=== PATIENT | female | born 1940 | race Caucasian/White ===

== ENCOUNTER 2016-07-01 06:58 | Day surgery (SDC) | payer MEDICARE, OTHER ==
[2016-06-27 09:20] VITALS: BMI 44.2
[~2016-07-01 06:58] MED LIST: LACTATED RINGERS 1,000 ML IV SCH
[2016-07-01 07:55] VITALS: TEMP 98.3
[2016-07-01] MEDS ORDERED: LIDOCAINE 1% 20 ML VIAL (10MG/ML) FOR IV START INTRADERMA ONE (08:11)
[2016-07-01] MEDS ORDERED: LACTATED RINGERS 1,000 ML IV ONE (08:11)
[2016-07-01 08:15] LABS: Glucose,Whole Blood 139 mg/dL (75-99)
[2016-07-01] MEDS ORDERED: fentaNYL (PF) 50 MCG/ML 2 ML AMP ONE (08:40)
[2016-07-01] MEDS ORDERED: TRIAMCINOLONE ACETONIDE 40 MG/ML 1 ML VIAL ONE (08:40)
[2016-07-01] MEDS ORDERED: BUPIVACAINE (PF) 0.5% 30 ML VIAL ONE (08:40)
[2016-07-01] MEDS ORDERED: MIDAZOLAM 2 MG/2 ML VIAL ONE (08:40)
--- NOTE | 2016-07-01 09:15 | P.PCN ---
Date of Procedure: 07/01/16 Procedure(s) Performed: PREOPERATIVE DIAGNOSIS: 1-Lumbar Spondylosis with Facet Arthropathy without myelopathy. 2- Lumber degenerative disc disease POSTOPERATIVE DIAGNOSIS: 1- Lumbar Spondylosis with Facet Arthropathy without myelopathy. 2- Lumber degenerative disc disease PROCEDURES : Right Radiofrequency thermocoagulation, L3-L4, L4-L5, and L5-S1 medial branch, with fluoroscopic guidance ANESTHESIA: IV sedation with versed 1 mg and fentaneyl 50 mcg and local infiltration with lidocaine 1% 6 ml EBL: Minimal PROCEDURE INDICATION: The patient with low back pain secondary to lumbar facet arthropathy who had more than 50% relief of her pain with previous diagnostic lumbar medial branch block with bupivacaine. PROCEDURE DESCRIPTION / TECHNIQUE: The patient was seen and identified in the preoperative area. Risks, benefits, complications, including but not limited to risk of infection ,bleeding , allergic reactions to the medications and no complete pain releife , and alternatives were discussed with the patient, the patient agreed to proceed with the procedure and signed the consent. IV was started. Vital signs remained stable throughout the procedure. Patient was taken to the OR and time out was completed. The patient was placed in the prone position on the procedure table. The lumber area was prepped and draped in the usual sterile fashion. . Vital signs were closely monitored during the procedure .IV sedation was used during the procedure to decrease patients anxiety. Using AP and then oblique fluoroscopy, the eye of the Pravin dog corresponding to the connection between the superior and transverse articular processes of right L3, L4, and L5 were identified, marked, and localized with 1 % lidocaine. Subsequently, a 18 [id number] radiofrequency cannula with a 10- mm active tip was advanced guided by fluoroscopy to each of the eyes of the Pravin dog at right L3, L4, and L5. Each site then underwent sensory testing at 50 Hz and 0 to 1 volt and motor testing at 2.5 Hz and 0 to 3 volt with local stimulation, but no radicular symptoms down the legs. Thereafter the right L3-4, L4-5, and L5-S1 sites underwent radiofrequency thermocoagulation at 80 degrees celsius for 90 seconds after injecting 0.5 ml of PF lidocaine 1%. then After the thermocoagulation done , 1 ml of the block solution containing Kenalog 40 mg and 3 ml of marain 0.5% was injected at the right L3- 4 , L4-5 , and L5-S1, levels after negative aspiration of CSF and blood and with no paresthesias. Cannulas were retracted while injecting lidocaine 1% until the needle is out. At the end of the procedure, the skin was cleansed and bandages were applied. COMPLICATIONS: No acute complications. DISPOSITION / PLANS: The patient was placed in a supine position and transferred to the recovery area in a stable condition for observation and was discharged from the recovery room after meeting discharge criteria. Home discharge instructions given to the patient by the staff. The patient was reexamined prior to discharge. The patient will schedule a follow up in the clinic in 2-4 weeks.
[2016-07-01] MEDS ORDERED: IV FLUID CONTINUATION 1,000 ML IV ONE (09:19)
--- NOTE | 2016-07-01 09:21 | FL ---
Fluoroscopy HISTORY: Pain 36 seconds fluoroscopy time supplied to the referring clinician. 4 intraoperative C-arm images docum ent the procedure. See dictated report from anesthesia.
[2016-07-01 09:24] VITALS: RESP 16
[2016-07-01 09:36] VITALS: BP 109/60; PULSE 55
== END 2016-07-01 09:58 | disposition home or self-care (01) ==
LOC: ORPAIN 06:58
PROVIDERS: ATTEND Specialist
DX: M47.816 Spondylosis without myelopathy or radiculopathy, lumbar region (principal); M51.16 Intervertebral disc disorders with radiculopathy, lumbar region; M46.96 Unspecified inflammatory spondylopathy, lumbar region; M48.06 Spinal stenosis, lumbar region; Z88.1 Allergy status to other antibiotic agents; Z88.2 Allergy status to sulfonamides
CPT/HCPCS: 64635; 64636; J2250; J3301; J3010

== ENCOUNTER 2016-08-10 15:12 | Emergency (ER) | payer MEDICARE, OTHER ==
[2016-08-10] MEDS ORDERED: DIPH,PERTUS(ACELL)TETVAC-LF 0.5 ML VIAL IM ONE (15:41)
--- NOTE | 2016-08-10 15:44 | ED ---
General Adult HPI - General Chief complaint: Fall Stated complaint: left arm injury/ Fell on Thursday Time Seen by Provider: 08/10/16 15:29 Source: patient, RN notes reviewed Mode of arrival: wheelchair Limitations: no limitations - History of Present Illness Initial comments: Patient is 76-year-old female who presents emergency room today with a chief complaint of a fall that occurred 2 days ago. She does admit that she was in her bathroom her knees gave out and she fell hitting the left forearm and also hit her head on the toilet. She states was no loss consciousness. EMS did come to the scene and dressed her left arm. States she's been having increased pain to the left arm. Denies any headache. Does admit that she is on a blood thinner of Eliqust that she takes for her heart. Patient states that his had increased pain to the left wrist hand worse with movements. Does admit to a skin tear to the right forearm. Unsure of tetanus status. Does admit to cough congestion over the last month. States she's been on 2 rounds of antibiotics. Please she just recently finished Levaquin. Denies any other complaints. Unaware of fever. Patient denies any recent fever, chills, shortness of breath, chest pain, back pain, abdominal pain, nausea or vomiting, numbness or tingling , dysuria or hematuria, constipation or diarrhea, headaches or visual changes, or any other complaints. - Related Data Home Medications Medication Instructions Recorded Confirmed Aspirin 81 mg PO DAILY 12/12/13 08/10/16 Atorvastatin [Lipitor] 40 mg PO HS 12/12/13 08/10/16 Cholecalciferol [Vitamin D3] 2,000 unit PO DAILY 12/12/13 08/10/16 Citalopram Hydrobromide 20 mg PO QAM 12/12/13 08/10/16 [Citalopram HBr] Diltiazem HCl [Diltiazem 24Hr ER] 180 mg PO AC-SUPPER 12/12/13 08/10/16 Docusate Sodium [Stool Softener] 100 mg PO DAILY PRN 12/12/13 08/10/16 Furosemide [Furosemide] 40 mg PO QAM 12/12/13 08/10/16 Glimepiride [Glimepiride] 2 mg PO BID 12/12/13 08/10/16 Oxybutynin Chloride [Ditropan] 5 mg PO BID 12/12/13 08/10/16 Potassium Chloride [Klor-Con 10] 10 meq PO QAM 12/12/13 08/10/16 buPROPion HCL [Bupropion HCl Sr] 100 mg PO BID 12/12/13 08/10/16 Levothyroxine Sodium [Synthroid] 137 mcg PO QAM 12/14/13 08/10/16 Fluticasone/Salmeterol [Advair 1 puff INHALATION RT-BID 01/10/14 08/10/16 250-50 Diskus] Cyanocobalamin [Vitamin B-12] 500 mcg PO DAILY 08/04/14 08/10/16 ALPRAZolam [Xanax] 0.5 mg PO DAILY PRN 03/12/15 08/10/16 Pentoxifylline [TRENtal] 400 mg PO TID 09/10/15 08/10/16 Albuterol Sulfate [Proair Hfa] 2 inhalation INHALATION RT-TID PRN 05/27/1608/10 Apixaban [Eliquis] 5 mg PO BID 05/27/16 08/10/16 Linaclotide [Linzess] 145 mcg PO DAILY 05/27/16 08/10/16 Omeprazole 20 mg PO DAILY 05/27/16 08/10/16 Ferrous Sulfate [Feosol] 325 mg PO DAILY 08/10/16 08/10/16 Loratadine [Claritin] 10 mg PO DAILY 08/10/16 08/10/16 oxyCODONE-APAP 7.5-325MG [Percocet 1 tab PO TID PRN 08/10/16 08/10/16 7.5-325 mg] Previous Rx's Medication Instructions Recorded Gabapentin [Neurontin] 400 mg PO TID #90 cap 03/20/16 Nitrofurantoin Monohyd/M-Cryst 100 mg PO Q12HR #14 cap 08/10/16 [Macrobid] Allergies Allergy/AdvReac Type Severity Reaction Status Date / Time ciprofloxacin HCl AdvReac Nausea Verified 08/10/16 15:54 [From Cipro] Sulfa (Sulfonamide AdvReac Nausea Verified 08/10/16 15:54 Antibiotics) Review of Systems ROS Statement: Those systems with pertinent positive or pertinent negative responses have been documented in the HPI. ROS Other: All systems not noted in ROS Statement are negative. Past Medical History Past Medical History: Asthma, Diabetes Mellitus, Hyperlipidemia, Hypertension, Renal Disease, Thyroid Disorder Additional Past Medical History / Comment(s): Hx renal failure,ulcerative colitis,peripheral edema History of Any Multi-Drug Resistant Organisms: None Reported Past Surgical History: Appendectomy, Hysterectomy, Orthopedic Surgery, Tubal Ligation Additional Past Surgical History / Comment(s): Foot surg., nasal surg., CHRISSY CATARACTS. Past Anesthesia/Blood Transfusion Reactions: No Reported Reaction Past Psychological History: Anxiety, Depression Smoking Status: Never smoker Past Alcohol Use History: None Reported Past Drug Use History: None Reported - Past Family History Father Family Medical History: Cancer Additional Family Medical History / Comment(s): LUNG CA General Exam - General Exam Comments Initial Comments: General: The patient is awake and alert, in no distress, and does not appear acutely ill. Eye: Pupils are equal, round and reactive to light, extra-ocular movements are intact. No nystagmus. There is normal conjunctiva bilaterally. No signs of icterus. Ears, nose, mouth and throat: There are moist mucous membranes and no oral lesions. Neck: The neck is supple, there is no tenderness or JVD. Cardiovascular: There is a regular rate and rhythm. No murmur, rub or gallop is appreciated. Respiratory: Lungs are clear to auscultation, respirations are non-labored, breath sounds are equal. No wheezes, stridor, rales, or rhonchi. Gastrointestinal: Soft, non-distended, non-tender abdomen without masses or organomegaly noted. There is no rebound or guarding present. No CVA tenderness. Bowel sounds are unremarkable. Musculoskeletal: Concerta the right forearm. No active bleeding. Normal appearance of the left forearm and wrist and hand with no obvious deformity. Shows limited range of motion with flexion and extension at the left wrist. Full range of motion of the left hand able to flex and extend digits. Sensations intact. Pulses equal bilaterally 2+. Patient does have tenderness to palpation over the first metacarpal into the both distal radius and ulna able to pronate and supinate. No tenderness to the left elbow or shoulder. Sensation intact. Pulses equal bilaterally 2+. Neurological: A&O x 3. CN II-XII intact, There are no obvious motor or sensory deficits. Coordination appears grossly intact. Speech is normal. Skin: Skin is warm and dry and no rashes or lesions are noted. Psychiatric: Cooperative, appropriate mood & affect, normal judgment. Limitations: no limitations Course Vital Signs 08/10/16 15:20 Temperature 101.0 F H Pulse Rate 84 Respiratory 22 Rate Blood Pressure 179/76 O2 Sat by Pulse 93 L Oximetry Medical Decision Making - Medical Decision Making Patient's x-rays reviewed shows no acute fracture dislocation. Chest x-ray negative for any sign of pneumonia. Has had cough congestion over the last month and several on rounds of antibiotics. This time advised mostly viral illness causing cough congestion. Patient's vitals are stable here in the past have a fever. Patient does have urinary tract infection will be started on Macrobid to cover for UTI. Patient was seen by attending physician Dr. Pacheco at bedside. Does have tenderness with movement of the left wrist. Has been splinted in a short arm volar OCL. Neurovascular rechecked and intact. Patient will be discharged home advised follow-up with both her family doctor and orthopedics. Advised return if any symptoms increase or worsen or for any other concerns. - Lab Data Lab Results 08/10/16 08/10/16 Range/Units 16:20 16:45 Urine Color Yellow Urine Appearance Cloudy H (Clear) Urine pH 6.0 (5.0-8.0) Ur Specific [place] 1.010 (1.001-1.035) Urine Protein Negative (Negative) Urine Glucose (UA) Negative (Negative) Urine Ketones Negative (Negative) Urine Blood Trace H (Negative) Urine Nitrate Negative (Negative) Urine Bilirubin Negative (Negative) Urine Urobilinogen <2.0 (<2.0) mg/dL Ur Leukocyte Esterase Large H (Negative) Urine RBC 3 (0-5) /hpf Urine WBC >182 H (0-5) /hpf Ur Squamous Epith Cells <1 (0-4) /hpf Urine Mucus Rare H (None) /hpf Influenza Type A RNA Not Detected (Not Detectd) Influenza Type B (PCR) Not Detected (Not Detectd) Disposition Clinical Impression: Fall, Wrist injury, Contusion, Skin tear, UTI (urinary tract infection) Disposition: HOME SELF-CARE Condition: Good Instructions: Wrist Injury (ED) Additional Instructions: Please follow-up with orthopedics for your wrist over the next 2 days. Please see splinted in place until follow-up appointment. Please continue to ice elevate the affected area. Please use antibiotic as prescribed for urinary tract infection. Please use Tylenol for any fevers. Please follow-up with the family doctor to have repeat urinalysis over the next week. Please return to emergency room for any other concerns. Prescriptions: Nitrofurantoin Monohyd/M-Cryst [Macrobid] 100 mg PO Q12HR #14 cap Referrals: Amira Washburn MD [Primary Care Provider] - 1-2 days Jin Ferrera MD [STAFF PHYSICIAN] - 1-2 days Time of Disposition: 17:20
--- NOTE | 2016-08-10 16:10 | CT ---
EXAMINATION TYPE: CT brain wo con DATE OF EXAM: 08/10/2016 4:03 PM COMPARISON: Previous study dated 11/17/2014 HISTORY: Fall 2 days ago. Injury to top of head. CT DLP: 1214.20 mGycm Automated exposure control for dose reduction was used. FINDINGS: There are generalized changes of sulcal prominence and ventriculomegaly, compatible with atrophic rae nge. There is diffuse periventricular white matter lucency, compatible with chronic white matter isch emic change. 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 There is no acute focal lesion, mass effect or midline shift identified. I do not see evidence of int racranial blood. There have been previous [place] Ethan procedures as well as ethmoidectomies bilaterally. There is dorene r complete opacification of the left sphenoid sinus, unchanged from previous. No depressed skull frac ture is seen. IMPRESSION: 1. NO ACUTE INTRACRANIAL ABNORMALITY. 2. ATROPHIC CHANGE. 3. CHRONIC WHITE MATTER ISCHEMIC CHANGE. 4. POSTSURGICAL CHANGE. 5. 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
--- NOTE | 2016-08-10 16:27 | XR ---
EXAMINATION TYPE: XR hand complete LT DATE OF EXAM ORDERED: 08/10/2016 4:10 PM HISTORY: Pain. COMPARISON: None. FINDINGS: There are generalized changes of osteopenia likely on the basis of osteoporosis. There are degenerative changes in the left second MCP joint. There are severe degenerative changes at the base of the thumb as well as the triscaphe joint. There is also significant joint space loss in the proxi mal carpal row with remodeling of the lunate. There is some hypertrophic change in the DIP joint of t he index finger. IMPRESSION: 1. NO ACUTE OSSEOUS LESION. 2. MODERATE DEGENERATIVE CHANGE.
--- NOTE | 2016-08-10 16:29 | XR ---
EXAMINATION TYPE: XR wrist complete LT DATE OF EXAM ORDERED: 08/10/2016 4:11 PM HISTORY: Pain. COMPARISON: None. FINDINGS: There is severe degenerative change at the base of the thumb at the articulation of the fi rst metacarpal with the trapezium. There are significant triscaphe joint disease. There is loss of th e intercarpal row. There is remodeling changes in the lunate. There is an ossific fragment adjacent t o the ulnar styloid. This appears well-corticated and may relate to a previous injury. Alternatively, this may root represent calcification within the triangular fibrocartilage. IMPRESSION: 1. NO ACUTE OSSEOUS LESION. 2. MODERATE DEGENERATIVE CHANGE.
--- NOTE | 2016-08-10 16:30 | XR ---
EXAMINATION TYPE: XR chest 2V DATE OF EXAM: 08/10/2016 4:11 PM HISTORY: cough. REFERENCE: Previous study dated 07/06/2013. FINDINGS: The lungs appear clear. Pleural spaces are clear. Heart size is upper limits of normal. The re is chronic appearing elevation of the right hemidiaphragm. IMPRESSION: NO ACUTE INTRATHORACIC ABNORMALITY.
[2016-08-10 16:55] LABS: Appearance,Urine Cloudy (Clear); Bilirubin,Urine Negative (Negative); Glucose,Urine (UA) Negative (Negative); Ketones,Urine Negative (Negative); Leukocyte Esterase,Urine Large (Negative); Mucus,Urine Rare /hpf; Nitrite,Urine Negative (Negative); Particle Count 6115; Protein,Urine Negative (Negative); RBC,Urine 3 /hpf (0-5); Squamous Epithelial Cell,Urine <1 /hpf (0-4); UA Billing (MACRO vs. MICRO) MICRO; Urobilinogen,Urine <2.0 mg/dL (<2.0); WBC,Urine >182 /hpf (0-5)
[2016-08-10 17:41] VITALS: BP 136/61; PULSE 97; RESP 18; TEMP 100.3
== END 2016-08-10 17:41 | disposition home or self-care (01) ==
LOC: EC 15:12
DX: S56.912A Strain of unspecified muscles, fascia and tendons at forearm level, left arm, initial encounter (principal); S69.92XA Unspecified injury of left wrist, hand and finger(s), initial encounter; N39.0 Urinary tract infection, site not specified; J45.909 Unspecified asthma, uncomplicated; E11.9 Type 2 diabetes mellitus without complications; I10 Essential (primary) hypertension; E78.5 Hyperlipidemia, unspecified; E07.9 Disorder of thyroid, unspecified; F41.9 Anxiety disorder, unspecified; F32.9 Major depressive disorder, single episode, unspecified; Z23 Encounter for immunization; Z79.82 Long term (current) use of aspirin; Z79.51 Long term (current) use of inhaled steroids; Z79.52 Long term (current) use of systemic steroids; Z79.899 Other long term (current) drug therapy; Z79.01 Long term (current) use of anticoagulants; Z88.1 Allergy status to other antibiotic agents; Z88.2 Allergy status to sulfonamides; Z87.448 Personal history of other diseases of urinary system; W01.198A Fall on same level from slipping, tripping and stumbling with subsequent striking against other object, initial encounter; Y92.89 Other specified places as the place of occurrence of the external cause
CPT/HCPCS: 70450; 71020; 81001; 87077; 87086; 87186; 87502; 90471; 90715; 99284

== ENCOUNTER → 2016-08-27 | Outpatient (CLI) | payer MEDICARE, OTHER ==
[2016-08-27 13:39] VITALS: BP 123/75; PULSE 71; RESP 18
--- NOTE | 2016-08-27 14:03 | P.PN ---
Subjective This is follow-up visit for this patient with a history of severe and chronic low back pain secondary to lumbar degenerative disc disease lumbar facet arthropathy, we have done interventional pain management injection, radiofrequency ablation, medial branch lumbar area And she is currently on 1-Neurontin 400 mg every 8 hours 2- 67.5/325 every 6 hours Tissue and fell at home recently and she had left wrist fracture, and currently she had a cast on her left wrist Patient denies any side effects of the medication, denies excessive drowsiness or sleepiness, denies suicidal ideation, and reports that the current pain medication is helping To control the pain and improve activity of daily living Physical Examinations : 1-Constitutiona : Cooperative , not in acute distress . 2-HEENT : nech ; supple , no Lymphadenopathy , no Thyromegaly , normal thyroid size . eyes : no ptosis , no icterus, no photophobia . ENT : normal of hearing , normal oropharynx , no Thrush . 3- Respiratory : Chest clear to auscultations Bilaterally , no wheezing , no Rhonchi . 4- Cardiovascular : regular rate and rhythem , S1 , S2 , no S3 , no S4. 5- Gastrointestinal : abdomen soft no tenderness , bowel sounds positive all four quadrents , no organomegally . 6- Genitourinary : Defferred . 7- neurologic : Cranial nerve II to XII intact , no focal neurological deffecit . 8-psychatric : alert , oriented X 3 , appropriate affect , intact judgment and insight . 9-Lymphatic : no Lymphadenopathy . 10- musculoskeltal : Test over the left wrist exams of the Lumber spine = motor strength lower extremities ,thigh and legs .4/5 deep tendon reflexes : normal Knee Jerk , normal ankle Jerk . lumber facet Loading Test positive Assessment and plan = - Chronic low back pain secondary to lumbar degenerative disc disease , lumbar spondylosis with facet arthropathy without myelopathy , - chronic and current use of high-risk medication (Opioids). The patient was counseled about risk of opioid use, psychological risk associated with opioids and was orally counseled to not overuse , divert,or sell dictations to take medications as prescribed only , and to restore medication in safe location , and the patient counseled against driving while using narcotic medications, and also not to use alcohol or any illicit recreational drugs, the patient's verbalized understanding that the lack of compliance will result in failure to renew narcotic prescription and possible discharge from the clinic - diagnoses, prognosis, and treatment options including but not limited to physical therapy, surgical interventions, interventional therapies , and medication management including narcotics and adjuvant medication were discussed with the patient and all The questions answered -medication management = refill Percocet 7.5/325 every 6 hours when necessary dispense 90 with 1 refill Referring Neurontin 400 mg every 8 hours dispense 90 with 1 refill Follow-up in 2 months -procedure=none Objective - Vital Signs Vital signs: Vital Signs Temp Pulse 71 08/27/16 13:32 Resp 18 08/27/16 13:32 BP 123/75 08/27/16 13:32 Pulse Ox 97 08/27/16 13:32 Intake & Output 08/26/16 08/27/16 08/27/16 18:59 06:59 18:59 Weight 115.666 kg
== END ==
LOC: PNWHC3 12:20
PROVIDERS: ATTEND Specialist
DX: M51.36 Other intervertebral disc degeneration, lumbar region (principal); M47.816 Spondylosis without myelopathy or radiculopathy, lumbar region; M46.86 Other specified inflammatory spondylopathies, lumbar region; G89.29 Other chronic pain; Z79.891 Long term (current) use of opiate analgesic
CPT/HCPCS: 99211

== ENCOUNTER → 2016-10-22 | Outpatient (CLI) | payer MEDICARE, OTHER ==
[2016-10-22 15:12] VITALS: BP 146/76; PULSE 69; RESP 16
--- NOTE | 2016-10-22 20:19 | P.PN ---
Subjective This is follow-up visit for this patient with a history of severe and chronic low back pain secondary to lumbar degenerative disc diseases , lumbar spondylosis with facet arthropathy, we have done interventional pain management injection,, diagnostic medial branch block , RFA of the medial branches and is currently on pain medications 1-Neurontin 400 mg 3 times a day 2-Percocet 7.5/325 every 6 hours Patient denies any side effects of the medication, denies excessive drowsiness or sleepiness, denies suicidal ideation, and reports that the current pain medication is helping To control the pain and improve activity of daily living Patient denies any motor or sensory deficit , patient denies any fever or night sweats, denies any change in the bowel movements or urination Physical Examinations : 1-Constitutiona : Cooperative , not in acute distress . 2-HEENT : nech ; supple , no Lymphadenopathy , no Thyromegaly , normal thyroid size . eyes : no ptosis , no icterus, no photophobia . ENT : normal of hearing , normal oropharynx , no Thrush . 3- Respiratory : Chest clear to auscultations Bilaterally , no wheezing , no Rhonchi . 4- Cardiovascular : regular rate and rhythem , S1 , S2 , no S3 , no S4. 5- Gastrointestinal : abdomen soft no tenderness , bowel sounds positive all four quadrents , no organomegally . 6- Genitourinary : Defferred . 7- neurologic : Cranial nerve II to XII intact , no focal neurological deffecit . 8-psychatric : alert , oriented X 3 , appropriate affect , intact judgment and insight . 9-musculoskeletal= lower extremity weakness or motor strength decreased to 3 -4/5 bilaterally Assessment and plan = - Chronic low back pain secondary to lumbar degenerative disc disease , lumbar spondylosis with facet arthropathy without myelopathy , - chronic and current use of high-risk medication (Opioids). The patient was counseled about risk of opioid use, psychological risk associated with opioids and was orally counseled to not overuse , divert,or sell dictations to take medications as prescribed only , and to restore medication in safe location , and the patient counseled against driving while using narcotic medications, and also not to use alcohol or any illicit recreational drugs, the patient's verbalized understanding that the lack of compliance will result in failure to renew narcotic prescription and possible discharge from the clinic - diagnoses, prognosis, and treatment options including but not limited to physical therapy, surgical interventions, interventional therapies , Patient given prescription refill for Percocet 7.5/325 every 6 hours dispense 90 with 1 refill, Neurontin 400 mg 3 times a day dispense 90 with 1 refill Patient given a referral to physical therapy, to help improve her ability to ambulate and function, the patient will follow up with the pain clinic in 2 months Objective - Vital Signs Vital signs: Vital Signs Temp Pulse 69 10/22/16 15:03 Resp 16 10/22/16 15:03 BP 146/76 10/22/16 15:03 Pulse Ox 94 L 10/22/16 15:03 Intake & Output 10/22/16 10/22/16 10/23/16 06:59 18:59 06:59 Weight 115.212 kg
== END ==
LOC: PNWHC3 14:29
PROVIDERS: ATTEND Specialist
DX: M51.36 Other intervertebral disc degeneration, lumbar region (principal); M47.816 Spondylosis without myelopathy or radiculopathy, lumbar region; M46.86 Other specified inflammatory spondylopathies, lumbar region; G89.29 Other chronic pain; Z87.891 Personal history of nicotine dependence
CPT/HCPCS: 99211

== ENCOUNTER → 2016-12-17 | Outpatient (CLI) | payer MEDICARE, OTHER ==
[2016-12-17 14:01] VITALS: BP 139/74; PULSE 73; RESP 20; TEMP 98.4
--- NOTE | 2016-12-17 14:40 | P.PN ---
Progress Note - Text Patient returns for followup for chronic back pain with radiation to both legs. Patient recently underwent R lumbar RFA in July, which has provided some relief since procedure but the left side of her low back is starting to give her problems. Patient continues on Percocet and Neurontin medications for pain with good relief. Patient denies adverse drug effects from medications. Today , pt denies new-onset weakness, bowel/bladder incontinence, or any other signs or symptoms of cauda equina syndrome. There are no signs of acute intoxication, and no indications of medication diversion or overuse. In addition to above, 13-point review of systems is also negative for chest pain , shortness of breath, changes in vision, changes in hearing, new onset weakness , abdominal pain, diarrhea, extreme fatigue, malaise, fever, skin changes, homicidal or suicidal ideation, or bowel or bladder incontinence. Vital Signs: Reviewed in EMR Gen: WDWN, AAOx3, NAD HEENT: NCAT, EOMI, hearing grossly normal Pulm: resp unlabored Abd: soft, NT, ND Neck: supple, trachea midline ROM in flexion lumbar spine: reduced ROM in extension lumbar spine: reduced Lumbar paravertebral tenderness: + Facet loading: + bilateral, L > R SI joint tenderness: + L side > R Jerzy's test: + L > R Straight leg raise: neg bilateral Neuro: CN II-XII grossly intact, muscle strength lower extremities PRESERVED Imaging: Reviewed in EMR Assessment: 1. lumbar spondylosis without myelopathy 2. sacroiliac joint dysfunction 3. chronic pain syndrome Plan: 1. Explanation: Opioid and psychological risk scores were reviewed. Diagnoses , prognoses, and multiple treatment options including but not limited to physical therapy, interventional therapies, adjuvant medical therapies, narcotic medication therapies, and surgery were discussed with the patient and all questions were answered to the patient's satisfaction. 2. Opioid agreement: Patient has previously signed narcotic agreement, and was orally counseled to not overuse, abuse, divert, or cell medications, and to take them as prescribed by only 1 healthcare provider. The patient was also counseled to store opioid medications in a safe and preferably locked location. Patient was also counseled against driving or operating heavy equipment while using narcotic medications and also to not use alcohol or any illicit or recreational drugs. The patient verbalized understanding that lack of compliance with any of the above and likely result in failure to renew narcotic prescriptions, possible discharge from the clinic, and possible legal ramifications thereafter if indicated. 3. Counseling: The patient was counseled extensively on BODY MASS INDEX, EXERCISE. Specifically, the patient was instructed regarding the importance of smoking cessation, obesity, and exercise in the context of both chronic pain and overall health. 4. Procedures: left lumbar RFA 5. Consultations: None 6. Investigations: UDS today 7. Medications: Percocet 7.5/325 #90 with one refill, Neurontin 400 TID refilled x 3 months 8. Disposition: f/u for procedure as scheduled PQRS measures: 1-Patient's medications are documented in the chart. 2-Tobacco use is negative 3-Patient has not had a pneumococcal vaccine. 4-Advanced care planning discussed, patient unable to give. 5-Opioid contract signed with the patient previously. 6-Pain positive, follow-up visit or procedure scheduled 7-Patient's blood pressure measured and documented, and patient will follow up with the primary care due to hypertension. 8-Patient's weight was measured, and body mass index ABOVE the normal limits, and counseling was done. Patient instructed to follow up with PCP. 9-Patient WAS NOT identified as an unhealthy alcohol user.
== END ==
LOC: PNWHC3 12:43
DX: M47.816 Spondylosis without myelopathy or radiculopathy, lumbar region (principal); M53.3 Sacrococcygeal disorders, not elsewhere classified; Z79.891 Long term (current) use of opiate analgesic; Z79.899 Other long term (current) drug therapy
CPT/HCPCS: G0480; G0463; 80307; 80346; 80356; 80364; 99211

== ENCOUNTER → 2016-12-18 | Outpatient (CLI) | payer MEDICARE, OTHER ==
--- NOTE | 2016-12-22 07:20 | MM ---
Reason for exam: screening (asymptomatic). Last mammogram was performed 1 year ago. History: Patient is postmenopausal. Physical Findings: A clinical breast exam by your physician is recommended on an annual basis and results should be correlated with mammographic findings. MG 3D Screening Mammo W/Cad Bilateral CC, MLO, and XCCL view(s) were taken. Prior study comparison: December 18, 2015, bilateral MG screening mammo w CAD. November 27, 2014, bilateral MG screening mammo w CAD. November 18, 2013, bilateral MG screening mammo w CAD. There are scattered fibroglandular densities. No significant changes when compared with prior studies. ASSESSMENT: Negative, BI-RAD 1 RECOMMENDATION: Routine screening mammogram of both breasts in 1 year.
== END | disposition home or self-care (01) ==
LOC: RADMAMWWP 13:16
PROVIDERS: ATTEND Family Medicine
DX: Z12.31 Encounter for screening mammogram for malignant neoplasm of breast (principal)
CPT/HCPCS: 77063; G0202

== ENCOUNTER → 2017-02-11 | Outpatient (CLI) | payer MEDICARE, OTHER ==
[2017-02-11 13:43] VITALS: BP 134/61; PULSE 70; RESP 16; TEMP 98.2
--- NOTE | 2017-02-11 14:21 | P.PN ---
Progress Note - Text This is a 76-year-old female with lower back pain due to lumbar spondylosis and limited peripheral neuropathy. The patient had good early for her pain after lumbar medial branch RFA in June however her insurance does not approve another RFA until May of this year. Meanwhile she takes Percocet and Neurontin 3 times a day for her pain. The patient is morbidly obese and because of her increasing lower back pain she uses a lift chair at home and she wants me to write prescription for that. Today I will give her prescription for 2 months of Percocet and Neurontin and we will see her then for reevaluation.
== END | disposition home or self-care (01) ==
LOC: PNWHC3 12:50
PROVIDERS: ATTEND Anesthesiology
DX: M54.5 Low back pain (principal); M47.816 Spondylosis without myelopathy or radiculopathy, lumbar region; G62.9 Polyneuropathy, unspecified; E66.01 Morbid (severe) obesity due to excess calories; Z79.899 Other long term (current) drug therapy
CPT/HCPCS: 99211

== ENCOUNTER 2017-07-14 07:06 | Day surgery (SDC) | payer MEDICARE, OTHER ==
[2017-07-07 13:22] VITALS: BMI 44.2
[2017-07-14 08:00] VITALS: TEMP 97.2
[2017-07-14] MEDS ORDERED: LIDOCAINE 1% 20 ML VIAL (10MG/ML) FOR IV START INTRADERMA ONE (08:00)
[2017-07-14 08:15] LABS: Glucose,Whole Blood 118 mg/dL (75-99)
--- NOTE | 2017-07-14 08:47 | P.PCN ---
Date of Procedure: 07/14/17 Surgeon: Clement Hester Pathology: none sent Condition: stable Disposition: PACU Description of Procedure: PREOPERATIVE DIAGNOSIS: Lumbar spondylosis without myelopathy, morbid obesity POSTOPERATIVE DIAGNOSIS: Lumbar spondylosis without myelopathy,morbid obesity PROCEDURES : Radiofrequency thermocoagulation, of left L2-4, L3-L4, L4-L5, and L5-S1 medial branch, with fluoroscopic guidance ANESTHESIA: IV moderate conscious sedation with versed and fentanyl and local infiltration with lidocaine 1% 5 ml EBL: Minimal PROCEDURE INDICATION: The patient with low back pain secondary to lumbar facet arthropathy who had more than 50% relief of her pain with previous diagnostic lumbar medial branch block with bupivacaine. PROCEDURE DESCRIPTION / TECHNIQUE: The patient was seen and identified in the preoperative area. Risks, benefits, complications, including but not limited to risk of infection ,bleeding , allergic reactions to the medications and no complete pain relief , and alternatives were discussed with the patient, the patient agreed to proceed with the procedure and signed the consent. IV was started. Vital signs remained stable throughout the procedure. Patient was taken to the OR and time out was completed. The patient was placed in the prone position on the procedure table. The lumber area was prepped and draped in the usual sterile fashion. . Vital signs were closely monitored during the procedure .IV sedation was used during the procedure to decrease patients anxiety. The target points were identified as follows: For the left L5-S1 level which corresponds to the dorsal ramus of L5 the target point was at the superior medial aspect of the sacral ala on the leftside of the spine on the AP view of fluoroscopy and for the L2, L3, and L4 medial branches the target points were at the connection between the transverse process and the superior articular process of L3, L4, and L5 vertebra respectively on the left oblique view of fluoroscopy. skin was marked, and localized with 1% lidocaineat these points. Subsequently, an 18 [id number] radiofrequency needles with a 10-mm curved active tips were advanced guided by fluoroscopy to each of the target points mentioned above in a superior medial direction to get the active tips as parallel as possible to the medial branches tracks. AP, oblique, and lateral views of fluoroscopy were used to verify needle tips position. Each level then underwent motor testing at 2.5 Hz and 0 to 3 volt with local stimulation, but no radicular symptoms down the legs. Thereafter radiofrequency thermocoagulation at 80 degrees celsius for 90 seconds after injecting 1 ml of PF Marcaine 0.5%(3 mls) with 20 mg of Kenalog. At the end of the procedure, the skin was cleansed and bandages were applied. COMPLICATIONS: No acute complications. DISPOSITION / PLANS: The patient was placed in a supine position and transferred to the recovery area in a stable condition for observation and was discharged from the recovery room after meeting discharge criteria. Home discharge instructions given to the patient by the staff. The patient was reexamined prior to discharge. The patient will schedule a follow up in the clinic in 2-4 weeks.
[2017-07-14] MEDS ORDERED: IV FLUID CONTINUATION 1,000 ML IV ONE (08:57)
[2017-07-14 09:02] VITALS: RESP 16
[2017-07-14 09:15] VITALS: BP 150/84; PULSE 56
--- NOTE | 2017-07-14 11:38 | FL ---
EXAMINATION TYPE: FL guided pain mgmt statistic DATE OF EXAM: 07/14/2017 HISTORY: Flouroscopy time 27 seconds of fluoroscopy provided. IMPRESSION: 1. Fluoroscopy time.
== END 2017-07-14 09:50 | disposition home or self-care (01) ==
LOC: ORPAIN 07:06
PROVIDERS: ATTEND Anesthesiology
DX: M47.816 Spondylosis without myelopathy or radiculopathy, lumbar region (principal); E66.01 Morbid (severe) obesity due to excess calories; I25.10 Atherosclerotic heart disease of native coronary artery without angina pectoris; E11.9 Type 2 diabetes mellitus without complications; Z88.1 Allergy status to other antibiotic agents; Z88.2 Allergy status to sulfonamides; Z68.41 Body mass index [BMI] 40.0-44.9, adult
CPT/HCPCS: 64635; 64636 ×3; J2250; J3301; J3010; 99152; 99153

== ENCOUNTER → 2017-07-14 | Outpatient (CLI) | payer MEDICARE, OTHER ==
--- NOTE | 2017-07-15 10:23 | P.ARTDOP ---
Arterial Doppler LOWER EXTREMITY ARTERIAL DOPPLER: DATE OF SERVICE: 07/14/2017 Reason for study: Bilateral leg pain. Doppler waveforms: Multiphasic bilaterally throughout. Pulse volume recording: Normal configuration. Pressure gradients: None. Ankle-brachial indices: 1.09 on the right and 1.01 on the left. Toe pressures: 113 on the right, 127 on the left Impression: Normal study.
== END | disposition home or self-care (01) ==
LOC: RADUSWWP 09:54
PROVIDERS: ATTEND Family Medicine
DX: I73.9 Peripheral vascular disease, unspecified (principal)
CPT/HCPCS: 93923

== ENCOUNTER 2017-07-28 15:36 | Emergency (ER) | payer MEDICARE, OTHER ==
[2017-07-28] MEDS ORDERED: SODIUM CHLORIDE 0.9% 500 ML IV STA (16:01)
[2017-07-28] MEDS ORDERED: MAG HYDROX/AL HYDROX/SIMETH 30 ML, HYOSCYAMINE ELIXIR 10 ML, CIMETIDINE HCL 300 MG, LID... PO STA ×4 (16:02)
--- NOTE | 2017-07-28 16:06 | ED ---
General Adult HPI - General Chief complaint: Abdominal Pain Stated complaint: Diarrhea/vomiting Time Seen by Provider: 07/28/17 16:00 Source: patient, RN notes reviewed Mode of arrival: EMS Limitations: no limitations - History of Present Illness Initial comments: This is a 77-year-old female presents emergency Department complaining of abdominal distention which is been ongoing for about 4 days. Patient also complains that she's very nauseated but hasn't vomited. Patient states she does have diarrhea but that was after she took some medication a gave her diarrhea. Patient also complains of increased heartburn. Patient denies any chest pain palpitations difficulty breathing shortness of breath. Patient denies headache patient denies any numbness or weakness. Patient denies any recent fever chills or cough. Patient denies any calf pain or increased leg edema. Patient stated the other reason she is here today because she has found herself to be much weaker today than normal. Patient states she's had no appendectomy and a hysterectomy but still has her gallbladder. - Related Data Home Medications Medication Instructions Recorded Confirmed Aspirin 81 mg PO DAILY 12/12/13 07/28/17 Atorvastatin [Lipitor] 40 mg PO W/SUPPER 12/12/13 07/28/17 Cholecalciferol [Vitamin D3] 2,000 unit PO DAILY 12/12/13 07/28/17 Diltiazem HCl [Diltiazem 24Hr ER] 180 mg PO PC-SUPPER 12/12/13 07/28/17 Docusate Sodium [Stool Softener] 100 mg PO BID PRN 12/12/13 07/28/17 Furosemide [Furosemide] 40 mg PO DAILY 12/12/13 07/28/17 Glimepiride [Glimepiride] 2 mg PO AC-SUPPER 12/12/13 07/28/17 Oxybutynin Chloride [Ditropan] 5 mg PO BID 12/12/13 07/28/17 Potassium Chloride [Klor-Con 10] 10 meq PO DAILY 12/12/13 07/28/17 Cyanocobalamin [Vitamin B-12] 500 mcg PO DAILY 08/04/14 07/28/17 ALPRAZolam [Xanax] 0.5 mg PO TID PRN 03/12/15 07/28/17 Pentoxifylline [TRENtal] 400 mg PO TID 09/10/15 07/28/17 Albuterol Sulfate [Proair Hfa] 2 inhalation INHALATION RT-TID PRN 05/27/1607/28 Apixaban [Eliquis] 5 mg PO BID 05/27/16 07/28/17 Linaclotide [Linzess] 145 mcg PO DAILY 05/27/16 07/28/17 Omeprazole 20 mg PO DAILY 05/27/16 07/28/17 Ferrous Sulfate [Feosol] 325 mg PO DAILY 08/10/16 07/28/17 Albuterol Inhaler [Ventolin Hfa 1 - 2 puff INHALATION RT-Q4H PRN 05/14/17 Inhaler] Fluticasone Nasal [place] [Flonase 2 spr EA NOSTRIL DAILY PRN 05/14/17 07/28/17 Nasal [place]] Fluticasone/Salmeterol [Advair 1 inhalation PO RT-BID 05/14/17 07/28/17 250-50 Diskus] Glimepiride [Amaryl] 3 mg PO AC-BRKFST 05/14/17 07/28/17 Nystatin 100,000 Unit/gm Powd 1 applic TOPICAL BID 05/14/17 07/28/17 [Mycostatin Powder] oxyCODONE-APAP 7.5-325MG [Percocet 1 tab PO Q8HR PRN 05/14/17 07/28/17 7.5-325 mg] traZODone HCL 50 mg PO HS 05/14/17 07/28/17 Levothyroxine Sodium [Synthroid] 150 mcg PO DAILY 07/28/17 07/28/17 Loperamide [Imodium] 2 mg PO QID PRN 07/28/17 07/28/17 Previous Rx's Medication Instructions Recorded Gabapentin [Neurontin] 400 mg PO TID #90 cap 04/08/17 Allergies Allergy/AdvReac Type Severity Reaction Status Date / Time ciprofloxacin HCl AdvReac Nausea Verified 07/28/17 16:38 [From Cipro] Sulfa (Sulfonamide AdvReac Nausea Verified 07/28/17 16:38 Antibiotics) Review of Systems ROS Statement: Those systems with pertinent positive or pertinent negative responses have been documented in the HPI. ROS Other: All systems not noted in ROS Statement are negative. Past Medical History Past Medical History: Asthma, Diabetes Mellitus, Hyperlipidemia, Hypertension, Osteoarthritis (OA), Renal Disease, Thyroid Disorder Additional Past Medical History / Comment(s): Hx renal failure,ulcerative colitis,peripheral edema, left wrist fracture, Fx to left wrist RT fall at home , neuropathy legs & feet., hx of falls- states legs give out from neuropathy., uses walker. History of Any Multi-Drug Resistant Organisms: MRSA Date of last positivie culture/infection: 08/10/16 MDRO Source:: Urine Past Surgical History: Appendectomy, Hysterectomy, Orthopedic Surgery, Tubal Ligation Additional Past Surgical History / Comment(s): Foot surg., nasal surg., CHRISSY CATARACTS., pain clinic procedures, hammer toe surgery. Past Anesthesia/Blood Transfusion Reactions: No Reported Reaction Past Psychological History: Anxiety, Depression Smoking Status: Never smoker Past Alcohol Use History: None Reported Past Drug Use History: None Reported - Past Family History Father Family Medical History: Cancer, Deep Vein Thrombosis (DVT) Additional Family Medical History / Comment(s): LUNG CA General Exam - General Exam Comments Initial Comments: GENERAL: Patient is well-developed and well-nourished. Patient is nontoxic and well- hydrated and is in mild distress. ENT: Neck is soft and supple. No significant lymphadenopathy is noted. Oropharynx is clear. Moist mucous membranes. Neck has full range of motion without eliciting any pain. EYES: The sclera were anicteric and conjunctiva were pink and moist. Extraocular movements were intact and pupils were equal round and reactive to light. Eyelids were unremarkable. PULMONARY: Unlabored respirations. Good breath sounds bilaterally. No audible rales rhonchi or wheezing was noted. CARDIOVASCULAR: There is a regular rate and rhythm without any murmurs gallops or rubs. ABDOMEN: Patient has some abdominal pain on the right side as well as the left lower side. Patient has minimal tenderness in the epigastric region. There is no rebound or guarding SKIN: Skin is clear with no lesions or rashes and otherwise unremarkable. NEUROLOGIC: Patient is alert and oriented x3. Cranial nerves II through XII are grossly intact. Motor and sensory are also intact. Normal speech, volume and content. Symmetrical smile. MUSCULOSKELETAL: Normal extremities with adequate strength and full range of motion. LYMPHATICS: No significant lymphadenopathy is noted PSYCHIATRIC: Normal psychiatric evaluation. Normal interpersonal interactions appears functionally intact in deals appropriately with others. No signs of depression. No signs of anxiety. Limitations: no limitations Course Vital Signs 07/28/17 07/28/17 15:39 19:06 Temperature 98.4 F 97.8 F Pulse Rate 79 81 Respiratory 19 18 Rate Blood Pressure 178/77 170/97 O2 Sat by Pulse 94 L 93 L Oximetry Medical Decision Making - Medical Decision Making Computed tomography scan of the abdomen and pelvis showed no acute abnormality. I will begin to reevaluate the patient she stated she felt much better she got up and ambulate around and was requesting to go home at this time. - Lab Data Result diagrams: 07/28/17 15:34 07/28/17 15:34 Lab Results 07/28/17 07/28/17 07/28/17 Range/Units 15:34 15:34 15:34 WBC (3.8-10.6) k/uL RBC (3.80-5.40) m/uL Hgb (11.4-16.0) gm/dL Hct (34.0-46.0) % MCV (80.0-100.0) fL MCH (25.0-35.0) pg MCHC (31.0-37.0) g/dL RDW (11.5-15.5) % Plt Count (150-450) k/uL Neutrophils % % Lymphocytes % % Monocytes % % Eosinophils % % Basophils % % Neutrophils # (1.3-7.7) k/uL Lymphocytes # (1.0-4.8) k/uL Monocytes # (0-1.0) k/uL Eosinophils # (0-0.7) k/uL Basophils # (0-0.2) k/uL PT (9.0-12.0) sec INR (<1.2) APTT (22.0-30.0) sec Sodium 139 (137-145) mmol/L Potassium 4.2 (3.5-5.1) mmol/L Chloride 100 (98-107) mmol/L Carbon Dioxide 29 (22-30) mmol/L Anion Gap 10 mmol/L BUN 21 H (7-17) mg/dL Creatinine 1.00 (0.52-1.04) mg/dL Est GFR (MDRD) Af Amer >60 (>60 ml/min/1.73 sqM) Est GFR (MDRD) Non-Af 54 (>60 ml/min/1.73 sqM) Glucose 109 H (74-99) mg/dL Plasma Lactic Acid Demond 0.7 (0.7-2.0) mmol/L Calcium 9.8 (8.4-10.2) mg/dL Magnesium 2.1 (1.6-2.3) mg/dL Total Bilirubin 0.5 (0.2-1.3) mg/dL AST 19 (14-36) U/L ALT 16 (9-52) U/L Alkaline Phosphatase 98 (38-126) U/L Total Creatine Kinase 86 (30-135) U/L CK-MB (CK-2) 1.6 (0.0-2.4) ng/mL CK-MB (CK-2) Rel Index 1.9 Troponin I <0.012 (0.000-0.034) ng/mL Total Protein 6.8 (6.3-8.2) g/dL Albumin 3.8 (3.5-5.0) g/dL Amylase 33 (30-110) U/L Lipase 43 (23-300) U/L Urine Color Urine Appearance (Clear) Urine pH (5.0-8.0) Ur Specific [place] (1.001-1.035) Urine Protein (Negative) Urine Glucose (UA) (Negative) Urine Ketones (Negative) Urine Blood (Negative) Urine Nitrite (Negative) Urine Bilirubin (Negative) Urine Urobilinogen (<2.0) mg/dL Ur Leukocyte Esterase (Negative) Urine WBC (0-5) /hpf Ur Squamous Epith Cells (0-4) /hpf Urine Bacteria (None) /hpf 07/28/17 07/28/17 07/28/17 Range/Units 15:34 15:34 16:31 WBC 9.9 (3.8-10.6) k/uL RBC 4.23 (3.80-5.40) m/uL Hgb 13.1 (11.4-16.0) gm/dL Hct 40.0 (34.0-46.0) % MCV 94.6 (80.0-100.0) fL MCH 31.1 (25.0-35.0) pg MCHC 32.9 (31.0-37.0) g/dL RDW 12.9 (11.5-15.5) % Plt Count 227 (150-450) k/uL Neutrophils % 75 % Lymphocytes % 17 % Monocytes % 5 % Eosinophils % 1 % Basophils % 0 % Neutrophils # 7.5 (1.3-7.7) k/uL Lymphocytes # 1.7 (1.0-4.8) k/uL Monocytes # 0.5 (0-1.0) k/uL Eosinophils # 0.1 (0-0.7) k/uL Basophils # 0.0 (0-0.2) k/uL PT 10.8 (9.0-12.0) sec INR 1.1 (<1.2) APTT 29.2 (22.0-30.0) sec Sodium (137-145) mmol/L Potassium (3.5-5.1) mmol/L Chloride (98-107) mmol/L Carbon Dioxide (22-30) mmol/L Anion Gap mmol/L BUN (7-17) mg/dL Creatinine (0.52-1.04) mg/dL Est GFR (MDRD) Af Amer (>60 ml/min/1.73 sqM) Est GFR (MDRD) Non-Af (>60 ml/min/1.73 sqM) Glucose (74-99) mg/dL Plasma Lactic Acid Demond (0.7-2.0) mmol/L Calcium (8.4-10.2) mg/dL Magnesium (1.6-2.3) mg/dL Total Bilirubin (0.2-1.3) mg/dL AST (14-36) U/L ALT (9-52) U/L Alkaline Phosphatase (38-126) U/L Total Creatine Kinase (30-135) U/L CK-MB (CK-2) (0.0-2.4) ng/mL CK-MB (CK-2) Rel Index Troponin I (0.000-0.034) ng/mL Total Protein (6.3-8.2) g/dL Albumin (3.5-5.0) g/dL Amylase (30-110) U/L Lipase (23-300) U/L Urine Color Light Yellow Urine Appearance Cloudy H (Clear) Urine pH 7.0 (5.0-8.0) Ur Specific [place] 1.005 (1.001-1.035) Urine Protein Negative (Negative) Urine Glucose (UA) Negative (Negative) Urine Ketones Negative (Negative) Urine Blood Negative (Negative) Urine Nitrite Negative (Negative) Urine Bilirubin Negative (Negative) Urine Urobilinogen <2.0 (<2.0) mg/dL Ur Leukocyte Esterase Moderate H (Negative) Urine WBC 9 H (0-5) /hpf Ur Squamous Epith Cells <1 (0-4) /hpf Urine Bacteria Occasional H (None) /hpf Disposition Clinical Impression: Gastroenteritis Disposition: HOME SELF-CARE Condition: Good Instructions: Gastroenteritis (ED) Referrals: Amira Washburn MD [Primary Care Provider] - 1-2 days Time of Disposition: 19:08
[2017-07-28 16:20] LABS: Basophils % (A) 0 %; Eosinophils # (A) 0.1 k/uL (0-0.7); Eosinophils % (A) 1 %; HGB 13.1 gm/dL (11.4-16.0); Lymphocytes # (A) 1.7 k/uL (1.0-4.8); Lymphocytes % (A) 17 %; MCH 31.1 pg (25.0-35.0); MCHC 32.9 g/dL (31.0-37.0); MCV 94.6 fL (80.0-100.0); Mean Platelet Volume 6.3; Monocytes # (A) 0.5 k/uL (0-1.0); Monocytes % (A) 5 %; Neutrophils # (A) 7.5 k/uL (1.3-7.7); Neutrophils % (A) 75 %; Platelet Count 227 k/uL (150-450); RBC 4.23 m/uL (3.80-5.40); RDW 12.9 % (11.5-15.5); WBC 9.9 k/uL (3.8-10.6)
[2017-07-28 16:26] LABS: ALT 16 U/L (9-52); AST 19 U/L (14-36); Albumin 3.8 g/dL (3.5-5.0); Alkaline Phosphatase 98 U/L (38-126); Amylase 33 U/L (30-110); Anion Gap 10 mmol/L; Blood Urea Nitrogen 21 mg/dL (7-17); Calcium 9.8 mg/dL (8.4-10.2); Carbon Dioxide 29 mmol/L (22-30); Chloride 100 mmol/L (98-107); Glucose 109 mg/dL (74-99); Lipase 43 U/L (23-300); Magnesium 2.1 mg/dL (1.6-2.3); Potassium 4.2 mmol/L (3.5-5.1); Sodium 139 mmol/L (137-145); Total Bilirubin 0.5 mg/dL (0.2-1.3); Total Protein 6.8 g/dL (6.3-8.2)
[2017-07-28 16:31] LABS: INR 1.1 (<1.2); Partial Thromboplastin Time 29.2 sec (22.0-30.0); Prothrombin Time 10.8 sec (9.0-12.0)
[2017-07-28 16:40] LABS: Creatine Kinase 86 U/L (30-135)
[2017-07-28 16:43] LABS: Appearance,Urine Cloudy (Clear); Bacteria,Urine Occasional /hpf; Bilirubin,Urine Negative (Negative); Blood,Urine Negative (Negative); Color,Urine Light Yellow; Glucose,Urine (UA) Negative (Negative); Ketones,Urine Negative (Negative); Leukocyte Esterase,Urine Moderate (Negative); Nitrite,Urine Negative (Negative); Protein,Urine Negative (Negative); Specific Gravity,Urine 1.005 (1.001-1.035); Squamous Epithelial Cell,Urine <1 /hpf (0-4); Urobilinogen,Urine <2.0 mg/dL (<2.0); WBC,Urine 9 /hpf (0-5)
--- NOTE | 2017-07-28 16:48 | XR ---
EXAMINATION TYPE: XR chest 2V DATE OF EXAM: 07/28/2017 COMPARISON: 08/10/2016 HISTORY: Right chest pain with history of asthma and hypertension TECHNIQUE: Frontal and lateral views of the chest are obtained. FINDINGS: There is no focal air space opacity, pleural effusion, or pneumothorax seen. The cardiac silhouette size is within normal limits. The osseous structures are intact. Unchanged mild elevatio n of the right hemidiaphragm and slight eventration. Mild degenerative changes of the acromio clavicu lar joints and thoracic spine are noted. IMPRESSION: No acute cardiopulmonary process.
[2017-07-28 16:53] LABS: Creatine Kinase MB 1.6 ng/mL (0.0-2.4); Troponin I <0.012 ng/mL (0.000-0.034)
[2017-07-28] MEDS ORDERED: RX INFO: IV CONTRAST WAS GIVEN 1 EACH MISC MISCELLANE PRN (17:38)
--- NOTE | 2017-07-28 18:44 | CT ---
EXAMINATION TYPE: CT abdomen pelvis w con DATE OF EXAM: 07/28/2017 COMPARISON: NONE HISTORY: generalized pain with nausea and diarrhea CT DLP: 1803 mGycm Automated exposure control for dose reduction was used. TECHNIQUE: Helical acquisition of images from the lung bases through the pelvis have been completed. CONTRAST: Performed without Oral Contrast and with IV Contrast, patient injected with 100 mL of Visipaque 320. FINDINGS: Calcification present at the root of the aorta. LUNG BASES: Minimal dependent atelectatic changes. AORTA: No significant abnormality is appreciated. LIVER/GB: No significant abnormality is appreciated. PANCREAS: Somewhat fatty replaced SPLEEN: No significant abnormality is seen. ADRENALS: No significant abnormality is seen. KIDNEYS: No significant abnormality is seen. REPRODUCTIVE ORGANS: Absent BOWEL: No evident bowel obstruction. No evident inflammatory change. Mesenteric fat shows some scatt ered benign-appearing calcifications in the right lower quadrant, pelvis. FREE AIR: No Free Air visible. ASCITES: None visible. PELVIC ADENOPATHY: None visualized. RETROPERITONEAL ADENOPATHY: No Retroperitoneal Adenopathy visible. URINARY BLADDER: No significant abnormality is seen. OSSEOUS STRUCTURES: No significant abnormality is seen. IMPRESSION: NO SIGNIFICANT ABNORMALITIES EVIDENT.
[2017-07-28 19:08] VITALS: BP 170/97; PULSE 81; RESP 18; TEMP 97.8
[2017-07-28] MEDS ORDERED: ONDANSETRON 4 MG ODT STARTER PACK 2 TAB BTL PO STA (19:09)
== END 2017-07-28 19:27 | disposition home or self-care (01) ==
LOC: EC 15:36
DX: K52.9 Noninfective gastroenteritis and colitis, unspecified (principal); E11.9 Type 2 diabetes mellitus without complications; E78.5 Hyperlipidemia, unspecified; J45.909 Unspecified asthma, uncomplicated; I10 Essential (primary) hypertension; E07.9 Disorder of thyroid, unspecified; K51.90 Ulcerative colitis, unspecified, without complications; G62.9 Polyneuropathy, unspecified; F41.9 Anxiety disorder, unspecified; F32.9 Major depressive disorder, single episode, unspecified; Z86.14 Personal history of Methicillin resistant Staphylococcus aureus infection; Z90.49 Acquired absence of other specified parts of digestive tract; Z90.710 Acquired absence of both cervix and uterus; Z98.51 Tubal ligation status; Z79.01 Long term (current) use of anticoagulants; Z79.51 Long term (current) use of inhaled steroids; Z79.82 Long term (current) use of aspirin; Z79.84 Long term (current) use of oral hypoglycemic drugs; Z79.899 Other long term (current) drug therapy; Z88.1 Allergy status to other antibiotic agents; Z88.2 Allergy status to sulfonamides
CPT/HCPCS: 36415; 93005; 80053; 82150; 82550; 82553; 83605; 83690; 83735; 84484; 85025; 85610; 85730; 81001; 71046; 74177; 99285; 96360; 96361 ×2; Q9967; S0119

== ENCOUNTER → 2017-08-11 | Outpatient (CLI) | payer MEDICARE, OTHER ==
[2017-08-11 14:18] VITALS: BP 143/78; PULSE 68; RESP 16
--- NOTE | 2017-08-11 14:43 | P.PN ---
Progress Note - Text Progress Note Date: 08/11/17 Patient returns for followup for chronic back pain with radiation to both legs. Patient underwent bilateral lumbar RFA in June and July with substantial improvement in back pain. Patient continues on Percocet and Neurontin medications for pain with good relief. Patient denies adverse drug effects from medications. Today, pt denies new-onset weakness, bowel/bladder incontinence, or any other signs or symptoms of cauda equina syndrome. There are no signs of acute intoxication, and no indications of medication diversion or overuse. In addition to above, 13-point review of systems is also negative for chest pain , shortness of breath, changes in vision, changes in hearing, new onset weakness , abdominal pain, diarrhea, extreme fatigue, malaise, fever, skin changes, homicidal or suicidal ideation, or bowel or bladder incontinence. Vital Signs: Reviewed in EMR Gen: WDWN, AAOx3, NAD HEENT: NCAT, EOMI, hearing grossly normal Pulm: resp unlabored Abd: soft, NT, ND Neck: supple, trachea midline ROM in flexion lumbar spine: reduced ROM in extension lumbar spine: reduced Lumbar paravertebral tenderness: + Facet loading: + bilateral, L > R SI joint tenderness: + R side Jerzy's test: + bilateral Straight leg raise: neg bilateral Neuro: CN II-XII grossly intact, muscle strength lower extremities PRESERVED Imaging: Reviewed in EMR Assessment: 1. lumbar spondylosis without myelopathy 2. sacroiliac joint dysfunction 3. chronic pain syndrome Plan: 1. Explanation: Opioid and psychological risk scores were reviewed. Diagnoses , prognoses, and multiple treatment options including but not limited to physical therapy, interventional therapies, adjuvant medical therapies, narcotic medication therapies, and surgery were discussed with the patient and all questions were answered to the patient's satisfaction. 2. Opioid agreement: Patient has previously signed narcotic agreement, and was orally counseled to not overuse, abuse, divert, or cell medications, and to take them as prescribed by only 1 healthcare provider. The patient was also counseled to store opioid medications in a safe and preferably locked location. Patient was also counseled against driving or operating heavy equipment while using narcotic medications and also to not use alcohol or any illicit or recreational drugs. The patient verbalized understanding that lack of compliance with any of the above and likely result in failure to renew narcotic prescriptions, possible discharge from the clinic, and possible legal ramifications thereafter if indicated. 3. Counseling: The patient was counseled extensively on BODY MASS INDEX, EXERCISE. Specifically, the patient was instructed regarding the importance of smoking cessation, obesity, and exercise in the context of both chronic pain and overall health. 4. Procedures: none for now 5. Consultations: None 6. Investigations: UDS today 7. Medications: Percocet 7.5/325 #90 with one refill, Neurontin 400 TID refilled x 3 months 8. Disposition: f/u for re-eval in 8 weeks PQRS measures: 1-Patient's medications are documented in the chart. 2-Tobacco use is negative 3-Patient has not had a pneumococcal vaccine. 4-Advanced care planning discussed, patient unable to give. 5-Opioid contract signed with the patient previously. 6-Pain positive, follow-up visit or procedure scheduled 7-Patient's blood pressure measured and documented, and patient will follow up with the primary care due to hypertension. 8-Patient's weight was measured, and body mass index ABOVE the normal limits, and counseling was done. Patient instructed to follow up with PCP. 9-Patient WAS NOT identified as an unhealthy alcohol user.
== END | disposition home or self-care (01) ==
LOC: PNWHC3 13:40
PROVIDERS: ATTEND Anesthesiology
DX: G89.4 Chronic pain syndrome (principal); M54.9 Dorsalgia, unspecified; M47.816 Spondylosis without myelopathy or radiculopathy, lumbar region; M53.88 Other specified dorsopathies, sacral and sacrococcygeal region; E66.9 Obesity, unspecified; Z79.891 Long term (current) use of opiate analgesic; Z79.899 Other long term (current) drug therapy
CPT/HCPCS: 80356; 99211

== ENCOUNTER → 2017-10-06 | Outpatient (CLI) | payer MEDICARE, OTHER ==
[2017-10-06 12:43] VITALS: BP 136/63; PULSE 64; RESP 18
--- NOTE | 2017-10-06 21:34 | P.PAINPG ---
Subjective Progress Note Date: 10/06/17 This is follow-up visit for this patient with a history of severe and chronic low back pain secondary to lumbar degenerative disc disease, lumbar facet arthropathy, we have done radiofrequency ablation of the medial branch lumbar area patient currently on Percocet 7.5/325 every 8 hours when necessary , Neurontin 400 mg 3 times a day Patient denies any side effects of the medication, denies excessive drowsiness or sleepiness, denies suicidal ideation, and reports that the current pain medication is helping To control the pain and improve activity of daily living . Patient denies any motor or sensory deficit, denies change in bowel movement or urination, patient denies any fever or night sweats and patient here for follow-up visit and medication refill Objective - Vital Signs Vital signs: Vital Signs Temp Pulse 64 10/06/17 12:37 Resp 18 10/06/17 12:37 BP 136/63 10/06/17 12:37 Pulse Ox 93 L 10/06/17 12:37 Intake & Output 10/06/17 10/06/17 10/07/17 06:59 18:59 06:59 Weight 110.677 kg - Exam Physical Examinations : 1-Constitutiona : Cooperative , not in acute distress . 2-HEENT : nech ; supple , no Lymphadenopathy , normal thyroid size . eyes : no ptosis , no icterus, no photophobia . ENT : normal of hearing , normal oropharynx , no Thrush . 3- Respiratory : Chest clear to auscultations Bilaterally , no wheezing , no Rhonchi . 4- Cardiovascular : regular rate and rhythem , S1 , S2 , no S3 , no S4. 5- Gastrointestinal : abdomen soft no tenderness , bowel sounds positive all four quadrents , no organomegally . 6- Genitourinary : Defferred . 7- neurologic : Cranial nerve II to XII intact , no focal neurological deffecit . 8-psychatric : alert , oriented X 3 , appropriate affect , intact judgment and insight . 9-Lymphatic : no Lymphadenopathy . 10- musculoskeltal : , Lumber spine = normal moter stegnth lower extremities ,thigh and legs .5/5 deep tendon reflexes : normal Knee Jerk , normal ankle Jerk . lumber facet Loading Test positive strait leg raising test positive at 30 degree Right , positve at 30 degree Left Fabere test positive Right and positive Left Sever tenderness over the Sacroiliac joint on the Right , and Left side Assessment and Plan Plan: Assessment and plan= chronic low back pain secondary to lumbar degenerative disc disease , lumbar spondylosis with lumbar facet arthropathy , sacroiliac joint dysfunction chronic and current use of high-risk medication (opioids) Patient denies any side effects of the current pain medication and the current treatment/medication ML and the patient to do activity of daily living , Diagnoses, prognosis, treatment options, including but not limited to physical therapy, medication management, interventional therapies, and surgery, were discussed with the patient All the questions answered Patient signed the narcotic agreement, and he was orally counseled, not to overuse, not to abuse, not to Divert , not tp sell pain medication, and to take it as prescribed only, Patient was counseled not to drive or operate heavy equipment while using narcotic medication, and advised not to use alcohol or any Illicit drugs while using the narcotis, the patient's verbalized understanding that lack of compliance with any of the above instructions and will likely to cause discharge from the pain service, not to renew his narcotic prescriptions Medication managements= patient will be given prescription refills for Percocet 7.5/325 every 8 hours dispense 90 with 2 refills, she is getting prescription refill for Neurontin 400 mg 3 times a day from her primary care , [facility] Measure Charge Sheet Measure #130: Documentation of Current Meds in Medical Chart: Patient's medications documented in chart Measure #226: Tobacco Use: Screen & Cessation Intervention: Pt screened for tobacco use AND intervention given Measure #111: Pneumonia Vaccination: Pneumococcal vaccine administered or previously received Measure #47: Advance Care Plan: Advance care planning discussed & documented, plan or surrogate given Measure #412: Opioid Treatment Agreement: Documented signed opioid trtmnt agreemnt min once during opioid trtmnt Measure #408: Opioid Therapy Follow-up Evaluation: Patient had f/u eval minimum every 3 months during opioid therapy Measure #317: Preventitive Care & Scrn High Bld Press & F/U: Pre-hypertensive or hypertensive BP documented, pt will f/u with PCP Measure #128: Body Mass Index (BMI) Screening & Follow-up: BMI documented ABOVE normal parameters - f/u documented Measure #131: Pain Assessment & Follow-up: Pain positive & plan documented, Follow-up scheduled Measure #431: Unhealthy Alcohol Use Preventative Care & Scrn: Patient not identified as an unhealthy alcohol user PQRS Narrative: Smoking Status Never smoker Do You Want the Pneumonia Vaccine Up to Date Vaccine AT THIS TIME? Narcotic Agreement Date Signed 03/20/14 Blood Pressure 136/63 Pain Intensity [Right Lower 3 Back] Hx Alcohol Use (MH) No Home Medications: Ambulatory Orders Aspirin 81 mg PO DAILY 12/12/13 Atorvastatin [Lipitor] 40 mg PO W/SUPPER 12/12/13 Cholecalciferol [Vitamin D3] 2,000 unit PO DAILY 12/12/13 Diltiazem HCl [Diltiazem 24Hr ER] 180 mg PO PC-SUPPER 12/12/13 Furosemide [Furosemide] 40 mg PO DAILY 12/12/13 Glimepiride [Glimepiride] 2 mg PO AC-SUPPER 12/12/13 Oxybutynin Chloride [Ditropan] 5 mg PO BID 12/12/13 Potassium Chloride [Klor-Con 10] 10 meq PO DAILY 12/12/13 Cyanocobalamin [Vitamin B-12] 500 mcg PO DAILY 08/04/14 ALPRAZolam [Xanax] 0.5 mg PO TID PRN 03/12/15 Pentoxifylline [TRENtal] 400 mg PO TID 09/10/15 Albuterol Sulfate [Proair Hfa] 2 inhalation INHALATION RT-TID PRN 05/27/16 Apixaban [Eliquis] 5 mg PO BID 05/27/16 Linaclotide [Linzess] 145 mcg PO BID 05/27/16 Omeprazole 20 mg PO DAILY 05/27/16 Ferrous Sulfate [Feosol] 325 mg PO DAILY 08/10/16 Albuterol Inhaler [Ventolin Hfa Inhaler] 1 - 2 puff INHALATION RT-Q4H PRN Fluticasone Nasal [place] [Flonase Nasal [place]] 2 spr EA NOSTRIL DAILY PRN Fluticasone/Salmeterol [Advair 250-50 Diskus] 1 inhalation PO RT-BID 05/14/17 Glimepiride [Amaryl] 3 mg PO AC-BRKFST 05/14/17 Nystatin 100,000 Unit/gm Powd [Mycostatin Powder] 1 applic TOPICAL BID 05/14/17 traZODone HCL 50 mg PO HS 05/14/17 Levothyroxine Sodium [Synthroid] 150 mcg PO DAILY 07/28/17 Loperamide [Imodium] 2 mg PO QID PRN 07/28/17 Gabapentin [Neurontin] 400 mg PO TID #90 cap 08/11/17 oxyCODONE HCL/ACETAMINOPHEN [Percocet 7.5-325 mg] 1 tab PO Q6HR PRN #90 tab 06/25 oxyCODONE HCL/ACETAMINOPHEN [Percocet 7.5-325 mg] 1 tab PO Q6HR PRN #90 tab 06/25 oxyCODONE HCL/ACETAMINOPHEN [Percocet 7.5-325 mg] 1 tab PO Q8HR PRN #90 tab 06/25 Controlled Substance Measures - Controlled Substance Measures Is patient prescribed a controlled substance at discharge?: Yes If prescribed controlled substance>3 days was MAPS reviewed?: Yes When asked, does pt state using other controlled substances?: No
== END | disposition home or self-care (01) ==
LOC: PNWHC3 11:50
PROVIDERS: ATTEND Specialist
DX: G89.29 Other chronic pain (principal); M54.5 Low back pain; M51.36 Other intervertebral disc degeneration, lumbar region; M46.86 Other specified inflammatory spondylopathies, lumbar region; M47.816 Spondylosis without myelopathy or radiculopathy, lumbar region; M53.88 Other specified dorsopathies, sacral and sacrococcygeal region; F11.20 Opioid dependence, uncomplicated; Z79.82 Long term (current) use of aspirin; Z79.899 Other long term (current) drug therapy; Z79.51 Long term (current) use of inhaled steroids
CPT/HCPCS: 99211

== ENCOUNTER → 2017-12-29 | Outpatient (CLI) | payer MEDICARE, OTHER ==
[2017-12-29 12:32] VITALS: BP 157/82; PULSE 76; RESP 18; TEMP 98.2
--- NOTE | 2017-12-29 12:49 | P.PN ---
Subjective Progress Note Date: 12/29/17 Principal diagnosis: Lumbar spondylosis and morbid obesity I this is a 77-year-old female with history of chronic lower back pain due to lumbar spondylosis and degenerative disc disease. The patient's pain has been well-controlled with a combination of interventional pain procedures and oral Percocet. She takes 3 pills a day of Percocet 7.5 mg and she denies any side effects to it she also does not show any drug-seeking behavior . The patient states that her pain wakes her up at night. n addition to above, 13-point review of systems is also negative for chest pain , shortness of breath, changes in vision, changes in hearing, new onset weakness , abdominal pain, diarrhea, extreme fatigue, malaise, fever, skin changes, homicidal or suicidal ideation, or bowel or bladder incontinence. Vital Signs: Reviewed in EMR Gen: AAOx3, NAD Pulm: resp unlabored Neck: supple, trachea midline Neuro exam of the lower extremities showed decreased but symmetrical muscle strength to 4 out of 5 bilaterally. Decreased but symmetrical knee reflexes and absent ankle reflexes bilaterally. Straight leg raise: Neuro: CN II-XII grossly intact, muscle strength lower extremities PRESERVED Imaging: Reviewed in EMR Assessment: 1. lumbar spondylosis without myelopathy 2. lumbar radic 3. chronic pain syndrome Plan: 1. Explanation: Opioid and psychological risk scores were reviewed. Diagnoses , prognoses, and multiple treatment options including but not limited to physical therapy, interventional therapies, adjuvant medical therapies, narcotic medication therapies, and surgery were discussed with the patient and all questions were answered to the patient's satisfaction. 2. Opioid agreement: Patient has previously signed narcotic agreement, and was orally counseled to not overuse, abuse, divert, or cell medications, and to take them as prescribed by only 1 healthcare provider. The patient was also counseled to store opioid medications in a safe and preferably locked location. Patient was also counseled against driving or operating heavy equipment while using narcotic medications and also to not use alcohol or any illicit or recreational drugs. The patient verbalized understanding that lack of compliance with any of the above and likely result in failure to renew narcotic prescriptions, possible discharge from the clinic, and possible legal ramifications thereafter if indicated. 3. Counseling: The patient was counseled extensively on SMOKING CESSATION, BODY MASS INDEX, EXERCISE. Specifically, the patient was instructed regarding the importance of smoking cessation, obesity, and exercise in the context of both chronic pain and overall health. 4. Procedures: None 5. Consultations: None, I encouraged the patient to use the exercises that she was taught at her last physical therapy and to watch the muscle strength in her lower extremities, if it's getting worse we might need to order an MRI on the lumbar spine. 6. Investigations: Maps were reviewed and were appropriate 7. Medications: Continue Percocet 7.5 mg and I will give her prescription for 2 months 8. Disposition: Follow up in the pain clinic in 2 months Objective - Vital Signs Vital signs: Vital Signs Temp 98.2 F 12/29/17 12:26 Pulse 76 12/29/17 12:26 Resp 18 12/29/17 12:26 BP 157/82 12/29/17 12:26 Pulse Ox 97 12/29/17 12:26 Intake & Output 12/28/17 12/29/17 12/29/17 18:59 06:59 18:59 Weight 108.409 kg
== END | disposition home or self-care (01) ==
LOC: PNWHC3 12:02
PROVIDERS: ATTEND Anesthesiology
DX: G89.4 Chronic pain syndrome (principal); M54.5 Low back pain; M51.16 Intervertebral disc disorders with radiculopathy, lumbar region; M47.26 Other spondylosis with radiculopathy, lumbar region; E66.01 Morbid (severe) obesity due to excess calories; Z79.891 Long term (current) use of opiate analgesic; Z68.41 Body mass index [BMI] 40.0-44.9, adult
CPT/HCPCS: 99211

== ENCOUNTER → 2018-02-03 | Outpatient (CLI) | payer MEDICARE, OTHER ==
--- NOTE | 2018-02-04 14:48 | MM ---
Reason for exam: screening (asymptomatic). Last mammogram was performed 1 year and 2 months ago. History: Patient is postmenopausal. Physical Findings: A clinical breast exam by your physician is recommended on an annual basis and results should be correlated with mammographic findings. MG 3D Screening Mammo W/Cad Bilateral CC and MLO view(s) were taken. Prior study comparison: December 18, 2016, bilateral MG 3d screening mammo w/cad. December 18, 2015, bilateral MG screening mammo w CAD. The breast tissue is heterogeneously dense. This may lower the sensitivity of mammography. Stable benign calcifications. There is no discrete abnormality. No significant changes when compared with prior studies. ASSESSMENT: Benign, BI-RAD 2 RECOMMENDATION: Routine screening mammogram of both breasts in 1 year.
== END | disposition home or self-care (01) ==
LOC: RADMAMWWP 13:09
PROVIDERS: ATTEND Family Medicine
DX: Z12.31 Encounter for screening mammogram for malignant neoplasm of breast (principal)
CPT/HCPCS: 77063; 77067

== ENCOUNTER → 2018-02-23 | Outpatient (CLI) | payer MEDICARE, OTHER ==
[2018-02-23 14:37] VITALS: BP 165/70; PULSE 63; RESP 17
--- NOTE | 2018-02-24 09:59 | P.PAINPG ---
Subjective Progress Note Date: 02/23/18 This is follow-up visit for this patient with a history of severe and chronic low back pain secondary to lumbar degenerative disc disease, lumbar facet arthropathy, We have done an interventional pain procedure radiofrequency ablation of medial branch lumbar area L3/L4 5/L5-S1 and she got good pain relief for 6 months The patient currently on Percocet 7.5/325 every 8 hours, Neurontin 400 mg 3 times a day Patient denies any side effect of the medication , patient denies any excessive drowsiness or sleepiness, patient denies any suicidal ideation, Patient reported that the current medication is helping to control the pain and improve the activity of daily livings, Patient denies any motor or sensory deficit, denies any change in the bowel movement or urination, patient denies any fever or night sweats. Patient here today for follow-up visit and medication refill Objective - Vital Signs Vital signs: Vital Signs Temp Pulse 63 02/23/18 14:27 Resp 17 02/23/18 14:27 BP 165/70 02/23/18 14:27 Pulse Ox 93 L 02/23/18 14:27 Intake & Output 02/23/18 02/24/18 02/24/18 18:59 06:59 18:59 Weight 110.677 kg - Exam Physical Examinations : 1-Constitutiona : Cooperative , not in acute distress . 2-HEENT : nech ; supple , no Lymphadenopathy , normal thyroid size . eyes : no ptosis , no icterus , no photophobia . ENT : normal of hearing , normal oropharynx , no Thrush . 3- Respiratory : Chest clear to auscultations Bilaterally , no wheezing , no Rhonchi . 4- Cardiovascular : regular rate and rhythem , S1 , S2 , no S3 , no S4. 5- Gastrointestinal : abdomen soft no tenderness , bowel sounds , no organomegally . 6- Genitourinary : Defferred . 7- neurologic : Cranial nerve II to XII intact , no focal neurological deffecit . 8-psychatric : alert , oriented X 3 , appropriate affect , intact judgment and insight . 9-Lymphatic : no Lymphadenopathy . 10- musculoskeltal : Lumber spine moter stegnth lower extremities ,thigh and legs 4/5 Right side , 4/5 Left side deep tendon reflexes : normal Knee Jerk , normal ankle Jerk positive lumber facet Loading Test Range of motion of the lumbar spine Flexion 30 degrees, extension 10 degrees strait leg raising test , positive at 30 degree Fabere test positive RT ,and positive LT . Sever tenderness over the Sacroiliac joint on the R and L sides Assessment and Plan Plan: Assessment and plan= chronic low back pain secondary to lumbar degenerative disc disease , lumbar spondylosis with lumbar facet arthropathy . chronic and current use of high-risk medication (opioids) Patient denies any side effects of the current pain medication and the current treatment/medication helping the patient to do activity of daily living , Diagnoses, prognosis, treatment options, including but not limited to physical therapy, medication management, interventional therapies, and surgery, were discussed with the patient All the questions answered The narcotic consent was signed and patient agreed and understood the side effects and complications of opioid treatment. Patient signed the narcotic agreement, and was orally counseled, not to overuse, not to abuse, not to Divert , not tp sell pain medication, and to take it as prescribed only, Patient was counseled not to drive or operate heavy equipment while using narcotic medication, and advised not to use alcohol or any Illicit drugs while using the narcotis, the patient's verbalized understanding that lack of compliance with any of the above instructions, will likely to cause discharge from, the pain service, not to renew his narcotic prescriptions MAPS Reviwed and it was apropriate . Medication managements= patient will be given prescription refills for Percocet 7.5/325 every 8 hours dispense 90 with 1 refill, Neurontin 400 mg 3 times a day dispense 90 with 1 refill. Patient will be a good candidate to have repeat radiofrequency ablation medial branch lumbar area in the near future. , Time with Patient: Less than 30 PQRS Measure Charge Sheet Measure #130: Documentation of Current Meds in Medical Chart: Patient's medications documented in chart Measure #226: Tobacco Use: Screen & Cessation Intervention: Pt not a tobacco user Measure #111: Pneumonia Vaccination: Pneumococcal vaccine administered or previously received Measure #47: Advance Care Plan: Advance care planning discussed & documented, pt chose/unable to give Measure #412: Opioid Treatment Agreement: Documented signed opioid trtmnt agreemnt min once during opioid trtmnt Measure #408: Opioid Therapy Follow-up Evaluation: Patient had f/u eval minimum every 3 months during opioid therapy Measure #317: Preventitive Care & Scrn High Bld Press & F/U: Pre-hypertensive or hypertensive BP documented, pt will f/u with PCP Measure #128: Body Mass Index (BMI) Screening & Follow-up: BMI documented ABOVE normal parameters - f/u documented Measure #131: Pain Assessment & Follow-up: Pain positive & plan documented, Follow-up scheduled Measure #431: Unhealthy Alcohol Use Preventative Care & Scrn: Patient not identified as an unhealthy alcohol user PQRS Narrative: Smoking Status Never smoker Do You Want the Pneumonia Vaccine Up to Date Vaccine AT THIS TIME? Narcotic Agreement Date Signed 03/20/14 Blood Pressure 165/70 Pain Intensity [Right Lower 5 Back] Hx Alcohol Use (MH) No Home Medications: Ambulatory Orders Aspirin 81 mg PO DAILY 12/12/13 Atorvastatin [Lipitor] 40 mg PO W/SUPPER 12/12/13 Cholecalciferol [Vitamin D3] 2,000 unit PO DAILY 12/12/13 Diltiazem HCl [Diltiazem 24Hr ER] 180 mg PO PC-SUPPER 12/12/13 Furosemide 40 mg PO DAILY 12/12/13 Glimepiride 2 mg PO AC-SUPPER 12/12/13 Oxybutynin Chloride [Ditropan] 5 mg PO BID 12/12/13 Potassium Chloride [Klor-Con 10] 10 meq PO DAILY 12/12/13 Cyanocobalamin [Vitamin B-12] 500 mcg PO DAILY 08/04/14 ALPRAZolam [Xanax] 0.5 mg PO TID PRN 03/12/15 Pentoxifylline [TRENtal] 400 mg PO TID 09/10/15 Albuterol Sulfate [Proair Hfa] 2 inhalation INHALATION RT-TID PRN 05/27/16 Apixaban [Eliquis] 5 mg PO BID 05/27/16 Linaclotide [Linzess] 145 mcg PO BID 05/27/16 Omeprazole 20 mg PO DAILY 05/27/16 Ferrous Sulfate [Feosol] 325 mg PO DAILY 08/10/16 Albuterol Inhaler [Ventolin Hfa Inhaler] 1 - 2 puff INHALATION RT-Q4H PRN Fluticasone Nasal [place] [Flonase Nasal [place]] 2 spr EA NOSTRIL DAILY PRN Fluticasone/Salmeterol [Advair 250-50 Diskus] 1 inhalation PO RT-BID 05/14/17 Glimepiride [Amaryl] 3 mg PO AC-BRKFST 05/14/17 Nystatin 100,000 Unit/gm Powd [Mycostatin Powder] 1 applic TOPICAL BID 05/14/17 traZODone HCL 50 mg PO HS 05/14/17 Levothyroxine Sodium [Synthroid] 150 mcg PO DAILY 07/28/17 Loperamide [Imodium] 2 mg PO QID PRN 07/28/17 Gabapentin [Neurontin] 400 mg PO TID #90 cap 02/23/18 oxyCODONE HCL/ACETAMINOPHEN [Percocet 7.5-325 mg] 1 tab PO Q6HR PRN #90 tab oxyCODONE HCL/ACETAMINOPHEN [Percocet 7.5-325 mg] 1 tab PO Q8HR PRN #90 tab Controlled Substance Measures - Controlled Substance Measures Is patient prescribed a controlled substance at discharge?: Yes When asked, does pt state using other controlled substances?: No If prescribed controlled substance>3 days was MAPS reviewed?: Yes If Rx opioid, was Start Talking consent form obtained?: Yes If opioid is for acute pain is fill amount 7 days or less?: No Was information provided regarding opioid addiction?: Yes
== END | disposition home or self-care (01) ==
LOC: PNWHC3 13:01
PROVIDERS: ATTEND Specialist
DX: G89.29 Other chronic pain (principal); M51.36 Other intervertebral disc degeneration, lumbar region; M47.816 Spondylosis without myelopathy or radiculopathy, lumbar region; M46.96 Unspecified inflammatory spondylopathy, lumbar region; Z79.891 Long term (current) use of opiate analgesic; Z79.82 Long term (current) use of aspirin; Z79.899 Other long term (current) drug therapy; Z79.01 Long term (current) use of anticoagulants; Z79.51 Long term (current) use of inhaled steroids
CPT/HCPCS: 99211

== ENCOUNTER → 2018-04-20 | Outpatient (CLI) | payer MEDICARE, OTHER ==
[2018-04-20 12:13] VITALS: BP 146/78; PULSE 82; RESP 18
--- NOTE | 2018-04-20 12:48 | P.PN ---
Subjective Progress Note Date: 04/20/18 This is follow-up visit for this patient with a history of severe and chronic low back pain secondary to lumbar degenerative disc disease, lumbar facet arthropathy, We have done an interventional pain procedure radiofrequency ablation of medial branch lumbar area L3/L4 5/L5-S1 and she got good pain relief for 6 months ( Right side is done in May 2017 on the left side was done in July 2017) , she reported that her pain increased significantly over the last few weeks The patient currently on Percocet 7.5/325 every 8 hours, Neurontin 400 mg 3 times a day Patient denies any side effect of the medication , patient denies any excessive drowsiness or sleepiness, patient denies any suicidal ideation, Patient reported that the current medication is helping to control the pain and improve the activity of daily livings, Patient denies any motor or sensory deficit, denies any change in the bowel movement or urination, patient denies any fever or night sweats. Patient here today for follow-up visit and medication refill Physical Examinations : 1-Constitutiona : Cooperative , not in acute distress . 2-HEENT : nech ; supple , no Lymphadenopathy , normal thyroid size . eyes : no ptosis , no icterus , no photophobia . ENT : normal of hearing , normal oropharynx , no Thrush . 3- Respiratory : Chest clear to auscultations Bilaterally , no wheezing , no Rhonchi . 4- Cardiovascular : regular rate and rhythem , S1 , S2 , no S3 , no S4. 5- Gastrointestinal : abdomen soft no tenderness , bowel sounds , no organomegally . 6- Genitourinary : Defferred . 7- neurologic : Cranial nerve II to XII intact , no focal neurological deffecit . 8-psychatric : alert , oriented X 3 , appropriate affect , intact judgment and insight . 9-Lymphatic : no Lymphadenopathy . 10- musculoskeltal : Lumber spine moter stegnth lower extremities ,thigh and legs 4/5 Right side , 4/5 Left side deep tendon reflexes : normal Knee Jerk , normal ankle Jerk positive lumber facet Loading Test Range of motion of the lumbar spine Flexion 30 degrees, extension 10 degrees strait leg raising test , positive at 30 degree Fabere test positive RT ,and positive LT . Sever tenderness over the Sacroiliac joint on the R and L sides Assessment and plan= chronic low back pain secondary to lumbar degenerative disc disease , lumbar spondylosis with lumbar facet arthropathy . chronic and current use of high-risk medication (opioids) Patient denies any side effects of the current pain medication and the current treatment/medication helping the patient to do activity of daily living , Diagnoses, prognosis, treatment options, including but not limited to physical therapy, medication management, interventional therapies, and surgery, were discussed with the patient All the questions answered The narcotic consent was signed and patient agreed and understood the side effects and complications of opioid treatment. Patient signed the narcotic agreement, and was orally counseled, not to overuse, not to abuse, not to Divert , not tp sell pain medication, and to take it as prescribed only, Patient was counseled not to drive or operate heavy equipment while using narcotic medication, and advised not to use alcohol or any Illicit drugs while using the narcotis, understanding that lack of compliance with any of the above instructions, will likely to cause discharge from, the pain service, not to renew his narcotic prescriptions MAPS Reviwed and it was apropriate . Medication managements= patient will be given prescription refills for Percocet 7.5/325 every 8 hours dispense 90 with 1 refill, Neurontin 400 mg 3 times a day dispense 90 with 1 refill. Patient will be a good candidate to have repeat radiofrequency ablation medial branch lumbar area in the near future. , Time with Patient: Less than 30 PQRS Measure Charge Sheet Measure #130: Documentation of Current Meds in Medical Chart: Patient's medications documented in chart Measure #226: Tobacco Use: Screen & Cessation Intervention: Pt not a tobacco user Measure #111: Pneumonia Vaccination: Pneumococcal vaccine administered or previously received Measure #47: Advance Care Plan: Advance care planning discussed & documented, pt chose/unable to give Measure #412: Opioid Treatment Agreement: Documented signed opioid trtmnt agreemnt min once during opioid trtmnt Measure #408: Opioid Therapy Follow-up Evaluation: Patient had f/u eval minimum every 3 months during opioid therapy Measure #317: Preventitive Care & Scrn High Bld Press & F/U: Pre-hypertensive or hypertensive BP documented, pt will f/u with PCP Measure #128: Body Mass Index (BMI) Screening & Follow-up: BMI documented ABOVE normal parameters - f/u documented Measure #131: Pain Assessment & Follow-up: Pain positive & plan documented, Follow-up scheduled Measure #431: Unhealthy Alcohol Use Preventative Care & Scrn: Patient not identified as an unhealthy alcohol user PQRS Narrative: Objective - Vital Signs Vital signs: Vital Signs Temp Pulse 82 04/20/18 12:08 Resp 18 04/20/18 12:08 BP 146/78 04/20/18 12:08 Pulse Ox 93 L 04/20/18 12:08 Intake & Output 04/19/18 04/20/18 04/20/18 18:59 06:59 18:59 Weight 108.862 kg
== END ==
LOC: PNWHC3 11:50
PROVIDERS: ATTEND Specialist
DX: G89.29 Other chronic pain (principal); M51.36 Other intervertebral disc degeneration, lumbar region; M47.816 Spondylosis without myelopathy or radiculopathy, lumbar region; M46.96 Unspecified inflammatory spondylopathy, lumbar region; Z79.899 Other long term (current) drug therapy; Z79.891 Long term (current) use of opiate analgesic
CPT/HCPCS: 99211

== ENCOUNTER 2018-06-10 06:42 | Day surgery (SDC) | payer MEDICARE, OTHER ==
[2018-05-07 11:05] VITALS: BMI 42.5
[~2018-06-10 06:42] MED LIST changes: -LACTATED RINGERS 1,000 ML IV SCH; +SODIUM CHLORIDE 0.9% 500 ML 500 ML IV SCH
[2018-06-10 07:29] VITALS: RESP 16; TEMP 97.6
[2018-06-10 07:37] LABS: Glucose,Whole Blood 199 mg/dL (75-99)
[2018-06-10] MEDS ORDERED: LACTATED RINGERS 1,000 ML IV ONE (07:37)
[2018-06-10] MEDS ORDERED: LIDOCAINE 1% 20 ML VIAL (10MG/ML) FOR IV START INTRADERMA ONE (07:37)
--- NOTE | 2018-06-10 08:28 | P.PCN ---
Date of Procedure: 06/10/18 Procedure(s) Performed: PREOPERATIVE DIAGNOSIS: 1-Lumbar Spondylosis with Facet Arthropathy without myelopathy. 2- Lumber degenerative disc disease POSTOPERATIVE DIAGNOSIS: 1- Lumbar Spondylosis with Facet Arthropathy without myelopathy. 2- Lumber degenerative disc disease PROCEDURES : Right Radiofrequency thermocoagulation, L3-L4, L4-L5, and L5-S1 medial branch, with fluoroscopic guidance ANESTHESIA: Moderate sedation with intravenous versed 1 mg and fentaneyl 50 mcg, and local infiltration with Ropivacaine 0.5 % . EBL: Minimal PROCEDURE INDICATION: The patient with low back pain secondary to lumbar facet arthropathy who had more than 50% relief of her pain with previous diagnostic lumbar medial branch block with bupivacaine. PROCEDURE DESCRIPTION / TECHNIQUE: The patient was seen and identified in the preoperative area. Risks, benefits, complications, including but not limited to risk of infection ,bleeding , allergic reactions to the medications and no complete pain releife , and alternatives were discussed with the patient, the patient agreed to proceed with the procedure and signed the consent. IV was started. Vital signs remained stable throughout the procedure. Patient was taken to the OR and time out was completed. The patient was placed in the prone position on the procedure table. The lumber area was prepped and draped in the usual sterile fashion. . Vital signs were closely monitored during the procedure .IV sedation was used during the procedure to decrease patients anxiety. Using AP and then oblique fluoroscopy, the ``eye of the Pravin dog corresponding to the connection between the superior and transverse articular processes of right L3, L4, and L5 were identified, marked, and localized with 1% lidocaine. Subsequently, a [id number] radiofrequency cannula with a 10- mm active tip was advanced guided by fluoroscopy to each of the``eyes of the Pravin dog at right L3, L4, and L5. Each site then underwent sensory testing at 50 Hz and 0 to 1 volt and motor testing at 2.5 Hz and 0 to 3 volt with local stimulation, but no radicular symptoms down the legs. Thereafter the right L3-4, L4-5, and L5-S1 sites underwent radiofrequency thermocoagulation at 80 degrees celsius for 90 seconds after injecting 0.5 ml of PF Ropivacaine 1ml, then after the thermocoagulation done , 1 ml of the block solution containing Kenalog 40 mg and 3 ml of Ropivacaine 0.5% was injected at the right L3-4 , L4-5 , and L5-S1, levels after negative aspiration of CSF and blood and with no paresthesias. Cannulas were retracted while injecting lidocaine 1% until the needle is out. At the end of the procedure, the skin was cleansed and bandages were applied. COMPLICATIONS: No acute complications. DISPOSITION / PLANS: The patient was placed in a supine position and transferred to the recovery area in a stable condition for observation and was discharged from the recovery room after meeting discharge criteria. Home discharge instructions given to the patient by the staff. The patient was reexamined prior to discharge. The patient will schedule a follow up in the clinic in 2-4 weeks.
[2018-06-10] MEDS ORDERED: IV FLUID CONTINUATION 1,000 ML IV ONE (08:33)
[2018-06-10 08:48] VITALS: BP 108/63; PULSE 62
[2018-06-10 09:21] LABS: Glucose,Whole Blood 205 mg/dL (75-99)
--- NOTE | 2018-06-10 09:21 | FL ---
EXAMINATION TYPE: FL guided pain mgmt statistic DATE OF EXAM: 06/10/2018 HISTORY: Pain 21 SEC FL, 3 FILMS SCANNED
== END 2018-06-10 09:16 ==
LOC: ORPAIN 06:42
PROVIDERS: ATTEND Specialist
DX: M47.816 Spondylosis without myelopathy or radiculopathy, lumbar region (principal); M51.36 Other intervertebral disc degeneration, lumbar region; I10 Essential (primary) hypertension; I25.811 Atherosclerosis of native coronary artery of transplanted heart without angina pectoris; J45.909 Unspecified asthma, uncomplicated; F41.9 Anxiety disorder, unspecified; F32.9 Major depressive disorder, single episode, unspecified; E11.9 Type 2 diabetes mellitus without complications; Z79.01 Long term (current) use of anticoagulants; E03.9 Hypothyroidism, unspecified; Z88.1 Allergy status to other antibiotic agents; Z88.2 Allergy status to sulfonamides
CPT/HCPCS: 64635; 64636 ×2; J2250; J1030; J3010; 99152

== ENCOUNTER → 2018-07-07 | Outpatient (CLI) | payer MEDICARE, OTHER ==
[2018-07-07 12:25] VITALS: BP 153/69; PULSE 77; RESP 18; TEMP 98.7
--- NOTE | 2018-07-07 12:56 | P.PN ---
Subjective Progress Note Date: 07/07/18 This is follow-up visit for this patient with a history of severe and chronic low back pain secondary to lumbar degenerative disc disease, lumbar facet arthropathy, We have done an interventional pain procedure radiofrequency ablation of medial branch lumbar area L3/L4 5/L5-S1 on the right side done few weeks ago ,and she is scheduled to have the left-sided in the next few weeks The patient currently on Percocet 7.5/325 every 8 hours, Neurontin 400 mg 3 times a day Patient denies any side effect of the medication , patient denies any excessive drowsiness or sleepiness, patient denies any suicidal ideation, Patient reported that the current medication is helping to control the pain and improve the activity of daily livings, Patient denies any motor or sensory deficit, denies any change in the bowel movement or urination, patient denies any fever or night sweats. She continued to use walker at home, and she uses a wheelchair when she is outside the house, and still the pain interfering with her quality of life Patient here today for follow-up visit and medication refill Physical Examinations : 1-Constitutiona : Cooperative , not in acute distress . 2-HEENT : nech ; supple , no Lymphadenopathy , normal thyroid size . eyes : no ptosis , no icterus , no photophobia . ENT : normal of hearing , normal oropharynx , no Thrush . 3- Respiratory : Chest clear to auscultations Bilaterally , no wheezing , no Rhonchi . 4- Cardiovascular : regular rate and rhythem , S1 , S2 , no S3 , no S4. 5- Gastrointestinal : abdomen soft no tenderness , bowel sounds , no organomegally . 6- Genitourinary : Defferred . 7- neurologic : Cranial nerve II to XII intact , no focal neurological deffecit . 8-psychatric : alert , oriented X 3 , appropriate affect , intact judgment and insight . 9-Lymphatic : no Lymphadenopathy . 10- musculoskeltal : Lumber spine moter stegnth lower extremities ,thigh and legs 4/5 Right side , 4/5 Left side deep tendon reflexes : normal Knee Jerk , normal ankle Jerk positive lumber facet Loading Test Range of motion of the lumbar spine Flexion 30 degrees, extension 10 degrees strait leg raising test , positive at 30 degree Fabere test positive RT ,and positive LT . Sever tenderness over the Sacroiliac joint on the R and L sides Assessment and plan= chronic low back pain secondary to lumbar degenerative disc disease , lumbar spondylosis with lumbar facet arthropathy . chronic and current use of high-risk medication (opioids) Patient denies any side effects of the current pain medication and the current treatment/medication helping the patient to do activity of daily living , Diagnoses, prognosis, treatment options, including but not limited to physical therapy, medication management, interventional therapies, and surgery, were discussed with the patient All the questions answered The narcotic consent was signed and patient agreed and understood the side effects and complications of opioid treatment. Patient signed the narcotic agreement, and was orally counseled, not to overuse, not to abuse, not to Divert , not tp sell pain medication, and to take it as prescribed only, Patient was counseled not to drive or operate heavy equipment while using narcotic medication, and advised not to use alcohol or any Illicit drugs while using the narcotis, understanding that lack of compliance with any of the above instructions, will likely to cause discharge from, the pain service, not to renew his narcotic prescriptions MAPS Reviwed and it was apropriate . Medication managements= patient will be given prescription refills for Percocet 7.5/325 every 8 hours dispense 90 with 1 refill, Neurontin 400 mg 3 times a day dispense 90 with 1 refill. Patient will be a good candidate to have left side radiofrequency ablation medial branch lumbar area in the near future. , PQRS Measure Charge Sheet Measure #130: Documentation of Current Meds in Medical Chart: Patient's medications documented in chart Measure #226: Tobacco Use: Screen & Cessation Intervention: Pt not a tobacco user Measure #111: Pneumonia Vaccination: Pneumococcal vaccine administered or previously received Measure #47: Advance Care Plan: Advance care planning discussed & documented, pt chose/unable to give Measure #412: Opioid Treatment Agreement: Documented signed opioid trtmnt agreemnt min once during opioid trtmnt Measure #408: Opioid Therapy Follow-up Evaluation: Patient had f/u eval minimum every 3 months during opioid therapy Measure #317: Preventitive Care & Scrn High Bld Press & F/U: Pre-hypertensive or hypertensive BP documented, pt will f/u with PCP Measure #128: Body Mass Index (BMI) Screening & Follow-up: BMI documented ABOVE normal parameters - f/u documented Measure #131: Pain Assessment & Follow-up: Pain positive & plan documented, Follow-up scheduled Measure #431: Unhealthy Alcohol Use Preventative Care & Scrn: Patient not identified as an unhealthy alcohol user PQRS Narrative: Objective - Vital Signs Vital signs: Vital Signs Temp 98.7 F 07/07/18 12:15 Pulse 77 07/07/18 12:15 Resp 18 07/07/18 12:15 BP 153/69 07/07/18 12:15 Pulse Ox Intake & Output 07/06/18 07/07/18 07/07/18 18:59 06:59 18:59 Weight 111.13 kg
== END ==
LOC: PNWHC3 12:00
PROVIDERS: ATTEND Specialist
DX: G89.29 Other chronic pain (principal); M47.816 Spondylosis without myelopathy or radiculopathy, lumbar region; M46.96 Unspecified inflammatory spondylopathy, lumbar region; M51.36 Other intervertebral disc degeneration, lumbar region; Z79.891 Long term (current) use of opiate analgesic; Z79.899 Other long term (current) drug therapy
CPT/HCPCS: 99211

== ENCOUNTER 2018-08-10 06:51 | Day surgery (SDC) | payer MEDICARE, OTHER ==
[2018-08-05 10:22] VITALS: BMI 42.5
[2018-08-10 07:11] VITALS: RESP 16; TEMP 98.9
[2018-08-10] MEDS ORDERED: LACTATED RINGERS 1,000 ML IV ONE (07:11)
[2018-08-10 07:13] LABS: Glucose,Whole Blood 154 mg/dL (75-99)
--- NOTE | 2018-08-10 07:43 | P.PCN ---
Date of Procedure: 08/10/18 Procedure(s) Performed: PREOPERATIVE DIAGNOSIS: 1-Lumbar Spondylosis with Facet Arthropathy without myelopathy. 2- Lumber degenerative disc disease POSTOPERATIVE DIAGNOSIS: 1- Lumbar Spondylosis with Facet Arthropathy without myelopathy. 2- Lumber degenerative disc disease PROCEDURES : Left Radiofrequency thermocoagulation, L3-L4, L4-L5, and L5-S1 medial branch, with fluoroscopic guidance ANESTHESIA: Moderate sedation with versed 1 mg and fentaneyl 50 mcg EBL: Minimal PROCEDURE INDICATION: The patient with low back pain secondary to lumbar facet arthropathy who had more than 50% relief of her pain with previous diagnostic lumbar medial branch block with bupivacaine. PROCEDURE DESCRIPTION / TECHNIQUE: The patient was seen and identified in the preoperative area. Risks, benefits, complications, including but not limited to risk of infection ,bleeding , allergic reactions to the medications and no complete pain releife , and alternatives were discussed with the patient, the patient agreed to proceed with the procedure and signed the consent. IV was started. Vital signs remained stable throughout the procedure. Patient was taken to the OR and time out was completed. The patient was placed in the prone position on the procedure table. The lumber area was prepped and draped in the usual sterile fashion. . Vital signs were closely monitored during the procedure .IV sedation was used during the procedure to decrease patients anxiety. Using AP and then oblique fluoroscopy, the eye of the Pravin dog corresponding to the connection between the superior and transverse articular processes of Left L3, L4, and L5 were identified, marked, and localized with 1 % lidocaine. Subsequently, a 18 [id number] radiofrequency cannula with a 10- mm active tip was advanced guided by fluoroscopy to each of the eyes of the Pravin dog at left L3, L4, and L5. Each site then underwent sensory testing at 50 Hz and 0 to 1 volt and motor testing at 2.5 Hz and 0 to 3 volt with local stimulation, but no radicular symptoms down the legs. Thereafter the Left L3-4, L4-5, and L5-S1 sites underwent radiofrequency thermocoagulation at 80 degrees celsius for 90 seconds after injecting 0.5 ml of PF lidocaine 1%. then After the thermocoagulation done , 1 ml of the block solution containing Depo -Medrol 40 mg and 3 ml of marain 0.5% was injected at the left L3-4 , L4-5 , and L5-S1, levels after negative aspiration of CSF and blood and with no paresthesias. Cannulas were retracted while injecting lidocaine 1% until the needle is out. At the end of the procedure, the skin was cleansed and bandages were applied. COMPLICATIONS: No acute complications. DISPOSITION / PLANS: The patient was placed in a supine position and transferred to the recovery area in a stable condition for observation and was discharged from the recovery room after meeting discharge criteria. Home discharge instructions given to the patient by the staff. The patient was reexamined prior to discharge. The patient will schedule a follow up in the clinic in 2-4 weeks.
[2018-08-10] MEDS ORDERED: IV FLUID CONTINUATION 1,000 ML IV ONE (07:46)
[2018-08-10 08:02] VITALS: BP 125/70; PULSE 52
--- NOTE | 2018-08-10 08:25 | FL ---
Fluoroscopy HISTORY: Pain 32 seconds fluoroscopy time supplied to the referring clinician. 3 intraoperative C-arm images docum ent the procedure. See dictated report from anesthesia.
== END 2018-08-10 08:34 | disposition home or self-care (01) ==
LOC: ORPAIN 06:51
PROVIDERS: ATTEND Specialist
DX: M47.816 Spondylosis without myelopathy or radiculopathy, lumbar region (principal); M51.36 Other intervertebral disc degeneration, lumbar region; Z79.01 Long term (current) use of anticoagulants; Z88.1 Allergy status to other antibiotic agents; Z88.2 Allergy status to sulfonamides
CPT/HCPCS: 64635; 64636; J2250; J1030; J3301; 99152

== ENCOUNTER → 2018-09-01 | Outpatient (CLI) | payer MEDICARE, OTHER ==
[2018-09-01 12:24] VITALS: BP 139/69; PULSE 69; RESP 18
--- NOTE | 2018-09-01 12:41 | P.PN ---
Subjective Progress Note Date: 09/01/18 This is a 78-year-old lady with history of chronic lower back pain due to lumbar spondylosis and without myelopathy. The patient had lumbar medial branch RFA on both sides and only the right side now hurts her she in the right side done in May 2018 and she might be a candidate to have that done again in November of this year. She takes Neurontin and Percocet 3 times a day as needed for her pain. The patient is requesting to increase her Neurontin dose to help with her legs pain. Today, pt denies new-onset weakness, bowel/bladder incontinence, or any other signs or symptoms of cauda equina syndrome. There are no signs of acute intoxication, and no indications of medication diversion or overuse. In addition to above, 13-point review of systems is also negative for chest pain, shortness of breath, changes in vision, changes in hearing, new onset weakness, abdominal pain, diarrhea, extreme fatigue, malaise, fever, skin changes, homicidal or suicidal ideation, or bowel or bladder incontinence. Vital Signs: Reviewed in EMR Gen: AAOx3, NAD HEENT: PERRLA,hearing grossly normal Pulm: resp unlabored,CTA Neck: supple, trachea midline Neuro exam of the lower extremities: Decreased muscle strength to 3 out of 5 for ankle dorsi flexion bilaterally, 4 out of 5 for knee flexion and extension. Straight leg raising test: Negative bilaterally Jerzy's test: Positive on the right side. Range of motion of the lumbar spine: Facet loading test: Tenderness in the paravertebral musculature: Significant tenderness around the right sacroiliac joint. Neuro: CN II-XII grossly intact, Imaging: Reviewed in EMR/chart Assessment: Lumbar spondylosis without myelopathy Diabetes Right sacroiliitis Opioid dependence Morbid obesity A. fib and coronary artery disease Plan: 1. Explanation: Opioid and psychological risk scores were reviewed. Diagnoses, prognoses, and multiple treatment options including but not limited to physical therapy, interventional therapies, adjuvant medical therapies, narcotic medication therapies, and surgery were discussed with the patient and all questions were answered to the patient's satisfaction. 2. Opioid agreement: Signed with the patient and the patient is warned not to use opioids while driving or before driving and not to combine opioids with benzodiazepines or alcohol. 3. Counseling: The patient was counseled extensively on SMOKING CESSATION, BODY MASS INDEX, EXERCISE. Specifically, the patient was instructed regarding the importance of smoking cessation, obesity, and exercise in the context of both chronic pain and overall health. 4. Procedures: Schedule for the right sacral iliac joint steroid injection under fluoroscopic guidance. The patient does not have to stop her anticoagulants for this procedure however we will used 25-gauge needle and we will hold pressure for 2-3 minutes after the procedure on the procedure area. 5. Consultations: None 6. Investigations: None 7. Medications: Continue Percocet 7.5 mg 3 times a day. We'll increase Neurontin to 600 mg 3 times a day 8. Disposition: Return to clinic in 8 weeks' and to the above-mentioned procedure as soon as possible 9. Maps were reviewed and were appropriate. PQRS measures: 1-Patient's medications are documented in the chart. 2-Tobacco use is negative, counseling given 3-Patient has had a pneumococcal vaccine. 4-Advanced care planning discussed, patient unable to give 5-Opioid contract signed with the patient. 6-Pain positive, follow-up visit or procedure scheduled 7-Patient's blood pressure measured and documented normal limits. The patient will follow up with his primary care physician. 8-Patient's weight was measured, and body mass index ABOVE the normal limits, and counseling was done. Patient instructed to follow up with PCP. 9-Patient WAS NOT identified as an unhealthy alcohol user. Controlled Substance Measures Is patient prescribed a controlled substance at discharge?: Yes When asked, does pt state using other controlled substances?: No If prescribed controlled substance>3 days was MAPS reviewed?: Yes If Rx opioid, was Start Talking consent form obtained?: Yes If opioid is for acute pain is fill amount 7 days or less?: No Was information provided regarding opioid addiction?: Yes Objective - Vital Signs Vital signs: Vital Signs Temp Pulse 69 09/01/18 12:18 Resp 18 09/01/18 12:18 BP 139/69 09/01/18 12:18 Pulse Ox 93 L 09/01/18 12:18 Intake & Output 08/31/18 09/01/18 09/01/18 18:59 06:59 18:59 Weight 113.398 kg
== END ==
LOC: PNWHC3 11:55
PROVIDERS: ATTEND Anesthesiology
DX: M47.816 Spondylosis without myelopathy or radiculopathy, lumbar region (principal); E11.9 Type 2 diabetes mellitus without complications; M46.1 Sacroiliitis, not elsewhere classified; E66.01 Morbid (severe) obesity due to excess calories; I48.91 Unspecified atrial fibrillation; I25.10 Atherosclerotic heart disease of native coronary artery without angina pectoris; Z79.891 Long term (current) use of opiate analgesic; Z79.899 Other long term (current) drug therapy; Z71.6 Tobacco abuse counseling
CPT/HCPCS: 99211

== ENCOUNTER 2018-09-07 21:49 | Inpatient (IN) | payer MEDICARE, OTHER ==
--- NOTE | 2018-09-07 23:16 | ED ---
Fall HPI - General Chief Complaint: Fall Stated Complaint: Fall, Weakness Time Seen by Provider: 09/07/18 21:59 Source: EMS Mode of arrival: EMS - History of Present Illness Initial Comments: This patient is a 78-year-old woman who presents to be evaluated after she had a fall at home. The patient states that she had not been feeling very well for about a day. She had been having a little bit of a cough and she was feeling like she was having a temperature. She also has been having some generalized weakness. She states that when she got up today she lost her balance and fell. She had her left foot, low back and her head. She states that she was then feeling too weak to get up. She states that it took her probably close to 2 hours to get the attention of a neighbor who then called EMS. MD Complaint: fall Onset/Timin -: hour(s) Fall From: standing When Fall Occurred: 1-3 hours [employer] Fall Witnessed: no Place Fall Occurred: home Loss of Consciousness: none Prolonged Down Time?: hour(s) (2) Symptoms Prior to Fall: other (Otherwise weakness and fever) Location: head, back Location - Extremities: Left: Foot Severity: moderate Context: history of frequent falls Associated Symptoms: weakness - Related Data Home Medications Medication Instructions Recorded Confirmed Aspirin 81 mg PO DAILY 12/12/13 09/01/18 Atorvastatin [Lipitor] 40 mg PO W/SUPPER 12/12/13 09/01/18 Cholecalciferol [Vitamin D3] 2,000 unit PO DAILY 12/12/13 09/01/18 Diltiazem HCl [Diltiazem 24Hr ER] 180 mg PO PC-SUPPER 12/12/13 09/01/18 Furosemide 40 mg PO DAILY 12/12/13 09/01/18 Glimepiride 2 mg PO AC-SUPPER 12/12/13 09/01/18 Oxybutynin Chloride [Ditropan] 5 mg PO BID 12/12/13 09/01/18 Potassium Chloride [Klor-Con 10] 10 meq PO DAILY 12/12/13 09/01/18 Cyanocobalamin [Vitamin B-12] 500 mcg PO DAILY 08/04/14 09/01/18 ALPRAZolam [Xanax] 0.5 mg PO TID PRN 03/12/15 09/01/18 Pentoxifylline [TRENtal] 400 mg PO TID 09/10/15 09/01/18 Apixaban [Eliquis] 5 mg PO BID 05/27/16 09/01/18 Linaclotide [Linzess] 145 mcg PO BID PRN 05/27/16 09/01/18 Omeprazole 20 mg PO DAILY 05/27/16 09/01/18 Ferrous Sulfate [Feosol] 325 mg PO DAILY 08/10/16 09/01/18 Albuterol Inhaler [Ventolin Hfa 1 - 2 puff INHALATION RT-Q4H PRN 05/14/17 09/01/18 Inhaler] Fluticasone Nasal [place] [Flonase 2 spr EA NOSTRIL DAILY PRN 05/14/17 09/01/18 Nasal [place]] Fluticasone/Salmeterol [Advair 1 inhalation PO RT-BID 05/14/17 09/01/18 250-50 Diskus] Glimepiride [Amaryl] 2 mg PO AC-BRKFST 05/14/17 09/01/18 Nystatin 100,000 Unit/gm Powd 1 applic TOPICAL BID PRN 05/14/17 09/01/18 [Mycostatin Powder] traZODone HCL 100 mg PO HS 05/14/17 09/01/18 Levothyroxine Sodium [Synthroid] 150 mcg PO DAILY 07/28/17 09/01/18 Loperamide [Imodium] 2 mg PO QID PRN 07/28/17 09/01/18 oxyCODONE HCL/ACETAMINOPHEN 0.5 tab PO Q4-6H PRN 08/05/18 09/01/18 [Percocet 7.5-325 mg] Previous Rx's Medication Instructions Recorded Gabapentin [Neurontin] 400 mg PO TID #90 cap 07/07/18 Allergies Allergy/AdvReac Type Severity Reaction Status Date / Time ciprofloxacin HCl AdvReac Nausea Verified 09/07/18 22:00 [From Cipro] Sulfa (Sulfonamide AdvReac Nausea Verified 09/07/18 22:00 Antibiotics) Review of Systems ROS Statement: Those systems with pertinent positive or pertinent negative responses have been documented in the HPI. ROS Other: All systems not noted in ROS Statement are negative. Constitutional: Reports: fever, weakness (generalized) Eyes: Denies: vision change Respiratory: Reports: cough. Denies: dyspnea, wheezes, hemoptysis Cardiovascular: Denies: chest pain, palpitations, edema, syncope Gastrointestinal: Denies: abdominal pain, nausea, vomiting, diarrhea Genitourinary: Denies: dysuria, hematuria Musculoskeletal: Reports: back pain, arthralgia (Left foot) Skin: Denies: rash Neurological: Denies: headache, weakness, numbness Past Medical History Past Medical History: Asthma, Diabetes Mellitus, Hyperlipidemia, Hypertension, Myocardial Infarction ([place]), Osteoarthritis (OA), Renal Disease, Thyroid Disorder Additional Past Medical History / Comment(s): Hx renal failure,ulcerative colitis,peripheral edema, left wrist fracture, neuropathy legs & feet., uses walker. Last Myocardial Infarction Date:: 2013-2016 History of Any Multi-Drug Resistant Organisms: MRSA Date of last positivie culture/infection: 08/10/16 MDRO Source:: Urine Past Surgical History: Appendectomy, Hysterectomy, Orthopedic Surgery, Tubal Ligation Additional Past Surgical History / Comment(s): Foot surg., nasal surg., CHRISSY CATARACTS., pain clinic procedures, hammer toe surgery. PAIN CLINIC PROCEDURES, LAPAROTOMY Past Anesthesia/Blood Transfusion Reactions: No Reported Reaction Past Psychological History: Anxiety, Depression Smoking Status: Never smoker Past Alcohol Use History: None Reported, Rare Past Drug Use History: None Reported - Past Family History Father Family Medical History: Cancer, Deep Vein Thrombosis (DVT) Additional Family Medical History / Comment(s): LUNG CA General Exam Limitations: no limitations General appearance: alert, in no apparent distress, obese Head exam: Present: atraumatic, normocephalic Eye exam: Present: normal appearance. Absent: scleral icterus, conjunctival injection ENT exam: Present: mucous membranes dry Neck exam: Present: normal inspection, full ROM. Absent: tenderness Respiratory exam: Present: normal lung sounds bilaterally. Absent: respiratory distress, wheezes, rales, rhonchi, stridor Cardiovascular Exam: Present: regular rate, normal rhythm, normal heart sounds. Absent: systolic murmur, diastolic murmur, rubs, gallop GI/Abdominal exam: Present: soft. Absent: distended, tenderness, guarding, rebound, rigid, mass Extremities exam: Present: tenderness, normal capillary refill, other (Patient has contusion and small amount of swelling to the left forefoot.). Absent: pedal edema Back exam: Present: tenderness (Over the lumbar area). Absent: CVA tenderness (R), CVA tenderness (L) Neurological exam: Present: alert, oriented X3, CN II-XII intact. Absent: motor sensory deficit Skin exam: Present: warm, dry, intact, normal color. Absent: rash Course Vital Signs 09/07/18 09/07/18 09/07/18 22:00 22:04 23:00 Temperature 100.5 F H Pulse Rate 98 94 Respiratory 20 20 Rate Blood Pressure 162/67 130/77 O2 Sat by Pulse 89 L 94 L 93 L Oximetry 09/08/18 09/08/18 09/08/18 00:00 00:21 02:06 Temperature 98.9 F 100.0 F H 101.4 F H Pulse Rate 96 95 96 Respiratory 20 18 18 Rate Blood Pressure 133/64 133/64 158/79 O2 Sat by Pulse 94 L 93 L 93 L Oximetry 09/08/18 04:17 Temperature 100.3 F H Pulse Rate 90 Respiratory 18 Rate Blood Pressure 158/68 O2 Sat by Pulse 93 L Oximetry Medical Decision Making - Medical Decision Making Patient is 78-year-old woman here for fall. The patient does have frequent cough during the exam. She is found to have fever there are rales concerning for pneumonia which has just not fully manifested on the chest x-ray. Case discussed with Dr. Nuñez, who will admit - Lab Data Result diagrams: 09/07/18 22:10 09/07/18 22:10 Lab Results 09/07/18 09/07/18 09/07/18 Range/Units 22:10 22:10 22:10 WBC 15.3 H (3.8-10.6) k/uL RBC 3.78 L (3.80-5.40) m/uL Hgb 11.4 (11.4-16.0) gm/dL Hct 35.5 (34.0-46.0) % MCV 93.8 (80.0-100.0) fL MCH 30.1 (25.0-35.0) pg MCHC 32.1 (31.0-37.0) g/dL RDW 14.1 (11.5-15.5) % Plt Count 285 (150-450) k/uL Neutrophils % 90 % Lymphocytes % 4 % Monocytes % 5 % Eosinophils % 0 % Basophils % 0 % Neutrophils # 13.7 H (1.3-7.7) k/uL Lymphocytes # 0.6 L (1.0-4.8) k/uL Monocytes # 0.8 (0-1.0) k/uL Eosinophils # 0.0 (0-0.7) k/uL Basophils # 0.0 (0-0.2) k/uL PT (9.0-12.0) sec INR (<1.2) APTT (22.0-30.0) sec Sodium 139 (137-145) mmol/L Potassium 4.2 (3.5-5.1) mmol/L Chloride 102 (98-107) mmol/L Carbon Dioxide 28 (22-30) mmol/L Anion Gap 9 mmol/L BUN 19 H (7-17) mg/dL Creatinine 0.94 (0.52-1.04) mg/dL Est GFR (CKD-EPI)AfAm 67 (>60 ml/min/1.73 sqM) Est GFR (CKD-EPI)NonAf 58 (>60 ml/min/1.73 sqM) Glucose 185 H (74-99) mg/dL Plasma Lactic Acid Demond (0.7-2.0) mmol/L Calcium 9.0 (8.4-10.2) mg/dL Total Bilirubin 0.8 (0.2-1.3) mg/dL AST 14 (14-36) U/L ALT 16 (9-52) U/L Alkaline Phosphatase 89 (38-126) U/L Creatine Kinase 89 (30-135) U/L CK-MB (CK-2) 0.8 (0.0-2.4) ng/mL Troponin I 0.013 (0.000-0.034) ng/mL Total Protein 6.1 L (6.3-8.2) g/dL Albumin 3.3 L (3.5-5.0) g/dL Urine Color Urine Appearance (Clear) Urine pH (5.0-8.0) Ur Specific Clayton (1.001-1.035) Urine Protein (Negative) Urine Glucose (UA) (Negative) Urine Ketones (Negative) Urine Blood (Negative) Urine Nitrite (Negative) Urine Bilirubin (Negative) Urine Urobilinogen (<2.0) mg/dL Ur Leukocyte Esterase (Negative) Urine RBC (0-5) /hpf Urine WBC (0-5) /hpf Ur Squamous Epith Cells (0-4) /hpf Urine Bacteria (None) /hpf Hyaline Casts (0-2) /lpf Urine Mucus (None) /hpf Influenza Type A RNA (Not Detectd) Influenza Type B (PCR) (Not Detectd) 09/07/18 09/07/18 09/08/18 Range/Units 22:10 22:10 00:01 WBC (3.8-10.6) k/uL RBC (3.80-5.40) m/uL Hgb (11.4-16.0) gm/dL Hct (34.0-46.0) % MCV (80.0-100.0) fL MCH (25.0-35.0) pg MCHC (31.0-37.0) g/dL RDW (11.5-15.5) % Plt Count (150-450) k/uL Neutrophils % % Lymphocytes % % Monocytes % % Eosinophils % % Basophils % % Neutrophils # (1.3-7.7) k/uL Lymphocytes # (1.0-4.8) k/uL Monocytes # (0-1.0) k/uL Eosinophils # (0-0.7) k/uL Basophils # (0-0.2) k/uL PT 10.7 (9.0-12.0) sec INR 1.0 (<1.2) APTT 26.7 (22.0-30.0) sec Sodium (137-145) mmol/L Potassium (3.5-5.1) mmol/L Chloride (98-107) mmol/L Carbon Dioxide (22-30) mmol/L Anion Gap mmol/L BUN (7-17) mg/dL Creatinine (0.52-1.04) mg/dL Est GFR (CKD-EPI)AfAm (>60 ml/min/1.73 sqM) Est GFR (CKD-EPI)NonAf (>60 ml/min/1.73 sqM) Glucose (74-99) mg/dL Plasma Lactic Acid Demond 1.8 (0.7-2.0) mmol/L Calcium (8.4-10.2) mg/dL Total Bilirubin (0.2-1.3) mg/dL AST (14-36) U/L ALT (9-52) U/L Alkaline Phosphatase (38-126) U/L Creatine Kinase (30-135) U/L CK-MB (CK-2) (0.0-2.4) ng/mL Troponin I (0.000-0.034) ng/mL Total Protein (6.3-8.2) g/dL Albumin (3.5-5.0) g/dL Urine Color Yellow Urine Appearance Clear (Clear) Urine pH 5.5 (5.0-8.0) Ur Specific [place] 1.018 (1.001-1.035) Urine Protein Trace H (Negative) Urine Glucose (UA) Negative (Negative) Urine Ketones Negative (Negative) Urine Blood Trace H (Negative) Urine Nitrite Negative (Negative) Urine Bilirubin Negative (Negative) Urine Urobilinogen <2.0 (<2.0) mg/dL Ur Leukocyte Esterase Negative (Negative) Urine RBC <1 (0-5) /hpf Urine WBC <1 (0-5) /hpf Ur Squamous Epith Cells <1 (0-4) /hpf Urine Bacteria Rare H (None) /hpf Hyaline Casts 1 (0-2) /lpf Urine Mucus Rare H (None) /hpf Influenza Type A RNA (Not Detectd) Influenza Type B (PCR) (Not Detectd) 09/08/18 Range/Units 00:01 WBC (3.8-10.6) k/uL RBC (3.80-5.40) m/uL Hgb (11.4-16.0) gm/dL Hct (34.0-46.0) % MCV (80.0-100.0) fL MCH (25.0-35.0) pg MCHC (31.0-37.0) g/dL RDW (11.5-15.5) % Plt Count (150-450) k/uL Neutrophils % % Lymphocytes % % Monocytes % % Eosinophils % % Basophils % % Neutrophils # (1.3-7.7) k/uL Lymphocytes # (1.0-4.8) k/uL Monocytes # (0-1.0) k/uL Eosinophils # (0-0.7) k/uL Basophils # (0-0.2) k/uL PT (9.0-12.0) sec INR (<1.2) APTT (22.0-30.0) sec Sodium (137-145) mmol/L Potassium (3.5-5.1) mmol/L Chloride (98-107) mmol/L Carbon Dioxide (22-30) mmol/L Anion Gap mmol/L BUN (7-17) mg/dL Creatinine (0.52-1.04) mg/dL Est GFR (CKD-EPI)AfAm (>60 ml/min/1.73 sqM) Est GFR (CKD-EPI)NonAf (>60 ml/min/1.73 sqM) Glucose (74-99) mg/dL Plasma Lactic Acid Demond (0.7-2.0) mmol/L Calcium (8.4-10.2) mg/dL Total Bilirubin (0.2-1.3) mg/dL AST (14-36) U/L ALT (9-52) U/L Alkaline Phosphatase (38-126) U/L Creatine Kinase (30-135) U/L CK-MB (CK-2) (0.0-2.4) ng/mL Troponin I (0.000-0.034) ng/mL Total Protein (6.3-8.2) g/dL Albumin (3.5-5.0) g/dL Urine Color Urine Appearance (Clear) Urine pH (5.0-8.0) Ur Specific [place] (1.001-1.035) Urine Protein (Negative) Urine Glucose (UA) (Negative) Urine Ketones (Negative) Urine Blood (Negative) Urine Nitrite (Negative) Urine Bilirubin (Negative) Urine Urobilinogen (<2.0) mg/dL Ur Leukocyte Esterase (Negative) Urine RBC (0-5) /hpf Urine WBC (0-5) /hpf Ur Squamous Epith Cells (0-4) /hpf Urine Bacteria (None) /hpf Hyaline Casts (0-2) /lpf Urine Mucus (None) /hpf Influenza Type A RNA Not Detected (Not Detectd) Influenza Type B (PCR) Not Detected (Not Detectd) - EKG Data -: EKG Interpreted by [facility] EKG shows normal: sinus rhythm, axis (Normal), intervals (OK interval is 224 ms, prolonged consistent with first-degree AV block. QRS duration 112 ms, QTC 437 ms, both normal), QRS complexes (Voltage QRS complexes.), ST-T waves (Normal) Rate: normal (Rate 96 bpm) Interpretation: other (Possible old anterior infarct.) Disposition Clinical Impression: Fall, Pneumonia Disposition: ADMITTED IP TO THIS HOSP Is patient prescribed a controlled substance at d/c from ED?: No Referrals: Amira Washburn MD [Primary Care Provider] - 1-2 days
[2018-09-07 23:39] LABS: Basophils % (A) 0 %; Eosinophils % (A) 0 %; HCT 35.5 % (34.0-46.0); HGB 11.4 gm/dL (11.4-16.0); Lymphocytes # (A) 0.6 k/uL (1.0-4.8); Lymphocytes % (A) 4 %; MCH 30.1 pg (25.0-35.0); MCHC 32.1 g/dL (31.0-37.0); MCV 93.8 fL (80.0-100.0); Mean Platelet Volume 6.4; Monocytes # (A) 0.8 k/uL (0-1.0); Monocytes % (A) 5 %; Neutrophils # (A) 13.7 k/uL (1.3-7.7); Neutrophils % (A) 90 %; Platelet Count 285 k/uL (150-450); RBC 3.78 m/uL (3.80-5.40); RDW 14.1 % (11.5-15.5); WBC 15.3 k/uL (3.8-10.6)
[2018-09-07 23:54] LABS: Albumin 3.3 g/dL (3.5-5.0); Potassium 4.2 mmol/L (3.5-5.1); Total Bilirubin 0.8 mg/dL (0.2-1.3); Total Protein 6.1 g/dL (6.3-8.2)
--- NOTE | 2018-09-08 00:11 | CT ---
EXAM: CT Head Without Intravenous Contrast CLINICAL HISTORY: ITS.REASON CT Reason: altered mental status. Fall. TECHNIQUE: Axial computed tomography images of the head/brain without intravenous contrast. CTDI is 49.1 mGy and DLP is 1109.4 mGy-cm. This CT exam was performed using one or more of the following dose reduction techniques: automated exposure control, adjustment of the mA and/or kV according to patient size, and/or use of iterative reconstruction technique. COMPARISON: 08/10/16 FINDINGS: Brain: No intracranial hemorrhage or mass effect. No clear acute large vessel territorial infarct. 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 Mild atrophy and microvascular ischemic changes. Ventricles: Unremarkable. No ventriculomegaly. Bones/joints: Unremarkable. No acute fracture. Soft tissues: Right parietal scalp contusion.. Sinuses: Chronic multi-compartmental sinusitis again noted.. Mastoid air cells: Unremarkable as visualized. No mastoid effusion. IMPRESSION: Right parietal scalp contusion. No acute brain or skull injury. Chronic changes as above.
[2018-09-08 00:24] LABS: Partial Thromboplastin Time 26.7 sec (22.0-30.0); Prothrombin Time 10.7 sec (9.0-12.0)
--- NOTE | 2018-09-08 00:29 | XR ---
EXAM: XR Chest, 1 View CLINICAL HISTORY: ITS.REASON XR Reason: altered mental status TECHNIQUE: Frontal view of the chest. COMPARISON: . FINDINGS: Lungs: Prominent central pulmonary vasculature. No overt edema or consolidation. Pleural space: Unremarkable. No pneumothorax. Heart: Unremarkable. No cardiomegaly. Mediastinum: Calcified aorta. Bones/joints: Degenerative changes, most pronounced to the right shoulder. IMPRESSION: Mild pulmonary vascular congestion. No overt edema.
--- NOTE | 2018-09-08 00:32 | XR ---
EXAM: XR Left Foot Complete, 3 or More Views CLINICAL HISTORY: ITS.REASON XR Reason: Pain TECHNIQUE: Frontal, lateral and oblique views of the left foot. COMPARISON: No relevant prior studies available. FINDINGS: There are severe hammertoe deformities throughout. This limits assessment, but no definite fracture. Degenerative changes of intertarsal and tarsometatarsal joints. Generalized osteopenia. Plantar calcaneal spur. Soft tissue swelling to the dorsal forefoot. No definite findings of osteomyelitis. IMPRESSION: No fracture. Marked hammertoe deformities. Osteoarthrosis of the TMT and intertarsal joints. Dorsal forefoot swelling.
[2018-09-08 00:33] LABS: Creatine Kinase MB 0.8 ng/mL (0.0-2.4); Troponin I 0.013 ng/mL (0.000-0.034)
--- NOTE | 2018-09-08 00:35 | XR ---
EXAM: XR Lumbar Spine, 2 or 3 Views CLINICAL HISTORY: ITS.REASON XR Reason: Pain TECHNIQUE: Frontal and lateral views of the lumbar spine. COMPARISON: MRI of 06/13/15. FINDINGS: Vertebrae: Mild lumbar levocurvature, apex at L2-3, stable in the interval. Also stable are grade 1 L4 anterolisthesis and L1 compression fracture. Disc spaces: Multilevel disc degeneration. This is most pronounced at L2-3 and L5-S1. Soft tissues: Heavily calcified abdominal aorta. IMPRESSION: Chronic L1 compression fracture. No acute fracture. Chronic mild malalignment as detailed above. Multilevel degenerative change.
[2018-09-08 00:55] LABS: Appearance,Urine Clear (Clear); Bacteria,Urine Rare /hpf; Bilirubin,Urine Negative (Negative); Blood,Urine Trace (Negative); Color,Urine Yellow; Glucose,Urine (UA) Negative (Negative); Hyaline Casts,Urine 1 /lpf (0-2); Ketones,Urine Negative (Negative); Leukocyte Esterase,Urine Negative (Negative); Mucus,Urine Rare /hpf; Nitrite,Urine Negative (Negative); PH, Urine 5.5 (5.0-8.0); Protein,Urine Trace (Negative); RBC,Urine <1 /hpf (0-5); Specific Gravity,Urine 1.018 (1.001-1.035); Squamous Epithelial Cell,Urine <1 /hpf (0-4); Urobilinogen,Urine <2.0 mg/dL (<2.0)
[2018-09-08] MEDS ORDERED: ACETAMINOPHEN TAB 325 MG TAB PO STA (02:11)
[2018-09-08] MEDS ORDERED: ALBUTEROL NEBULIZED 2.5 MG/3 ML INHALATION PRN (04:58)
[2018-09-08] MEDS ORDERED: PNEUMONIA PROTOCOL UTILIZED 1 EACH MISC PO PRN (04:58)
[2018-09-08] MEDS ORDERED: ALPRAZolam 0.5 MG TAB PO PRN (05:00)
[2018-09-08] MEDS ORDERED: NON-FORMULARY DRUG (Linaclotide [Linzess] 145 MCG) PO PRN (05:00)
[2018-09-08] MEDS: SODIUM CHLORIDE 0.9% 1,000 ML IV SCH (05:31)
[2018-09-08] MEDS: oxyCODONE-APAP 7.5-325MG 1 EACH TAB PO PRN ×4 (05:36→18:30)
[2018-09-08 06:35] VITALS: BMI 44.2
[2018-09-08 07:19] LABS: Glucose,Whole Blood 178 mg/dL (75-99)
[2018-09-08] MEDS: IPRATROPIUM-ALBUTEROL 3 ML NEB INHALATION SCH ×4 (08:39→19:40)
[2018-09-08] MEDS: LEVOTHYROXINE 75 MCG TAB PO SCH (10:05)
[2018-09-08] MEDS: GABAPENTIN 400 MG CAP PO SCH ×3 (10:06→21:29)
[2018-09-08] MEDS: FUROSEMIDE 40 MG TAB PO SCH (10:06)
[2018-09-08] MEDS: POTASSIUM CHLORIDE ER 10 MEQ TAB.ER.PRT PO SCH (10:06)
[2018-09-08] MEDS: OXYBUTYNIN CHLORIDE 5 MG TAB PO SCH ×2 (10:06→21:29)
[2018-09-08] MEDS: GLIMEPIRIDE 2 MG TAB PO SCH ×2 (10:07→18:00)
[2018-09-08] MEDS: ASPIRIN 81 MG PO SCH (10:07)
[2018-09-08] MEDS: APIXABAN 5 MG TAB PO SCH ×2 (10:07→21:29)
[2018-09-08] MEDS: PANTOPRAZOLE 40 MG TABLET PO SCH (10:07)
[2018-09-08] MEDS: FERROUS SULFATE 325 MG TAB PO SCH (10:08)
[2018-09-08] MEDS: PENTOXIFYLLINE 400 MG TABLET.ER PO SCH ×3 (10:08→21:30)
[2018-09-08 11:44] LABS: Glucose,Whole Blood 178 mg/dL (75-99)
[2018-09-08] MEDS ORDERED: NYSTATIN 100,000 UNIT/GM POWD 15 GM TOPICAL PRN (14:09)
--- NOTE | 2018-09-08 17:01 | P.HPIM ---
History of Present Illness H&P Date: 09/08/18 Chief Complaint: Status post a fall with cough This is a 78-year-old female one of Dr. Washburn with a previous medical history significant for hypertension and hypertensive cardiovascular disease with left ventricular hypertrophy, hyperlipidemia, history of hypothyroidism, history of diabetes mellitus type 2, degenerative disc disease of the lumbar spine with a chronic L1 fracture [facility] recently seen by the pain management clinic after she underwent multiple radiofrequency ablation epidural injections in the past she was prescribed gabapentin 600 mg orally 3 times every day up from her previous dose 400 mg orally 3 times every day patient tried it yesterday and she was going to the bathroom unfortunately her leg gave out and the patient landed on the floor head the left foot her back and the side of her head, patient ended up calling her neighbor who called EMS [facility] the brain that showed contusion in the right scalp and an x-ray of the lumbar spine "that showed no evidence of fracture except for chronic L1 fracture left foot no fracture but there was hematoma and dorsal aspirin of the left foot, patient was complaining of increased cough for the past week or so with increased phlegm production that is yellowish in nature patient felt a bit febrile, she had a chest x-ray that showed poorly vascular congestion without evidence of any pneumonia however because of the presentation patient was started on IV antibiotic in the form of Rocephin and Zithromax and she was admitted for evaluation and treatment. Review of Systems Constitutional: Reports chronic pain, Reports weakness, Reports weight gain, Denies anorexia, Denies fatigue, Denies fever, Denies malaise Eyes: denies blurred vision, denies bulging eye, denies decreased vision Ears: deny: decreased hearing Ears, nose, mouth and throat: Denies dysphagia, Denies neck lump, Denies swelling in throat, Denies sore throat Cardiovascular: Reports decreased exercise tolerance, Reports dyspnea on exertion, Reports high blood pressure, Reports leg edema, Reports shortness of breath, Denies chest pain, Denies orthopnea, Denies rapid heart beat, Denies syncope Respiratory: Reports congestion, Reports cough, Reports cough with sputum, Reports dyspnea, Reports sleep apnea, Denies hemoptysis, Denies home oxygen, Denies respiratory infections, Denies snoring, Denies wheezing Gastrointestinal: Reports loss of appetite, Denies abdominal pain, Denies bloating, Denies BRBPR, Denies excessive gas, Denies heartburn, Denies melena, Denies nausea, Denies vomiting Genitourinary: Denies dysuria, Denies hematuria Menstruation: Reports postmenopausal Musculoskeletal: Denies myalgias Musculoskeletal: left: foot pain, foot stiffness, foot swelling, bilateral: ankle swelling, absent: ankle pain, ankle stiffness, elbow pain, elbow stiffness, elbow swelling, hand pain, hand stiffness, hand swelling, hip pain, hip stiffness, hip swelling, knee pain, knee stiffness, knee swelling, shoulder pain, shoulder stiffness, shoulder swelling, wrist pain, wrist stiffness, wrist swelling Integumentary: Denies pruritus, Denies rash Neurological: Reports gait dysfunction, Reports weakness Psychiatric: Reports anxiety Endocrine: Denies fatigue, Denies weight change Past Medical History Past Medical History: Atrial Fibrillation, Asthma, Diabetes Mellitus, GERD/Reflux, Hyperlipidemia, Hypertension, Myocardial Infarction (MD), Musculoskeletal Disorder, Osteoarthritis (OA), Renal Disease, Thyroid Disorder Additional Past Medical History / Comment(s): Hx renal failure,ulcerative colitis,peripheral edema, left wrist fracture, neuropathy legs & feet., uses walker. Last Myocardial Infarction Date:: 2013-2016 History of Any Multi-Drug Resistant Organisms: MRSA Date of last positivie culture/infection: 08/10/16 MDRO Source:: Urine Past Surgical History: Appendectomy, Hysterectomy, Orthopedic Surgery, Tubal Ligation Additional Past Surgical History / Comment(s): Foot surg., nasal surg., CHRISSY CATARACTS., pain clinic procedures, hammer toe surgery. PAIN CLINIC PROCEDURES, LAPAROTOMY ovarian cysts, sinus surgery 2, colonoscopy in 2009. Past Anesthesia/Blood Transfusion Reactions: No Reported Reaction Past Psychological History: Anxiety, Depression Smoking Status: Never smoker Past Alcohol Use History: None Reported, Rare Past Drug Use History: None Reported - Past Family History Father Family Medical History: Cancer (Father at age 65 from lung cancer also had history of DVT.), Deep Vein Thrombosis (DVT) Additional Family Medical History / Comment(s): LUNG CA Mother Family Medical History: No Reported History (Mother at age of 80 from bowel obstruction and also had abdominal aortic aneurysm that was repaired at the [facility] Sister(s) Family Medical History: No Reported History (Patient has one sister has medical problem that she does not recall) Son(s) Family Medical History: No Reported History (Patient has 2 sons no major medical problems.) Daughter(s) Family Medical History: No Reported History (Patient has one daughter no major medical problems.) Medications and Allergies Home Medications Medication Instructions Recorded Confirmed Type Aspirin 81 mg PO DAILY 12/12/13 09/08/18 History Atorvastatin [Lipitor] 40 mg PO W/SUPPER 12/12/13 09/08/18 History Cholecalciferol [Vitamin D3] 2,000 unit PO DAILY 12/12/13 09/08/18 History Diltiazem HCl [Diltiazem 24Hr ER] 180 mg PO PC-SUPPER 12/12/13 09/08/18 History Furosemide 20 mg PO DAILY 12/12/13 09/08/18 History Oxybutynin Chloride [Ditropan] 5 mg PO BID 12/12/13 09/08/18 History Potassium Chloride [Klor-Con 10] 10 meq PO DAILY 12/12/13 09/08/18 History Cyanocobalamin [Vitamin B-12] 500 mcg PO DAILY 08/04/14 09/08/18 History ALPRAZolam [Xanax] 0.5 mg PO TID PRN 03/12/15 09/08/18 History Pentoxifylline [TRENtal] 400 mg PO TID-W/MEALS 09/10/15 09/08/18 History Apixaban [Eliquis] 5 mg PO BID 05/27/16 09/08/18 History Linaclotide [Linzess] 145 mcg PO BID 05/27/16 09/08/18 History Albuterol Inhaler [Ventolin Hfa 1 - 2 puff INHALATION RT-Q4H PRN 05/14/17 09/08/18 History Inhaler] Fluticasone Nasal [place] [Flonase 2 spr EA NOSTRIL DAILY PRN 05/14/17 09/08/18 History Nasal [place]] Fluticasone/Salmeterol [Advair 1 inhalation PO RT-BID 05/14/17 09/08/18 History 250-50 Diskus] Nystatin 100,000 Unit/gm Powd 1 applic TOPICAL BID PRN 05/14/17 09/08/18 History [Mycostatin Powder] traZODone HCL 100 mg PO HS 05/14/17 09/08/18 History Levothyroxine Sodium [Synthroid] 150 mcg PO DAILY 07/28/17 09/08/18 History Gabapentin [Neurontin] 400 mg PO TID #90 cap 07/07/18 09/08/18 Rx oxyCODONE HCL/ACETAMINOPHEN 1 tab PO Q8H PRN 08/05/18 09/08/18 History [Percocet 7.5-325 mg] Albuterol Nebulized [Ventolin 2.5 mg INHALATION RT-QID 09/08/18 09/08/18 History Nebulized] Citalopram Hydrobromide [CeleXA] 20 mg PO DAILY 09/08/18 09/08/18 History Magnesium Oxide [Mag-Ox] 400 mg PO DAILY 09/08/18 09/08/18 History Allergies Allergy/AdvReac Type Severity Reaction Status Date / Time ciprofloxacin HCl AdvReac Nausea Verified 09/08/18 10:18 [From Cipro] Sulfa (Sulfonamide AdvReac Nausea Verified 09/08/18 10:18 Antibiotics) Physical Exam Vitals: Vital Signs Temp Pulse Pulse Resp BP BP Pulse Ox 09/08/18 15:48 84 09/08/18 15:38 80 09/08/18 15:00 98.2 F 79 16 122/71 94 L 09/08/18 08:53 92 12 09/08/18 08:41 88 12 95 09/08/18 07:00 98.4 F 88 16 148/53 94 L 09/08/18 06:25 98.5 F 82 16 163/76 94 L 09/08/18 05:30 99.6 F 90 18 149/78 93 L 09/08/18 04:17 100.3 F H 90 18 158/68 93 L 09/08/18 02:06 101.4 F H 96 18 158/79 93 L 09/08/18 00:21 100.0 F H 95 18 133/64 93 L 09/08/18 00:00 98.9 F 96 20 133/64 94 L 09/07/18 23:00 94 20 130/77 93 L 09/07/18 22:04 94 L 09/07/18 22:00 100.5 F H 98 20 162/67 89 L Intake and Output 09/08/18 09/08/18 09/08/18 06:59 14:59 22:59 Other: # Voids 1 - Constitutional General appearance: mild distress, obese - EENT Eyes: anicteric sclerae, EOMI, PERRLA, no ptosis, no scleral icterus, normal appearance ENT: hearing grossly normal, NA/AT, normal oropharynx, no thrush Ears: bilateral: normal - Neck Neck: no lymphadenopathy, normal ROM, no rigidity, no stridor, no thyromegaly Carotids: bilateral: upstroke normal Thyroid: bilateral: normal size - Respiratory Respiratory: bilateral: diminished, dullness, rales, negative: rhonchi, wheezing, prolonged expiration - Cardiovascular Rhythm: regular Heart sounds: normal: S1, S2 Abnormal Heart Sounds: systolic murmur, no S3 Gallop, no S4 Gallop - Gastrointestinal General gastrointestinal: normal bowel sounds, soft, no splenomegaly, no tenderness, no umbilical hernia, no ventral hernia - Integumentary Integumentary: normal, normal turgor - Neurologic Neurologic: CNII-XII intact - Musculoskeletal Musculoskeletal: gait normal, generalized weakness - Psychiatric Psychiatric: A&O x's 3, appropriate affect, intact judgment & insight Results CBC & Chem 7: 09/07/18 22:10 09/07/18 22:10 Labs: Abnormal Lab Results - Last 24 Hours (Table) 09/07/18 09/07/18 09/08/18 Range/Units 22:10 22:10 00:01 WBC 15.3 H (3.8-10.6) k/uL RBC 3.78 L (3.80-5.40) m/uL Neutrophils # 13.7 H (1.3-7.7) k/uL Lymphocytes # 0.6 L (1.0-4.8) k/uL BUN 19 H (7-17) mg/dL Glucose 185 H (74-99) mg/dL POC Glucose (mg/dL) (75-99) mg/dL Total Protein 6.1 L (6.3-8.2) g/dL Albumin 3.3 L (3.5-5.0) g/dL Urine Protein Trace H (Negative) Urine Blood Trace H (Negative) Urine Bacteria Rare H (None) /hpf Urine Mucus Rare H (None) /hpf 09/08/18 09/08/18 Range/Units 07:14 11:30 WBC (3.8-10.6) k/uL RBC (3.80-5.40) m/uL Neutrophils # (1.3-7.7) k/uL Lymphocytes # (1.0-4.8) k/uL BUN (7-17) mg/dL Glucose (74-99) mg/dL POC Glucose (mg/dL) 178 H 178 H (75-99) mg/dL Total Protein (6.3-8.2) g/dL Albumin (3.5-5.0) g/dL Urine Protein (Negative) Urine Blood (Negative) Urine Bacteria (None) /hpf Urine Mucus (None) /hpf Thrombosis Risk Factor Assmnt - DVT/VTE Prophylaxis DVT/VTE Prophylaxis: Pharmacologic Prophylaxis ordered, Mechanical Prophylaxis ordered - Choose All That Apply Any of the Below Risk Factors Present?: Yes Each Factor Represents 1 point: Obesity (BMI >25), Swollen legs (current) Other Risk Factors: Yes Each Risk Factor Represents 3 Points: Age 75 years or older Other congenital or acquired thrombophilia - If yes, enter type in comment: No Thrombosis Risk Factor Assessment Total Risk Factor Score: 5 Thrombosis Risk Factor Assessment Level: High Risk Assessment and Plan Assessment: Assessment and plan: 1. Status post fall with contusion to the scalp, left foot and back. No evidence of acute fracture this time computed tomography scan of the brain reviewed was negative for acute infarct or bleed except for contusion the right scalp, monitor the patient very closely physical therapy evaluation. 2. Possible pneumonia. Continue patient on Rocephin 1 g IV piggyback every 24 hours as well as Zithromax 500 mg orally once every day, continue DuoNeb 3 mg nebulization 4 times every day, repeat chest x-ray PA and lateral tomorrow morning. 3. Hypertension and hypertensive cardiovascular disease. Continue patient on Cardizem 180 mg orally once every day. 4. Hyperlipidemia. Continue patient on Lipitor 40 mg orally once every day. 5. Diabetes mellitus type 2. Continue patient on Glimeperide 2 mg orally bid as well as sliding scale insulin. Continue consistent carbohydrate diet. 6. Hypothyroidism. Continue patient on Synthroid 150 g orally once every day. 7. Paroxysmal atrial fibrillation currently in sinus rhythm. Continue patient on Eliquis 5 mg orally twice every day. 8. Anxiety disorder continue with citalopram 20 mg orally once every day. 9. Constipation. Continue Linzess 145 g orally twice every day. 10. Degenerative disc disease of the lumbar spine with significant neuropathy. Continue patient on gabapentin 400 mg orally 3 times every day. 11. Morbid obesity.. Calorie count. 12. Insomnia. Currently on trazodone 100 mg orally once every day. 13. DVT prophylaxis. Currently on Eliquis 5 mg orally twice every day. 14. GI prophylaxis. Continue PPI. 15. Admit to inpatient. Estimated length of stay 2 midnights. 16. Patient is full code.
[2018-09-08 17:14] LABS: Glucose,Whole Blood 142 mg/dL (75-99)
[2018-09-08] MEDS: INSULIN ASPART (NovoLOG) 100 UNIT/ML VIAL SQ SCH ×2 (17:59→21:29)
[2018-09-08] MEDS: ATORVASTATIN 40 MG TAB PO SCH (17:59)
[2018-09-08] MEDS: DILTIAZEM CD 180 MG CAP.ER.24H PO SCH (18:00)
[2018-09-08] MEDS: SYMBICORT 80-4.5 MCG INHALER INHALATION SCH (19:38)
[2018-09-08 20:33] LABS: Glucose,Whole Blood 183 mg/dL (75-99)
[2018-09-08] MEDS: traZODone HCL 50 MG TAB PO SCH (21:29)
[2018-09-09] MEDS: oxyCODONE-APAP 7.5-325MG 1 EACH TAB PO PRN ×3 (06:12→16:53)
[2018-09-09] MEDS: SODIUM CHLORIDE 0.9% 1,000 ML IV SCH (06:13)
[2018-09-09] MEDS: LEVOTHYROXINE 75 MCG TAB PO SCH (06:13)
[2018-09-09] MEDS: AZITHROMYCIN 500 MG TAB PO SCH (06:13)
[2018-09-09 07:27] LABS: Glucose,Whole Blood 125 mg/dL (75-99)
[2018-09-09] MEDS: IPRATROPIUM-ALBUTEROL 3 ML NEB INHALATION SCH ×4 (08:28→21:18)
[2018-09-09] MEDS: SYMBICORT 80-4.5 MCG INHALER INHALATION SCH ×2 (08:28→21:11)
[2018-09-09 08:36] LABS: Basophils % (A) 0 %; Eosinophils # (A) 0.1 k/uL (0-0.7); Eosinophils % (A) 2 %; HCT 32.1 % (34.0-46.0); HGB 10.9 gm/dL (11.4-16.0); Lymphocytes # (A) 0.8 k/uL (1.0-4.8); Lymphocytes % (A) 8 %; MCH 30.9 pg (25.0-35.0); MCV 91.2 fL (80.0-100.0); Mean Platelet Volume 6.6; Monocytes # (A) 0.4 k/uL (0-1.0); Monocytes % (A) 5 %; Neutrophils # (A) 7.8 k/uL (1.3-7.7); Neutrophils % (A) 84 %; Platelet Count 255 k/uL (150-450); RBC 3.52 m/uL (3.80-5.40); RDW 14.3 % (11.5-15.5); WBC 9.3 k/uL (3.8-10.6)
[2018-09-09 08:39] LABS: Albumin 2.9 g/dL (3.5-5.0); Calcium 8.7 mg/dL (8.4-10.2); Potassium 4.1 mmol/L (3.5-5.1); Total Bilirubin 0.6 mg/dL (0.2-1.3); Total Protein 5.6 g/dL (6.3-8.2)
[2018-09-09] MEDS: INSULIN ASPART (NovoLOG) 100 UNIT/ML VIAL SQ SCH ×4 (08:49→21:41)
[2018-09-09] MEDS: OXYBUTYNIN CHLORIDE 5 MG TAB PO SCH ×2 (08:50→21:41)
[2018-09-09] MEDS: GABAPENTIN 400 MG CAP PO SCH ×3 (08:50→21:41)
[2018-09-09] MEDS: MAGNESIUM OXIDE 400 MG TAB PO SCH (08:50)
[2018-09-09] MEDS: FERROUS SULFATE 325 MG TAB PO SCH (08:50)
[2018-09-09] MEDS: ASPIRIN 81 MG PO SCH (08:51)
[2018-09-09] MEDS: CYANOCOBALAMIN 500 MCG TAB PO SCH (08:51)
[2018-09-09] MEDS: PANTOPRAZOLE 40 MG TABLET PO SCH (08:51)
[2018-09-09] MEDS: GLIMEPIRIDE 2 MG TAB PO SCH ×2 (08:51→17:28)
[2018-09-09] MEDS: CITALOPRAM HYDROBROMIDE 20 MG TAB PO SCH (08:51)
[2018-09-09] MEDS: POTASSIUM CHLORIDE ER 10 MEQ TAB.ER.PRT PO SCH (08:52)
[2018-09-09] MEDS: FUROSEMIDE 40 MG TAB PO SCH (08:52)
[2018-09-09] MEDS: APIXABAN 5 MG TAB PO SCH ×2 (08:52→21:41)
[2018-09-09] MEDS: PENTOXIFYLLINE 400 MG TABLET.ER PO SCH ×3 (08:52→21:41)
[2018-09-09 12:11] LABS: Glucose,Whole Blood 202 mg/dL (75-99)
--- NOTE | 2018-09-09 14:26 | P.PN ---
Subjective Progress Note Date: 09/09/18 This is a 78-year-old female one of Dr. Washburn with a previous medical history significant for hypertension and hypertensive cardiovascular disease with left ventricular hypertrophy, hyperlipidemia, history of hypothyroidism, history of diabetes mellitus type 2, degenerative disc disease of the lumbar spine with a chronic L1 fracture [facility] after she underwent multiple radiofrequency ablation epidural injections in the past she was prescribed gabapentin 600 mg orally 3 times every day up from her previous dose 400 mg orally 3 times every day patient tried it yesterday and she was going to the bathroom unfortunately her leg gave out and the patient landed on the floor head the left foot her back and the side of her head, patient ended up calling her neighbor who called EMS [facility] that showed contusion in the right scalp and an x-ray of the lumbar spine "that showed no evidence of fracture except for chronic L1 fracture left foot no fracture but there was hematoma and dorsal aspirin of the left foot, patient was complaining of increased cough for the past week or so with increased phlegm production that is yellowish in nature patient felt a bit febrile, she had a chest x-ray that showed poorly vascular congestion without evidence of any pneumonia however because of the presentation patient was started on IV antibiotic in the form of Rocephin and Zithromax and she was admitted for evaluation and treatment. 09/09: Patient denies any new complaints. Her cough is slightly improved from yesterday. She has continued on IV antibiotics and nebulizer treatments. She has been afebrile for 24 hours. Heart rate in 80s, blood pressure 149/65, pulse ox 92% on 2 L. CODE STATUS has been clarified with the patient and she wishes to be a DO NOT RESUSCITATE. Repeat chest x-ray has been ordered for today. Review of Systems Constitutional: Reports chronic pain, Reports weakness, Reports weight gain, Denies anorexia, Denies fatigue, Denies fever, Denies malaise Eyes: denies blurred vision, denies bulging eye, denies decreased vision Ears: deny: decreased hearing Ears, nose, mouth and throat: Denies dysphagia, Denies neck lump, Denies swelling in throat, Denies sore throat Cardiovascular: Reports decreased exercise tolerance, Reports dyspnea on exertion, Reports high blood pressure, Reports leg edema, Reports shortness of breath, Denies chest pain, Denies orthopnea, Denies rapid heart beat, Denies syncope Respiratory: Reports congestion, Reports cough, Reports cough with sputum, Reports dyspnea, Reports sleep apnea, Denies hemoptysis, Denies home oxygen, Denies respiratory infections, Denies snoring, Denies wheezing Gastrointestinal: Reports loss of appetite, Denies abdominal pain, Denies bloating, Denies BRBPR, Denies excessive gas, Denies heartburn, Denies melena, Denies nausea, Denies vomiting Genitourinary: Denies dysuria, Denies hematuria Menstruation: Reports postmenopausal Musculoskeletal: Denies myalgias Integumentary: Denies pruritus, Denies rash Neurological: Reports gait dysfunction, Reports weakness Psychiatric: Reports anxiety Endocrine: Denies fatigue, Denies weight change Objective - Vital Signs Vital signs: Vital Signs Temp 98.7 F 09/09/18 07:32 Pulse 80 09/09/18 11:57 Resp 18 09/09/18 07:32 BP 149/65 09/09/18 07:32 Pulse Ox 92 L 09/09/18 08:28 Intake & Output 09/08/18 09/09/18 09/09/18 18:59 06:59 18:59 Intake Total 990 Balance 990 Intake: Intake, IV Titration 200 Amount Sodium Chloride 0.9% 1, 200 000 ml @ 20 mls/hr IV . Q24H [id number] Rx#:[id number] Oral 790 Other: Voiding Method Toilet Bedside Commode # Voids 1 2 # Bowel Movements 1 - Exam General appearance: no distress, obese - EENT Eyes: anicteric sclerae, EOMI, PERRLA, no ptosis, no scleral icterus, normal appearance ENT: hearing grossly normal, NA/AT, normal oropharynx, no thrush Ears: bilateral: normal - Neck Neck: no lymphadenopathy, normal ROM, no rigidity, no stridor, no thyromegaly Carotids: bilateral: upstroke normal Thyroid: bilateral: normal size - Respiratory Respiratory: bilateral: diminished, dullness, rales, negative: rhonchi, wheezing, prolonged expiration - Cardiovascular Rhythm: regular Heart sounds: normal: S1, S2 Abnormal Heart Sounds: systolic murmur, no S3 Gallop, no S4 Gallop - Gastrointestinal General gastrointestinal: normal bowel sounds, soft, no splenomegaly, no tenderness, no umbilical hernia, no ventral hernia - Integumentary Integumentary: normal, normal turgor - Neurologic Neurologic: CNII-XII intact - Musculoskeletal Musculoskeletal: gait normal, generalized weakness - Psychiatric Psychiatric: A&O x's 3, appropriate affect, intact judgment & insight - Labs CBC & Chem 7: 09/09/18 07:49 09/09/18 07:49 Labs: Abnormal Lab Results - Last 24 Hours (Table) 09/08/18 09/08/18 09/09/18 Range/Units 16:53 20:31 07:25 RBC (3.80-5.40) m/uL Hgb (11.4-16.0) gm/dL Hct (34.0-46.0) % Neutrophils # (1.3-7.7) k/uL Lymphocytes # (1.0-4.8) k/uL Carbon Dioxide (22-30) mmol/L BUN (7-17) mg/dL Glucose (74-99) mg/dL POC Glucose (mg/dL) 142 H 183 H 125 H (75-99) mg/dL Total Protein (6.3-8.2) g/dL Albumin (3.5-5.0) g/dL 09/09/18 09/09/18 09/09/18 Range/Units 07:49 07:49 12:08 RBC 3.52 L (3.80-5.40) m/uL Hgb 10.9 L (11.4-16.0) gm/dL Hct 32.1 L (34.0-46.0) % Neutrophils # 7.8 H (1.3-7.7) k/uL Lymphocytes # 0.8 L (1.0-4.8) k/uL Carbon Dioxide 31 H (22-30) mmol/L BUN 18 H (7-17) mg/dL Glucose 138 H (74-99) mg/dL POC Glucose (mg/dL) 202 H (75-99) mg/dL Total Protein 5.6 L (6.3-8.2) g/dL Albumin 2.9 L (3.5-5.0) g/dL Microbiology - Last 24 Hours (Table) 09/08/18 07:51 Blood Culture - Preliminary Blood No Growth after 24 hours 09/08/18 07:45 Blood Culture - Preliminary Blood No Growth after 24 hours 09/08/18 00:01 Blood Culture - Preliminary Blood No Growth after 24 hours Assessment and Plan Plan: 1. Status post fall with contusion to the scalp, left foot and back. No evidence of acute fracture this time computed tomography scan of the brain reviewed was negative for acute infarct or bleed except for contusion the right scalp, monitor the patient very closely physical therapy evaluation. 2. Possible pneumonia. Continue patient on Rocephin 1 g IV piggyback every 24 hours as well as Zithromax 500 mg orally once every day, continue DuoNeb 3 mg nebulization 4 times every day, repeat chest x-ray PA and lateral today. 3. Hypertension and hypertensive cardiovascular disease. Continue patient on Cardizem 180 mg orally once every day. 4. Hyperlipidemia. Continue patient on Lipitor 40 mg orally once every day. 5. Diabetes mellitus type 2. Continue patient on Glimeperide 2 mg orally bid as well as sliding scale insulin. Continue consistent carbohydrate diet. 6. Hypothyroidism. Continue patient on Synthroid 150 g orally once every day. 7. Paroxysmal atrial fibrillation currently in sinus rhythm. Continue patient on Eliquis 5 mg orally twice every day. 8. Generalized anxiety disorder continue with citalopram 20 mg orally once every day. 9. Constipation. Continue Linzess 145 g orally twice every day. 10. Degenerative disc disease of the lumbar spine with significant neuropathy. Continue patient on gabapentin 400 mg orally 3 times every day. 11. Morbid obesity.. Calorie count. 12. Insomnia. Currently on trazodone 100 mg orally once every day. 13. DVT prophylaxis. Currently on Eliquis 5 mg orally twice every day. 14. GI prophylaxis. Continue PPI. CODE STATUS: No code Discharge plan: Return home Impression and plan of care have been directed as dictated by the signing physician. Liza Glass nurse practitioner acting as scribe for signing physician.
[2018-09-09 16:53] LABS: Glucose,Whole Blood 144 mg/dL (75-99)
[2018-09-09] MEDS: ATORVASTATIN 40 MG TAB PO SCH (17:28)
--- NOTE | 2018-09-09 18:41 | XR ---
EXAMINATION: XR chest 2V DATE AND TIME: 09/09/2018 6:03 PM CLINICAL INDICATION: PHH; Pneumonia TECHNIQUE: Frontal and lateral views COMPARISON: 09/07/2018 FINDINGS: Right hemidiaphragm is even more elevated than on the prior study. This does not allow adequate visua lization of the right middle lobe or the right lower lobe. However, on the lateral view there is incr eased consolidative opacity, seen is a linear band, posteriorly. This likely represents atelectasis o f the right lower lobe, but concurrent bronchopneumonia can only be excluded clinically, unless prone CT is pursued. However, the visualized lungs are clear bilaterally. The pleural spaces are negative. The cardiac silhouette appears mildly enlarged similar to the prior study. The thoracic aortic tortuo sity is redemonstrated. The skeletal structures and soft tissues are negative for acute findings. IMPRESSION: Evidence of partial right lower lobe airlessness.
[2018-09-09] MEDS: DILTIAZEM CD 180 MG CAP.ER.24H PO SCH (19:13)
[2018-09-09 21:07] LABS: Glucose,Whole Blood 163 mg/dL (75-99)
[2018-09-09] MEDS: traZODone HCL 50 MG TAB PO SCH (21:41)
[2018-09-10] MEDS: FLUTICASONE 50MCG/SPRAY NASAL 16GM EA NOSTRIL PRN ×2 (00:03→21:26)
[2018-09-10] MEDS: LEVOTHYROXINE 75 MCG TAB PO SCH (05:58)
[2018-09-10] MEDS: SYMBICORT 80-4.5 MCG INHALER INHALATION SCH ×2 (07:52→19:29)
[2018-09-10] MEDS: IPRATROPIUM-ALBUTEROL 3 ML NEB INHALATION SCH ×4 (07:52→19:29)
[2018-09-10 08:01] LABS: Glucose,Whole Blood 178 mg/dL (75-99)
[2018-09-10] MEDS: oxyCODONE-APAP 7.5-325MG 1 EACH TAB PO PRN ×3 (09:02→19:02)
[2018-09-10] MEDS: MAGNESIUM OXIDE 400 MG TAB PO SCH (09:03)
[2018-09-10] MEDS: POTASSIUM CHLORIDE ER 10 MEQ TAB.ER.PRT PO SCH (09:03)
[2018-09-10] MEDS: APIXABAN 5 MG TAB PO SCH ×2 (09:03→21:25)
[2018-09-10] MEDS: GABAPENTIN 400 MG CAP PO SCH ×3 (09:03→21:25)
[2018-09-10] MEDS: GLIMEPIRIDE 2 MG TAB PO SCH ×2 (09:03→17:26)
[2018-09-10] MEDS: PANTOPRAZOLE 40 MG TABLET PO SCH (09:03)
[2018-09-10] MEDS: CYANOCOBALAMIN 500 MCG TAB PO SCH (09:04)
[2018-09-10] MEDS: ASPIRIN 81 MG PO SCH (09:04)
[2018-09-10] MEDS: AZITHROMYCIN 500 MG TAB PO SCH (09:04)
[2018-09-10] MEDS: FERROUS SULFATE 325 MG TAB PO SCH (09:04)
[2018-09-10] MEDS: PENTOXIFYLLINE 400 MG TABLET.ER PO SCH ×3 (09:04→21:25)
[2018-09-10] MEDS: FUROSEMIDE 40 MG TAB PO SCH (09:04)
[2018-09-10] MEDS: CITALOPRAM HYDROBROMIDE 20 MG TAB PO SCH (09:04)
[2018-09-10] MEDS: OXYBUTYNIN CHLORIDE 5 MG TAB PO SCH ×2 (09:04→21:25)
[2018-09-10] MEDS: INSULIN ASPART (NovoLOG) 100 UNIT/ML VIAL SQ SCH ×4 (09:05→21:25)
[2018-09-10 11:25] LABS: Glucose,Whole Blood 106 mg/dL (75-99)
--- NOTE | 2018-09-10 14:51 | P.PN ---
Subjective Progress Note Date: 09/10/18 This is a 78-year-old female one of Dr. Washburn with a previous medical history significant for hypertension and hypertensive cardiovascular disease with left ventricular hypertrophy, hyperlipidemia, history of hypothyroidism, history of diabetes mellitus type 2, degenerative disc disease of the lumbar spine with a chronic L1 fracture [facility] by the pain management clinic after she underwent multiple radiofrequency ablation epidural injections in the past she was prescribed gabapentin 600 mg orally 3 times every day up from her previous dose 400 mg orally 3 times every day patient tried it yesterday and she was going to the bathroom unfortunately her leg gave out and the patient landed on the floor head the left foot her back and the side of her head, patient ended up calling her neighbor who called [facility] the brain that showed contusion in the right scalp and an x-ray of the lumbar spine "that showed no evidence of fracture except for chronic L1 fracture left foot no fracture but there was hematoma and dorsal aspirin of the left foot, patient was complaining of increased cough for the past week or so with increased phlegm production that is yellowish in nature patient felt a bit febrile, she had a chest x-ray that showed poorly vascular congestion without evidence of any pneumonia however because of the presentation patient was started on IV antibiotic in the form of Rocephin and Zithromax and she was admitted for evaluation and treatment. 4/4: Patient denies any new complaints. Her cough is slightly improved from yesterday. She has continued on IV antibiotics and nebulizer treatments. She has been afebrile for 24 hours. Heart rate in 80s, blood pressure 149/65, pulse ox 92% on 2 L. CODE STATUS has been clarified with the patient and she wishes to be a DO NOT RESUSCITATE. Repeat chest x-ray has been ordered for today. 45:the patient states that she had a rough night last night due to shortness of breath. She states she was on the O2 and she became very dry from it and humidification was added which did help but then she couldn't sleep. She denies any phlegm production. She is complaining of pain across her lower rib area secondary to coughing or from her recent fall. Her lungs sound improved from yesterday.chest x-ray reveals evidence of partial right lower lobe airlessness.she has been afebrile, heart rate in the 70s, blood [id number]/74, pulse ox 90% on 3 L. most likely patient will be ready for discharge tomorrow. She states her discharge plan is return home. She is not interested in rehab. Review of Systems Constitutional: Reports chronic pain, Reports weakness, Reports weight gain, Denies anorexia, Denies fatigue, Denies fever, Denies malaise Eyes: denies blurred vision, denies bulging eye, denies decreased vision Ears: deny: decreased hearing Ears, nose, mouth and throat: Denies dysphagia, Denies neck lump, Denies swelling in throat, Denies sore throat Cardiovascular: Reports decreased exercise tolerance, Reports dyspnea on exertion, Reports high blood pressure, Reports leg edema, Reports shortness of breath, Denies chest pain, Denies orthopnea, Denies rapid heart beat, Denies syncope Respiratory: Reports congestion, Reports cough, Reports cough with sputum, Reports dyspnea, Reports sleep apnea, Denies hemoptysis, Denies home oxygen, Denies respiratory infections, Denies snoring, Denies wheezing Gastrointestinal: Reports loss of appetite, Denies abdominal pain, Denies bloating, Denies BRBPR, Denies excessive gas, Denies heartburn, Denies melena, Denies nausea, Denies vomiting Genitourinary: Denies dysuria, Denies hematuria Menstruation: Reports postmenopausal Musculoskeletal: Denies myalgias Integumentary: Denies pruritus, Denies rash Neurological: Reports gait dysfunction, Reports weakness Psychiatric: Reports anxiety, reports insomnia Endocrine: Denies fatigue, Denies weight change Objective - Vital Signs Vital signs: Vital Signs Temp 98.8 F 09/10/18 07:00 Pulse 94 09/10/18 07:00 Resp 16 09/10/18 07:00 BP 150/74 09/10/18 07:00 Pulse Ox 90 L 09/10/18 07:00 Intake & Output 09/09/18 09/10/18 09/10/18 18:59 06:59 18:59 Intake Total 540 Balance 540 Intake: Oral 540 Other: Voiding Method Bedside Commode Bedside Commode # Voids 2 2 1 # Bowel Movements 1 - Exam General appearance: no distress, obese, patient resting in a recliner. - EENT Eyes: anicteric sclerae, EOMI, PERRLA, no ptosis, no scleral icterus, normal appearance ENT: hearing grossly normal, NA/AT, normal oropharynx, no thrush Ears: bilateral: normal - Neck Neck: no lymphadenopathy, normal ROM, no rigidity, no stridor, no thyromegaly Carotids: bilateral: upstroke normal Thyroid: bilateral: normal size - Respiratory Respiratory: bilateral: diminished, dullness, rales, negative: rhonchi, wheezing, prolonged expiration - Cardiovascular Rhythm: regular Heart sounds: normal: S1, S2 Abnormal Heart Sounds: systolic murmur, no S3 Gallop, no S4 Gallop - Gastrointestinal General gastrointestinal: normal bowel sounds, soft, no splenomegaly, no tenderness, no umbilical hernia, no ventral hernia - Integumentary Integumentary: normal, normal turgor - Neurologic Neurologic: CNII-XII intact - Musculoskeletal Musculoskeletal: gait normal, generalized weakness - Psychiatric Psychiatric: A&O x's 3, appropriate affect, intact judgment & insight - Labs CBC & Chem 7: 09/09/18 07:49 09/09/18 07:49 Labs: Abnormal Lab Results - Last 24 Hours (Table) 09/09/18 09/09/18 09/09/18 Range/Units 12:08 16:51 21:06 POC Glucose (mg/dL) 202 H 144 H 163 H (75-99) mg/dL 09/10/18 Range/Units 07:59 POC Glucose (mg/dL) 178 H (75-99) mg/dL Microbiology - Last 24 Hours (Table) 09/08/18 00:01 Blood Culture - Preliminary Blood No Growth after 48 hours 09/08/18 07:51 Blood Culture - Preliminary Blood No Growth after 24 hours 09/08/18 07:45 Blood Culture - Preliminary Blood No Growth after 24 hours Assessment and Plan Plan: 1. Status post fall with contusion to the scalp, left foot and back. No evidence of acute fracture this time computed tomography scan of the brain reviewed was negative for acute infarct or bleed except for contusion the right scalp, monitor the patient very closely physical therapy evaluation. 2. Possible pneumonia. Continue patient on Rocephin 1 g IV piggyback every 24 hours as well as Zithromax 500 mg orally once every day, continue DuoNeb 3 mg nebulization 4 times every day, repeat chest x-ray PA and lateral today. 3. Hypertension and hypertensive cardiovascular disease. Continue patient on Cardizem 180 mg orally once every day. 4. Hyperlipidemia. Continue patient on Lipitor 40 mg orally once every day. 5. Diabetes mellitus type 2. Continue patient on Glimeperide 2 mg orally bid as well as sliding scale insulin. Continue consistent carbohydrate diet. 6. Hypothyroidism. Continue patient on Synthroid 150 g orally once every day. 7. Paroxysmal atrial fibrillation currently in sinus rhythm. Continue patient on Eliquis 5 mg orally twice every day. 8. Generalized anxiety disorder continue with citalopram 20 mg orally once every day. 9. Constipation. Continue Linzess 145 g orally twice every day. 10. Degenerative disc disease of the lumbar spine with significant neuropathy. Continue patient on gabapentin 400 mg orally 3 times every day. 11. Morbid obesity.. Calorie count. 12. Insomnia. Currently on trazodone 100 mg orally once every day. 13. DVT prophylaxis. Currently on Eliquis 5 mg orally twice every day. 14. GI prophylaxis. Continue PPI. CODE STATUS: No code Discharge plan: Return homeon Thursday Impression and plan of care have been directed as dictated by the signing physician. Liza Glass nurse practitioner acting as scribe for signing physician.
[2018-09-10 16:39] LABS: Glucose,Whole Blood 248 mg/dL (75-99)
[2018-09-10] MEDS: ATORVASTATIN 40 MG TAB PO SCH (17:26)
[2018-09-10] MEDS: DILTIAZEM CD 180 MG CAP.ER.24H PO SCH (18:52)
[2018-09-10 20:33] LABS: Glucose,Whole Blood 140 mg/dL (75-99)
[2018-09-10] MEDS: traZODone HCL 50 MG TAB PO SCH (21:25)
[2018-09-11] MEDS: LEVOTHYROXINE 75 MCG TAB PO SCH (05:12)
[2018-09-11] MEDS: oxyCODONE-APAP 7.5-325MG 1 EACH TAB PO PRN ×3 (05:14→17:09)
[2018-09-11 07:08] LABS: Glucose,Whole Blood 182 mg/dL (75-99)
[2018-09-11] MEDS: IPRATROPIUM-ALBUTEROL 3 ML NEB INHALATION SCH ×4 (07:56→19:37)
[2018-09-11] MEDS: SYMBICORT 80-4.5 MCG INHALER INHALATION SCH ×2 (07:56→19:36)
[2018-09-11] MEDS: INSULIN ASPART (NovoLOG) 100 UNIT/ML VIAL SQ SCH ×4 (09:22→21:09)
[2018-09-11] MEDS: APIXABAN 5 MG TAB PO SCH ×2 (09:23→21:09)
[2018-09-11] MEDS: MAGNESIUM OXIDE 400 MG TAB PO SCH (09:23)
[2018-09-11] MEDS: CYANOCOBALAMIN 500 MCG TAB PO SCH (09:23)
[2018-09-11] MEDS: ASPIRIN 81 MG PO SCH (09:23)
[2018-09-11] MEDS: CITALOPRAM HYDROBROMIDE 20 MG TAB PO SCH (09:23)
[2018-09-11] MEDS: POTASSIUM CHLORIDE ER 10 MEQ TAB.ER.PRT PO SCH (09:23)
[2018-09-11] MEDS: GABAPENTIN 400 MG CAP PO SCH ×3 (09:23→21:08)
[2018-09-11] MEDS: FUROSEMIDE 40 MG TAB PO SCH (09:23)
[2018-09-11] MEDS: PANTOPRAZOLE 40 MG TABLET PO SCH (09:23)
[2018-09-11] MEDS: OXYBUTYNIN CHLORIDE 5 MG TAB PO SCH ×2 (09:23→21:09)
[2018-09-11] MEDS: GLIMEPIRIDE 2 MG TAB PO SCH ×2 (09:24→17:10)
[2018-09-11] MEDS: FERROUS SULFATE 325 MG TAB PO SCH (09:24)
[2018-09-11] MEDS: PENTOXIFYLLINE 400 MG TABLET.ER PO SCH ×3 (09:24→21:09)
[2018-09-11] MEDS: AZITHROMYCIN 500 MG TAB PO SCH (09:24)
[2018-09-11 09:47] LABS: Anisocytosis Slight; HCT 30.1 % (34.0-46.0); HGB 10.4 gm/dL (11.4-16.0); MCH 30.7 pg (25.0-35.0); MCHC 34.6 g/dL (31.0-37.0); MCV 88.8 fL (80.0-100.0); Mean Platelet Volume 8.6; Platelet Count 269 k/uL (150-450); RBC 3.39 m/uL (3.80-5.40); RDW 16.1 % (11.5-15.5); WBC 9.3 k/uL (3.8-10.6)
[2018-09-11 09:58] LABS: Potassium 4.1 mmol/L (3.5-5.1)
[2018-09-11 12:19] LABS: Glucose,Whole Blood 115 mg/dL (75-99)
[2018-09-11] MEDS ORDERED: FUROSEMIDE 10 MG/ML 2 ML VIAL IV STA (13:29)
[2018-09-11 16:57] LABS: Glucose,Whole Blood 158 mg/dL (75-99)
[2018-09-11] MEDS: ATORVASTATIN 40 MG TAB PO SCH (17:11)
--- NOTE | 2018-09-11 19:00 | P.PN ---
Subjective Progress Note Date: 09/11/18 This is a 78-year-old female one of Dr. Washburn with a previous medical history significant for hypertension and hypertensive cardiovascular disease with left ventricular hypertrophy, hyperlipidemia, history of hypothyroidism, history of diabetes mellitus type 2, degenerative disc disease of the lumbar spine with a chronic L1 fracture [facility] recently seen by the pain management clinic after she underwent multiple radiofrequency ablation epidural injections in the past she was prescribed gabapentin 600 mg orally 3 times every day up from her previous dose 400 mg orally 3 times every day patient tried it yesterday and she was going to the bathroom unfortunately her leg gave out and the patient landed on the floor head the left foot her back and the side of her head, patient ended up calling her neighbor who called [facility] that showed contusion in the right scalp and an x-ray of the lumbar spine "that showed no evidence of fracture except for chronic L1 fracture left foot no fracture but there was hematoma and dorsal aspirin of the left foot, patient was complaining of increased cough for the past week or so with increased phlegm production that is yellowish in nature patient felt a bit febrile, she had a chest x-ray that showed poorly vascular congestion without evidence of any pneumonia however because of the presentation patient was started on IV antibiotic in the form of Rocephin and Zithromax and she was admitted for evaluation and treatment. 4/4: Patient denies any new complaints. Her cough is slightly improved from yesterday. She has continued on IV antibiotics and nebulizer treatments. She has been afebrile for 24 hours. Heart rate in 80s, blood pressure 149/65, pulse ox 92% on 2 L. CODE STATUS has been clarified with the patient and she wishes to be a DO NOT RESUSCITATE. Repeat chest x-ray has been ordered for today. 45:the patient states that she had a rough night last night due to shortness of breath. She states she was on the O2 and she became very dry from it and humidification was added which did help but then she couldn't sleep. She denies any phlegm production. She is complaining of pain across her lower rib area secondary to coughing or from her recent fall. Her lungs sound improved from yesterday.chest x-ray reveals evidence of partial right lower lobe airlessness.she has been afebrile, heart rate in the 70s, blood [id number]/74, pulse ox 90% on 3 L. most likely patient will be ready for discharge tomorrow. She states her discharge plan is return home. She is not interested in rehab. 09/11: Patient has some edema, some cough, has hypoxemia on ambulation, pulse ox 87 percent, on room air, resting pulse ox is a round 90% on room air,daughter is at bedside,discharge planning given, we will discharge him a.m. states rather than today, with home O2, Lasix extra dose to be given today, IV. patient can ambulate in the hallway with assistance, she is 1 person on standby for ambulati on blood pressure is in the hypertensive side,no fevers Objective - Vital Signs Vital signs: Vital Signs Temp 98.9 F 09/11/18 07:00 Pulse 86 09/11/18 12:05 Resp 16 09/11/18 07:00 BP 133/65 09/11/18 07:00 Pulse Ox 96 09/11/18 07:00 Intake & Output 09/10/18 09/11/18 09/11/18 18:59 06:59 18:59 Intake Total 1130 236 Balance 1130 236 Intake: Intake, IV Titration 50 Amount cefTRIAXone 1 gm In 50 Sodium Chloride 0.9% 50 ml @ 100 mls/hr IVPB Q24H [facility] Rx#:[id number] Oral 1080 236 Other: Voiding Method Toilet Toilet # Voids 1 3 - Constitutional General appearance: Present: cooperative, obese - EENT Eyes: Present: anicteric sclerae, PERRLA, dentition normal, normal appearance ENT: Present: hearing grossly normal, NA/AT - Neck Neck: Present: normal ROM - Respiratory Respiratory: right: prolonged inspiration, bilateral: CTA, diminished, negative: wheezing - Cardiovascular Heart sounds: normal: S1, S2 Abnormal Heart Sounds: Absent: systolic murmur, diastolic murmur, rub, S3 Gallop, S4 Gallop, click, other - Gastrointestinal General gastrointestinal: Present: normal bowel sounds, soft - Integumentary Integumentary: Present: normal, normal turgor - Neurologic Neurologic: Present: CNII-XII intact - Musculoskeletal Musculoskeletal: Present: gait normal, generalized weakness, strength equal bilaterally - Psychiatric Psychiatric: Present: A&O x's 3, appropriate affect, intact judgment & insight - Labs CBC & Chem 7: 09/11/18 09:00 09/11/18 09:00 Labs: Abnormal Lab Results - Last 24 Hours (Table) 09/10/18 09/10/18 09/11/18 Range/Units 16:37 20:32 07:06 RBC (3.80-5.40) m/uL Hgb (11.4-16.0) gm/dL Hct (34.0-46.0) % RDW (11.5-15.5) % Sodium (137-145) mmol/L BUN (7-17) mg/dL Glucose (74-99) mg/dL POC Glucose (mg/dL) 248 H 140 H 182 H (75-99) mg/dL 09/11/18 09/11/18 09/11/18 Range/Units 09:00 09:00 12:18 RBC 3.39 L (3.80-5.40) m/uL Hgb 10.4 L (11.4-16.0) gm/dL Hct 30.1 L (34.0-46.0) % RDW 16.1 H (11.5-15.5) % Sodium 136 L (137-145) mmol/L BUN 20 H (7-17) mg/dL Glucose 183 H (74-99) mg/dL POC Glucose (mg/dL) 115 H (75-99) mg/dL Microbiology - Last 24 Hours (Table) 09/08/18 07:51 Blood Culture - Preliminary Blood No Growth after 72 hours 09/08/18 07:45 Blood Culture - Preliminary Blood No Growth after 72 hours 09/08/18 00:01 Blood Culture - Preliminary Blood No Growth after 72 hours Assessment and Plan Plan: 1. Status post fall with contusion to the scalp, left foot and back. No evidence of acute fracture this time computed tomography scan of the brain reviewed was negative for acute infarct or bleed except for contusion the right scalp, monitor the patient very closely physical therapy evaluation. 2. Acute hypoxemic respiratory failure most likely secondary to pneumonia, atelectasis as well as diastolic CHF exacerbation, additional Lasix 20 mg to be given today IV, with oral potassium, incentive spirometry, O2 supplementation 3. Acute diastolic CHF exacerbation with volume overload suspected, IV Lasix, additional dose today, continue on home oral dose of Lasix 2. pneumonia with increasing consolidation, underlying atelectasis. discontinue patient on Rocephin 1 g IV piggyback every 24 hours as well as Zithromax 500 mg orally once every day, continue DuoNeb 3 mg nebulization 4 times every day 3. Hypertension and hypertensive cardiovascular disease. Continue patient on Cardizem 180 mg orally once every day. 4. Hyperlipidemia. Continue patient on Lipitor 40 mg orally once every day. 5. Diabetes mellitus type 2. Continue patient on Glimeperide 2 mg orally bid as well as sliding scale insulin. Continue consistent carbohydrate diet. 6. Hypothyroidism. Continue patient on Synthroid 150 g orally once every day. 7. Paroxysmal atrial fibrillation currently in sinus rhythm. Continue patient on Eliquis 5 mg orally twice every day. 8. Generalized anxiety disorder continue with citalopram 20 mg orally once every day. 9. Constipation. Continue Linzess 145 g orally twice every day. 10. Degenerative disc disease of the lumbar spine with significant neuropathy. Continue patient on gabapentin 400 mg orally 3 times every day. 11. Morbid obesity.. carb consistent with low-calorie preference 12. Insomnia. Currently on trazodone 100 mg orally once every day. 13. DVT prophylaxis. Currently on Eliquis 5 mg orally twice every day. 14. GI prophylaxis. Continue PPI. 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
[2018-09-11 19:16] LABS: Glucose,Whole Blood 202 mg/dL (75-99)
[2018-09-11] MEDS: DILTIAZEM CD 180 MG CAP.ER.24H PO SCH (21:08)
[2018-09-11] MEDS: traZODone HCL 50 MG TAB PO SCH (21:09)
[2018-09-12] MEDS: oxyCODONE-APAP 7.5-325MG 1 EACH TAB PO PRN ×2 (00:08→09:39)
[2018-09-12] MEDS: LEVOTHYROXINE 75 MCG TAB PO SCH (05:24)
[2018-09-12 07:12] LABS: Glucose,Whole Blood 132 mg/dL (75-99)
[2018-09-12 08:02] VITALS: TEMP 98.8
[2018-09-12] MEDS: SYMBICORT 80-4.5 MCG INHALER INHALATION SCH (08:11)
[2018-09-12] MEDS: IPRATROPIUM-ALBUTEROL 3 ML NEB INHALATION SCH ×3 (08:11→15:44)
[2018-09-12] MEDS: FLUTICASONE 50MCG/SPRAY NASAL 16GM EA NOSTRIL PRN (09:40)
[2018-09-12] MEDS: MAGNESIUM OXIDE 400 MG TAB PO SCH (09:41)
[2018-09-12] MEDS: PENTOXIFYLLINE 400 MG TABLET.ER PO SCH (09:41)
[2018-09-12] MEDS: FERROUS SULFATE 325 MG TAB PO SCH (09:41)
[2018-09-12] MEDS: ASPIRIN 81 MG PO SCH (09:41)
[2018-09-12] MEDS: OXYBUTYNIN CHLORIDE 5 MG TAB PO SCH (09:41)
[2018-09-12] MEDS: CITALOPRAM HYDROBROMIDE 20 MG TAB PO SCH (09:42)
[2018-09-12] MEDS: CYANOCOBALAMIN 500 MCG TAB PO SCH (09:42)
[2018-09-12] MEDS: PANTOPRAZOLE 40 MG TABLET PO SCH (09:42)
[2018-09-12] MEDS: APIXABAN 5 MG TAB PO SCH (09:42)
[2018-09-12] MEDS: AZITHROMYCIN 500 MG TAB PO SCH (09:42)
[2018-09-12] MEDS: POTASSIUM CHLORIDE ER 10 MEQ TAB.ER.PRT PO SCH (09:43)
[2018-09-12] MEDS: INSULIN ASPART (NovoLOG) 100 UNIT/ML VIAL SQ SCH ×2 (09:44→12:32)
[2018-09-12] MEDS: GLIMEPIRIDE 2 MG TAB PO SCH (09:47)
[2018-09-12] MEDS: GABAPENTIN 400 MG CAP PO SCH (09:50)
[2018-09-12] MEDS: FUROSEMIDE 40 MG TAB PO SCH (09:50)
[2018-09-12 11:53] LABS: Glucose,Whole Blood 135 mg/dL (75-99)
[2018-09-12 15:08] VITALS: BP 135/84; PULSE 71; RESP 16
== END 2018-09-12 16:15 | disposition home health service (06) | DRG 291 ==
LOC: EC 21:49 → 4SSUR 09-08 05:00
PROVIDERS: ADMIT Internal Medicine; ATTEND Internal Medicine
DX: I11.0 Hypertensive heart disease with heart failure (principal); J18.9 Pneumonia, unspecified organism; J96.01 Acute respiratory failure with hypoxia; K51.90 Ulcerative colitis, unspecified, without complications; J98.11 Atelectasis; Z68.41 Body mass index [BMI] 40.0-44.9, adult; I50.33 Acute on chronic diastolic (congestive) heart failure; E03.9 Hypothyroidism, unspecified; E11.9 Type 2 diabetes mellitus without complications; E66.01 Morbid (severe) obesity due to excess calories; E78.5 Hyperlipidemia, unspecified; F32.9 Major depressive disorder, single episode, unspecified; F41.9 Anxiety disorder, unspecified; G47.00 Insomnia, unspecified; G62.9 Polyneuropathy, unspecified; I25.2 Old myocardial infarction; I48.0 Paroxysmal atrial fibrillation; J45.909 Unspecified asthma, uncomplicated; K21.9 Gastro-esophageal reflux disease without esophagitis; K59.00 Constipation, unspecified; M51.36 Other intervertebral disc degeneration, lumbar region; M84.48XG Pathological fracture, other site, subsequent encounter for fracture with delayed healing; W01.0XXA Fall on same level from slipping, tripping and stumbling without subsequent striking against object, initial encounter; Y92.009 Unspecified place in unspecified non-institutional (private) residence as the place of occurrence of the external cause; Z66 Do not resuscitate; Z79.01 Long term (current) use of anticoagulants; Z79.82 Long term (current) use of aspirin; Z79.890 Hormone replacement therapy; Z79.899 Other long term (current) drug therapy; Z80.1 Family history of malignant neoplasm of trachea, bronchus and lung; Z90.710 Acquired absence of both cervix and uterus; S00.03XA Contusion of scalp, initial encounter; S90.32XA Contusion of left foot, initial encounter; S30.0XXA Contusion of lower back and pelvis, initial encounter; W19.XXXA Unspecified fall, initial encounter; Z83.2 Family history of diseases of the blood and blood-forming organs and certain disorders involving the immune mechanism; Z99.81 Dependence on supplemental oxygen; Z88.1 Allergy status to other antibiotic agents; Z88.2 Allergy status to sulfonamides
CPT/HCPCS: 36415; 70450; 71045; 71046; 72100; 80048; 80053; 81001; 82550; 82553; 83605; 83735; 84484; 85025; 85027; 85610; 85730; 87040; 87502; 93005; 94640; 94760; 99285

== ENCOUNTER → 2018-09-21 | Outpatient (CLI) | payer MEDICARE, OTHER ==
--- NOTE | 2018-09-21 15:12 | XR ---
EXAMINATION TYPE: XR foot complete LT DATE OF EXAM: 09/21/2018 COMPARISON: NONE HISTORY: Pain TECHNIQUE: Three views are submitted. FINDINGS: The osseous structures are intact. There is arthropathy of the tarsal metatarsal joint. Diffuse soft tissue edema noted. Arthropathy of all MTP and DIP joints noted. Calcaneal spurs are noted. There are hammertoe deformities. Diffuse osteopenia noted. IMPRESSION: 1. No acute fracture or dislocation. If symptoms persist, follow-up exam in 7 to 10 days could be ob tained. 2. Arthropathy.
== END | disposition home or self-care (01) ==
LOC: RADXRMAIN 14:25
PROVIDERS: ATTEND Family Medicine
DX: M19.072 Primary osteoarthritis, left ankle and foot (principal)

== ENCOUNTER → 2018-10-04 | Day surgery (SDC) | payer MEDICARE, OTHER ==
[2018-10-01 09:30] VITALS: BMI 43.5
[~2018-10-04] MED LIST changes: +IV FLUID CONTINUATION 1,000 ML IV ONE; +LACTATED RINGERS 1,000 ML IV ONE; +LIDOCAINE 1% 20 ML VIAL (10MG/ML) FOR IV START INTRADERMA ONE; -SODIUM CHLORIDE 0.9% 500 ML 500 ML IV SCH
[2018-10-04 07:27] VITALS: RESP 18; TEMP 98.6
[2018-10-04 07:35] LABS: Glucose,Whole Blood 149 mg/dL (75-99)
--- NOTE | 2018-10-04 08:18 | P.PCN ---
Date of Procedure: 10/04/18 Surgeon: Clement Hester Pathology: none sent Condition: stable Disposition: PACU Description of Procedure: Preoperative diagnoses= sacroiliac joint dysfunction and sacroiliitis on the r ight side Postoperative diagnoses= same as preoperative diagnosis. Procedure= sacroiliac joint steroid injection under fluoroscopic guidance. Anesthesia= local anesthesia with lidocaine 1% and IV moderate conscious sedation with fentanyl and Versed Estimated blood loss=minimal. Procedure indication= the patient had a history of severe chronic low back pain, diagnosed with sacroiliitis and lumbar sacral facet arthropathy unresponsive to conservative treatment. The patient takes Eliquis for a history of A. fib and she has stopped it for 5 days despite our instructions for her not to stop it for this Procedure, however she will resume taking it today .For the next sacroiliac joint injection she does not have to stop it again. Procedure description= the patient was seen and identified in the preoperative holding area, risks and benefits and alternative of the procedure and possible complications discussed with the patient, patient signed the consent. an IV was started, and vital signs were monitored and were stable throughout the procedure, patient was placed in the prone position or table and the lumbosacral area was prepped and draped with a sterile fashion, vital signs were closely monitored during the procedure.The sacroiliac joint was identified on the AP view of fluoroscopy then the C-arm was tilted to the left oblique position to superimpose the anterior and posterior joint lines on each other and to have a unified joint line with the target point at the inferior one third of this line. I used 22-gauge 3-1/2 inch Quincke spinal needle for this procedure and after getting into the sacroiliac joint I injected 40 mg of Kenalog +2 MLS of Ropivacaine 0.5%. Patient tolerated the procedure well without any complication, The patient returned to supine position after the back was cleaned and a Band- Aid applied, the patient transported to recovery room in stable condition and he was monitored for 30 minutes before he was discharged home and then patient was reexamined before going home and patient was discharged in stable condition and patient will follow up with the pain clinic in a few weeks
[2018-10-04 08:41] VITALS: BP 124/71; PULSE 64
--- NOTE | 2018-10-04 08:48 | FL ---
EXAMINATION TYPE: FL guided pain mgmt statistic DATE OF EXAM: 10/04/2018 HISTORY: Flouroscopy time 6 seconds of fluoroscopy provided. IMPRESSION: 1. Fluoroscopy time.
== END | disposition home or self-care (01) ==
LOC: ORPAIN 06:44
PROVIDERS: ATTEND Anesthesiology
DX: M46.1 Sacroiliitis, not elsewhere classified (principal); G89.29 Other chronic pain; M47.816 Spondylosis without myelopathy or radiculopathy, lumbar region; I48.91 Unspecified atrial fibrillation; E11.9 Type 2 diabetes mellitus without complications; Z79.01 Long term (current) use of anticoagulants; Z88.2 Allergy status to sulfonamides
CPT/HCPCS: J2250; J3301; J3010; G0260; 27096; 99152

== ENCOUNTER → 2018-10-27 | Outpatient (CLI) | payer MEDICARE, OTHER ==
[2018-10-27 12:48] VITALS: BP 143/73; PULSE 78; RESP 16
--- NOTE | 2018-10-27 13:11 | P.PN ---
Subjective Progress Note Date: 10/27/18 This is follow-up visit for this patient with a history of severe and chronic low back pain secondary to lumbar degenerative disc disease, lumbar facet arthropathy, and sacroiliitis, we have done radiofrequency ablation of the medial branch lumbar area , the right side sacroiliac joint steroid injection patient currently on Percocet 7.5/325 every 8 hours when necessary , Neurontin 600 mg 3 times a day Patient denies any side effects of the medication, denies excessive drowsiness or sleepiness, denies suicidal ideation, and reports that the current pain medication is helping To control the pain and improve activity of daily living . Patient denies any motor or sensory deficit, denies change in bowel movement or urination, patient denies any fever or night sweats and patient here for follow-up visit and medication refill, she continued to have severe low back pain which is increased with any activity, the pain interfering with her quality of life, he uses a wheelchair to ambulat Physical Examinations : 1-Constitutiona : Cooperative , not in acute distress . 2-HEENT : nech ; supple , no Lymphadenopathy , normal thyroid size . eyes : no ptosis , no icterus, no photophobia . ENT : normal of hearing , normal oropharynx , no Thrush . 3- Respiratory : Chest clear to auscultations Bilaterally , no wheezing , no Rhonchi . 4- Cardiovascular : regular rate and rhythem , S1 , S2 , no S3 , no S4. 5- Gastrointestinal : abdomen soft no tenderness , bowel sounds positive all four quadrents , no organomegally . 6- Genitourinary : Defferred . 7- neurologic : Cranial nerve II to XII intact , no focal neurological deffecit . 8-psychatric : alert , oriented X 3 , appropriate affect , intact judgment and insight . 9-Lymphatic : no Lymphadenopathy . 10- musculoskeltal : , Lumber spine = normal moter stegnth lower extremities ,thigh and legs .5/5 deep tendon reflexes : normal Knee Jerk , normal ankle Jerk . lumber facet Loading Test positive strait leg raising test positive at 30 degree Right , positve at 30 degree Left Fabere test positive Right and positive Left Sever tenderness over the Sacroiliac joint on the Right , and Left side Assessment and plan= chronic low back pain secondary to lumbar degenerative disc disease , lumbar spondylosis with lumbar facet arthropathy , bilateral sacroiliitis chronic and current use of high-risk medication (opioids) Patient denies any side effects of the current pain medication and the current treatment/medication ML and the patient to do activity of daily living , Diagnoses, prognosis, treatment options, including but not limited to physical therapy, medication management, interventional therapies, and surgery, were discussed with the patient All the questions answered Patient signed the narcotic agreement, and he was orally counseled, not to overuse, not to abuse, not to Divert , not tp sell pain medication, and to take it as prescribed only, Patient was counseled not to drive or operate heavy equipment while using narcotic medication, and advised not to use alcohol or any Illicit drugs while using the narcotis, the patient's verbalized understanding that lack of compliance with any of the above instructions and will likely to cause discharge from the pain service, not to renew his narcotic prescriptions Medication managements= patient will be given prescription refills for Percocet 7.5/325 every 8 hours dispense 90 with 2 refills, and prescription refill for Neurontin 600 every 8 hours Dispense 90 with 1 refill. Patient could benefit from bilateral sacroiliac joint steroid injection , PQRS Measure Charge Sheet Measure #130: Documentation of Current Meds in Medical Chart: Patient's medications documented in chart Measure #226: Tobacco Use: Screen & Cessation Intervention: Pt screened for tobacco use AND intervention given Measure #111: Pneumonia Vaccination: Pneumococcal vaccine administered or previously received Measure #47: Advance Care Plan: Advance care planning discussed & documented, plan or surrogate given Measure #412: Opioid Treatment Agreement: Documented signed opioid trtmnt agreemnt min once during opioid trtmnt Measure #408: Opioid Therapy Follow-up Evaluation: Patient had f/u eval minimum every 3 months during opioid therapy Measure #317: Preventitive Care & Scrn High Bld Press & F/U: Pre-hypertensive or hypertensive BP documented, pt will f/u with PCP Measure #128: Body Mass Index (BMI) Screening & Follow-up: BMI documented ABOVE normal parameters - f/u documented Measure #131: Pain Assessment & Follow-up: Pain positive & plan documented, Follow-up scheduled Measure #431: Unhealthy Alcohol Use Preventative Care & Scrn: Patient not identified as an unhealthy alcohol user PQRS Narrative: Objective - Vital Signs Vital signs: Vital Signs Temp Pulse 78 10/27/18 12:42 Resp 16 10/27/18 12:42 BP 143/73 10/27/18 12:42 Pulse Ox 93 L 10/27/18 12:42 Intake & Output 10/26/18 10/27/18 10/27/18 18:59 06:59 18:59 Weight 111.13 kg
== END | disposition home or self-care (01) ==
LOC: PNWHC3 12:33
PROVIDERS: ATTEND Specialist
DX: G89.29 Other chronic pain (principal); M51.36 Other intervertebral disc degeneration, lumbar region; M47.816 Spondylosis without myelopathy or radiculopathy, lumbar region; M46.96 Unspecified inflammatory spondylopathy, lumbar region; M46.1 Sacroiliitis, not elsewhere classified; Z98.890 Other specified postprocedural states; Z79.891 Long term (current) use of opiate analgesic
CPT/HCPCS: 99211

== ENCOUNTER → 2018-11-02 | Day surgery (SDC) | payer MEDICARE, OTHER ==
[2018-10-28 08:11] VITALS: BMI 43.4
[~2018-11-02] MED LIST changes: -LACTATED RINGERS 1,000 ML IV ONE
[2018-11-02 07:28] LABS: Glucose,Whole Blood 117 mg/dL (75-99)
[2018-11-02 07:29] VITALS: TEMP 96.6
--- NOTE | 2018-11-02 08:28 | P.PCN ---
Date of Procedure: 11/02/18 Surgeon: Clement Hester Pathology: none sent Condition: stable Disposition: PACU Description of Procedure: Preoperative diagnoses=B/L sacroiliac joint dysfunction and sacroiliitis Postoperative diagnoses= same as preoperative diagnosis. Procedure= B/L sacroiliac joint steroid injection under fluoroscopic guidance. Anesthesia= local anesthesia with lidocaine 1% and IV moderate conscious sedation with fentanyl and Versed Estimated blood loss=minimal. Procedure indication= the patient had a history of severe chronic low back pain, diagnosed with sacroiliitis and lumbar sacral facet arthropathy unresponsive to conservative treatment. Procedure description= the patient was seen and identified in the preoperative holding area, risks and benefits and alternative of the procedure and possible complications discussed with the patient, patient signed the consent. an IV was started, and vital signs were monitored and were stable throughout the procedure, patient was placed in the prone position or table and the lumbosacral area was prepped and draped with a sterile fashion, vital signs were closely monitored during the procedure.The sacroiliac joint was identified on the AP view of fluoroscopy then the C-arm was tilted to the contralateral oblique position to superimpose the anterior and posterior joint lines on each other and to have a unified joint line with the target point at the inferior one third of this line. I used 22-gauge 3-1/2 inch Quincke spinal needle for this procedure and after getting into the sacroiliac joint I injected 20 mg of Kenalog +2 MLS of Ropivacaine 0.5%. The same procedure was done on the other side. The total dose of Kenalog used for this session is 40 mg. Pressure was held over the sacroiliac joints for 2 minutes after the procedure due to the patient's history of treatment with Eliquis . Patient tolerated the procedure well without any complication, The patient returned to supine position after the back was cleaned and a Band- Aid applied, the patient transported to recovery room in stable condition and he was monitored for 30 minutes before he was discharged home and then patient was reexamined before going home and patient was discharged in stable condition and patient will follow up with the pain clinic in a few weeks
[2018-11-02 08:32] VITALS: RESP 17
[2018-11-02 08:55] VITALS: BP 152/57; PULSE 60
[2018-11-02 08:56] LABS: Glucose,Whole Blood 117 mg/dL (75-99)
--- NOTE | 2018-11-02 12:08 | FL ---
Fluoroscopy HISTORY: Pain 11 seconds fluoroscopy time supplied to the referring clinician. 2 intraoperative C-arm images docum ent the procedure. See dictated report from anesthesia.
== END ==
LOC: ORPAIN 07:02
PROVIDERS: ATTEND Anesthesiology
DX: M46.1 Sacroiliitis, not elsewhere classified (principal); G89.29 Other chronic pain; M51.36 Other intervertebral disc degeneration, lumbar region; Z79.891 Long term (current) use of opiate analgesic; Z79.899 Other long term (current) drug therapy; Z72.0 Tobacco use; Z71.6 Tobacco abuse counseling
CPT/HCPCS: J2250; J3301; J3010; G0260

== ENCOUNTER → 2018-11-18 | Outpatient (CLI) | payer MEDICARE, OTHER ==
--- NOTE | 2018-11-19 10:12 | XR ---
Right RIBS HISTORY: Pain, trauma 4 views of the right RIBS Bone mineralization is maintained. No evident displaced rib fracture. No pneumothorax or pleural effu leyla. Degenerative disc changes, spinal curvature noted in the visualized spine. There is some motion on the exam. Arthropathy noted at the glenohumeral joint. IMPRESSION: No evident displaced rib fracture. Bone scan could be performed for increased sensitivity to assess for occult fracture as indicated.
--- NOTE | 2018-11-19 11:53 | XR ---
Lumbar spine HISTORY: Pain, trauma 3 views of the lumbar spine Correlation to prior exam 09/07/2018 No interval change is evident. Anterolisthesis grade 1 L4-5, L3-4 again noted. Anterior wedging of L1 is a stable finding. Vacuum phenomenon present at the intervertebral levels, multilevel loss of disc height especially L1-2, L2-L3, L4-5 and L5-S1. Sclerosis present in the posterior elements of the lo wer lumbar spine. IMPRESSION: No acute fracture or subluxation.
--- NOTE | 2018-11-19 11:55 | XR ---
Thoracic spine HISTORY: Trauma and pain 3 views of the thoracic spine Thoracic vertebral bodies show preserved height and alignment. There is multilevel spondylosis. Disc spaces are reduced to the intervertebral levels in the mid thoracic spine. Aorta is dense. IMPRESSION: No acute fracture or subluxation.
--- NOTE | 2018-11-19 11:57 | XR ---
Right hand HISTORY: Trauma and pain 2 views of the right hip bone mineralization, joint spaces and alignment are maintained. Probable vascular calcifications note d in the pelvis. IMPRESSION: No fracture or dislocation.
== END | disposition home or self-care (01) ==
LOC: RADXRMAIN 16:43
PROVIDERS: ATTEND Family Medicine
DX: R07.81 Pleurodynia (principal); M54.5 Low back pain; M54.6 Pain in thoracic spine; M25.551 Pain in right hip
CPT/HCPCS: 72072; 72100; 73502

== ENCOUNTER → 2018-12-13 | Day surgery (SDC) | payer MEDICARE, OTHER ==
[2018-12-07 09:45] VITALS: BMI 43.4
[~2018-12-13] MED LIST changes: +LACTATED RINGERS 1,000 ML IV SCH; -LIDOCAINE 1% 20 ML VIAL (10MG/ML) FOR IV START INTRADERMA ONE
[2018-12-13 07:50] VITALS: RESP 16; TEMP 98.3
[2018-12-13 08:02] LABS: Glucose,Whole Blood 138 mg/dL (75-99)
[2018-12-13 08:34] LABS: HCT 34.8 % (34.0-46.0); HGB 11.4 gm/dL (11.4-16.0); MCH 31.1 pg (25.0-35.0); MCHC 32.8 g/dL (31.0-37.0); Mean Platelet Volume 6.2; Platelet Count 260 k/uL (150-450); RBC 3.67 m/uL (3.80-5.40); WBC 7.5 k/uL (3.8-10.6)
--- NOTE | 2018-12-13 08:37 | P.PCN ---
Date of Procedure: 12/13/18 Procedure(s) Performed: Surgeon: Jefferson Agrawal Pathology: none sent Condition: stable Disposition: PACU Description of Procedure: Preoperative diagnoses=B/L sacroiliac joint dysfunction and sacroiliitis Postoperative diagnoses= same as preoperative diagnosis. Procedure= B/L sacroiliac joint steroid injection under fluoroscopic guidance. Anesthesia= local anesthesia with lidocaine 1% and IV moderate conscious sedation with fentanyl and Versed Estimated blood loss=minimal. Procedure indication= the patient had a history of severe chronic low back pain, diagnosed with sacroiliitis unresponsive to conservative treatment. Procedure description= the patient was seen and identified in the preoperative holding area, risks and benefits and alternative of the procedure and possible complications discussed with the patient, patient signed the consent. an IV was started, and vital signs were monitored and were stable throughout the procedure, patient was placed in the prone position or table and the lumbosacral area was prepped and draped with a sterile fashion, vital signs were closely monitored during the procedure.The left sacroiliac joint was identified on the AP view of fluoroscopy then the C-arm was tilted to the contralateral oblique position to superimpose the anterior and posterior joint lines on each other and to have a unified joint line with the target point at the inferior one third of this line. A 22-gauge 3-1/2 inch Quincke spinal needle was used for this procedure. The needle was advanced into the sacroiliac joint which was c onfirmed on AP and lateral fluoroscopy imaging. One mL of Isovue 200 was injected which confirmed intra-articular spread. Then, 20 mg of Kenalog +2 MLS of Ropivacaine 0.5% was injected. The same procedure was done on the right side, for this AP fluoroscopy view was used to guide the needle. The total dose of Kenalog used for this session is 40 mg . Patient tolerated the procedure well without any complication, The patient returned to supine position after the back was cleaned and a Band- Aid applied, the patient transported to recovery room in stable condition and he was monitored for 30 minutes before she was discharged home and patient was discharged in stable condition and patient will follow up with the pain clinic in a few weeks
[2018-12-13 08:59] LABS: Glucose,Whole Blood 122 mg/dL (75-99)
[2018-12-13 09:00] LABS: Calcium 9.6 mg/dL (8.4-10.2); Potassium 4.3 mmol/L (3.5-5.1)
[2018-12-13 09:05] VITALS: BP 111/59; PULSE 60
--- NOTE | 2018-12-13 09:13 | FL ---
EXAMINATION TYPE: FL guided pain mgmt statistic DATE OF EXAM: 12/13/2018 HISTORY: Flouroscopy time 16 seconds of fluoroscopy provided. IMPRESSION: 1. Fluoroscopy time.
[2018-12-13 15:56] LABS: Iron Saturation 19.88 (12.00-45.00)
[2018-12-13 17:18] LABS: Hemoglobin A1C 6.7 % (4.0-6.0)
== END ==
LOC: ORPAIN 07:11
PROVIDERS: ATTEND Anesthesiology
DX: M46.1 Sacroiliitis, not elsewhere classified (principal); M54.5 Low back pain; G89.29 Other chronic pain; E11.9 Type 2 diabetes mellitus without complications; Z79.01 Long term (current) use of anticoagulants
CPT/HCPCS: 80061; 80048; 82550; 83540; 83550; 85027; 83036; G0260; J2250; J3301; J3010; Q9966; 99152

== ENCOUNTER → 2019-02-08 | Outpatient (CLI) | payer MEDICARE, OTHER ==
[2019-02-08 12:11] VITALS: BP 139/58; PULSE 74; RESP 16
--- NOTE | 2019-02-08 12:42 | P.PAINPG ---
Subjective Progress Note Date: 02/08/19 This is follow-up visit for this patient with a history of severe and chronic low back pain secondary to lumbar degenerative disc disease, lumbar facet arthropathy, and sacroiliitis, we have done radiofrequency ablation of the medial branch lumbar area , the right side sacroiliac joint steroid injection patient currently on Percocet 7.5/325 every 8 hours when necessary , Neurontin 600 mg 3 times a day Patient denies any side effects of the medication, denies excessive drowsiness or sleepiness, denies suicidal ideation, and reports that the current pain medication is helping To control the pain and improve activity of daily living . Patient denies any motor or sensory deficit, denies change in bowel movement or urination, patient denies any fever or night sweats and patient here for follow-up visit and medication refill, she continued to have severe low back pain which is increased with any activity, the pain interfering with her quality of life, he uses a wheelchair to ambulat Physical Examinations : -Constitutiona : Cooperative , not in acute distress . -HEENT : nech ; supple , no Lymphadenopathy , normal thyroid size . eyes : no ptosis , no icterus, no photophobia . - neurologic : Cranial nerve II to XII intact , no focal neurological deffecit . -psychatric : alert , oriented X 3 , appropriate affect , intact judgment and insight . -Lymphatic : no Lymphadenopathy . - musculoskeltal : , Lumber spine = normal moter stegnth lower extremities ,thigh and legs .5/5 deep tendon reflexes : normal Knee Jerk , normal ankle Jerk . lumber facet Loading Test positive strait leg raising test positive at 30 degree Right , positve at 30 degree Left Fabere test positive Right and positive Left Sever tenderness over the Sacroiliac joint on the Right , and Left side Assessment and plan= chronic low back pain secondary to lumbar degenerative disc disease , lumbar spondylosis with lumbar facet arthropathy , bilateral sacroiliitis chronic and current use of high-risk medication (opioids) Patient denies any side effects of the current pain medication and the current treatment/medication ML and the patient to do activity of daily living , Diagnoses, prognosis, treatment options, including but not limited to physical therapy, medication management, interventional therapies, and surgery, were discussed with the patient All the questions answered Patient signed the narcotic agreement, and he was orally counseled, not to overuse, not to abuse, not to Divert , not tp sell pain medication, and to take it as prescribed only, Patient was counseled not to drive or operate heavy equipment while using narcotic medication, and advised not to use alcohol or any Illicit drugs while using the narcotis, the patient's verbalized understanding that lack of compliance with any of the above instructions and will likely to cause discharge from the pain service, not to renew his narcotic prescriptions Medication managements= patient will be given prescription refills for Percocet 7.5/325 every 8 hours dispense 90 with 2 refills, and prescription refill for Neurontin 400 every 8 hours Dispense 90 with 1 refill. , Objective - Vital Signs Vital signs: Vital Signs Temp Pulse 74 02/08/19 12:06 Resp 16 02/08/19 12:06 BP 139/58 02/08/19 12:06 Pulse Ox 93 L 02/08/19 12:06 Intake & Output 02/07/19 02/08/19 02/08/19 18:59 06:59 18:59 Weight 110.677 kg PQRS Measure Charge Sheet Measure #130: Documentation of Current Meds in Medical Chart: Patient's medications documented in chart Measure #226: Tobacco Use: Screen & Cessation Intervention: Pt not a tobacco user Measure #111: Pneumonia Vaccination: Pneumococcal vaccine administered or previously received Measure #47: Advance Care Plan: Advance care planning discussed & documented, pt chose/unable to give Measure #412: Opioid Treatment Agreement: Documented signed opioid trtmnt agre emnt min once during opioid trtmnt Measure #408: Opioid Therapy Follow-up Evaluation: Patient had f/u eval minimum every 3 months during opioid therapy Measure #317: Preventitive Care & Scrn High Bld Press & F/U: Normal blood pressure, f/u not required Measure #128: Body Mass Index (BMI) Screening & Follow-up: BMI documented ABOVE normal parameters - f/u documented Measure #131: Pain Assessment & Follow-up: Pain positive & plan documented, Follow-up scheduled Measure #431: Unhealthy Alcohol Use Preventative Care & Scrn: Patient not identified as an unhealthy alcohol user PQRS Narrative: Smoking Status Former smoker Narcotic Agreement Date Signed 04/20/18 Blood Pressure 139/58 Pain Intensity [Lower Back] 6 Scale Used Numeric (1 - 10) Hx Alcohol Use (MH) No Home Medications: Ambulatory Orders Aspirin 81 mg PO TUFR 12/12/13 Atorvastatin [Lipitor] 40 mg PO W/SUPPER 12/12/13 Cholecalciferol [Vitamin D3 (25 Mcg = 1000 Iu)] 2,000 unit PO DAILY 12/12/13 Diltiazem HCl [Diltiazem 24Hr ER] 180 mg PO PC-SUPPER 12/12/13 Furosemide 20 mg PO DAILY 12/12/13 Oxybutynin Chloride [Ditropan] 5 mg PO BID 12/12/13 Potassium Chloride [Klor-Con 10] 20 meq PO DAILY 12/12/13 Cyanocobalamin [Vitamin B-12] 500 mcg PO DAILY 08/04/14 Pentoxifylline [TRENtal] 400 mg PO TID-W/MEALS 09/10/15 Apixaban [Eliquis] 5 mg PO BID 05/27/16 Linaclotide [Linzess] 145 mcg PO BID 05/27/16 Albuterol Inhaler [Ventolin Hfa Inhaler] 1 - 2 puff INHALATION RT-Q4H PRN 05/14/17 Fluticasone Nasal [place] [Flonase Nasal [place]] 2 spr EA NOSTRIL DAILY PRN 05/14/17 Nystatin 100,000 Unit/gm Powd [Mycostatin Powder] 1 applic TOPICAL BID PRN 05/14/17 Levothyroxine Sodium [Synthroid] 150 mcg PO DAILY 07/28/17 Albuterol Nebulized [Ventolin Nebulized] 2.5 mg INHALATION RT-QID 09/08/18 Citalopram Hydrobromide [CeleXA] 20 mg PO DAILY 09/08/18 Magnesium Oxide [Mag-Ox] 400 mg PO DAILY 09/08/18 Ferrous Sulfate [Iron (65 MG Elemental)] 325 mg PO DAILY tab 09/12/18 Fluticasone/Salmeterol [Advair 250-50 Diskus] 1 inhalation PO BID #1 inhaler 09/12/18 Glimepiride [Amaryl] 2 mg PO AC-BRKFST tab 09/12/18 Glimepiride [Amaryl] 2 mg PO AC-SUPPER tab 09/12/18 L.acidoph,Paracasei, B.lactis [Probiotic] 1 each PO DAILY 10/01/18 ALPRAZolam [Xanax] 0.5 mg PO TID PRN 12/07/18 Baclofen 5 mg PO Q8HR PRN 12/13/18 Gabapentin [Neurontin] 400 mg PO TID #90 cap 02/08/19 oxyCODONE HCL/ACETAMINOPHEN [Percocet 7.5-325 mg] 1 tab PO Q8H PRN #90 tab 02/08/19 oxyCODONE HCL/ACETAMINOPHEN [Percocet 7.5-325 mg] 1 tab PO Q8HR PRN 30 Days #90 tab 02/08/19 Controlled Substance Measures - Controlled Substance Measures Is patient prescribed a controlled substance at discharge?: Yes When asked, does pt state using other controlled substances?: No If prescribed controlled substance>3 days was MAPS reviewed?: Yes If Rx opioid, was Start Talking consent form obtained?: Yes If opioid is for acute pain is fill amount 7 days or less?: No Was information provided regarding opioid addiction?: Yes
== END | disposition home or self-care (01) ==
LOC: PNWHC3 11:45
PROVIDERS: ATTEND Specialist
DX: G89.29 Other chronic pain (principal); M51.36 Other intervertebral disc degeneration, lumbar region; M47.816 Spondylosis without myelopathy or radiculopathy, lumbar region; M46.96 Unspecified inflammatory spondylopathy, lumbar region; M46.1 Sacroiliitis, not elsewhere classified; Z98.890 Other specified postprocedural states; Z87.891 Personal history of nicotine dependence; Z79.891 Long term (current) use of opiate analgesic; Z79.82 Long term (current) use of aspirin; Z79.01 Long term (current) use of anticoagulants; Z79.84 Long term (current) use of oral hypoglycemic drugs; Z79.899 Other long term (current) drug therapy
CPT/HCPCS: 99211

== ENCOUNTER → 2019-03-22 | Outpatient (CLI) | payer MEDICARE, OTHER ==
--- NOTE | 2019-03-23 11:09 | MM ---
Reason for exam: screening (asymptomatic). Last mammogram was performed 1 year and 2 months ago. History: Patient is postmenopausal. Physical Findings: A clinical breast exam by your physician is recommended on an annual basis and results should be correlated with mammographic findings. MG 3D Screening Mammo W/Cad Bilateral CC and MLO view(s) were taken. Prior study comparison: February 03, 2018, bilateral MG 3d screening mammo w/cad. December 18, 2016, bilateral MG 3d screening mammo w/cad. The breast tissue is heterogeneously dense. This may lower the sensitivity of mammography. There are benign appearing round linear vascular calcifications bilaterally. There is no discrete abnormality. ASSESSMENT: Benign, BI-RAD 2 RECOMMENDATION: Routine screening mammogram of both breasts in 1 year.
== END | disposition home or self-care (01) ==
LOC: RADMAMWWP 11:05
PROVIDERS: ATTEND Family Medicine
DX: Z12.31 Encounter for screening mammogram for malignant neoplasm of breast (principal)
CPT/HCPCS: 77063; 77067

== ENCOUNTER → 2019-04-05 | Outpatient (CLI) | payer MEDICARE, OTHER ==
[2019-04-05 13:22] VITALS: BP 157/82; PULSE 86; RESP 18
--- NOTE | 2019-04-05 19:24 | P.PAINPG ---
Subjective Progress Note Date: 04/05/19 This is follow-up visit for this patient with a history of severe and chronic low back pain secondary to lumbar degenerative disc disease, lumbar facet arthropathy, and sacroiliitis, we have done radiofrequency ablation of the medial branch lumbar area , bilateral sacroiliac joint steroid injection , she Pain relief after the sacroiliac joint steroid injection , patient currently on Percocet 7.5/325 every 8 hours when necessary , Neurontin 400 mg 3 times a day Patient denies any side effects of the medication, denies excessive drowsiness or sleepiness, denies suicidal ideation, and reports that the current pain medication is helping To control the pain and improve activity of daily living . Patient denies any motor or sensory deficit, denies change in bowel movement or urination, patient denies any fever or night sweats and patient here for follow-up visit and medication refill, she continued to have severe low back pain which is increased with any activity, the pain interfering with her quality of life, she uses a wheelchair to ambulat Objective - Vital Signs Vital signs: Vital Signs Temp Pulse 86 04/05/19 13:18 Resp 18 04/05/19 13:18 BP 157/82 04/05/19 13:18 Pulse Ox 94 L 04/05/19 13:18 - Exam Physical Examinations : -Constitutiona : Cooperative , not in acute distress . -HEENT : nech ; supple , no Lymphadenopathy , normal thyroid size . eyes : no ptosis , no icterus, no photophobia . - neurologic : Cranial nerve II to XII intact , no focal neurological deffecit . -psychatric : alert , oriented X 3 , appropriate affect , intact judgment and insight . -Lymphatic : no Lymphadenopathy . - musculoskeltal : , Lumber spine = normal moter stegnth lower extremities ,thigh and legs .5/5 deep tendon reflexes : normal Knee Jerk , normal ankle Jerk . lumber facet Loading Test positive strait leg raising test positive at 30 degree Right , positve at 30 degree Left Fabere test positive Right and positive Left Sever tenderness over the Sacroiliac joint on the Right , and Left side Assessment and Plan Plan: Assessment and plan= chronic low back pain secondary to lumbar degenerative disc disease , lumbar spondylosis with lumbar facet arthropathy , bilateral sacroiliitis Patient had excellent pain relief after bilateral sacroiliac joint steroid injection but the pain relief was only for short-term chronic and current use of high-risk medication (opioids) Patient denies any side effects of the current pain medication and the current treatment/medication ML and the patient to do activity of daily living , Diagnoses, prognosis, treatment options, including but not limited to physical therapy, medication management, interventional therapies, and surgery, were discussed with the patient All the questions answered Patient signed the narcotic agreement, and he was orally counseled, not to overuse, not to abuse, not to Divert , not tp sell pain medication, and to take it as prescribed only, Patient was counseled not to drive or operate heavy equipment while using narcotic medication, and advised not to use alcohol or any Illicit drugs while using the narcotis, above instructions and will likely to cause discharge from the pain service, not to renew his narcotic prescriptions Medication managements= patient will be given prescription refills for Percocet 7.5/325 every 8 hours dispense 90 with 2 refills, and prescription refill for Neurontin 400 every 8 hours Dispense 90 with 1 refill. Interventions= patient would be good candidate to RFA of the sacroiliac joint(RFA of the L5-S1 dorsal ramus and RFA of the lateral branches of S1-S2 and S3 We'll do the left side first,then right side later on Time with Patient: Less than 30 PQRS Measure Charge Sheet Measure #130: Documentation of Current Meds in Medical Chart: Patient's medications documented in chart Measure #226: Tobacco Use: Screen & Cessation Intervention: Pt not a tobacco user Measure #111: Pneumonia Vaccination: Pneumococcal vaccine administered or pr eviously received Measure #47: Advance Care Plan: Advance care planning discussed & documented, pt chose/unable to give Measure #412: Opioid Treatment Agreement: Documented signed opioid trtmnt agreemnt min once during opioid trtmnt Measure #408: Opioid Therapy Follow-up Evaluation: Patient had f/u eval minimum every 3 months during opioid therapy Measure #317: Preventitive Care & Scrn High Bld Press & F/U: Pre-hypertensive or hypertensive BP documented, pt will f/u with PCP Measure #128: Body Mass Index (BMI) Screening & Follow-up: BMI documented ABOVE normal parameters - f/u documented Measure #131: Pain Assessment & Follow-up: Pain positive & plan documented, Follow-up scheduled Measure #431: Unhealthy Alcohol Use Preventative Care & Scrn: Patient not identified as an unhealthy alcohol user PQRS Narrative: Smoking Status Never smoker Narcotic Agreement Date Signed 04/20/18 Blood Pressure 157/82 Pain Intensity [Lower Back] 7 Scale Used Numeric (1 - 10) Hx Alcohol Use (MH) No Home Medications: Ambulatory Orders Aspirin 81 mg PO DIRECTED 12/12/13 Atorvastatin [Lipitor] 40 mg PO W/SUPPER 12/12/13 Cholecalciferol [Vitamin D3 (25 Mcg = 1000 Iu)] 2,000 unit PO DAILY 12/12/13 Diltiazem HCl [Diltiazem 24Hr ER] 180 mg PO W/SUPPER 12/12/13 Furosemide 40 mg PO DAILY 12/12/13 Oxybutynin Chloride [Ditropan] 5 mg PO BID 12/12/13 Potassium Chloride [Klor-Con 10] 20 meq PO DAILY 12/12/13 Cyanocobalamin [Vitamin B-12] 500 mcg PO DAILY 08/04/14 Pentoxifylline [TRENtal] 400 mg PO TID-W/MEALS 09/10/15 Apixaban [Eliquis] 5 mg PO BID 05/27/16 Linaclotide [Linzess] 145 mcg PO DAILY 05/27/16 Albuterol Inhaler [Ventolin Hfa Inhaler] 1 - 2 puff INHALATION Q4-6H PRN 05/14/17 Fluticasone Nasal [place] [Flonase Nasal [place]] 1 spr EA NOSTRIL DAILY PRN 05/14/17 Nystatin 100,000 Unit/gm Powd [Mycostatin Powder] 1 applic TOPICAL BID PRN 05/14/17 Levothyroxine Sodium [Synthroid] 150 mcg PO DAILY 07/28/17 Albuterol Nebulized [Ventolin Nebulized] 2.5 mg INHALATION RT-QID 09/08/18 Citalopram Hydrobromide [CeleXA] 20 mg PO DAILY 09/08/18 Magnesium Oxide [Mag-Ox] 400 mg PO DAILY 09/08/18 Ferrous Sulfate [Iron (65 MG Elemental)] 325 mg PO DAILY tab 09/12/18 Fluticasone/Salmeterol [Advair 250-50 Diskus] 1 inhalation PO BID #1 inhaler 09/12/18 L.acidoph,Paracasei, B.lactis [Probiotic] 1 each PO DAILY 10/01/18 ALPRAZolam [Xanax] 0.5 mg PO TID PRN 12/07/18 Baclofen 5 mg PO Q8HR PRN 12/13/18 Gabapentin [Neurontin] 400 mg PO TID #90 cap 02/08/19 oxyCODONE HCL/ACETAMINOPHEN [Percocet 7.5-325 mg] 1 tab PO Q8HR PRN 30 Days #90 tab 02/08/19 Fexofenadine/Pseudoephedrine [Dora-D 12 Hour Tablet] 1 each PO BID 03/30/19 Glimepiride [Amaryl] 2 mg PO AC-BID 03/30/19 Controlled Substance Measures - Controlled Substance Measures Is patient prescribed a controlled substance at discharge?: Yes When asked, does pt state using other controlled substances?: No If prescribed controlled substance>3 days was MAPS reviewed?: Yes If Rx opioid, was Start Talking consent form obtained?: Yes If opioid is for acute pain is fill amount 7 days or less?: No Was information provided regarding opioid addiction?: Yes
== END | disposition home or self-care (01) ==
LOC: PNWHC3 12:26
PROVIDERS: ATTEND Specialist
DX: G89.29 Other chronic pain (principal); M54.5 Low back pain; M51.36 Other intervertebral disc degeneration, lumbar region; M46.96 Unspecified inflammatory spondylopathy, lumbar region; M46.1 Sacroiliitis, not elsewhere classified; Z98.890 Other specified postprocedural states; Z79.82 Long term (current) use of aspirin; Z79.01 Long term (current) use of anticoagulants; Z79.899 Other long term (current) drug therapy
CPT/HCPCS: 99211

== ENCOUNTER → 2019-06-15 | Outpatient (CLI) | payer MEDICARE, OTHER ==
[2019-06-15 13:02] VITALS: BP 135/74; PULSE 76; RESP 18
--- NOTE | 2019-06-16 05:35 | P.PAINPG ---
Subjective Progress Note Date: 06/15/19 This is follow-up visit for this patient with a history of severe and chronic low back pain secondary to lumbar degenerative disc disease, lumbar facet arthropathy, and sacroiliitis, we have done radiofrequency ablation of the medial branch lumbar area , bilateral sacroiliac joint steroid injection , patient currently on Percocet 7.5/325 every 8 hours when necessary , Neurontin 400 mg 3 times a day Patient denies any side effects of the medication, denies excessive drowsiness or sleepiness, denies suicidal ideation, and reports that the current pain medication is helping To control the pain and improve activity of daily living . Patient denies any motor or sensory deficit, denies change in bowel movement or urination, patient denies any fever or night sweats and patient here for follow-up visit and medication refill, she continued to have severe low back pain which is increased with any activity, the pain interfering with her quality of life, she uses a wheelchair to ambulat, and currently she is complaining of increased low back pain with radiation to the buttock area bilaterally. Objective - Vital Signs Vital signs: Vital Signs Temp Pulse 76 06/15/19 12:55 Resp 18 06/15/19 12:55 BP 135/74 06/15/19 12:55 Pulse Ox 95 06/15/19 12:55 - Exam Physical Examinations : -Constitutiona : Cooperative , not in acute distress . -HEENT : nech ; supple , no Lymphadenopathy , normal thyroid size . eyes : no ptosis , no icterus, no photophobia . - neurologic : Cranial nerve II to XII intact , no focal neurological deffecit . -psychatric : alert , oriented X 3 , appropriate affect , intact judgment and insight . -Lymphatic : no Lymphadenopathy . - musculoskeltal : , Lumber spine = normal moter stegnth lower extremities ,thigh and legs .5/5 deep tendon reflexes : normal Knee Jerk , normal ankle Jerk . lumber facet Loading Test positive strait leg raising test positive at 30 degree Right , positve at 30 degree Left Fabere test positive Right and positive Left Sever tenderness over the Sacroiliac joint on the Right , and Left side Assessment and Plan Plan: Assessment and plan= chronic low back pain secondary to lumbar degenerative disc disease , lumbar spondylosis with lumbar facet arthropathy , bilateral sacroiliitis Patient had excellent pain relief after bilateral sacroiliac joint steroid injection but the pain relief was only for short-term chronic and current use of high-risk medication (opioids) Patient denies any side effects of the current pain medication and the current treatment/medication ML and the patient to do activity of daily living , Diagnoses, prognosis, treatment options, including but not limited to physical therapy, medication management, interventional therapies, and surgery, were discussed with the patient All the questions answered Patient signed the narcotic agreement, and he was orally counseled, not to overuse, not to abuse, not to Divert , not tp sell pain medication, and to take it as prescribed only, Patient was counseled not to drive or operate heavy equipment while using narcotic medication, and advised not to use alcohol or any Illicit drugs while using the narcotis, above instructions and will likely to cause discharge from the pain service, not to renew his narcotic prescriptions Medication managements= patient will be given prescription refills for Percocet 7.5/325 every 8 hours dispense 90 with 1 refills, and prescription refill for Neurontin 400 every 8 hours Dispense 90 with 1 refill. Interventions= patient would be good candidate to RFA of the sacroiliac joint, but as per insurance we have to wait until September 2019 before we can proceed with the RFA of the sacroiliac joint for this reason we will schedule patient for repeat bilateral sacroiliac joint steroid injection PQRS Measure Charge Sheet Measure #130: Documentation of Current Meds in Medical Chart: Patient's medications documented in chart Measure #226: Tobacco Use: Screen & Cessation Intervention: Pt not a tobacco user Measure #111: Pneumonia Vaccination: Pneumococcal vaccine administered or previously received Measure #47: Advance Care Plan: Advance care planning discussed & documented, pt chose/unable to give Measure #412: Opioid Treatment Agreement: Documented signed opioid trtmnt agreemnt min once during opioid trtmnt Measure #408: Opioid Therapy Follow-up Evaluation: Patient had f/u eval minimum every 3 months during opioid therapy Measure #317: Preventitive Care & Scrn High Bld Press & F/U: Normal blood pressure, f/u not required Measure #128: Body Mass Index (BMI) Screening & Follow-up: BMI documented ABOVE normal parameters - f/u documented Measure #131: Pain Assessment & Follow-up: Pain positive & plan documented, Follow-up scheduled Measure #431: Unhealthy Alcohol Use Preventative Care & Scrn: Patient not identified as an unhealthy alcohol user PQRS Narrative: Smoking Status Never smoker Narcotic Agreement Date Signed 04/20/18 Blood Pressure 135/74 Pain Intensity [Generalized] 9 Scale Used Numeric (1 - 10) Hx Alcohol Use (MH) No Home Medications: Ambulatory Orders Aspirin 81 mg PO SA 12/12/13 Atorvastatin [Lipitor] 40 mg PO W/SUPPER 12/12/13 Cholecalciferol [Vitamin D3 (25 Mcg = 1000 Iu)] 2,000 unit PO DAILY 12/12/13 Diltiazem HCl [Diltiazem 24Hr ER] 180 mg PO W/SUPPER 12/12/13 Furosemide 40 mg PO DAILY 12/12/13 Oxybutynin Chloride [Ditropan] 5 mg PO BID 12/12/13 Potassium Chloride [Klor-Con 10] 10 meq PO DAILY 12/12/13 Pentoxifylline [TRENtal] 400 mg PO TID-W/MEALS 09/10/15 Apixaban [Eliquis] 5 mg PO BID 05/27/16 Linaclotide [Linzess] 145 mcg PO DAILY 05/27/16 Albuterol Inhaler [Ventolin Hfa Inhaler] 1 - 2 puff INHALATION Q4-6H PRN 05/14/17 Fluticasone Nasal [place] [Flonase Nasal [place]] 1 spr EA NOSTRIL DAILY PRN 05/14/17 Nystatin 100,000 Unit/gm Powd [Mycostatin Powder] 1 applic TOPICAL BID PRN 05/14/17 Levothyroxine Sodium [Synthroid] 160 mcg PO DAILY 07/28/17 Albuterol Nebulized [Ventolin Nebulized] 2.5 mg INHALATION RT-QID 09/08/18 Citalopram Hydrobromide [CeleXA] 20 mg PO DAILY 09/08/18 Ferrous Sulfate [Iron (65 MG Elemental)] 325 mg PO DAILY tab 09/12/18 Fluticasone/Salmeterol [Advair 250-50 Diskus] 1 inhalation PO BID #1 inhaler 09/12/18 L.acidoph,Paracasei, B.lactis [Probiotic] 1 each PO DAILY 10/01/18 ALPRAZolam [Xanax] 0.5 mg PO TID PRN 12/07/18 Gabapentin [Neurontin] 400 mg PO TID #90 cap 02/08/19 Glimepiride [Amaryl] 3 mg PO AC-BID 03/30/19 Cyanocobalamin (Vitamin B-12) [Vitamin B-12] 2,500 mcg PO DAILY 05/20/19 DULoxetine HCL [Cymbalta] 30 mg PO BID 05/20/19 Magnesium Oxide [Bergeron] 500 mg PO DAILY 05/20/19 oxyCODONE HCL/ACETAMINOPHEN [Percocet 7.5-325 mg] 1 tab PO Q4-6H PRN 05/20/19 Controlled Substance Measures - Controlled Substance Measures Is patient prescribed a controlled substance at discharge?: Yes When asked, does pt state using other controlled substances?: No If prescribed controlled substance>3 days was MAPS reviewed?: Yes If Rx opioid, was Start Talking consent form obtained?: Yes If opioid is for acute pain is fill amount 7 days or less?: No Was information provided regarding opioid addiction?: Yes
== END | disposition home or self-care (01) ==
LOC: PNWHC3 11:42
PROVIDERS: ATTEND Specialist
DX: M51.36 Other intervertebral disc degeneration, lumbar region (principal); M47.816 Spondylosis without myelopathy or radiculopathy, lumbar region; M46.96 Unspecified inflammatory spondylopathy, lumbar region; M46.1 Sacroiliitis, not elsewhere classified; Z79.82 Long term (current) use of aspirin; Z79.891 Long term (current) use of opiate analgesic; Z79.899 Other long term (current) drug therapy; Z79.01 Long term (current) use of anticoagulants; Z79.890 Hormone replacement therapy
CPT/HCPCS: 99211

== ENCOUNTER 2019-07-19 06:24 | Day surgery (SDC) | payer MEDICARE, OTHER ==
[2019-07-18 11:53] VITALS: BMI 41.6
[~2019-07-19 06:24] MED LIST changes: +BUPIVACAINE (PF) 0.5% 30 ML VIAL ONE; -IV FLUID CONTINUATION 1,000 ML IV ONE; -LACTATED RINGERS 1,000 ML IV SCH; +MIDAZOLAM 2 MG/2 ML VIAL ONE; +TRIAMCINOLONE ACETONIDE 40 MG/ML 1 ML VIAL ONE; +fentaNYL (PF) 50 MCG/ML 2 ML AMP ONE
[2019-07-19] MEDS ORDERED: LACTATED RINGERS 1,000 ML IV ONE (07:06)
[2019-07-19] MEDS ORDERED: LIDOCAINE 1% 20 ML VIAL (10MG/ML) FOR IV START INTRADERMA ONE (07:06)
[2019-07-19 07:17] VITALS: TEMP 99
[2019-07-19 07:20] LABS: Glucose,Whole Blood 118 mg/dL (75-99)
--- NOTE | 2019-07-19 07:38 | P.PCN ---
Date of Procedure: 07/19/19 Surgeon: Clement Hester Pathology: none sent Condition: stable Disposition: PACU Description of Procedure: Preoperative diagnoses= bilateral sacroiliac joint dysfunction and sacroiliitis Postoperative diagnoses= same as preoperative diagnosis. Procedure= bilateral sacroiliac joint steroid injection under fluoroscopic guidance. Anesthesia= local anesthesia with lidocaine 1% and IV moderate conscious sedation with fentanyl and Versed Estimated blood loss=minimal. Procedure indication= the patient had a history of severe chronic low back pain, diagnosed with sacroiliitis and lumbar sacral facet arthropathy unresponsive to conservative treatment. Procedure description= the patient was seen and identified in the preoperative holding area, risks and benefits and alternative of the procedure and possible complications discussed with the patient, patient signed the consent. an IV was started, and vital signs were monitored and were stable throughout the p rocedure, patient was placed in the prone position or table and the lumbosacral area was prepped and draped with a sterile fashion, vital signs were closely monitored during the procedure.The sacroiliac joint was identified on the AP view of fluoroscopy then the C-arm was tilted to the contralateral oblique position to superimpose the anterior and posterior joint lines on each other and to have a unified joint line with the target point at the inferior one third of this line. I used 22-gauge 3-1/2 inch Quincke spinal needle for this procedure and after getting into the sacroiliac joint I injected 20 mg of Kenalog +2.5 MLS of Ropivacaine 0.5%. The same procedure was repeated on the contralateral side. Patient tolerated the procedure well without any complication, The patient returned to supine position after the back was cleaned and a Band- Aid applied, the patient transported to recovery room in stable condition and he was monitored for 30 minutes before he was discharged home and then patient was reexamined before going home and patient was discharged in stable condition and patient will
[2019-07-19 08:02] VITALS: BP 125/64; PULSE 69; RESP 18
--- NOTE | 2019-07-19 12:31 | FL ---
Fluoroscopy HISTORY: Pain 8 seconds fluoroscopy time supplied to the referring clinician. 2 intraoperative C-arm images docume nt the procedure. See dictated report from anesthesia.
== END 2019-07-19 08:33 | disposition home or self-care (01) ==
LOC: ORPAIN 06:24
PROVIDERS: ATTEND Anesthesiology
DX: M46.1 Sacroiliitis, not elsewhere classified (principal); M53.3 Sacrococcygeal disorders, not elsewhere classified; E11.9 Type 2 diabetes mellitus without complications; I25.10 Atherosclerotic heart disease of native coronary artery without angina pectoris; E66.9 Obesity, unspecified; Z68.41 Body mass index [BMI] 40.0-44.9, adult; Z88.2 Allergy status to sulfonamides; Z88.1 Allergy status to other antibiotic agents; Z79.01 Long term (current) use of anticoagulants
CPT/HCPCS: J2250; J3301; J3010; G0260; 99152

== ENCOUNTER → 2019-08-09 | Outpatient (CLI) | payer MEDICARE, OTHER ==
[2019-08-09 13:05] VITALS: BP 147/70; PULSE 87; RESP 17
--- NOTE | 2019-08-09 13:24 | P.PAINPG ---
Subjective Progress Note Date: 08/09/19 This is follow-up visit for this patient with a history of severe and chronic low back pain secondary to lumbar degenerative disc disease, lumbar facet arthropathy, and sacroiliitis, we have done radiofrequency ablation of the medial branch lumbar area , bilateral sacroiliac joint steroid injection , patient currently on Percocet 7.5/325 every 8 hours when necessary , Neurontin 400 mg 3 times a day , Flexeril 5 mg daily at bedtime Patient denies any side effects of the medication, denies excessive drowsiness or sleepiness, denies suicidal ideation, and reports that the current pain medication is helping To control the pain and improve activity of daily living . Patient denies any motor or sensory deficit, denies change in bowel movement or urination, patient denies any fever or night sweats and patient here for follow-up visit and medication refill, she continued to have severe low back pain which is increased with any activity, the pain interfering with her quality of life, she uses a wheelchair to ambulat, and currently she is complaining of increased low back pain with radiation to the buttock area bilaterally. Patient ambulating using a walker at home, and outside the house she uses a wheelchair Objective - Vital Signs Vital signs: Vital Signs Temp Pulse 87 08/09/19 12:43 Resp 17 08/09/19 12:43 BP 147/70 08/09/19 12:43 Pulse Ox - Exam Physical Examinations : -Constitutiona : Cooperative , not in acute distress . -HEENT : nech ; supple , no Lymphadenopathy , normal thyroid size . eyes : no ptosis , no icterus, no photophobia . - neurologic : Cranial nerve II to XII intact , no focal neurological deffecit . -psychatric : alert , oriented X 3 , appropriate affect , intact judgment and insight . -Lymphatic : no Lymphadenopathy . - musculoskeltal : , Lumber spine = normal moter stegnth lower extremities ,thigh and legs .5/5 deep tendon reflexes : normal Knee Jerk , normal ankle Jerk . lumber facet Loading Test positive strait leg raising test positive at 30 degree Right , positve at 30 degree Left Fabere test positive Right and positive Left Sever tenderness over the Sacroiliac joint on the Right , and Left side Assessment and Plan Plan: chronic low back pain secondary to lumbar degenerative disc disease , lumbar spondylosis with lumbar facet arthropathy , bilateral sacroiliitis Patient had excellent pain relief after bilateral sacroiliac joint steroid injection but the pain relief was only for short-term chronic and current use of high-risk medication (opioids) Patient denies any side effects of the current pain medication and the current treatment/medication ML and the patient to do activity of daily living , Diagnoses, prognosis, treatment options, including but not limited to physical therapy, medication management, interventional therapies, and surgery, were discussed with the patient All the questions answered Patient signed the narcotic agreement, and he was orally counseled, not to overuse, not to abuse, not to Divert , not tp sell pain medication, and to take it as prescribed only, Patient was counseled not to drive or operate heavy equipment while using narcotic medication, and advised not to use alcohol or any Illicit drugs while using the narcotis, above instructions and will likely to cause discharge from the pain service, not to renew his narcotic prescriptions Medication managements= patient will be given prescription refills for Percocet 7.5/325 every 8 hours dispense 90 with 1 refills, and prescription refill for Neurontin 400 every 8 hours Dispense 90 with 1 refill. Flexeril 5 mg daily at bedtime dispense 30 with one refill Interventions= patient would be good candidate to RFA of the sacroiliac joint, but as per insurance we have to wait until September 2019 before we can proceed with the RFA of the sacroiliac joint for this reason we will schedule patient for repeat bilateral sacroiliac joint steroid injection Time with Patient: Less than 30 PQRS Measure Charge Sheet Measure #130: Documentation of Current Meds in Medical Chart: Patient's medications documented in chart Measure #226: Tobacco Use: Screen & Cessation Intervention: Pt not a tobacco user Measure #111: Pneumonia Vaccination: Pneumococcal vaccine administered or previously received Measure #47: Advance Care Plan: Advance care planning discussed & documented, pt chose/unable to give Measure #412: Opioid Treatment Agreement: Documented signed opioid trtmnt agreemnt min once during opioid trtmnt Measure #408: Opioid Therapy Follow-up Evaluation: Patient had f/u eval minimum every 3 months during opioid therapy Measure #317: Preventitive Care & Scrn High Bld Press & F/U: Pre-hypertensive or hypertensive BP documented, pt will f/u with PCP Measure #128: Body Mass Index (BMI) Screening & Follow-up: BMI documented ABOVE normal parameters - f/u documented Measure #131: Pain Assessment & Follow-up: Pain positive & plan documented, Follow-up scheduled Measure #431: Unhealthy Alcohol Use Preventative Care & Scrn: Patient not identified as an unhealthy alcohol user PQRS Narrative: Smoking Status Never smoker Narcotic Agreement Date Signed 04/20/18 Blood Pressure 147/70 Pain Intensity [Generalized] 5 Scale Used Numeric (1 - 10) Hx Alcohol Use (MH) No Home Medications: Ambulatory Orders Aspirin 81 mg PO SA 12/12/13 Atorvastatin [Lipitor] 40 mg PO W/SUPPER 12/12/13 Cholecalciferol [Vitamin D3 (25 Mcg = 1000 Iu)] 2,000 unit PO DAILY 12/12/13 Diltiazem HCl [Diltiazem 24Hr ER] 180 mg PO W/SUPPER 12/12/13 Furosemide 40 mg PO DAILY 12/12/13 Oxybutynin Chloride [Ditropan] 5 mg PO BID 12/12/13 Potassium Chloride [Klor-Con 10] 10 meq PO DAILY 12/12/13 Pentoxifylline [TRENtal] 400 mg PO TID-W/MEALS 09/10/15 Apixaban [Eliquis] 5 mg PO BID 05/27/16 Linaclotide [Linzess] 145 mcg PO DAILY 05/27/16 Albuterol Inhaler [Ventolin Hfa Inhaler] 2 puff INHALATION Q4-6H PRN 05/14/17 Fluticasone Nasal [place] [Flonase Nasal [place]] 1 spr EA NOSTRIL BID 05/14/17 Nystatin 100,000 Unit/gm Powd [Mycostatin Powder] 1 applic TOPICAL BID PRN 05/14/17 Levothyroxine Sodium [Synthroid] 160 mcg PO DAILY 07/28/17 Albuterol Nebulized [Ventolin Nebulized] 2.5 mg INHALATION RT-QID 09/08/18 Citalopram Hydrobromide [CeleXA] 20 mg PO DAILY 09/08/18 Ferrous Sulfate [Iron (65 MG Elemental)] 325 mg PO DAILY tab 09/12/18 L.acidoph,Paracasei, B.lactis [Probiotic] 1 each PO DAILY 10/01/18 ALPRAZolam [Xanax] 0.5 mg PO TID PRN 12/07/18 Glimepiride [Amaryl] 3 mg PO AC-BID 03/30/19 Cyanocobalamin (Vitamin B-12) [Vitamin B-12] 2,500 mcg PO DAILY 05/20/19 Magnesium Oxide [Bergeron] 500 mg PO DAILY 05/20/19 Melatonin W/L-Theanine 1 tab PO HS 07/18/19 Fluticasone/Salmeterol [Advair 250-50 Diskus] 2 inhalation PO BID 08/04/19 Cyclobenzaprine [Flexeril] 5 mg PO HS #30 tab 08/09/19 Gabapentin [Neurontin] 400 mg PO TID #90 cap 08/09/19 oxyCODONE HCL/ACETAMINOPHEN [Percocet 7.5-325 mg] 1 tab PO Q8H PRN #90 tab 08/09/19 oxyCODONE HCL/ACETAMINOPHEN [Percocet 7.5-325 mg] 1 tab PO Q8HR PRN 30 Days #90 tab 08/09/19 Controlled Substance Measures - Controlled Substance Measures Is patient prescribed a controlled substance at discharge?: Yes When asked, does pt state using other controlled substances?: No If prescribed controlled substance>3 days was MAPS reviewed?: Yes If Rx opioid, was Start Talking consent form obtained?: Yes If opioid is for acute pain is fill amount 7 days or less?: No Was information provided regarding opioid addiction?: Yes
== END | disposition home or self-care (01) ==
LOC: PNWHC3 12:37
PROVIDERS: ATTEND Specialist
DX: G89.29 Other chronic pain (principal); M51.36 Other intervertebral disc degeneration, lumbar region; M47.816 Spondylosis without myelopathy or radiculopathy, lumbar region; M46.96 Unspecified inflammatory spondylopathy, lumbar region; M46.1 Sacroiliitis, not elsewhere classified; Z79.891 Long term (current) use of opiate analgesic; Z79.899 Other long term (current) drug therapy; Z79.82 Long term (current) use of aspirin; Z79.01 Long term (current) use of anticoagulants; Z79.51 Long term (current) use of inhaled steroids; Z79.890 Hormone replacement therapy
CPT/HCPCS: 99211

== ENCOUNTER 2019-11-22 06:54 | Day surgery (SDC) | payer MEDICARE, OTHER ==
[~2019-11-22 06:54] MED LIST changes: -BUPIVACAINE (PF) 0.5% 30 ML VIAL ONE; +LACTATED RINGERS 1,000 ML IV SCH; -MIDAZOLAM 2 MG/2 ML VIAL ONE; -TRIAMCINOLONE ACETONIDE 40 MG/ML 1 ML VIAL ONE; -fentaNYL (PF) 50 MCG/ML 2 ML AMP ONE
[2019-11-22 07:17] VITALS: TEMP 97.5
[2019-11-22] MEDS ORDERED: LIDOCAINE 1% (10MG/ML) FOR IV START INTRADERMA ONE (07:23)
[2019-11-22 07:24] LABS: Glucose,Whole Blood 128 mg/dL (75-99)
[2019-11-22] MEDS ORDERED: TRIAMCINOLONE ACETONIDE 40 MG/ML 1 ML VIAL ONE (08:00)
[2019-11-22] MEDS ORDERED: IOPAMIDOL M200 10 ML VIAL ONE (08:00)
[2019-11-22] MEDS ORDERED: MIDAZOLAM 2 MG/2 ML VIAL ONE (08:00)
[2019-11-22] MEDS ORDERED: fentaNYL (PF) 50 MCG/ML 2 ML AMP ONE (08:00)
[2019-11-22] MEDS ORDERED: ROPIVACAINE 5MG/ML 20ML VIAL ONE (08:00)
--- NOTE | 2019-11-22 08:21 | P.PCN ---
Date of Procedure: 11/22/19 Procedure(s) Performed: Preoperative diagnoses: bilateral sacroilitis Postoperative diagnoses: bilateral sacroilitis. Procedure: bilateral sacroiliac joint steroid injection under fluoroscopic guidance. Surgeon: Jefferson Agrawal MD Anesthesia: [2 mL of 1% lidocaine and moderate sedation with Versed and fentanyl], sedation time 13 minutes Fluoroscopy was used for the procedure and fluoroscopic images were saved to the radiology portion of the patient's chart. EBL: None Procedure indication: The patient had a history of severe chronic low back pain, diagnosed with sacroiliitis unresponsive to conservative treatment. Procedure description: The patient was seen and identified in the preoperative holding area, risks and benefits and alternative of the procedure and possible complications discussed with the patient, and patient agreed with the preceding, patient signed the consent, an IV was started, and vital signs were monitored and were stable throughout the procedure, patient was placed in the prone position on table and the lumbosacral area was prepped and draped with a sterile fashion, vital signs were closely monitored during the procedure, the fluoroscopy camera was placed in the contralateral oblique view on the bilateral sacroiliac joint and the lower part of the joint was identified . Then the skin and subcutaneous tissue was anesthetized using 2 mL of 1% lidocaine then a 22- gauge Quincke-type spinal needle advanced slowly under fluoroscopy and placed in the posterior and inferior border of the right sacroiliac joint, placement confirmed with AP and lateral view, and after appropriate needle placement confirmed and after negative aspiration for heme, 1 mL of Isovue 200 was injected revealing intra-articular spread. Then a solution consisting of 2 ml of ropivacaine 0.5% and 20 mg of Kenalog injected after negative aspiration, no paresthesia during the injection, no resistance to injection, and the needle was removed. The procedure was then repeated on the left side. Total of 40 mg of Kenalog was used for the procedure. Patient tolerated the procedure well without any complication. The patient was returned to supine position after the back was cleaned and a Band-Aid applied, the patient was transported to recovery room in stable condition and monitored for 30 minutes before being discharged home. The patient will follow up with the pain clinic in a few weeks
[2019-11-22] MEDS ORDERED: IV FLUID CONTINUATION 500 ML IV ONE ×2 (08:24)
[2019-11-22 08:31] VITALS: RESP 16
[2019-11-22 08:40] VITALS: BP 102/62; PULSE 78
--- NOTE | 2019-11-22 11:08 | FL ---
Fluoroscopy HISTORY: Pain 10 seconds fluoroscopy time supplied to the referring clinician. 4 intraoperative C-arm images docum ent the procedure. See dictated report from anesthesia.
== END 2019-11-22 09:08 | disposition home or self-care (01) ==
LOC: ORPAIN 06:54
PROVIDERS: ATTEND Anesthesiology
DX: G89.29 Other chronic pain (principal); M46.1 Sacroiliitis, not elsewhere classified; Z79.01 Long term (current) use of anticoagulants
CPT/HCPCS: J2250; J3301; J3010; Q9966; J2795; G0260; 27096; 99152

== ENCOUNTER → 2019-12-07 | Outpatient (CLI) | payer MEDICARE, OTHER ==
[2019-12-07 12:21] VITALS: BP 159/86; PULSE 93; RESP 16
--- NOTE | 2019-12-07 12:50 | P.PAINPG ---
Subjective Progress Note Date: 12/07/19 This is follow-up visit for this patient with a history of severe and chronic low back pain secondary to lumbar degenerative disc disease, lumbar facet arthropathy, and sacroiliitis, in the past, we have done radiofrequency ablation of the medial branch lumbar area , most recently, we have done bilateral sacroiliac joint steroid injection on 11/22/2019. She returns today for follow-up. she reports good relief of her back pain from this procedure. She does note that she continues to have hip pain, rated as 7.5/10. Pain is described as dull, aching. Pain is worse with walking, exerting herself, stress and better with injections, medications. She is complaining of symptoms of restless leg syndrome at night that keep her up at night. patient currently on Percocet 7.5/325 every 8 hours when necessary , Neurontin 400 mg 3 times a day , Flexeril 5 mg daily at bedtime Patient denies any side effects of the medication, denies excessive drowsiness or sleepiness, denies suicidal ideation, and reports that the current pain medication is helping To control the pain and improve activity of daily living . Patient denies any motor or sensory deficit, denies change in bowel movement or urination, patient denies any fever or night sweats Patient ambulating using a walker at home, and outside the house she uses a wheelchair Review of systems is negative for chest pain, shortness of breath, new onset weakness, numbness/tingling, abdominal pain, malaise, fever, night sweats, chills, homicidal or suicidal ideation, or bowel or bladder incontinence. Objective Physical exam: Vitals: Reviewed in EMR GENERAL: Well appearing, in no acute distress, seated in a wheelchair, obese PSYCH: Mood and affect is appropriate. Awake, alert, and oriented SKIN: Skin color, texture, turgor normal, no rashes or lesions HEENT: Normocephalic, atraumatic. EOM intact CV: No pedal edema RESP: Respirations are unlabored, no audible wheezing GI: Abdomen non-distended MUSCULOSKELETAL: Bilateral lower extremity strength is normal and symmetric. No atrophy or tone abnormalities are noted. Lumbar spine: Tenderness to palpation over the lumbar spine and paraspinous muscles bilaterally. Buttocks: Tenderness to palpation over the bilateral PSIS, patient has a bruise over right posterior buttock/thigh from prior fall Extremities: Peripheral joint ROM is full and pain free without obvious instability or laxity in all four extremities. NEUR: Reduced sensation to light touch in bilateral lower extremities Assessment and Plan Plan: chronic low back pain secondary to lumbar degenerative disc disease , lumbar spondylosis with lumbar facet arthropathy , bilateral sacroiliitis Patient has good relief from bilateral sacroiliac joint steroid injection, done recently chronic and current use of high-risk medication (opioids) Patient denies any side effects of the current pain medication and the current treatment/medication are helping the patient to do activity of daily living , Patient signed the narcotic agreement, and it is on file Medication managements= patient will be given prescription refills for Percocet 7.5/325 every 8 hours dispense 90 with 1 refills, and prescription refill for Neurontin 400 every 8 hours Dispense 90 with 1 refill. Flexeril 5 mg daily at bedtime dispense 30 with one refill Interventions= none at this time UDS was unable to be done today as the patient was unable to urinate. This will be done at next visit. Objective - Vital Signs Vital signs: Intake & Output 12/06/19 12/07/19 12/07/19 18:59 06:59 18:59 Weight 108.862 kg PQRS Measure Charge Sheet Measure #130: Documentation of Current Meds in Medical Chart: Patient's medications documented in chart Measure #226: Tobacco Use: Screen & Cessation Intervention: Pt not a tobacco user Measure #111: Pneumonia Vaccination: Pneumococcal vaccine administered or previously received Measure #47: Advance Care Plan: Advance care planning discussed & documented, pt chose/unable to give Measure #412: Opioid Treatment Agreement: Documented signed opioid trtmnt agreemnt min once during opioid trtmnt Measure #408: Opioid Therapy Follow-up Evaluation: Patient had f/u eval minimum every 3 months during opioid therapy Measure #317: Preventitive Care & Scrn High Bld Press & F/U: Pre-hypertensive or hypertensive BP documented, pt will f/u with PCP Measure #128: Body Mass Index (BMI) Screening & Follow-up: BMI documented ABOVE normal parameters - f/u documented Measure #131: Pain Assessment & Follow-up: Pain positive & plan documented, Follow-up scheduled Measure #431: Unhealthy Alcohol Use Preventative Care & Scrn: Patient not identified as an unhealthy alcohol user PQRS Narrative: Smoking Status Never smoker Narcotic Agreement Date Signed 04/20/18 Pain Intensity [Lower Back] 7 Scale Used Numeric (1 - 10) Hx Alcohol Use (MH) No Home Medications: Ambulatory Orders Aspirin 81 mg PO SA 12/12/13 Atorvastatin [Lipitor] 40 mg PO W/SUPPER 12/12/13 Cholecalciferol [Vitamin D3 (25 Mcg = 1000 Iu)] 2,000 unit PO DAILY 12/12/13 Diltiazem HCl [Diltiazem 24Hr ER] 180 mg PO W/SUPPER 12/12/13 Furosemide 40 mg PO DAILY 12/12/13 Oxybutynin Chloride [Ditropan] 5 mg PO BID 12/12/13 Potassium Chloride [Klor-Con 10] 10 meq PO DAILY 12/12/13 Pentoxifylline [TRENtal] 400 mg PO TID-W/MEALS 09/10/15 Apixaban [Eliquis] 5 mg PO BID 05/27/16 Linaclotide [Linzess] 145 mcg PO DAILY 05/27/16 Albuterol Inhaler (Mhu) [Ventolin Hfa Inhaler (Mhu)] 2 puff INHALATION Q4-6H PRN 05/14/17 Nystatin 100,000 Unit/gm Powd [Mycostatin Powder] 1 applic TOPICAL BID PRN 05/14/17 Levothyroxine Sodium [Synthroid] 150 mcg PO DAILY 07/28/17 Albuterol Nebulized [Ventolin Nebulized] 2.5 mg INHALATION RT-QID 09/08/18 Citalopram Hydrobromide [CeleXA] 20 mg PO DAILY 09/08/18 Ferrous Sulfate [Iron (65 MG Elemental)] 325 mg PO DAILY tab 09/12/18 L.acidoph,Paracasei, B.lactis [Probiotic] 1 each PO DAILY 10/01/18 ALPRAZolam [Xanax] 0.5 mg PO TID PRN 12/07/18 Glimepiride [Amaryl] 2 mg PO AC-BID 03/30/19 Cyanocobalamin (Vitamin B-12) [Vitamin B-12] 2,500 mcg PO DAILY 05/20/19 Magnesium Oxide [Bergeron] 500 mg PO DAILY 05/20/19 Melatonin W/L-Theanine 1 tab PO HS 07/18/19 Baclofen 5 mg PO BID 12/06/19 Cyclobenzaprine [Flexeril] 5 mg PO BID 12/06/19 Cyclobenzaprine [Flexeril] 5 mg PO HS 12/06/19 DULoxetine HCL [Cymbalta] 30 mg PO BID 12/06/19 Furosemide [Lasix] 20 mg PO 1800 12/06/19 Memantine [Namenda] 5 mg PO DAILY 12/06/19 Pantoprazole Sodium [Protonix] 40 mg PO DAILY 12/06/19 Gabapentin [Neurontin] 400 mg PO TID #90 cap 12/07/19 oxyCODONE HCL/ACETAMINOPHEN [Percocet 7.5-325 mg] 1 tab PO Q8HR PRN 30 Days #90 tab 12/07/19 oxyCODONE-APAP 7.5-325MG [Percocet 7.5-325 mg] 1 tab PO Q8HR PRN #90 tab 12/07/19 Controlled Substance Measures - Controlled Substance Measures Is patient prescribed a controlled substance at discharge?: Yes When asked, does pt state using other controlled substances?: No If prescribed controlled substance>3 days was MAPS reviewed?: Yes If Rx opioid, was Start Talking consent form obtained?: Yes If opioid is for acute pain is fill amount 7 days or less?: No Was information provided regarding opioid addiction?: Yes
== END | disposition home or self-care (01) ==
LOC: PNWHC3 11:39
PROVIDERS: ATTEND Anesthesiology
DX: G89.29 Other chronic pain (principal); M51.36 Other intervertebral disc degeneration, lumbar region; M47.816 Spondylosis without myelopathy or radiculopathy, lumbar region; M46.96 Unspecified inflammatory spondylopathy, lumbar region; M46.1 Sacroiliitis, not elsewhere classified; Z79.891 Long term (current) use of opiate analgesic; Z79.899 Other long term (current) drug therapy; Z79.890 Hormone replacement therapy; Z79.01 Long term (current) use of anticoagulants
CPT/HCPCS: 99211

== ENCOUNTER → 2020-02-01 | Outpatient (CLI) | payer MEDICARE, OTHER ==
[2020-02-01 13:55] VITALS: BP 144/69; PULSE 70; RESP 14; TEMP 98.1
--- NOTE | 2020-02-02 09:08 | P.PAINPG ---
Subjective Progress Note Date: 02/01/20 This is follow-up visit for this patient with a history of severe and chronic low back pain secondary to lumbar degenerative disc disease, lumbar spondylosis with facet arthropathy, and sacroiliitis, we have done radiofrequency ablation of the medial branch lumbar area , bilateral sacroiliac joint steroid injection , patient currently on Percocet 7.5/325 every 8 hours when necessary , Neurontin 400 mg 3 times a day , Flexeril 5 mg daily at bedtime Patient denies any side effects of the medication, denies excessive drowsiness or sleepiness, denies suicidal ideation, and reports that the current pain medication is helping To control the pain and improve activity of daily living . Patient denies any motor or sensory deficit, denies change in bowel movement or urination, patient denies any fever or night sweats and patient here for follow-up visit and medication refill, she continued to have severe low back pain which is increased with any activity, the pain interfering with her quality of life, she uses a wheelchair to ambulat, and currently she is complaining of increased low back pain with radiation to the buttock area bilaterally. Patient ambulating using a walker at home, and outside the house she uses a wheelchair, patient reported increase of her low back pain over the last few weeks, and the pain is constant and increases with any activity Objective - Vital Signs Vital signs: Vital Signs Temp 98.1 F 02/01/20 13:24 Pulse 70 02/01/20 13:24 Resp 14 02/01/20 13:24 BP 144/69 02/01/20 13:24 Pulse Ox 97 02/01/20 13:24 - Exam Physical Examinations : -Constitutiona : Cooperative , not in acute distress . -HEENT : nech ; supple , no Lymphadenopathy , normal thyroid size . eyes : no ptosis , no icterus, no photophobia . - neurologic : Cranial nerve II to XII intact , no focal neurological deffecit . -psychatric : alert , oriented X 3 , appropriate affect , intact judgment and insight . -Lymphatic : no Lymphadenopathy . - musculoskeltal : , Lumber spine = normal moter stegnth lower extremities ,thigh and legs .5/5 deep tendon reflexes : normal Knee Jerk , normal ankle Jerk . lumber facet Loading Test positive strait leg raising test positive at 30 degree Right , positve at 30 degree Left Fabere test positive Right and positive Left Sever tenderness over the Sacroiliac joint on the Right , and Left side Assessment and Plan Plan: chronic low back pain secondary to lumbar degenerative disc disease , lumbar spondylosis with lumbar facet arthropathy , bilateral sacroiliitis chronic and current use of high-risk medication (opioids) Patient denies any side effects of the current pain medication and the current treatment/medication ML and the patient to do activity of daily living , Diagnoses, prognosis, treatment options, including but not limited to physical therapy, medication management, interventional therapies, and surgery, were discussed with the patient All the questions answered Patient signed the narcotic agreement, and he was orally counseled, not to overuse, not to abuse, not to Divert , not tp sell pain medication, and to take it as prescribed only, Patient was counseled not to drive or operate heavy equipment while using narcotic medication, and advised not to use alcohol or any Illicit drugs while using the narcotis, above instructions and will likely to cause discharge from the pain service, not to renew his narcotic prescriptions Medication managements= patient will be given prescription refills for Percocet 7.5/325 every 8 hours dispense 90 with 1 refills, and prescription refill for Neurontin 400 every 8 hours Dispense 90 with 1 refill. Interventions= patient would be good candidate to RFA of the medial branch lumbar area L3 , L4 ,L5 Urine drug screen ordered but patient was not able to give any urine for this reason we did blood drug screen Time with Patient: Less than 30 PQRS Measure Charge Sheet Measure #130: Documentation of Current Meds in Medical Chart: Patient's medications documented in chart Measure #226: Tobacco Use: Screen & Cessation Intervention: Pt not a tobacco user Measure #111: Pneumonia Vaccination: Pneumococcal vaccine administered or previously received Measure #47: Advance Care Plan: Advance care planning discussed & documented, pt chose/unable to give Measure #412: Opioid Treatment Agreement: Documented signed opioid trtmnt agreemnt min once during opioid trtmnt Measure #408: Opioid Therapy Follow-up Evaluation: Patient had f/u eval minimum every 3 months during opioid therapy Measure #317: Preventitive Care & Scrn High Bld Press & F/U: Pre-hypertensive or hypertensive BP documented, pt will f/u with PCP Measure #128: Body Mass Index (BMI) Screening & Follow-up: BMI documented ABOVE normal parameters - f/u documented Measure #131: Pain Assessment & Follow-up: Pain positive & plan documented, Follow-up scheduled Measure #431: Unhealthy Alcohol Use Preventative Care & Scrn: Patient not identified as an unhealthy alcohol user PQRS Narrative: Smoking Status Never smoker Narcotic Agreement Date Signed 08/09/19 Blood Pressure 144/69 Pain Intensity [Lower Back] 8 Scale Used Numeric (1 - 10) Hx Alcohol Use (MH) No Home Medications: Ambulatory Orders Aspirin 81 mg PO SA 12/12/13 Atorvastatin [Lipitor] 40 mg PO W/SUPPER 12/12/13 Cholecalciferol [Vitamin D3 (25 Mcg = 1000 Iu)] 2,000 unit PO DAILY 12/12/13 Diltiazem HCl [Diltiazem 24Hr ER] 180 mg PO W/SUPPER 12/12/13 Furosemide 40 mg PO DAILY 12/12/13 Oxybutynin Chloride [Ditropan] 5 mg PO BID 12/12/13 Potassium Chloride [Klor-Con 10] 10 meq PO DAILY 12/12/13 Pentoxifylline [TRENtal] 400 mg PO TID-W/MEALS 09/10/15 Apixaban [Eliquis] 5 mg PO BID 05/27/16 Linaclotide [Linzess] 145 mcg PO DAILY 05/27/16 Albuterol Inhaler (Mhu) [Ventolin Hfa Inhaler (Mhu)] 2 puff INHALATION Q4-6H PRN 05/14/17 Nystatin 100,000 Unit/gm Powd [Mycostatin Powder] 1 applic TOPICAL BID PRN 05/14/17 Levothyroxine Sodium [Synthroid] 150 mcg PO DAILY 07/28/17 Albuterol Nebulized [Ventolin Nebulized] 2.5 mg INHALATION RT-QID 09/08/18 Citalopram Hydrobromide [CeleXA] 20 mg PO DAILY 09/08/18 Ferrous Sulfate [Iron (65 MG Elemental)] 325 mg PO DAILY tab 09/12/18 L.acidoph,Paracasei, B.lactis [Probiotic] 1 each PO DAILY 10/01/18 ALPRAZolam [Xanax] 0.5 mg PO TID PRN 12/07/18 Glimepiride [Amaryl] 2 mg PO AC-BID 03/30/19 Cyanocobalamin (Vitamin B-12) [Vitamin B-12] 2,500 mcg PO DAILY 05/20/19 Magnesium Oxide [Bergeron] 500 mg PO DAILY 05/20/19 Melatonin W/L-Theanine 1 tab PO HS 07/18/19 Baclofen 5 mg PO BID 12/06/19 Cyclobenzaprine [Flexeril] 5 mg PO TID 12/06/19 DULoxetine HCL [Cymbalta] 30 mg PO BID 12/06/19 Furosemide [Lasix] 20 mg PO 1800 12/06/19 Memantine [Namenda] 5 mg PO DAILY 12/06/19 Pantoprazole Sodium [Protonix] 40 mg PO DAILY 12/06/19 Gabapentin [Neurontin] 400 mg PO TID #90 cap 02/01/20 oxyCODONE HCL/ACETAMINOPHEN [Percocet 7.5-325 mg] 1 tab PO Q8HR PRN #90 tab 02/01/20 oxyCODONE HCL/ACETAMINOPHEN [Percocet 7.5-325 mg] 1 tab PO Q8HR PRN 30 Days #90 tab 02/01/20 Controlled Substance Measures - Controlled Substance Measures Is patient prescribed a controlled substance at discharge?: Yes
[2020-02-02 10:00] LABS: Serum Amphetamine Negative; Serum Barbiturates Negative; Serum Benzodiazepine Negative; Serum Cocaine Negative; Serum Methadone Negative; Serum Opiates Negative; Serum Phencyclidine Negative; Serum Propoxyphene Negative; Serum THC (Cannabis) Negative
== END | disposition home or self-care (01) ==
LOC: PNWHC3 12:37
PROVIDERS: ATTEND Specialist
DX: G89.29 Other chronic pain (principal); M51.36 Other intervertebral disc degeneration, lumbar region; M47.816 Spondylosis without myelopathy or radiculopathy, lumbar region; M46.1 Sacroiliitis, not elsewhere classified; F11.90 Opioid use, unspecified, uncomplicated; Z79.82 Long term (current) use of aspirin; Z79.899 Other long term (current) drug therapy; Z79.01 Long term (current) use of anticoagulants; Z79.890 Hormone replacement therapy
CPT/HCPCS: 80307; 36415; G0463; 99211

== ENCOUNTER → 2020-03-13 | Day surgery (SDC) | payer MEDICARE, OTHER ==
[2020-03-12 10:05] VITALS: BMI 42.5
[~2020-03-13] MED LIST changes: +INSULIN ASPART (NovoLOG) 100 UNIT/ML VIAL SQ ONE; +KETOROLAC 15 MG/ML 1 ML VIAL ONE; +MIDAZOLAM 2 MG/2 ML VIAL ONE; +ROPIVACAINE 5MG/ML 20ML VIAL ONE; +fentaNYL (PF) 50 MCG/ML 2 ML AMP ONE; +methylPREDNISolone ACETATE 40 MG/ML 1 ML VIAL ONE
[2020-03-13 06:27] VITALS: TEMP 97.5
[2020-03-13 06:34] LABS: Glucose,Whole Blood 254 mg/dL (75-99)
[2020-03-13 06:52] LABS: Basophils % (A) 1 %; Eosinophils # (A) 0.2 k/uL (0-0.7); Eosinophils % (A) 2 %; HCT 41.1 % (34.0-46.0); HGB 13.9 gm/dL (11.4-16.0); Lymphocytes # (A) 1.5 k/uL (1.0-4.8); Lymphocytes % (A) 20 %; MCH 32.8 pg (25.0-35.0); MCHC 33.7 g/dL (31.0-37.0); MCV 97.1 fL (80.0-100.0); Mean Platelet Volume 6.5; Monocytes # (A) 0.4 k/uL (0-1.0); Monocytes % (A) 6 %; Neutrophils # (A) 5.3 k/uL (1.3-7.7); Neutrophils % (A) 71 %; Platelet Count 207 k/uL (150-450); RBC 4.23 m/uL (3.80-5.40); WBC 7.5 k/uL (3.8-10.6)
[2020-03-13 07:00] LABS: Calcium 9.3 mg/dL (8.4-10.2); Potassium 4.6 mmol/L (3.5-5.1); Total Bilirubin 0.8 mg/dL (0.2-1.3); Total Protein 6.8 g/dL (6.3-8.2)
[2020-03-13 07:26] LABS: T4, Free (Free Thyroxine) 1.37 ng/dL (0.78-2.19)
--- NOTE | 2020-03-13 07:31 | P.PCN ---
Date of Procedure: 03/13/20 Procedure(s) Performed: PREOPERATIVE DIAGNOSIS: 1-Lumbar Spondylosis with Facet Arthropathy without myelopathy. 2- Lumber degenerative disc disease. 3-bilateral sacroiliitis POSTOPERATIVE DIAGNOSIS: 1- Lumbar Spondylosis with Facet Arthropathy without myelopathy. 2- Lumber degenerative disc disease. 3-bilateral sacroiliitis PROCEDURES : Bilateral Radiofrequency thermocoagulation, L3 , L4 , and L5 medial branch, with fluoroscopic guidance (fluoroscopy images available in the radiology department) ( to denervate the facet joint at L4-5 ,and L5-S1 levels ) ANESTHESIA: Moderate sedation with intravenous versed 1 mg and fentaneyl 50 mcg, and local infiltration with Ropivacaine 0.5 % . EBL: Minimal PROCEDURE INDICATION: The patient with low back pain secondary to lumbar facet arthropathy who had more than 50% relief of her pain with previous diagnostic lumbar medial branch block with bupivacaine. PROCEDURE DESCRIPTION / TECHNIQUE: The patient was seen and identified in the preoperative area. Risks, benefits, complications, including but not limited to risk of infection ,bleeding , allergic reactions to the medications and no complete pain releife , and alternatives were discussed with the patient, the patient agreed to proceed with the procedure and signed the consent. IV was started. Vital signs remained stable throughout the procedure. Patient was taken to the OR and time out was completed. The patient was placed in the prone position on the procedure table. The lumber area was prepped and draped in the usual sterile fashion. . Vital signs were closely monitored during the procedure .IV sedation was used during the procedure to decrease patients anxiety. Using AP and then oblique fluoroscopy, the ``eye of the Pravin dog corresponding to the connection between the superior and transverse articular processes of right L3, L4, and L5 were identified, marked, and localized with 1% lidocaine. Subsequently, a 18 [id number] radiofrequency cannula with a 10- mm active tip was advanced guided by fluoroscopy to each of the``eyes of the Pravin dog at right L3, L4, and L5. Each site then underwent sensory testing at 50 Hz and 0 to 1 volt and motor testing at 2.5 Hz and 0 to 3 volt with local stimulation, but no radicular symptoms down the legs. Thereafter each sites underwent radiofrequency thermocoagulation at 80 degrees celsius for 90 seconds after injecting 0.5 ml of PF Ropivacaine 1ml, then after the therm ocoagulation done , 1 ml of the block solution containing Depo-Medrol 20 mg and 3 ml of Ropivacaine 0.5% was injected at the right L3 , L4 , and L5 , levels after negative aspiration of CSF and blood and with no paresthesias. Cannulas were retracted while injecting lidocaine 1% until the needle is out. The same procedure was repeated at the level of Left L3, L4, and L5 levels. At the end of the procedure, the skin was cleansed and bandages were applied. COMPLICATIONS: No acute complications. DISPOSITION / PLANS: The patient was placed in a supine position and transferred to the recovery area in a stable condition for observation and was discharged from the recovery room after meeting discharge criteria. Home discharge instructions given to the patient by the staff. The patient was reexamined prior to discharge. The patient will schedule a follow up in the clinic in 2-4 weeks.
[2020-03-13 07:40] VITALS: RESP 17
[2020-03-13 07:41] LABS: Glucose,Whole Blood 226 mg/dL (75-99)
[2020-03-13 07:50] VITALS: BP 127/64; PULSE 67
--- NOTE | 2020-03-13 08:47 | FL ---
EXAMINATION TYPE: FL guided pain mgmt statistic DATE OF EXAM: 03/13/2020 HISTORY: Fluoroscopy time 25 seconds of fluoroscopy provided. IMPRESSION: 1. Fluoroscopy time.
[2020-03-13 14:15] LABS: Hemoglobin A1C 8.6 % (4.0-6.0)
== END ==
LOC: ORPAIN 06:06
PROVIDERS: ATTEND Specialist
DX: M47.816 Spondylosis without myelopathy or radiculopathy, lumbar region (principal); M51.36 Other intervertebral disc degeneration, lumbar region; M46.1 Sacroiliitis, not elsewhere classified; I10 Essential (primary) hypertension; I48.91 Unspecified atrial fibrillation; E11.9 Type 2 diabetes mellitus without complications; Z88.2 Allergy status to sulfonamides; Z88.1 Allergy status to other antibiotic agents; Z79.01 Long term (current) use of anticoagulants; Z79.4 Long term (current) use of insulin
CPT/HCPCS: 84439; 80061; 80053; 82607; 82550; 84443; 85025; 83036; 64635; 64636; J2250; J1030; J3010; J2795; 99152; 99153

== ENCOUNTER → 2020-03-28 | Outpatient (CLI) | payer MEDICARE, OTHER ==
[2020-03-28 13:54] VITALS: BP 133/59; PULSE 90; RESP 14; TEMP 98.1
--- NOTE | 2020-03-29 10:36 | P.PN ---
Subjective Progress Note Date: 03/28/20 This is follow-up visit for this patient with a history of severe and chronic low back pain secondary to lumbar degenerative disc disease, lumbar spondylosis with facet arthropathy, and sacroiliitis, we have done radiofrequency ablation of the medial branch lumbar area , bilateral sacroiliac joint steroid injection which helped her low back pain significantly, patient currently on Percocet 7.5/325 every 8 hours when necessary , Neurontin 400 mg 3 times a day , Flexeril 5 mg daily at bedtime Patient denies any side effects of the medication, denies excessive drowsiness or sleepiness, denies suicidal ideation, and reports that the current pain medication is helping To control the pain and improve activity of daily living . Patient denies any motor or sensory deficit, denies change in bowel movement or urination, patient denies any fever or night sweats and patient here for follow-up visit and medication refill, she continued to have severe low back pain which is increased with any activity, the pain interfering with her quality of life, she uses a wheelchair to ambulat, and currently she is complaining of increased low back pain with radiation to the buttock area bilaterally. Patient ambulating using a walker at home, and outside the house she uses a wheelchair, patient reported increase of her low back pain over the last few weeks, and the pain is constant and increases with any activity Physical Examinations : -Constitutiona : Cooperative , not in acute distress . -HEENT : nech ; supple , no Lymphadenopathy , normal thyroid size . eyes : no ptosis , no icterus, no photophobia . - neurologic : Cranial nerve II to XII intact , no focal neurological deffecit . -psychatric : alert , oriented X 3 , appropriate affect , intact judgment and insight . -Lymphatic : no Lymphadenopathy . - musculoskeltal : , Lumber spine = normal moter stegnth lower extremities ,thigh and legs .5/5 deep tendon reflexes : normal Knee Jerk , normal ankle Jerk . lumber facet Loading Test positive strait leg raising test positive at 30 degree Right , positve at 30 degree Left Fabere test positive Right and positive Left Sever tenderness over the Sacroiliac joint on the Right , and Left side Assessment and Plan= chronic low back pain secondary to lumbar degenerative disc disease , lumbar spondylosis with lumbar facet arthropathy , bilateral sacroiliitis chronic and current use of high-risk medication (opioids) Patient denies any side effects of the current pain medication and the current treatment/medication ML and the patient to do activity of daily living , Diagnoses, prognosis, treatment options, including but not limited to physical therapy, medication management, interventional therapies, and surgery, were discussed with the patient All the questions answered Patient signed the narcotic agreement, and he was orally counseled, not to overuse, not to abuse, not to Divert , not tp sell pain medication, and to take it as prescribed only, Patient was counseled not to drive or operate heavy equipment while using narcotic medication, and advised not to use alcohol or any Illicit drugs while using the narcotis, above instructions and will likely to cause discharge from the pain service, not to renew his narcotic prescriptions Medication managements= patient will be given prescription refills for Percocet 7.5/325 every 8 hours dispense 90 with 1 refills, and prescription refill for Neurontin 400 every 8 hours Dispense 90 with 1 refill. Interventions= none Time with Patient: Less than 30 PQRS Measure Charge Sheet Measure #130: Documentation of Current Meds in Medical Chart: Patient's medications documented in chart Measure #226: Tobacco Use: Screen & Cessation Intervention: Pt not a tobacco user Measure #111: Pneumonia Vaccination: Pneumococcal vaccine administered or previously received Measure #47: Advance Care Plan: Advance care planning discussed & documented, pt chose/unable to give Measure #412: Opioid Treatment Agreement: Documented signed opioid trtmnt agreemnt min once during opioid trtmnt Measure #408: Opioid Therapy Follow-up Evaluation: Patient had f/u eval minimum every 3 months during opioid therapy Measure #317: Preventitive Care & Scrn High Bld Press & F/U: Pre-hypertensive or hypertensive BP documented, pt will f/u with PCP Measure #128: Body Mass Index (BMI) Screening & Follow-up: BMI documented ABOVE normal parameters - f/u documented Measure #131: Pain Assessment & Follow-up: Pain positive & plan documented, Follow-up scheduled Measure #431: Unhealthy Alcohol Use Preventative Care & Scrn: Patient not identified as an unhealthy alcohol user PQRS Narrative: Objective - Vital Signs Vital signs: Vital Signs Temp 98.1 F 03/28/20 13:50 Pulse 90 03/28/20 13:50 Resp 14 03/28/20 13:50 BP 133/59 03/28/20 13:50 Pulse Ox 92 L 03/28/20 13:50
== END | disposition home or self-care (01) ==
LOC: PNWHC3 12:58
PROVIDERS: ATTEND Specialist
DX: M47.816 Spondylosis without myelopathy or radiculopathy, lumbar region (principal); M46.96 Unspecified inflammatory spondylopathy, lumbar region; M46.1 Sacroiliitis, not elsewhere classified; Z79.899 Other long term (current) drug therapy; Z79.891 Long term (current) use of opiate analgesic; G89.29 Other chronic pain
CPT/HCPCS: 99211

== ENCOUNTER 2020-04-07 04:11 | Emergency (ER) | payer MEDICARE, OTHER ==
--- NOTE | 2020-04-07 04:13 | ED ---
Fall HPI - General Stated Complaint: Fall Time Seen by Provider: 04/07/20 04:12 Source: RN notes reviewed, old records reviewed Limitations: physical limitation - History of Present Illness Initial Comments: Tpatient resents by EMShis is an 80-year-old female DF for evaluation patient Dese for evaluation regards to not feeling well. Patient was a little bit weak when she got up out of bed this afternoon fell patient had a fall complaining of left leg pain left knee pain weakness. She was unable to get up from the fall MD Complaint: fall, other (multiple falls) -: unknown Fall From: standing When Fall Occurred: unsure Fall Witnessed: yes, by living facility staff Place Fall Occurred: home Loss of Consciousness: none Prolonged Down Time?: no Symptoms Prior to Fall: none Severity: mild Context: tripped/slipped Associated Symptoms: denies - Related Data Home Medications Medication Instructions Recorded Confirmed Aspirin 81 mg PO SA 12/12/13 03/28/20 Atorvastatin [Lipitor] 40 mg PO W/SUPPER 12/12/13 03/28/20 Cholecalciferol [Vitamin D3 (25 2,000 unit PO DAILY 12/12/13 03/28/20 Mcg = 1000 Iu)] Diltiazem HCl [Diltiazem 24Hr ER] 180 mg PO W/SUPPER 12/12/13 03/28/20 Furosemide 40 mg PO DAILY 12/12/13 03/28/20 Oxybutynin Chloride [Ditropan] 5 mg PO BID 12/12/13 03/28/20 Pentoxifylline [TRENtal] 400 mg PO TID-W/MEALS 09/10/15 03/28/20 Apixaban [Eliquis] 5 mg PO BID 05/27/16 03/28/20 Linaclotide [Linzess] 145 mcg PO DAILY 05/27/16 03/28/20 Albuterol Inhaler (Mhu) [Ventolin 2 puff INHALATION BID 05/14/17 03/28/20 Hfa Inhaler (Mhu)] Nystatin 100,000 Unit/gm Powd 1 applic TOPICAL DAILY PRN 05/14/17 03/28/20 [Mycostatin Powder] Levothyroxine Sodium [Synthroid] 150 mcg PO DAILY 07/28/17 03/28/20 Albuterol Nebulized [Ventolin 2.5 mg INHALATION RT-QID 09/08/18 03/28/20 Nebulized] Citalopram Hydrobromide [CeleXA] 20 mg PO DAILY 09/08/18 03/28/20 L.acidoph,Paracasei, B.lactis 1 each PO DAILY 10/01/18 03/28/20 [Probiotic] ALPRAZolam [Xanax] 0.5 mg PO HS PRN 12/07/18 03/28/20 Glimepiride [Amaryl] 2 mg PO AC-BID 03/30/19 03/28/20 Cyanocobalamin (Vitamin B-12) 2,500 mcg PO DAILY 05/20/19 03/28/20 [Vitamin B-12] Magnesium Oxide [Bergeron] 500 mg PO DAILY 05/20/19 03/28/20 Melatonin W/L-Theanine 1 tab PO HS 07/18/19 03/28/20 Baclofen 5 mg PO BID 12/06/19 03/28/20 Cyclobenzaprine [Flexeril] 5 mg PO TID 12/06/19 03/28/20 DULoxetine HCL [Cymbalta] 30 mg PO BID 12/06/19 03/28/20 Furosemide [Lasix] 20 mg PO 1800 12/06/19 03/28/20 Memantine [Namenda] 5 mg PO DAILY 12/06/19 03/28/20 Pantoprazole Sodium [Protonix] 40 mg PO DAILY 12/06/19 03/28/20 Potassium Chloride [K-Tab ER] 10 meq PO DAILY 03/12/20 03/28/20 Potassium Chloride 5 meq PO AC-SUPPER 03/23/20 03/28/20 Previous Rx's Medication Instructions Recorded Ferrous Sulfate [Iron (65 MG 325 mg PO DAILY tab 09/12/18 Elemental)] Gabapentin [Neurontin] 400 mg PO TID #90 cap 03/28/20 oxyCODONE HCL/ACETAMINOPHEN 1 tab PO Q8HR PRN 30 Days #90 tab 03/28/20 [Percocet 7.5-325 mg] oxyCODONE HCL/ACETAMINOPHEN 1 tab PO Q8HR PRN 30 Days #90 tab 03/28/20 [Percocet 7.5-325 mg] Allergies Allergy/AdvReac Type Severity Reaction Status Date / Time ciprofloxacin HCl AdvReac Nausea Verified 04/07/20 04:19 [From Cipro] Sulfa (Sulfonamide AdvReac Nausea Verified 04/07/20 04:19 Antibiotics) Review of Systems ROS Statement: Those systems with pertinent positive or pertinent negative responses have been documented in the HPI. ROS Other: All systems not noted in ROS Statement are negative. Past Medical History Past Medical History: Atrial Fibrillation, Asthma, Diabetes Mellitus, GERD/Reflux, Hyperlipidemia, Hypertension, Myocardial Infarction ([place]), Musculoskeletal Disorder, Osteoarthritis (OA), Renal Disease, Thyroid Disorder Additional Past Medical History / Comment(s): Hx renal failure, ulcerative colitis, peripheral edema, left wrist fracture, neuropathy legs & feet and hands, uses walker. Last Myocardial Infarction Date:: UNKNOWN [id number] History of Any Multi-Drug Resistant Organisms: MRSA Date of last positivie culture/infection: 08/10/16 MDRO Source:: Urine Past Surgical History: Appendectomy, Hysterectomy, Orthopedic Surgery, Tubal Ligation Additional Past Surgical History / Comment(s): Foot surg., nasal surg., CHRISSY CATARACTS., pain clinic procedures, hammer toe surgery. PAIN CLINIC PROCEDURES, LAPAROTOMY ovarian cysts, sinus surgery 2, colonoscopy. Past Anesthesia/Blood Transfusion Reactions: No Reported Reaction Smoking Status: Never smoker - Past Family History Mother Family Medical History: No Reported History Sister(s) Family Medical History: No Reported History Son(s) Family Medical History: No Reported History Daughter(s) Family Medical History: No Reported History Father Family Medical History: Cancer, Deep Vein Thrombosis (DVT) Additional Family Medical History / Comment(s): LUNG CA General Exam General appearance: alert, in no apparent distress Head exam: Present: atraumatic, normocephalic, normal inspection Eye exam: Present: normal appearance, PERRL, EOMI. Absent: scleral icterus, conjunctival injection, periorbital swelling ENT exam: Present: normal exam, mucous membranes moist Neck exam: Present: normal inspection. Absent: tenderness, meningismus, lymphadenopathy Respiratory exam: Present: normal lung sounds bilaterally. Absent: respiratory distress, wheezes, rales, rhonchi, stridor Cardiovascular Exam: Present: regular rate, normal rhythm, normal heart sounds. Absent: systolic murmur, diastolic murmur, rubs, gallop, clicks GI/Abdominal exam: Present: soft, normal bowel sounds. Absent: distended, tenderness, guarding, rebound, rigid Extremities exam: Present: normal inspection, full ROM, normal capillary refill. Absent: tenderness, pedal edema, joint swelling, calf tenderness Back exam: Present: normal inspection Neurological exam: Present: alert, oriented X3, CN II-XII intact Psychiatric exam: Present: normal affect, normal mood Skin exam: Present: warm, dry, intact, normal color. Absent: rash Course Vital Signs 04/07/20 04:12 Temperature 97.6 F Pulse Rate 79 Respiratory 16 Rate Blood Pressure 147/61 O2 Sat by Pulse 96 Oximetry - Reevaluation(s) Reevaluation #1: 04/07/20 05:39 medical records reviewed Reevaluation #2: 04/07/20 05:39 patient for evaluation of weakness and falls recurrent Reevaluation #3: 04/07/20 05:39 no traumatic injuries found. Reevaluation #4: 04/07/20 05:40 patient is informed of results and questions are answered Reevaluation #5: 04/07/20 06:09 pt is apparently refusing to provide UA Medical Decision Making - Medical Decision Making 80 female to the ER for evaluation recurrent falls and weakness. No significant illness found here in the ER patient can be discharged home - Lab Data Result diagrams: 04/07/20 04:47 04/07/20 04:47 Lab Results 04/07/20 04/07/20 04/07/20 Range/Units 04:47 04:47 04:47 WBC 6.6 (3.8-10.6) k/uL RBC 4.06 (3.80-5.40) m/uL Hgb 12.8 (11.4-16.0) gm/dL Hct 40.5 (34.0-46.0) % MCV 99.8 (80.0-100.0) fL MCH 31.4 (25.0-35.0) pg MCHC 31.5 (31.0-37.0) g/dL RDW 14.5 (11.5-15.5) % Plt Count 246 (150-450) k/uL Neutrophils % 67 % Lymphocytes % 24 % Monocytes % 5 % Eosinophils % 2 % Basophils % 0 % Neutrophils # 4.4 (1.3-7.7) k/uL Lymphocytes # 1.6 (1.0-4.8) k/uL Monocytes # 0.4 (0-1.0) k/uL Eosinophils # 0.1 (0-0.7) k/uL Basophils # 0.0 (0-0.2) k/uL Macrocytosis Slight Sodium 139 (137-145) mmol/L Potassium 4.6 (3.5-5.1) mmol/L Chloride 103 (98-107) mmol/L Carbon Dioxide 31 H (22-30) mmol/L Anion Gap 5 mmol/L BUN 26 H (7-17) mg/dL Creatinine 1.26 H (0.52-1.04) mg/dL Est GFR (CKD-EPI)AfAm 46 (>60 ml/min/1.73 sqM) Est GFR (CKD-EPI)NonAf 40 (>60 ml/min/1.73 sqM) Glucose 148 H (74-99) mg/dL Calcium 9.3 (8.4-10.2) mg/dL Phosphorus 4.0 (2.5-4.5) mg/dL Magnesium 2.3 (1.6-2.3) mg/dL Total Bilirubin 0.8 (0.2-1.3) mg/dL AST 41 H (14-36) U/L ALT 14 (4-34) U/L Alkaline Phosphatase 73 (38-126) U/L Creatine Kinase 42 (30-135) U/L Troponin I <0.012 (0.000-0.034) ng/mL Total Protein 6.8 (6.3-8.2) g/dL Albumin 3.8 (3.5-5.0) g/dL - EKG Data -: EKG Interpreted by Me (EKG sinus rhythm 73 WV 234 QRS 124 QTC 4:30) - Radiology Data Radiology results: report reviewed (chest x-ray pelvis x-ray hip x-ray left knee x-ray left ankle x-ray negative for traumatic injury), image reviewed Disposition Clinical Impression: Fall, Bilateral leg weakness, Weakness Disposition: HOME SELF-CARE Condition: Fair Instructions (If sedation given, give patient instructions): Fall Prevention for Older Adults (ED) Is patient prescribed a controlled substance at d/c from ED?: No Referrals: Amira Washburn MD [Primary Care Provider] - 1-2 days
[2020-04-07 04:19] VITALS: TEMP 97.6
[2020-04-07] MEDS ORDERED: SODIUM CHLORIDE 0.9% 1,000 ML IV STA (04:37)
[2020-04-07] MEDS ORDERED: SODIUM CHLORIDE 0.9% 500 ML 500 ML IV STA (04:37)
[2020-04-07] MEDS ORDERED: MORPHINE SULFATE 4 MG/ML SYRINGE IV STA (04:37)
[2020-04-07 05:04] LABS: Basophils % (A) 0 %; Eosinophils # (A) 0.1 k/uL (0-0.7); Eosinophils % (A) 2 %; HCT 40.5 % (34.0-46.0); HGB 12.8 gm/dL (11.4-16.0); Lymphocytes # (A) 1.6 k/uL (1.0-4.8); Lymphocytes % (A) 24 %; MCH 31.4 pg (25.0-35.0); MCHC 31.5 g/dL (31.0-37.0); MCV 99.8 fL (80.0-100.0); Macrocytosis Slight; Mean Platelet Volume 6.4; Monocytes # (A) 0.4 k/uL (0-1.0); Monocytes % (A) 5 %; Neutrophils # (A) 4.4 k/uL (1.3-7.7); Neutrophils % (A) 67 %; Platelet Count 246 k/uL (150-450); RBC 4.06 m/uL (3.80-5.40); RDW 14.5 % (11.5-15.5); WBC 6.6 k/uL (3.8-10.6)
[2020-04-07 05:21] LABS: Calcium 9.3 mg/dL (8.4-10.2); Total Bilirubin 0.8 mg/dL (0.2-1.3)
[2020-04-07 05:29] LABS: Potassium 4.6 mmol/L (3.5-5.1)
[2020-04-07 05:30] LABS: Albumin 3.8 g/dL (3.5-5.0); Magnesium 2.3 mg/dL (1.6-2.3); Total Protein 6.8 g/dL (6.3-8.2)
--- NOTE | 2020-04-07 05:37 | XR ---
EXAM: XR Chest, 1 View CLINICAL HISTORY: ITS.REASON XR Reason: Weakness TECHNIQUE: Frontal view of the chest. COMPARISON: No relevant prior studies available. FINDINGS: Lungs: Airspace opacities within the lower lungs which may represent atelectasis versus an infectious process. Pleural space: Unremarkable. Heart: Unremarkable. Mediastinum: Unremarkable. Bones/joints: Unremarkable. IMPRESSION: Airspace opacities within the lower lungs which may represent atelectasis versus an infectious process.
--- NOTE | 2020-04-07 05:38 | XR ---
EXAM: XR Left Ankle Complete, 3 or More Views CLINICAL HISTORY: ITS.REASON XR Reason: fall TECHNIQUE: Frontal, lateral and oblique views of the left ankle. COMPARISON: No relevant prior studies available. FINDINGS: Bones/joints: No acute fracture or traumatic malalignment. Soft tissues: Suspect edema within the soft tissues. IMPRESSION: No acute fracture or traumatic malalignment.
--- NOTE | 2020-04-07 05:39 | XR ---
EXAM: XR Left Hip With Pelvis When Performed, 1 View CLINICAL HISTORY: Fall TECHNIQUE: Frontal view of the left hip with pelvis when performed. COMPARISON: No relevant prior studies available. FINDINGS: Bones/joints: No acute fracture or traumatic malalignment. Soft tissues: Unremarkable. Vasculature: Phleboliths within the pelvis. IMPRESSION: No acute findings in the left hip.
--- NOTE | 2020-04-07 05:39 | XR ---
EXAM: XR Left Knee, 3 Views CLINICAL HISTORY: Trauma TECHNIQUE: Three views of the left knee. COMPARISON: No relevant prior studies available. FINDINGS: Bones/joints: No acute fracture or traumatic malalignment. Marked tricompartment degenerative changes. Soft tissues: Unremarkable. IMPRESSION: No acute findings in the left knee.
[2020-04-07 07:05] LABS: Appearance,Urine Cloudy (Clear); Bacteria,Urine Rare /hpf; Bilirubin,Urine Negative (Negative); Blood,Urine Negative (Negative); Color,Urine Yellow; Glucose,Urine (UA) Negative (Negative); Hyaline Casts,Urine 18 /lpf (0-2); Ketones,Urine Negative (Negative); Leukocyte Esterase,Urine Moderate (Negative); Mucus,Urine Occasional /hpf; Nitrite,Urine Negative (Negative); PH, Urine 5.5 (5.0-8.0); Protein,Urine Trace (Negative); RBC,Urine 2 /hpf (0-5); Specific Gravity,Urine 1.028 (1.001-1.035); Squamous Epithelial Cell,Urine <1 /hpf (0-4); Urobilinogen,Urine <2.0 mg/dL (<2.0); WBC,Urine 7 /hpf (0-5)
[2020-04-07 07:59] VITALS: BP 153/72; PULSE 68; RESP 18
== END 2020-04-07 08:55 | disposition home or self-care (01) ==
LOC: EC 04:11
DX: R29.898 Other symptoms and signs involving the musculoskeletal system (principal); M79.605 Pain in left leg; M25.562 Pain in left knee; R53.1 Weakness; F41.9 Anxiety disorder, unspecified; F32.9 Major depressive disorder, single episode, unspecified; J45.909 Unspecified asthma, uncomplicated; K21.9 Gastro-esophageal reflux disease without esophagitis; E78.5 Hyperlipidemia, unspecified; I10 Essential (primary) hypertension; I48.91 Unspecified atrial fibrillation; I25.2 Old myocardial infarction; M19.90 Unspecified osteoarthritis, unspecified site; E07.9 Disorder of thyroid, unspecified; E11.40 Type 2 diabetes mellitus with diabetic neuropathy, unspecified; Z79.01 Long term (current) use of anticoagulants; Z79.82 Long term (current) use of aspirin; Z79.84 Long term (current) use of oral hypoglycemic drugs; Z79.51 Long term (current) use of inhaled steroids; Z79.890 Hormone replacement therapy; Z79.899 Other long term (current) drug therapy; Z98.42 Cataract extraction status, left eye; Z98.41 Cataract extraction status, right eye; Z88.1 Allergy status to other antibiotic agents; Z88.2 Allergy status to sulfonamides; Z91.81 History of falling; Z86.14 Personal history of Methicillin resistant Staphylococcus aureus infection; W01.0XXA Fall on same level from slipping, tripping and stumbling without subsequent striking against object, initial encounter; Y92.009 Unspecified place in unspecified non-institutional (private) residence as the place of occurrence of the external cause
CPT/HCPCS: 36415; 71045; 73502; 80053; 81001; 82550; 83735; 84100; 84484; 85025; 93005; 96361; 96374; 99284

== ENCOUNTER 2020-07-16 14:58 | Observation (INO) | payer MEDICARE, OTHER ==
--- NOTE | 2020-07-16 15:17 | ED ---
General Adult HPI - General Chief complaint: Fall Stated complaint: fall Time Seen by Provider: 07/16/20 14:59 Source: patient, EMS Mode of arrival: EMS - History of Present Illness Initial comments: Dictation was produced using [employer] dictation software. please excuse any g rammatical, word or spelling errors. This patient was cared for during a federal and state declared state of emergency secondary to Covid 19 Chief Complaint: 80-year-old female presents with left shoulder pain after fall History of Present Illness: 80-year-old female she lives at home by herself. She states that she was trying. The cat when she lost her balance causing her to trip over her walker. She states she landed on her right side but after the fall she is expressing left-sided shoulder pain. She states she was just released from [facility]. She's been home for almost a week now. Patient states that he is scared of being at home by herself because she lives by herself and is had multiple falls. Patient states she be a lot better about taking care of herself by herself if she did fall so much. She's been evaluated by her primary care physician for frequent falls. The ROS documented in this emergency department record has been reviewed and confirmed by me. Those systems with pertinent positive or negative responses have been documented in the HPI. All other systems are other negative and/or noncontributory. PHYSICAL EXAM: General Impression: Alert and oriented x3, not in acute distress HEENT: Normocephalic atraumatic, extra-ocular movements intact, pupils equal and reactive to light bilaterally, mucous membranes moist. Cardiovascular: Heart regular rate and rhythm Chest: Able to complete full sentences, no retractions, no tachypnea Abdomen: abdomen soft, non-tender, non-distended, no organomegaly Musculoskeletal: Pulses present and equal in all extremities, no peripheral edema Motor: no focal deficits noted Left shoulder: Pain in palpation about the whole shoulder, passive range of motion intact, active range of motion and passive range of motion is antalgic. Neurological: CN II-XII grossly intact, no focal motor or sensory deficits noted Skin: Intact with no visualized rashes Psych: Normal affect and mood ED course: 80 y Old female presents emergency department for left shoulder pain after fall today. She's been expressing frequent falls. She is had workup for all issues in the past with no obvious reason. She lives at home by herself. She is well-appearing at bedside. Vital signs are within acceptable limits. Chest x-ray and pelvis x-ray nonacute. Shoulder x-ray shows greater humeral tuberosity fracture. Patient placed in the left upper extremity sling. Patient's are agreeable to this. He ambulated Tory with a walker she's been having frequent falls and now after the fracture she is unable to use her left upper showing. She does not have any assistance at home and lives by herself. Case discussed with Dr. Dubon is willing to accept patient's care. Consultation was made to physical therapy and occupational therapy and orthopedic surgery. Patient is agreeable to disposition. EKG interpretation: Ventricular rate is, sinus rhythm,. Interval to 14, QRS 112, QTc 444. No [place] prolongation, no QTC prolongation, no ST or T-wave changes noted. EKG compared to 04/07/2020 showing no changes. Overall, this EKG is unremarkable - Related Data Home Medications Medication Instructions Recorded Confirmed Aspirin 81 mg PO SA 12/12/13 03/28/20 Atorvastatin [Lipitor] 40 mg PO W/SUPPER 12/12/13 03/28/20 Cholecalciferol [Vitamin D3 (25 2,000 unit PO DAILY 12/12/13 03/28/20 Mcg = 1000 Iu)] Diltiazem HCl [Diltiazem 24Hr ER] 180 mg PO W/SUPPER 12/12/13 03/28/20 Furosemide 40 mg PO DAILY 12/12/13 03/28/20 Oxybutynin Chloride [Ditropan] 5 mg PO BID 12/12/13 03/28/20 Pentoxifylline [TRENtal] 400 mg PO TID-W/MEALS 09/10/15 03/28/20 Apixaban [Eliquis] 5 mg PO BID 05/27/16 03/28/20 Linaclotide [Linzess] 145 mcg PO DAILY 05/27/16 03/28/20 Albuterol Inhaler (Mhu) [Ventolin 2 puff INHALATION BID 05/14/17 03/28/20 Hfa Inhaler (Mhu)] Nystatin 100,000 Unit/gm Powd 1 applic TOPICAL DAILY PRN 05/14/17 03/28/20 [Mycostatin Powder] Levothyroxine Sodium [Synthroid] 150 mcg PO DAILY 07/28/17 03/28/20 Albuterol Nebulized [Ventolin 2.5 mg INHALATION RT-QID 09/08/18 03/28/20 Nebulized] Citalopram Hydrobromide [CeleXA] 20 mg PO DAILY 09/08/18 03/28/20 L.acidoph,Paracasei, B.lactis 1 each PO DAILY 10/01/18 03/28/20 [Probiotic] ALPRAZolam [Xanax] 0.5 mg PO HS PRN 12/07/18 03/28/20 Glimepiride [Amaryl] 2 mg PO AC-BID 03/30/19 03/28/20 Cyanocobalamin (Vitamin B-12) 2,500 mcg PO DAILY 05/20/19 03/28/20 [Vitamin B-12] Magnesium Oxide [Bergeron] 500 mg PO DAILY 05/20/19 03/28/20 Melatonin W/L-Theanine 1 tab PO HS 07/18/19 03/28/20 Baclofen 5 mg PO BID 12/06/19 03/28/20 Cyclobenzaprine [Flexeril] 5 mg PO TID 12/06/19 03/28/20 DULoxetine HCL [Cymbalta] 30 mg PO BID 12/06/19 03/28/20 Furosemide [Lasix] 20 mg PO 1800 12/06/19 03/28/20 Memantine [Namenda] 5 mg PO DAILY 12/06/19 03/28/20 Pantoprazole Sodium [Protonix] 40 mg PO DAILY 12/06/19 03/28/20 Potassium Chloride [K-Tab ER] 10 meq PO DAILY 03/12/20 03/28/20 Potassium Chloride 5 meq PO AC-SUPPER 03/23/20 03/28/20 Previous Rx's Medication Instructions Recorded Ferrous Sulfate [Iron (65 MG 325 mg PO DAILY tab 09/12/18 Elemental)] Gabapentin [Neurontin] 400 mg PO TID #90 cap 03/28/20 oxyCODONE HCL/ACETAMINOPHEN 1 tab PO Q8HR PRN 30 Days #90 tab 03/28/20 [Percocet 7.5-325 mg] oxyCODONE HCL/ACETAMINOPHEN 1 tab PO Q8HR PRN 30 Days #90 tab 03/28/20 [Percocet 7.5-325 mg] Allergies Allergy/AdvReac Type Severity Reaction Status Date / Time ciprofloxacin HCl AdvReac Nausea Verified 04/07/20 04:19 [From Cipro] Sulfa (Sulfonamide AdvReac Nausea Verified 04/07/20 04:19 Antibiotics) Review of Systems ROS Statement: Those systems with pertinent positive or pertinent negative responses have been documented in the HPI. ROS Other: All systems not noted in ROS Statement are negative. Past Medical History Past Medical History: Atrial Fibrillation, Asthma, Diabetes Mellitus, GERD/Reflux, Hyperlipidemia, Hypertension, Myocardial Infarction (LA), Musculoskeletal Disorder, Osteoarthritis (OA), Renal Disease, Thyroid Disorder Additional Past Medical History / Comment(s): Hx renal failure, ulcerative colitis, peripheral edema, left wrist fracture, neuropathy legs & feet and hands, uses walker. Last Myocardial Infarction Date:: UNKNOWN [id number] History of Any Multi-Drug Resistant Organisms: MRSA Date of last positivie culture/infection: 05/03/20 MDRO Source:: Urine Past Surgical History: Appendectomy, Hysterectomy, Orthopedic Surgery, Tubal Ligation Additional Past Surgical History / Comment(s): Foot surg., nasal surg., CHRISSY CATARACTS., pain clinic procedures, hammer toe surgery. PAIN CLINIC PROCEDURES, LAPAROTOMY ovarian cysts, sinus surgery 2, colonoscopy. Past Anesthesia/Blood Transfusion Reactions: No Reported Reaction Past Psychological History: Anxiety, Depression Smoking Status: Never smoker - Past Family History Mother Family Medical History: No Reported History Sister(s) Family Medical History: No Reported History Son(s) Family Medical History: No Reported History Daughter(s) Family Medical History: No Reported History Father Family Medical History: Cancer, Deep Vein Thrombosis (DVT) Additional Family Medical History / Comment(s): LUNG CA Course Vital Signs 07/16/20 15:00 Temperature 98 F Pulse Rate 100 Respiratory 16 Rate Blood Pressure 162/71 O2 Sat by Pulse 97 Oximetry Medical Decision Making - Lab Data Result diagrams: 07/16/20 15:51 07/16/20 15:51 Lab Results 07/16/20 07/16/20 Range/Units 15:51 15:51 WBC 15.0 H (3.8-10.6) k/uL RBC 4.01 (3.80-5.40) m/uL Hgb 12.5 (11.4-16.0) gm/dL Hct 38.1 (34.0-46.0) % MCV 95.0 (80.0-100.0) fL MCH 31.2 (25.0-35.0) pg MCHC 32.9 (31.0-37.0) g/dL RDW 13.5 (11.5-15.5) % Plt Count 281 (150-450) k/uL MPV 6.6 Neutrophils % 78 % Lymphocytes % 11 % Monocytes % 7 % Eosinophils % 2 % Basophils % 0 % Neutrophils # 11.8 H (1.3-7.7) k/uL Lymphocytes # 1.6 (1.0-4.8) k/uL Monocytes # 1.1 H (0-1.0) k/uL Eosinophils # 0.3 (0-0.7) k/uL Basophils # 0.0 (0-0.2) k/uL Sodium 139 (137-145) mmol/L Potassium 3.3 L (3.5-5.1) mmol/L Chloride 94 L (98-107) mmol/L Carbon Dioxide 36 H (22-30) mmol/L Anion Gap 9 mmol/L BUN 18 H (7-17) mg/dL Creatinine 1.08 H (0.52-1.04) mg/dL Est GFR (CKD-EPI)AfAm 56 (>60 ml/min/1.73 sqM) Est GFR (CKD-EPI)NonAf 49 (>60 ml/min/1.73 sqM) Glucose 151 H (74-99) mg/dL Calcium 9.5 (8.4-10.2) mg/dL Magnesium 1.6 (1.6-2.3) mg/dL Disposition Clinical Impression: Shoulder fracture Disposition: ADMITTED IP TO THIS HOSP Condition: Fair Referrals: Amira Washburn MD [Primary Care Provider] - 1-2 days Decision Time: 16:48
[2020-07-16 16:13] LABS: Basophils % (A) 0 %; Eosinophils # (A) 0.3 k/uL (0-0.7); Eosinophils % (A) 2 %; HCT 38.1 % (34.0-46.0); HGB 12.5 gm/dL (11.4-16.0); Lymphocytes # (A) 1.6 k/uL (1.0-4.8); Lymphocytes % (A) 11 %; MCH 31.2 pg (25.0-35.0); MCHC 32.9 g/dL (31.0-37.0); Mean Platelet Volume 6.6; Monocytes # (A) 1.1 k/uL (0-1.0); Monocytes % (A) 7 %; Neutrophils # (A) 11.8 k/uL (1.3-7.7); Neutrophils % (A) 78 %; Platelet Count 281 k/uL (150-450); RBC 4.01 m/uL (3.80-5.40); RDW 13.5 % (11.5-15.5)
[2020-07-16 16:15] LABS: Calcium 9.5 mg/dL (8.4-10.2); Magnesium 1.6 mg/dL (1.6-2.3); Potassium 3.3 mmol/L (3.5-5.1)
--- NOTE | 2020-07-16 16:30 | XR ---
EXAMINATION TYPE: XR shoulder complete LT DATE OF EXAM: 07/16/2020 CLINICAL HISTORY: pain COMPARISON: NONE TECHNIQUE: Three views of the left shoulder are obtained. FINDINGS: There is a fracture of the greater tuberosity. No additional fractures are seen with absolu te certainty. Glenohumeral joint and AC joints are intact. The acromioclavicular and glenohumeral emperatriz int spaces appear within normal limits. The visualized ribs are intact and unremarkable. IMPRESSION: 1. Fracture of the greater humeral tuberosity.
--- NOTE | 2020-07-16 16:33 | XR ---
EXAMINATION TYPE: XR pelvis AP view DATE OF EXAM: 07/16/2020 CLINICAL HISTORY: pain TECHNIQUE: Single view the pelvis is submitted. FINDINGS: No evidence for fracture, dislocation or bony lesion. Joint spaces are well-preserved. S I joints appear symmetric. IMPRESSION: 1. No acute fracture or dislocation seen. ICD 10 NO FRACTURE, INITIAL EVALUATION
--- NOTE | 2020-07-16 16:33 | XR ---
EXAMINATION TYPE: XR chest 1V DATE OF EXAM: 07/16/2020 HISTORY: Shortness of breath. COMPARISON: 04/07/2020 TECHNIQUE: Single view of the chest is submitted. FINDINGS: Demonstrated are scattered senescent parenchymal change. There is no evidence for focal infiltrate. The heart is stable. Hilar and mediastinal structures are within normal limits. Degenerative changes are seen of the dorsal spine. IMPRESSION: 1. Chronic changes without evidence for acute pulmonary disease.
[2020-07-16] MEDS ORDERED: NALOXONE 0.4 MG/ML 1 ML VIAL IV PRN (16:44)
[2020-07-16] MEDS: HYDROcodone/APAP 5-325MG 1 EACH TAB PO PRN ×2 (17:28→22:07)
[2020-07-16] MEDS: SODIUM CHLORIDE 0.9% 1,000 ML IV SCH (17:29)
[2020-07-16] MEDS ORDERED: ACETAMINOPHEN TAB 325 MG TAB PO PRN (20:47)
[2020-07-16] MEDS: MELATONIN 3 MG TABLET PO SCH (22:03)
[2020-07-16] MEDS: GABAPENTIN 100 MG CAP PO SCH (22:04)
[2020-07-16] MEDS: DULoxetine HCL 30 MG CAPSULE.DR PO SCH (22:04)
[2020-07-16] MEDS: ALPRAZolam 0.5 MG TAB PO SCH (22:04)
[2020-07-16] MEDS: ATORVASTATIN 40 MG TAB PO SCH (22:04)
[2020-07-16] MEDS: APIXABAN 2.5 MG TABLET PO SCH (22:04)
[2020-07-16] MEDS: POTASSIUM CHLORIDE ER 10 MEQ TAB.ER.PRT PO SCH (22:04)
[2020-07-16] MEDS: hydrALAZINE HCL 50 MG TAB PO SCH (22:05)
[2020-07-16] MEDS: PENTOXIFYLLINE 400 MG TABLET.ER PO SCH (22:05)
[2020-07-16] MEDS: QUEtiapine 25 MG TAB PO SCH (22:05)
[2020-07-17] MEDS: HYDROcodone/APAP 5-325MG 1 EACH TAB PO PRN ×4 (01:45→21:38)
[2020-07-17] MEDS: LEVOTHYROXINE 75 MCG TAB PO SCH (05:41)
[2020-07-17] MEDS: ALBUTEROL NEBULIZED 2.5 MG/3 ML INHALATION SCH ×2 (07:59→21:11)
[2020-07-17] MEDS ORDERED: Linaclotide [Linzess] 145 MCG Capsule PO SCH (09:00)
--- NOTE | 2020-07-17 09:15 | P.HPIM ---
History of Present Illness H&P Date: 07/17/20 HISTORY OF PRESENT ILLNESS This is a 80-year-old female patient of Dr. Washburn with a previous medical history significant for hypertension and hypertensive cardiovascular disease with left ventricular hypertrophy, hyperlipidemia, hypothyroidism, diabetes mellitus type 2, degenerative disc disease of the lumbar spine with a chronic L1 fracture seen previously at the pain clinic. Patient was recently at [facility] for subacute rehab and was discharged proximal October 2 weeks ago. About one week ago she was having orthostatic changes for which she was started on mid odrine and blood pressure medication was discontinued. Patient states that she was walking with her walker and she was being very careful but she slipped and fell in the living room yesterday. She denies hitting her head. She denies any hip pain. She does give history of having diarrhea for 1 day and that was about 4-5 days ago. Patient experienced pain in her left shoulder with significant e cchymosis noted. Patient denies any abdominal pain. No nausea or vomiting. Patient presented to [facility] emergency center for evaluation. She was afebrile, heart rate 100, blood pressure 162/71, pulse ox 97% on room air. WBC 15, hemoglobin 12.5, platelet count 281. Sodium 139, potassium 3.3, chloride 94, CO2 36, BUN 18 and creatinine 1.08. Blood sugar 151. Coronavirus PCR not detected. Shoulder x-ray showed a fracture of the greater humeral tuberosity. Chest x-ray reveals chronic changes without evidence of acute pulmonary disease. Patient was placed on the observation unit. She has been seen by orthopedics with plan for sling, no surgical intervention is necessary and follow-up as an outpatient. Potassium will be replaced. Patient has been seen by PT and OT with recommendations for subacute rehab. Vision is agreeable for discharge plan to [facility]. REVIEW OF SYSTEMS Constitutional: No fever, no chills, no night sweats. No weight change. No weakness, fatigue or lethargy. No daytime sleepiness. EENT: No headache. No blurred vision or double vision, no loss of vision. No loss of Hearing, no ringing in the ears, no dizziness. No nasal drainage or congestion. No epistaxis. No sore throat. Lungs: No shortness of breath, cough, no sputum production. No wheezing. Cardiovascular: No chest pain, no lower extremity edema. No palpitations. No paroxysmal nocturnal dyspnea. No orthopnea. No lightheadedness or dizziness. No syncopal episodes. Abdominal: No abdominal pain. No nausea, vomiting. No diarrhea. No cons tipation. No bloody or tarry stools.. No loss of appetite. Genitourinary: No dysuria, increased frequency, urgency. No urinary retention. Musculoskeletal: No myalgias. No muscle weakness, reports reports gait dysfunction, no frequent falls. No back pain. No neck pain. Left shoulder pain. Integumentary: No wounds, no lesions. No rash or pruritus. No unusual bruising. No change in hair or nails. Neurologic: No aphasia. No facial droop. No change in mentation. No head injury. No headache. No paralysis. No paresthesia. Psychiatric: No depression. No anxiety. No mood swings. Endocrine: No abnormal blood sugars. No weight change. No excessive sweating or thirst. No cold intolerance. SOCIAL HISTORY Patient is a lifelong nonsmoker. No alcohol use or drug use. Patient lives alone in her apartment. FAMILY HISTORY Mother at age 80 from bowel obstruction and also from abdominal aortic aneurysm that was repaired at [facility]. Father at age 65 from lung cancer also had history of DVT. Patient has one sister and she does not recall her medical problems. Patient has 2 sons with no major medical problems and one daughter with no major medical problems. PHYSICAL EXAMINATION Gen: This is an 80-year-old female. Patient is sitting up in a recliner and appears to be comfortable and in no acute distress. HEENT: Head is atraumatic, normocephalic. Pupils equal, round. Sclerae is anicteric. NECK: Supple. No JVD. No lymphadenopathy. No thyromegaly. LUNGS: Clear to auscultation. No wheezes or rhonchi. No intercostal retractions. HEART: Regular rate and rhythm. Systolic murmur. ABDOMEN: Soft. Bowel sounds are present. No masses. No tenderness. EXTREMITIES: No pedal edema. No calf tenderness. Significant ecchymosis to the left shoulder. Positive tenderness. NEUROLOGICAL: Patient is awake, alert and oriented x3. Cranial nerves 2 through 12 are grossly intact. ASSESSMENT AND PLAN 1. Status post fall with left humeral fracture. Orthopedic evaluation appreciated. Patient to utilize sling and follow-up as an outpatient in 2 weeks. PT and OT following. 2. Hypertension, hypertensive cardiovascular disease. Continue hydralazine 50 mg twice daily, Lasix 20 mg daily, Cardizem 24 hour ER 180 mg daily. 3. Hyperlipidemia. Continue Lipitor 40 mg at bedtime 4. Hypothyroidism. Continue levothyroxine 150 g daily 5. Paroxysmal atrial fibrillation currently in sinus rhythm. Continue eliquis 2.5 mg twice daily, Cardizem 180 mg daily. 6. Generalized anxiety disorder and recurrent depression. Continue Xanax or 0.5 mg 3 times daily and Seroquel 25 mg at bedtime. 7. Degenerative disc disease and chronic pain. Continue Flexeril 5 mg twice daily, gabapentin 200 mg twice daily 8. Mild intermittent asthma. Continue albuterol 2 puffs twice daily. 9. Chronic constipation. Continue Linzess 145 g daily. 10. Diabetes mellitus type 2. Continue glimepiride 2 mg twice daily. 11. Vascular dementia. Continue vitamin B supplement, Namenda 5 mg daily. Patient will be admitted to the hospital for a minimum of [address] [facility] tomorrow. Impression and plan of care have been directed as dictated by the signing physician. Liza Glass nurse practitioner acting as scribe for signing physician. Past Medical History Past Medical History: Atrial Fibrillation, Asthma, Diabetes Mellitus, GERD/Reflux, Hyperlipidemia, Hypertension, Myocardial Infarction (OR), Musculoskeletal Disorder, Osteoarthritis (OA), Renal Disease, Thyroid Disorder Additional Past Medical History / Comment(s): Hx renal failure, ulcerative colitis, peripheral edema, left wrist fracture, neuropathy legs & feet and hands, uses walker. Last Myocardial Infarction Date:: UNKNOWN [id number] History of Any Multi-Drug Resistant Organisms: MRSA Date of last positivie culture/infection: 05/03/20 MDRO Source:: Urine Past Surgical History: Appendectomy, Hysterectomy, Orthopedic Surgery, Tubal Ligation Additional Past Surgical History / Comment(s): Foot surg., nasal surg., CHRISSY CATARACTS., pain clinic procedures, hammer toe surgery. PAIN CLINIC PROCEDURES, LAPAROTOMY ovarian cysts, sinus surgery 2, colonoscopy. Past Anesthesia/Blood Transfusion Reactions: No Reported Reaction Past Psychological History: Anxiety, Depression Smoking Status: Never smoker Past Alcohol Use History: None Reported Past Drug Use History: None Reported - Past Family History Mother Family Medical History: No Reported History Sister(s) Family Medical History: No Reported History Son(s) Family Medical History: No Reported History Daughter(s) Family Medical History: No Reported History Father Family Medical History: Cancer, Deep Vein Thrombosis (DVT) Additional Family Medical History / Comment(s): LUNG CA Medications and Allergies Home Medications Medication Instructions Recorded Confirmed Type Atorvastatin [Lipitor] 40 mg PO HS 12/12/13 07/16/20 History Cholecalciferol [Vitamin D3 (25 50 mcg PO DAILY 12/12/13 07/16/20 History Mcg = 1000 Iu)] Diltiazem HCl [Diltiazem 24Hr ER] 180 mg PO DAILY 12/12/13 07/16/20 History Pentoxifylline [TRENtal] 400 mg PO TID 09/10/15 07/16/20 History Linaclotide [Linzess] 145 mcg PO DAILY 05/27/16 07/16/20 History Levothyroxine Sodium [Synthroid] 150 mcg PO DAILY 07/28/17 07/16/20 History ALPRAZolam [Xanax] 0.5 mg PO TID 12/07/18 07/16/20 History Glimepiride [Amaryl] 2 mg PO BID 03/30/19 07/16/20 History Cyclobenzaprine [Flexeril] 5 mg PO BID 12/06/19 07/16/20 History DULoxetine HCL [Cymbalta] 30 mg PO BID 12/06/19 07/16/20 History Furosemide [Lasix] 20 mg PO DAILY 12/06/19 07/16/20 History Memantine [Namenda] 5 mg PO DAILY 12/06/19 07/16/20 History Potassium Chloride 10 meq PO BID 03/23/20 07/16/20 History Albuterol Inhaler [Ventolin Hfa 2 puff INHALATION RT-BID 07/16/20 07/16/20 History Inhaler] Apixaban [Eliquis] 2.5 mg PO BID 07/16/20 07/16/20 History Aspirin EC [Ecotrin Low Dose] 81 mg PO DAILY 07/16/20 07/16/20 History Cyanocobalamin [Vitamin B-12] 500 mcg PO DAILY 07/16/20 07/16/20 History Gabapentin [Neurontin] 200 mg PO BID 07/16/20 07/16/20 History Melatonin 6 mg PO HS 07/16/20 07/16/20 History Pantoprazole Sodium [Protonix] 40 mg PO DAILY 07/16/20 07/16/20 History QUEtiapine [SEROquel] 25 mg PO HS 07/16/20 07/16/20 History hydrALAZINE HCL [Apresoline] 50 mg PO BID 07/16/20 07/16/20 History Allergies Allergy/AdvReac Type Severity Reaction Status Date / Time ciprofloxacin [From Ciprodex] Allergy Unknown Verified 07/16/20 17:36 Corticosteroids Allergy Unknown Verified 07/16/20 17:36 (Glucocorticoids) dexamethasone [From Ciprodex] Allergy Unknown Verified 07/16/20 17:36 Dihydroaminopryidine Allergy Unknown Verified 07/16/20 17:36 Antibiotics Quinolones Allergy Unknown Verified 07/16/20 17:36 ciprofloxacin HCl AdvReac Nausea Verified 07/16/20 17:36 [From Cipro] Sulfa (Sulfonamide AdvReac Nausea Verified 07/16/20 17:36 Antibiotics) Physical Exam Vitals: Vital Signs Temp Pulse Pulse Pulse Resp BP BP 07/17/20 07:59 07/17/20 04:49 98.3 F 91 18 143/76 07/17/20 04:40 97.8 F 82 14 07/16/20 20:35 97.9 F 68 15 07/16/20 20:00 68 07/16/20 17:24 98 18 144/60 07/16/20 15:00 98 F 100 16 162/71 BP Pulse Ox 07/17/20 07:59 96 07/17/20 04:49 97 07/17/20 04:40 118/71 88 L 07/16/20 20:35 145/74 100 07/16/20 20:00 07/16/20 17:24 97 07/16/20 15:00 97 Intake and Output 07/16/20 07/17/20 07/17/20 22:59 06:59 14:59 Intake Total 1160 Output Total 0 Balance 0 1160 Intake: Intake, IV Titration 160 Amount Sodium Chloride 0.9% 1, 160 000 ml @ 20 mls/hr IV . Q24H [id number] Rx#:[id number] Oral 1000 Output: Stool 0 Other: # Voids 0 # Bowel Movements 0 # Emeses 0 Weight 101.605 kg Results CBC & Chem 7: 07/17/20 04:11 07/17/20 04:11 Labs: Abnormal Lab Results - Last 24 Hours (Table) 07/16/20 07/16/20 Range/Units 15:51 15:51 WBC 15.0 H (3.8-10.6) k/uL Neutrophils # 11.8 H (1.3-7.7) k/uL Monocytes # 1.1 H (0-1.0) k/uL Potassium 3.3 L (3.5-5.1) mmol/L Chloride 94 L (98-107) mmol/L Carbon Dioxide 36 H (22-30) mmol/L BUN 18 H (7-17) mg/dL Creatinine 1.08 H (0.52-1.04) mg/dL Glucose 151 H (74-99) mg/dL Thrombosis Risk Factor Assmnt - Choose All That Apply Each Factor Represents 1 point: Obesity (BMI >25) Other Risk Factors: Yes Each Risk Factor Represents 3 Points: Age 75 years or older, Family history of DVT/PE Thrombosis Risk Factor Assessment Total Risk Factor Score: 7 Thrombosis Risk Factor Assessment Level: High Risk
[2020-07-17] MEDS ORDERED: POTASSIUM CHLORIDE ER 20 MEQ TAB.ER PO STA (09:20)
[2020-07-17 09:35] LABS: Basophils # (A) 0.03 X 10*3/uL (0.00-0.10); Basophils % (A) 0.4 %; Eosinophils # (A) 0.28 X 10*3/uL (0.04-0.35); Eosinophils % (A) 3.3 %; HCT 34.1 % (37.2-46.3); HGB 10.9 g/dL (12.0-15.0); Lymphocytes # (A) 1.64 X 10*3/uL (0.90-5.00); Lymphocytes % (A) 19.4 %; MCH 31.4 pg (27.0-32.0); MCV 98.3 fL (80.0-97.0); Mean Platelet Volume 9.5 fL (9.5-12.2); Monocytes # (A) 1.08 X 10*3/uL (0.20-1.00); Monocytes % (A) 12.8 %; Neutrophils # (A) 5.39 X 10*3/uL (1.80-7.70); Neutrophils % (A) 63.7 %; Platelet Count 231 X 10*3/uL (140-440); RBC 3.47 X 10*6/uL (4.10-5.20); RDW 13.6 % (11.5-14.5); WBC 8.45 X 10*3/uL (4.50-10.00)
[2020-07-17] MEDS: DULoxetine HCL 30 MG CAPSULE.DR PO SCH ×2 (09:58→21:23)
[2020-07-17] MEDS: CHOLECALCIFEROL 25 MCG (1000 IU) TABLET PO SCH (09:58)
[2020-07-17] MEDS: DILTIAZEM CD 180 MG CAP.ER.24H PO SCH (09:59)
--- NOTE | 2020-07-17 10:05 | P.CNOR ---
History of Present Illness - HPI Consult date: 07/17/20 Consult reason: fracture History of present illness: Very pleasant 80-year-old female presents after a fall from standing in her left shoulder. He stated immediate pain in her left shoulder as well as inability to lift it to the side. She denies any blunt head trauma or loss of consciousness with the fall. She states that she has no other areas that hurt from the fall. States she is able to move everything especially her left upper extremity however it hurts to abduct it. She will all fingers. She complains of no numbness or tingling. No neck pain thoracic or lumbar pain. No hip pain no leg pain. Denies fevers chills or some breath or chest pain at this time Review of Systems 14 points review of systems completed and as stated in HPI, all other systems reviewed are negative. Past Medical History Past Medical History: Atrial Fibrillation, Asthma, Diabetes Mellitus, GERD/Reflux, Hyperlipidemia, Hypertension, Myocardial Infarction ([place]), Musculoskeletal Disorder, Osteoarthritis (OA), Renal Disease, Thyroid Disorder Additional Past Medical History / Comment(s): Hx renal failure, ulcerative colitis, peripheral edema, left wrist fracture, neuropathy legs & feet and h ands, uses walker. Last Myocardial Infarction Date:: UNKNOWN [id number] History of Any Multi-Drug Resistant Organisms: MRSA Year Discovered:: 05/03/20 MDRO Source:: Urine Past Surgical History: Appendectomy, Hysterectomy, Orthopedic Surgery, Tubal Ligation Additional Past Surgical History / Comment(s): Foot surg., nasal surg., CHRISSY CATARACTS., pain clinic procedures, hammer toe surgery. PAIN CLINIC PROCEDURES, LAPAROTOMY ovarian cysts, sinus surgery 2, colonoscopy. Past Anesthesia/Blood Transfusion Reactions: No Reported Reaction Past Psychological History: Anxiety, Depression Smoking Status: Never smoker Past Alcohol Use History: None Reported Past Drug Use History: None Reported - Past Family History Mother Family Medical History: No Reported History Sister(s) Family Medical History: No Reported History Son(s) Family Medical History: No Reported History Daughter(s) Family Medical History: No Reported History Father Family Medical History: Cancer, Deep Vein Thrombosis (DVT) Additional Family Medical History / Comment(s): LUNG CA Medications and Allergies Home Medications Medication Instructions Recorded Confirmed Type RX: Atorvastatin [Lipitor] 40 mg PO HS 12/12/13 07/16/20 History RX: Cholecalciferol [Vitamin D3 50 mcg PO DAILY 12/12/13 07/16/20 History (25 Mcg = 1000 Iu)] RX: Diltiazem HCl [Diltiazem 24Hr 180 mg PO DAILY 12/12/13 07/16/20 History ER] RX: Pentoxifylline [TRENtal] 400 mg PO TID 09/10/15 07/16/20 History RX: Linaclotide [Linzess] 145 mcg PO DAILY 05/27/16 07/16/20 History RX: Levothyroxine Sodium 150 mcg PO DAILY 07/28/17 07/16/20 History [Synthroid] ALPRAZolam [Xanax] 0.5 mg PO TID 12/07/18 07/16/20 History RX: Glimepiride [Amaryl] 2 mg PO BID 03/30/19 07/16/20 History DULoxetine HCL [Cymbalta] 30 mg PO BID 12/06/19 07/16/20 History Furosemide [Lasix] 20 mg PO DAILY 12/06/19 07/16/20 History Memantine [Namenda] 5 mg PO DAILY 12/06/19 07/16/20 History RX: Cyclobenzaprine [Flexeril] 5 mg PO BID 12/06/19 07/16/20 History RX: Potassium Chloride 10 meq PO BID 03/23/20 07/16/20 History Albuterol Inhaler [Ventolin Hfa 2 puff INHALATION RT-BID 07/16/20 07/16/20 History Inhaler] Apixaban [Eliquis] 2.5 mg PO BID 07/16/20 07/16/20 History Aspirin EC [Ecotrin Low Dose] 81 mg PO DAILY 07/16/20 07/16/20 History Cyanocobalamin [Vitamin B-12] 500 mcg PO DAILY 07/16/20 07/16/20 History Gabapentin [Neurontin] 200 mg PO BID 07/16/20 07/16/20 History Pantoprazole Sodium [Protonix] 40 mg PO DAILY 07/16/20 07/16/20 History QUEtiapine [SEROquel] 25 mg PO HS 07/16/20 07/16/20 History RX: Melatonin 6 mg PO HS 07/16/20 07/16/20 History hydrALAZINE HCL [Apresoline] 50 mg PO BID 07/16/20 07/16/20 History Allergies Allergy/AdvReac Type Severity Reaction Status Date / Time ciprofloxacin [From Ciprodex] Allergy Unknown Verified 07/16/20 17:36 Corticosteroids Allergy Unknown Verified 07/16/20 17:36 (Glucocorticoids) dexamethasone [From Ciprodex] Allergy Unknown Verified 07/16/20 17:36 Dihydroaminopryidine Allergy Unknown Verified 07/16/20 17:36 Antibiotics Quinolones Allergy Unknown Verified 07/16/20 17:36 ciprofloxacin HCl AdvReac Nausea Verified 07/16/20 17:36 [From Cipro] Sulfa (Sulfonamide AdvReac Nausea Verified 07/16/20 17:36 Antibiotics) Physical Examination Osteopathic Statement: *. No significant issues noted on an osteopathic struct ural exam other than those noted in the History and Physical/Consult. PHYSICAL EXAMINATION: Vitals: Blood this time General: Awake, alert, appropriate for age, in no acute distress. HEENT: No unusual neck masses around region of lateral neck triangle, thyroid, supraclavicular groove. Extremities: Skin warm and dry without no acute lesions, coloration, temperature, skin intact, no tenderness or erythema. Integument: Hairy patches: Absent Dorsal skin dimples: Absent Cafe au lait spots: Absent Surgical incisions: None Palpation: Please see Pain drawing on Intake sheet for further detail. (Tenderness = T, Nontender = NT, Swelling = S, Ecchymosis = E) Findings on Midline and paraspinal palpation and percussion: Cervical: NT Thoracic: NT Lumbar: NT Sacral: NT Special findings: Tennis to palpation over the greater tuberosity of the left shoulder. Tennis palpation surrounding the shoulder. No tennis to palpation of the right shoulder tennis palpation around the elbow is bilaterally her wrists bilaterally. No tennis palpation bilateral knees or hips or ankles. VASCULAR STATUS : Wrist Pulses: 2/4 bilateral radial and ulnar Pedal Pulses: 2/4 bilateral DP and PT Color: Normal Edema: None NEUROLOGIC EXAMINATION: Mental Status: Awake and alert, fully oriented, with normal attention, concentration and memory, and fluent, appropriate speech. Cranial Nerves: I: Olfactory not tested. II: Visual acuity normal, no visual field deficit noted with confrontation. III,IV: Normal pupillary reflexes & intact extraocular movements without nystagmus. V,: Intact symmetrical facial sensation. VII: Intact symmetrical facial motor movement VIII: Hearing intact. IX,X: Intact gag, swallow, & normal voice. XI: Sternocleidomastoid, trapezius function intact. XII: Tongue midline with normal movements. Left upper extremity exam: Left upper extremity is examined on examination the patient is to palpation of the left greater tuberosity. She has fit painful passive range of motion as well as active range of motion. Actively she can lift her arm however she cannot lift past 90 secondary to pain. She can internally I rotate without any issues however does increase her pain. She is intact to light touch sensation in the C5 to T1 nerve distribution she has palpable radial as well as ulnar pulses arms are soft and compressible. Motor Exam (0-5/5, N/T) STRENGTH UPPER EXTREMITY Shoulder Abd (Not part of GAIL Motor score): RIGHT 5 LEFT 3 /5 secondary to pain Elbow Flexors: RIGHT 5 LEFT 5 Elbow Extensor: RIGHT 5 LEFT 5 Wrrist Dorsiflexors: RIGHT 5 LEFT 5 Finger Abductor: RIGHT 5 LEFT 5 Animal Husbandry Teacher: RIGHT 5 LEFT 5 LOWER EXTREMITY Hip Flexor (Not part of GAIL Motor Score): RIGHT 5 LEFT 5 Knee Flexor: RIGHT 5 LEFT 5 Knee Extensor: RIGHT 5 LEFT 5 Ankle Dorsiflexion: RIGHT 5 LEFT 5 Ankle Plantarflexion: RIGHT 5 LEFT 5 EHL: RIGHT 5 LEFT 5 FHL: RIGHT 5 LEFT 5 GAIL Motor Score: RIGHT 50/50 LEFT 48/50 Patient is generally weak however there are no other focal deficits REFLEXES Biecp: RIGHT 2 LEFT 2 Tricep: RIGHT 2 LEFT 2 Brachioradialis: RIGHT 2 LEFT 2 Patellar: RIGHT 2 LEFT 2 Achilles: RIGHT 2 LEFT 2 Pathological Reflexes Coy's: RIGHT Absent LEFT Absent Babinski: RIGHT Absent LEFT Absent Clonus: RIGHT None LEFT None SENSORY Joint Position: Intact bilaterally Vibration Intact bilaterally Pain and LT sense Intact C5-T1 and L2-S1 Dermatomal deficit None Gait and Functional Evaluation: Ambulatory aids: Cane or walker at home Romberg's test: Intact bilaterally. Toe walk/ heel walk / heel-toe walk intact while maintaining satisfactory mitchell ce. Squatting and straightening out without assistance to a minimum of 60 degrees knee flexion Single leg stance: intact/ Trendelenburg sign negative bilaterally Hand and finger dexterity intact bilaterally. Disdiadochokinesis examination negative bilaterally. Results Multiple view of the left shoulder shows greater tuberosity fracture which is mild to moderately displaced. There is some comminution noted. There is no open areas. Before meals joint clavicle and glenohumeral joint appear in good condition. AP pelvis demonstrates congruent femoral standard joints no fractures or dislocations and level pelvis - Labs Labs: Abnormal Lab Results - Last 24 Hours (Table) 07/16/20 07/16/20 07/17/20 Range/Units 15:51 15:51 04:11 WBC 15.0 H (3.8-10.6) k/uL RBC 3.47 L (4.10-5.20) X 10*6/uL Hgb 10.9 L (12.0-15.0) g/dL Hct 34.1 L (37.2-46.3) % MCV 98.3 H (80.0-97.0) fL Neutrophils # 11.8 H (1.3-7.7) k/uL Monocytes # 1.1 H 1.08 H (0-1.0) k/uL Potassium 3.3 L (3.5-5.1) mmol/L Chloride 94 L (98-107) mmol/L Carbon Dioxide 36 H (22-30) mmol/L BUN 18 H (7-17) mg/dL Creatinine 1.08 H (0.52-1.04) mg/dL Glucose 151 H (74-99) mg/dL H & H 07/16/20 07/17/20 Range/Units 15:51 04:11 Hgb 12.5 10.9 L (11.4-16.0) gm/dL Hct 38.1 34.1 L (34.0-46.0) % Result Diagrams: 07/17/20 04:11 07/16/20 15:51 Assessment and Plan Assessment: 80-year-old female status post fall from standing left greater tuberosity fracture closed, comminuted, mild displacement, initial visit Plan: -Appreciate consultation -Medical management -Sling left upper extremity, nonweightbearing left upper extremity, no abduction. -Obtain abduction sling pillow -Pain control: As needed light on narcotics -Aggressive ambulation protocol. OOB with all meals. OOB or in chair 4-5x daily. -PT/OT -TEDs, SCDs, mechanical ppx. OK for heparin today. Early ambulation is best. -GI ppx. -[No further imaging needed at this time] -Trend labs. -Dispo: Follow-up in office in 2 weeks for evaluation
[2020-07-17 10:24] LABS: African American GFR (CKD) 49.4 (60.0-200.0); Albumin 3.7 g/dL (3.80-4.90); Albumin/Globulin Ratio 2.64 (1.60-3.17); Anion Gap 7.2 mmol/L (4.00-12.00); Calcium 8.9 mg/dL (8.7-10.3); Carbon Dioxide 36.8 mmol/L (21.6-31.8); Globulin 1.4 g/dL (1.6-3.3); Non-African American GFR(CKD) 42.6 (60.0-200.0); Potassium 2.9 mmol/L (3.5-5.5); Total Bilirubin 0.5 mg/dL (0.2-1.2); Total Protein 5.1 g/dL (6.2-8.2)
[2020-07-17] MEDS: GABAPENTIN 100 MG CAP PO SCH ×2 (10:28→21:22)
[2020-07-17] MEDS: ALPRAZolam 0.5 MG TAB PO SCH ×3 (10:28→22:11)
[2020-07-17] MEDS: PENTOXIFYLLINE 400 MG TABLET.ER PO SCH ×3 (10:29→21:23)
[2020-07-17] MEDS: GLIMEPIRIDE 2 MG TAB PO SCH ×2 (10:30→17:20)
[2020-07-17] MEDS: hydrALAZINE HCL 50 MG TAB PO SCH ×2 (10:31→21:48)
[2020-07-17] MEDS: ASPIRIN 81 MG PO SCH (10:32)
[2020-07-17] MEDS: FUROSEMIDE 20 MG TAB PO SCH (10:34)
[2020-07-17] MEDS: MEMANTINE 5 MG TAB PO SCH (10:35)
[2020-07-17] MEDS: PANTOPRAZOLE 40 MG TABLET PO SCH (10:35)
[2020-07-17] MEDS: POTASSIUM CHLORIDE ER 10 MEQ TAB.ER.PRT PO SCH ×2 (10:36→21:24)
[2020-07-17] MEDS: APIXABAN 2.5 MG TABLET PO SCH ×2 (10:36→21:23)
[2020-07-17] MEDS: CYANOCOBALAMIN 500 MCG TAB PO SCH (11:25)
[2020-07-17] MEDS: INSULIN ASPART (NovoLOG) 100 UNIT/ML VIAL SQ SCH ×3 (13:05→21:21)
[2020-07-17 17:13] LABS: Glucose,Whole Blood 157 mg/dL (75-99)
[2020-07-17 20:27] LABS: Glucose,Whole Blood 175 mg/dL (75-99)
[2020-07-17] MEDS: QUEtiapine 25 MG TAB PO SCH (21:23)
[2020-07-17] MEDS: MELATONIN 3 MG TABLET PO SCH (21:23)
[2020-07-17] MEDS: ATORVASTATIN 40 MG TAB PO SCH (21:23)
[2020-07-17] MEDS: SODIUM CHLORIDE 0.9% 1,000 ML IV SCH (21:47)
[2020-07-18] MEDS: LEVOTHYROXINE 75 MCG TAB PO SCH (06:09)
[2020-07-18 07:13] LABS: Glucose,Whole Blood 151 mg/dL (75-99)
[2020-07-18] MEDS: ALBUTEROL NEBULIZED 2.5 MG/3 ML INHALATION SCH (07:50)
[2020-07-18] MEDS: INSULIN ASPART (NovoLOG) 100 UNIT/ML VIAL SQ SCH ×2 (08:24→13:03)
[2020-07-18] MEDS: GLIMEPIRIDE 2 MG TAB PO SCH (08:25)
[2020-07-18] MEDS: PANTOPRAZOLE 40 MG TABLET PO SCH (08:25)
[2020-07-18] MEDS ORDERED: Linaclotide [Linzess] 145 MCG Capsule PO SCH (09:00)
--- NOTE | 2020-07-18 09:30 | P.DS ---
Providers Date of admission: 07/17/20 10:39 Expected date of discharge: 07/18/20 Attending physician: Amira Washburn Consults: 07/16/20 16:45 Consult Physician Routine Consulting Provider: Haseeb Wilson Consult Reason/Comments: humerus fracture Do you want consulting provider notified?: Yes Primary care physician: Amira Washburn [facility] Course: HISTORY OF PRESENT ILLNESS This is a 80-year-old female patient of Dr. Washburn with a previous medical history significant for hypertension and hypertensive cardiovascular disease with left ventricular hypertrophy, hyperlipidemia, hypothyroidism, diabetes mellitus type 2, degenerative disc disease of the lumbar spine with a chronic L1 fracture seen previously at the pain clinic. Patient was recently at [facility] for subacute rehab and was discharged proximal October 2 weeks ago. About one week ago she was having orthostatic changes for which she was started on midodrine and blood pressure medication was discontinued. Patient states that she was walking with her walker and she was being very careful but she slipped and fell in the living room yesterday. She denies hitting her head. She denies any hip pain. She does give history of having diarrhea for 1 day and that was about 4-5 days ago. Patient experienced pain in her left shoulder with significant ecchymosis noted. Patient denies any abdominal pain. No nausea or vomiting. Patient presented to [facility] emergency center for evaluation. She was afebrile, heart rate 100, blood pressure 162/71, pulse ox 97% on room air. WBC 15, hemoglobin 12.5, platelet count 281. Sodium 139, potassium 3.3, chloride 94, CO2 36, BUN 18 and creatinine 1.08. Blood sugar 151. Coronavirus PCR not detected. Shoulder x-ray showed a fracture of the greater humeral tuberosity. Chest x-ray reveals chronic changes without evidence of acute pulmonary disease. Patient was placed on the observation unit. She has been seen by orthopedics with plan for sling, no surgical intervention is necessary and follow-up as an outpatient. Potassium will be replaced. Patient has been seen by PT and OT with recommendations for subacute rehab. Vision is agreeable for discharge plan to [facility]. 07/18: The patient has worked with physical therapy recommendations are for subacute rehab. Orthopedics has ordered a left shoulder sling which will be hopefully obtained prior to discharge. Patient has been afebrile, heart rate 88, blood pressure 128/70, pulse ox 92% on room air. WBC 8.1, hemoglobin 10.6, platelet count 219. Blood sugars running between 151 and 286. Patient will be discharged to [facility] today in stable condition. ASSESSMENT AND PLAN 1. Status post fall with left humeral fracture. 2. Hypertension, hypertensive cardiovascular disease. 3. Hyperlipidemia. 4. Hypothyroidism. 5. Paroxysmal atrial fibrillation currently in sinus rhythm. 6. Generalized anxiety disorder and recurrent depression. 7. Degenerative disc disease and chronic pain. 8. Mild intermittent asthma. 9. Chronic constipation. 10. Diabetes mellitus type 2. 11. Vascular dementia. DISCHARGE PLAN [facility] today. Impression and plan of care have been directed as dictated by the signing physician. Liza Glass nurse practitioner acting as scribe for signing physician. Patient Condition at Discharge: Good Plan - Discharge Summary New Discharge Prescriptions: New HYDROcodone/APAP 5-325MG [[place] 5-325] 1 each PO Q4HR PRN #12 tab PRN Reason: Moderate Pain Acetaminophen Tab [Tylenol] 650 mg PO Q6HR PRN tab PRN Reason: Fever And/ Or Pain Continue Diltiazem HCl [Diltiazem 24Hr ER] 180 mg PO DAILY Atorvastatin [Lipitor] 40 mg PO HS Cholecalciferol [Vitamin D3 (25 Mcg = 1000 Iu)] 50 mcg PO DAILY Pentoxifylline [TRENtal] 400 mg PO TID Linaclotide [Linzess] 145 mcg PO DAILY Levothyroxine Sodium [Synthroid] 150 mcg PO DAILY Glimepiride [Amaryl] 2 mg PO BID Furosemide [Lasix] 20 mg PO DAILY Memantine [Namenda] 5 mg PO DAILY DULoxetine HCL [Cymbalta] 30 mg PO BID Cyclobenzaprine [Flexeril] 5 mg PO BID Potassium Chloride 10 meq PO BID QUEtiapine [SEROquel] 25 mg PO HS Pantoprazole Sodium [Protonix] 40 mg PO DAILY hydrALAZINE HCL [Apresoline] 50 mg PO BID Melatonin 6 mg PO HS Cyanocobalamin [Vitamin B-12] 500 mcg PO DAILY Apixaban [Eliquis] 2.5 mg PO BID Aspirin EC [Ecotrin Low Dose] 81 mg PO DAILY Albuterol Inhaler [Ventolin Hfa Inhaler] 2 puff INHALATION RT-BID Gabapentin [Neurontin] 200 mg PO BID #12 cap ALPRAZolam [Xanax] 0.5 mg PO TID #9 tab Discharge Medication List Atorvastatin [Lipitor] 40 mg PO HS 12/12/13 [History] Cholecalciferol [Vitamin D3 (25 Mcg = 1000 Iu)] 50 mcg PO DAILY 12/12/13 [History] Diltiazem HCl [Diltiazem 24Hr ER] 180 mg PO DAILY 12/12/13 [History] Pentoxifylline [TRENtal] 400 mg PO TID 09/10/15 [History] Linaclotide [Linzess] 145 mcg PO DAILY 05/27/16 [History] Levothyroxine Sodium [Synthroid] 150 mcg PO DAILY 07/28/17 [History] Glimepiride [Amaryl] 2 mg PO BID 03/30/19 [History] Cyclobenzaprine [Flexeril] 5 mg PO BID 12/06/19 [History] DULoxetine HCL [Cymbalta] 30 mg PO BID 12/06/19 [History] Furosemide [Lasix] 20 mg PO DAILY 12/06/19 [History] Memantine [Namenda] 5 mg PO DAILY 12/06/19 [History] Potassium Chloride 10 meq PO BID 03/23/20 [History] Albuterol Inhaler [Ventolin Hfa Inhaler] 2 puff INHALATION RT-BID 07/16/20 [History] Apixaban [Eliquis] 2.5 mg PO BID 07/16/20 [History] Aspirin EC [Ecotrin Low Dose] 81 mg PO DAILY 07/16/20 [History] Cyanocobalamin [Vitamin B-12] 500 mcg PO DAILY 07/16/20 [History] Melatonin 6 mg PO HS 07/16/20 [History] Pantoprazole Sodium [Protonix] 40 mg PO DAILY 07/16/20 [History] QUEtiapine [SEROquel] 25 mg PO HS 07/16/20 [History] hydrALAZINE HCL [Apresoline] 50 mg PO BID 07/16/20 [History] ALPRAZolam [Xanax] 0.5 mg PO TID #9 tab 07/18/20 [Rx] Acetaminophen Tab [Tylenol] 650 mg PO Q6HR PRN tab 07/18/20 [Rx] Gabapentin [Neurontin] 200 mg PO BID #12 cap 07/18/20 [Rx] HYDROcodone/APAP 5-325MG [[place] 5-325] 1 each PO Q4HR PRN #12 tab 07/18/20 [Rx] Follow up Appointment(s)/Referral(s): Moses Manriquez PAC [PHYSICIAN FIELD OPERATIONS MANAGER] - 2 Weeks Haseeb Wilson DO [Doctor of Osteopathic Medicine] - 6 Weeks Amira Washburn MD [Primary Care Provider] - 1-2 days (After discharge from [facility]) Patient Instructions/Handouts: How to Use a Sling (DC), Shoulder Abduction Pillow (DC), Proximal Humerus Fracture (DC)
[2020-07-18] MEDS: ASPIRIN 81 MG PO SCH (10:12)
[2020-07-18] MEDS: APIXABAN 2.5 MG TABLET PO SCH (10:12)
[2020-07-18] MEDS: ALPRAZolam 0.5 MG TAB PO SCH (10:12)
[2020-07-18] MEDS: CHOLECALCIFEROL 25 MCG (1000 IU) TABLET PO SCH (10:13)
[2020-07-18] MEDS: FUROSEMIDE 20 MG TAB PO SCH (10:14)
[2020-07-18] MEDS: MEMANTINE 5 MG TAB PO SCH (10:14)
[2020-07-18] MEDS: CYANOCOBALAMIN 500 MCG TAB PO SCH (10:14)
[2020-07-18] MEDS: DILTIAZEM CD 180 MG CAP.ER.24H PO SCH (10:14)
[2020-07-18] MEDS: DULoxetine HCL 30 MG CAPSULE.DR PO SCH (10:14)
[2020-07-18] MEDS: GABAPENTIN 100 MG CAP PO SCH (10:14)
[2020-07-18] MEDS: PENTOXIFYLLINE 400 MG TABLET.ER PO SCH (10:15)
[2020-07-18] MEDS: POTASSIUM CHLORIDE ER 10 MEQ TAB.ER.PRT PO SCH (10:15)
[2020-07-18] MEDS: hydrALAZINE HCL 50 MG TAB PO SCH (10:39)
[2020-07-18] MEDS: HYDROcodone/APAP 5-325MG 1 EACH TAB PO PRN (10:45)
[2020-07-18 10:53] VITALS: RESP 18
[2020-07-18 11:06] LABS: HCT 33.3 % (37.2-46.3); HGB 10.6 g/dL (12.0-15.0); MCH 31.5 pg (27.0-32.0); MCHC 31.8 g/dL (32.0-37.0); MCV 99.1 fL (80.0-97.0); Mean Platelet Volume 9.8 fL (9.5-12.2); Platelet Count 219 X 10*3/uL (140-440); RBC 3.36 X 10*6/uL (4.10-5.20); RDW 13.6 % (11.5-14.5)
[2020-07-18 11:40] LABS: Glucose,Whole Blood 286 mg/dL (75-99)
[2020-07-18 12:35] LABS: African American GFR (CKD) 49.4 (60.0-200.0); Albumin 3.6 g/dL (3.80-4.90); Albumin/Globulin Ratio 2.25 (1.60-3.17); Anion Gap 11.2 mmol/L (4.00-12.00); BUN/Creat Ratio 15.83 Ratio (12.00-20.00); Calcium 8.8 mg/dL (8.7-10.3); Carbon Dioxide 30.8 mmol/L (21.6-31.8); Globulin 1.6 g/dL (1.6-3.3); Non-African American GFR(CKD) 42.6 (60.0-200.0); Potassium 3.8 mmol/L (3.5-5.5); Total Bilirubin 0.3 mg/dL (0.2-1.2); Total Protein 5.2 g/dL (6.2-8.2)
[2020-07-18 13:23] VITALS: BP 112/69; PULSE 82; TEMP 98
== END 2020-07-18 15:09 ==
LOC: EC 14:58 → 5NMEDONC 16:44 → INTOOBSV 07-17 10:39 → OBSVTOIN 07-17 10:39 → UNDODISIN 07-18 15:09
PROVIDERS: ADMIT Family Medicine; ATTEND Family Medicine
DX: S42.252A Displaced fracture of greater tuberosity of left humerus, initial encounter for closed fracture (principal); E11.42 Type 2 diabetes mellitus with diabetic polyneuropathy; I11.9 Hypertensive heart disease without heart failure; I48.0 Paroxysmal atrial fibrillation; K51.90 Ulcerative colitis, unspecified, without complications; J45.20 Mild intermittent asthma, uncomplicated; E03.9 Hypothyroidism, unspecified; E78.5 Hyperlipidemia, unspecified; F01.50 Vascular dementia, unspecified severity, without behavioral disturbance, psychotic disturbance, mood disturbance, and anxiety; R29.6 Repeated falls; K59.09 Other constipation; Z20.822 Contact with and (suspected) exposure to COVID-19; G89.29 Other chronic pain; F33.9 Major depressive disorder, recurrent, unspecified; F41.1 Generalized anxiety disorder; M19.90 Unspecified osteoarthritis, unspecified site; K21.9 Gastro-esophageal reflux disease without esophagitis; M51.36 Other intervertebral disc degeneration, lumbar region; Y92.008 Other place in unspecified non-institutional (private) residence as the place of occurrence of the external cause; Y93.01 Activity, walking, marching and hiking; W01.0XXA Fall on same level from slipping, tripping and stumbling without subsequent striking against object, initial encounter; Z79.890 Hormone replacement therapy; Z79.84 Long term (current) use of oral hypoglycemic drugs; Z79.82 Long term (current) use of aspirin; Z79.01 Long term (current) use of anticoagulants; Z79.899 Other long term (current) drug therapy; Z88.1 Allergy status to other antibiotic agents; Z88.2 Allergy status to sulfonamides; Z86.14 Personal history of Methicillin resistant Staphylococcus aureus infection; I25.2 Old myocardial infarction; Z90.49 Acquired absence of other specified parts of digestive tract; Z98.51 Tubal ligation status; Z90.710 Acquired absence of both cervix and uterus; Z80.1 Family history of malignant neoplasm of trachea, bronchus and lung; Z82.49 Family history of ischemic heart disease and other diseases of the circulatory system
CPT/HCPCS: 99285; 36415; 94760; 93005; 97530; 97162; 97535; 97166; 80053 ×2; 80048; 83735; 85025 ×2; 85027; 87635; 72170; 73030; 71045; G0378 ×3; L3670

== ENCOUNTER → 2022-08-30 | Outpatient (CLI) | payer MEDICARE, OTHER ==
--- NOTE | 2022-08-30 18:48 | MR ---
EXAMINATION TYPE: MR shoulder RT wo con DATE OF EXAM: 08/30/2022 COMPARISON: None HISTORY: Right shoulder pain and limited range of motion for 2 years due to fall. Multiplanar multiecho imaging of the right shoulder performed with no contrast. There is moderate narrowing of the shoulder joint space. There is spurring of the humeral head and th e glenoid. There is a moderate-sized shoulder joint effusion. The subscapularis tendon is intact. Bic eps tendon is intact. There is fluid around the biceps tendon. There is large area of increased signal in the supraspinatus tendon over the top of the humeral head. No retraction. There is subacromial joint space narrowing. There is spurring at the AC joint. No foc al bone destruction. The infraspinatus tendon is intact. IMPRESSION: Moderate osteoarthritis in the glenohumeral joint. Extensive osteophyte formation on the humeral head . There is large rotator cuff tear with defect in the supraspinatus tendon. No retraction. There is l arge bare area over the top of the humeral head from the rotator cuff tear. There is moderate subacro mial joint space narrowing and impingement. There is spurring at the AC joint. Large shoulder joint e ffusion
== END | disposition home or self-care (01) ==
LOC: RADMRIMAIN 11:45
PROVIDERS: ATTEND Physician Assistant Medical
DX: M19.011 Primary osteoarthritis, right shoulder (principal); M75.111 Incomplete rotator cuff tear or rupture of right shoulder, not specified as traumatic; M25.411 Effusion, right shoulder

== ENCOUNTER → 2022-09-11 | Outpatient (CLI) | payer MEDICARE, OTHER ==
[2022-09-11 11:36] VITALS: BP 144/77; PULSE 76; RESP 20; TEMP 97.9
--- NOTE | 2022-09-11 11:50 | P.PN ---
Subjective Progress Note Date: 09/11/22 82 yr old wheelchair bound female w severe and chronic R shoulder pain x 6 mo secondary to contusion s/p fall for evaluation. Pt states pain level is at 8 /10 in intensity, constant, localized in the R shoulder, throbbing in character w tingling towards the R hand. Pain is provoked by movement. Pain is alleviated by medications ([place], Neurontin, Tyl), topicals, R shoulder intra articular injection in Mar 2022, ice occasionally, PT x 6 wks in Jan 2022, repositioning, home stretching regimen daily and rest. Pt has completed a R shoulder x ray on 02/06/22. MRI of the right shoulder done recently showed that the patient had extensive osteophyte formation at the humeral head and there is right shoulder effusion, and there is a rotator cuff tear PMH: Asthma, HTN, CHF, Hyperlipidemia, DM II, Hypothyroidism, GERD, PAD, Dementia PSH: Tubal Ligation, Hysterectomy, Tonsillectomy, Oral Surgery SH: Negative x3. [facility] FH: Non contributory All: See list Meds: See list REVIEW OF ORGAN SYSTEMS: CONSTITUTIONAL: No fevers or chills. No recent weight loss. NEUROLOGICAL: + numbness and tingling along the distal extremities. No seizure disorders or headaches. MUSCULOSKELETAL: + pain PSYCHIATRIC: Denies current depression or suicidal thoughts. Physical Examinations : Constitutional : Cooperative , not in acute distress . Neurologic : Cranial nerve II to XII intact. No focal neurological deficits. Psychiatric : alert & oriented x 3. Matching mood & appropriate affect. Judgment & insight intact. Musculoskeletal : Cervical Spine R shoulder diffuse AC/ GH joint line TTP Motor strength in the deltoid and biceps: Normal right side. Normal Left side Motor strength biceps and the wrist extensors: Normal right side . Normal left side Motor strength in the triceps muscle: Normal right side. Normal left side Deep tendon reflexes: Normal at the biceps. Normal at Brachioradialis. Normal at triceps Vertebral body tenderness to deep palpation over Cervical facet loading test: positive bilaterally Spurling test: positive bilaterally Neck distraction test: positive bilaterally Mary sign: positive bilaterally Lumbar spine Motor strength lower extremities ,thigh and legs 5/5 Right side , 5/5 Left side Deep tendon reflexes : Normal Knee Jerk. Normal Ankle Jerk Vertebral body tenderness over Lumbar facet Loading Test: positive Right / positive Left Range of motion of the lumbar spine Flexion 30 degrees, extension 10 degrees Straight Leg Raise test: Left/ Right positive at degree Miguel Angel test: positive right / positive left. Severe tenderness over the Sacroiliac joint on the Right / Left sides Gaenslen test: positive bilaterally Seated flexion test: positive bilaterally. Sacral spine : Severe tenderness over the Sacroiliac joint: right side / left side Range of motion: Flexion of the lumbar spine <60 degrees Range of motion: Extension of the lumbar spine <20 degrees Gaenslen's Test positive Jerzy's Test positive Miguel Angel test: positive right side / left side Thigh Thrust Test Sacral Thrust Test Imaging: R shoulder x ray from 02/06/22 reviewed MRI of the right shoulder reviewed and it showed the patient had osteoarthritis of the glenohumeral head and right shoulder effusion and there is a rotator cuff tear Assessment/ Plan : R shoulder osteoarthritis, right shoulder effusion, right rotator cuff tear Recommend to do right shoulder steroid injection under ultrasound guidance, and also we will do removal of the fluid and will send her to the lab for diagnostic If patient had no benefit from the injections then we will reffer her to orthopedic surgeon for evaluation, because patient is very high risk for any surgical interventions,the best option is to avoid any surgical interventions Smoking Status Never smoker Narcotic Agreement Date Signed 08/09/19 Hx Alcohol Use (MH) No Home Medications: Ambulatory Orders Atorvastatin [Lipitor] 40 mg PO HS 12/12/13 Cholecalciferol [Vitamin D3 (25 Mcg = 1000 Iu)] 50 mcg PO DAILY 12/12/13 dilTIAZem HCL [Diltiazem 24Hr ER] 180 mg PO DAILY 12/12/13 Pentoxifylline [TRENtal] 400 mg PO TID 09/10/15 Linaclotide [Linzess] 145 mcg PO DAILY 05/27/16 Levothyroxine Sodium [Synthroid] 150 mcg PO DAILY 07/28/17 Glimepiride [Amaryl] 2 mg PO BID 03/30/19 Cyclobenzaprine [Flexeril] 5 mg PO BID 12/06/19 DULoxetine HCL [Cymbalta] 30 mg PO BID 12/06/19 Furosemide [Lasix] 20 mg PO DAILY 12/06/19 Memantine [Namenda] 5 mg PO DAILY 12/06/19 Potassium Chloride [Potassium Chloride ER] 10 meq PO BID 03/23/20 Albuterol Inhaler [Ventolin Hfa Inhaler] 2 puff INHALATION RT-BID 07/16/20 Apixaban [Eliquis] 2.5 mg PO BID 07/16/20 Aspirin EC [Ecotrin Low Dose] 81 mg PO DAILY 07/16/20 Cyanocobalamin [Vitamin B-12] 500 mcg PO DAILY 07/16/20 Melatonin 6 mg PO HS 07/16/20 Pantoprazole Sodium [Protonix] 40 mg PO DAILY 07/16/20 QUEtiapine [SEROquel] 25 mg PO HS 07/16/20 hydrALAZINE HCL [Apresoline] 50 mg PO BID 07/16/20 ALPRAZolam [Xanax] 0.5 mg PO TID #9 tab 07/18/20 Acetaminophen Tab [Tylenol] 650 mg PO Q6HR PRN tab 07/18/20 Gabapentin [Neurontin] 200 mg PO BID #12 cap 07/18/20 HYDROcodone/APAP 5-325MG [[place] 5-325] 1 each PO Q4HR PRN #12 tab 07/18/20 Controlled Substance Measures - Controlled Substance Measures Is patient prescribed a controlled substance at discharge?: No Objective - Vital Signs Vital signs: Vital Signs Temp 97.9 F 09/11/22 11:31 Pulse 76 09/11/22 11:31 Resp 20 09/11/22 11:31 BP 144/77 09/11/22 11:31 Pulse Ox FiO2 Intake & Output 09/10/22 09/11/22 09/11/22 18:59 06:59 18:59 Weight 108.046 kg
== END ==
LOC: PNWHC3 10:56
PROVIDERS: ATTEND Specialist
DX: M19.011 Primary osteoarthritis, right shoulder (principal); E03.9 Hypothyroidism, unspecified; E11.9 Type 2 diabetes mellitus without complications; E78.5 Hyperlipidemia, unspecified; F03.90 Unspecified dementia, unspecified severity, without behavioral disturbance, psychotic disturbance, mood disturbance, and anxiety; G89.29 Other chronic pain; I11.0 Hypertensive heart disease with heart failure; I50.9 Heart failure, unspecified; J45.909 Unspecified asthma, uncomplicated; K21.9 Gastro-esophageal reflux disease without esophagitis; S46.011A Strain of muscle(s) and tendon(s) of the rotator cuff of right shoulder, initial encounter; Z79.01 Long term (current) use of anticoagulants; Z79.82 Long term (current) use of aspirin; Z79.84 Long term (current) use of oral hypoglycemic drugs; I73.9 Peripheral vascular disease, unspecified; Z88.1 Allergy status to other antibiotic agents; Z88.8 Allergy status to other drugs, medicaments and biological substances; Z88.2 Allergy status to sulfonamides
CPT/HCPCS: 99211

== ENCOUNTER 2022-10-02 07:12 | Day surgery (SDC) | payer MEDICARE, OTHER ==
[2022-09-30 15:02] VITALS: BMI 42.3
[2022-10-02] MEDS ORDERED: LIDOCAINE 1% (10MG/ML) FOR IV START INTRADERMA PRN (07:28)
[2022-10-02] MEDS ORDERED: LACTATED RINGERS 1,000 ML IV SCH (07:28)
[2022-10-02 07:38] VITALS: TEMP 97.8
[2022-10-02 07:48] LABS: Glucose,Whole Blood 132 mg/dL (70-110)
[2022-10-02] MEDS ORDERED: MIDAZOLAM 2 MG/2 ML VIAL ONE (08:09)
[2022-10-02] MEDS ORDERED: ROPIVACAINE 5 MG/ML 20 ML AMPULE ONE (08:09)
[2022-10-02] MEDS ORDERED: fentaNYL (PF) 50 MCG/ML 2 ML AMP ONE (08:09)
[2022-10-02] MEDS ORDERED: methylPREDNISolone ACETATE 40 MG/ML 1 ML VIAL ONE (08:09)
[2022-10-02] MEDS ORDERED: IV FLUID CONTINUATION 1,000 ML IV ONE (08:27)
--- NOTE | 2022-10-02 08:28 | P.PCN ---
Date of Procedure: 10/02/22 Procedure(s) Performed: PROCEDURE: Right intraarticular shoulder joint injection under ultrasound guidance (ultrasound images stored on file ) PREOPERATIVE DIAGNOSIS: 1-Right shoulder osteoarthritis.2-right shoulder arthralgia POSTOPERATIVE DIAGNOSIS: Right shoulder osteoarthritis. ANESTHESIA: Moderate sedation. With intravenous Versed 1 mg , and fentanyl 50 micrograms, and local infiltration with lidocaine 1% 2 mL Sedation the started 0 811, end 0821 EBL: None. COMPLICATIONS: None. IV FLUIDS: 100 ml of Normal Saline PROCEDURE INDICATION: Right shoulder pain secondary to osteoarthritis. PROCEDURE DESCRIPTION: The patient was seen and identified in the preoperative area. Risks, benefits, complications, and alternatives were discussed with the patient. The patient agreed to proceed with the procedure and signed the consent. The patient was placed in the sitting position on the procedure table and the right shoulder was prepped and draped in the usual sterile fashion. We used sterile gloves for the procedure. The medial joint space was identified by ultrasound guidance Block solution was prepared with 40 mg of Depo-Medrol in 9 mL of 0.5% Ropivacaine preservative-free. A 21-gauge needle was advanced through the aforementioned site into the intraarticular space, and after negative aspiration, 10 mL of block solution was injected. Skin was cleansed, and bandage was applied. DISPOSITION / PLANS: The patient was taken back to recovery room in a stable position. . Patient was discharged from the recovery room, accompanied by an adult, after meeting discharge criteria. Home discharge instructions were given to the patient. The patient was reexamined prior to discharge. The patient will schedule a follow up visit in the clinic in 2-4 weeks. note= the plan was to get the fluid from the shoulder joint to send it for the culture and sensitivity, but when I advanced the needle ,I tried to aspirate the fluid, I was not able to aspirate any fluid from the joint, for this reason, I did not send any fluid for culture and sensitivity
[2022-10-02 08:34] VITALS: RESP 16
[2022-10-02 08:46] VITALS: BP 136/79; PULSE 67
== END 2022-10-02 09:13 | disposition home or self-care (01) ==
LOC: ORPAIN 07:12
PROVIDERS: ATTEND Specialist
DX: M19.011 Primary osteoarthritis, right shoulder (principal); Z88.8 Allergy status to other drugs, medicaments and biological substances
CPT/HCPCS: 99152; 20611; J2250; J1030; J3010; J2795; 20610; 76942

== ENCOUNTER → 2022-10-22 | Outpatient (CLI) | payer MEDICARE, OTHER ==
[2022-10-22 14:36] VITALS: BP 163/65; PULSE 80; RESP 18
--- NOTE | 2022-10-22 15:05 | P.PAINPG ---
PQRS Measure Charge Sheet Comment: A 82 yr old female w son at side with a history of severe and chronic neck pain secondary to cervical DDD and spondylosis with facet arthropathy without myelopathy presents today for evaluation s/p R shoulder intra articular injection. Pt states she experienced 50% pain relief x 3 wks s/p procedure. Pain level is provoked at 8 /10 in intensity, constant, localized in the cervical spine, sharp in character w/o shooting pain. Pain is provoked by repositioning. Pain is alleviated with PT x 10 days daily while at [facility] which she is currently in, heat, ice, medications, topical, reclining and rest. Interventional pain procedures completed include R shoulder intraarticular Patient is currently on Tyl, [place], Baclofen, Neurontin, Cymbalta, Biofreeze Patient denies any side effects of the medication(s), denies excessive drowsiness or sleepiness, denies suicidal ideation and reports that the current pain medication is helping to control the pain and improve activities of daily living. Patient denies any motor or sensory deficits. Patient denies any fever or night sweats, denies any change in the bowel movements or urination. Physical Examination: -Constitutional: Cooperative. Not in acute distress . - Neurologic: Cranial nerve II to XII intact. No focal neurological deficits. - Psychatric: Alert & oriented x 3. Matching mood & appropriate affect. Judgment and insight intact. - Musculoskeletal: Cervical spine: +R GH/ AC jointline TTP Muscle bulk/ tone/ strength in the bilateral upper extremities normal Vertebral body tenderness to palpation over Spurling test positive Distraction test positive Facet loading test positive TTP Thoracic spine Muscle bulk / tone/ strength in the bilateral paraspinal muscles normal Vertebral body tender to palpation over Facet loading test positive TTP Lumbar spine: Motor bulk/ tone/ strength lower extremities , thigh and legs : 5/5 Deep tendon reflexes : Normal Knee Jerk. Normal Ankle Jerk . Vertebral body tenderness to palpation over Lumbar Facet Loading Test positive Straight Leg Raise: positive at 30 degrees right side/ left side Gaenslen's Test positive Sacral spine : Severe tenderness over the Sacroiliac joint: right side / left side Range of motion: Flexion of the lumbar spine <60 degrees Range of motion: Extension of the lumbar spine <20 degrees Gaenslen's Test positive R / L Miguel Angel test: positive right side / left side Thigh Thrust Test positive R / L Sacral Thrust Test positive R/ L Assessment and plan: Chronic neck pain secondary to cervical DDD, spondylosis with facet arthropathy without myelopathy Recommendation of R intra articular shoulder injection #2. May need a series of injections, up to 3 within a 6 mo periods, for optimal pain relief. Risks, benefits of procedure discussed and pt verbalized understanding. Admits to anticoagulant use or medical history of diabetes. Protocol for discontinuation/ continuation of medications camille procedure discussed. Minimal anesthesia provided, if clinically indicated, consisting of Versed and Fentanyl. All questions answered. I have spent less than 30 minutes on patient care today. Dr Spence was available by phone for the evaluation of this patient. The time was used to review the medical records including relevant urine studies and Prescription history (MAPs), review of the available imaging, evaluation and examination of the patient, coordination of care with the medical staff and if applicable referring physicians, as well as creation of the medical record PQRS Narrative: Smoking Status Never smoker Narcotic Agreement Date Signed 08/09/19 Hx Alcohol Use (MH) No Home Medications: Ambulatory Orders Atorvastatin [Lipitor] 40 mg PO HS 12/12/13 Cholecalciferol [Vitamin D3 (25 Mcg = 1000 Iu)] 25 mcg PO DAILY 12/12/13 dilTIAZem HCL [Diltiazem 24Hr ER] 180 mg PO DAILY 12/12/13 Linaclotide [Linzess] 145 mcg PO DAILY 05/27/16 Levothyroxine Sodium [Synthroid] 150 mcg PO DAILY 07/28/17 Glimepiride [Amaryl] 2 mg PO BID 03/30/19 Furosemide [Lasix] 20 mg PO DAILY 12/06/19 Memantine [Namenda] 5 mg PO BID 12/06/19 Potassium Chloride [Potassium Chloride ER] 10 meq PO BID 03/23/20 Albuterol Inhaler [Ventolin Hfa Inhaler] 2 puff INHALATION RT-BID 07/16/20 Apixaban [Eliquis] 2.5 mg PO BID 07/16/20 Aspirin EC [Ecotrin Low Dose] 81 mg PO DAILY 07/16/20 Cyanocobalamin [Vitamin B-12] 500 mcg PO DAILY 07/16/20 Pantoprazole Sodium [Protonix] 40 mg PO DAILY 07/16/20 hydrALAZINE HCL [Apresoline] 50 mg PO BID 07/16/20 ALPRAZolam [Xanax] 0.5 mg PO TID #9 tab 07/18/20 Acetaminophen Tab [Tylenol] 650 mg PO Q6HR PRN tab 07/18/20 DULoxetine HCL [Cymbalta] 30 mg PO BID 09/30/22 Ferrous Sulfate [Iron] 325 mg PO DAILY 09/30/22 Gabapentin [Neurontin] 400 mg PO BID 09/30/22 HYDROcodone/APAP 7.5-325MG [[place] 7.5-325] 1 tab PO Q6HR PRN 09/30/22 Melatonin 10 mg PO HS 09/30/22 Moisture Eye Gtts. 1 drop BOTH EYES BID 09/30/22 Oxybutynin Chloride 5 mg PO DAILY 09/30/22 Controlled Substance Measures - Controlled Substance Measures Is patient prescribed a controlled substance at discharge?: No
== END ==
LOC: PNWHC3 12:34
PROVIDERS: ATTEND Specialist
DX: M47.812 Spondylosis without myelopathy or radiculopathy, cervical region (principal); G89.29 Other chronic pain; Z88.1 Allergy status to other antibiotic agents; Z88.8 Allergy status to other drugs, medicaments and biological substances; Z88.2 Allergy status to sulfonamides; Z79.82 Long term (current) use of aspirin; M50.30 Other cervical disc degeneration, unspecified cervical region
CPT/HCPCS: 99211

== ENCOUNTER 2022-11-27 10:01 | Day surgery (SDC) | payer MEDICARE, OTHER ==
[2022-11-24 09:27] VITALS: BMI 42.5
[2022-11-27 10:37] VITALS: RESP 16; TEMP 97.9
[2022-11-27 10:57] LABS: Glucose,Whole Blood 155 mg/dL (70-110)
[2022-11-27] MEDS ORDERED: ROPIVACAINE 5 MG/ML 20 ML AMPULE ONE (11:02)
[2022-11-27] MEDS ORDERED: methylPREDNISolone ACETATE 40 MG/ML 1 ML VIAL ONE (11:02)
--- NOTE | 2022-11-27 11:09 | P.PCN ---
Date of Procedure: 11/27/22 Procedure(s) Performed: PROCEDURE: Right intraarticular shoulder joint injection under ultrasound guidance (ultrasound images stored on file ) PREOPERATIVE DIAGNOSIS: 1-Right shoulder osteoarthritis.2-right shoulder arthralgia POSTOPERATIVE DIAGNOSIS: Right shoulder osteoarthritis. ANESTHESIA: none EBL: None. COMPLICATIONS: None. PROCEDURE INDICATION: Right shoulder pain secondary to osteoarthritis. PROCEDURE DESCRIPTION: The patient was seen and identified in the preoperative area. Risks, benefits, complications, and alternatives were discussed with the patient. The patient agreed to proceed with the procedure and signed the consent. The patient was placed in the sitting position on the procedure table and the right shoulder was prepped and draped in the usual sterile fashion. We used sterile gloves for the procedure. The medial joint space was identified by ultrasound guidance Block solution was prepared with 40 mg of Depo-Medrol in 9 mL of 0.5% Ropivacaine preservative-free. A 21-gauge needle was advanced through the mentioned site into the intraarticular space, and after negative aspiration, 10 mL of block solution was injected. Skin was cleansed, and bandage was applied. DISPOSITION / PLANS: The patient was taken back to recovery room in a stable position. . Patient was discharged from the recovery room, accompanied by an adult, after meeting discharge criteria. Home discharge instructions were given to the patient. The patient was reexamined prior to discharge. The patient will schedule a follow up visit in the clinic in 2-4 weeks.
[2022-11-27 11:31] VITALS: BP 152/84; PULSE 76
== END 2022-11-27 11:49 ==
LOC: ORPAIN 10:01
PROVIDERS: ATTEND Specialist
DX: M19.011 Primary osteoarthritis, right shoulder (principal); I25.10 Atherosclerotic heart disease of native coronary artery without angina pectoris; M51.36 Other intervertebral disc degeneration, lumbar region; M47.816 Spondylosis without myelopathy or radiculopathy, lumbar region; Z88.8 Allergy status to other drugs, medicaments and biological substances
CPT/HCPCS: 20610; J1030; J2795; 20611

== ENCOUNTER → 2023-01-01 | Outpatient (CLI) | payer MEDICARE, OTHER ==
--- NOTE | 2023-01-01 19:04 | XR ---
EXAMINATION TYPE: XR cervical spine limited DATE OF EXAM: 01/01/2023 2:57 PM INDICATION: Patient age:Female; 82 years old; Reason for study: M50.30; [facility]. COMPARISON: None TECHNIQUE: The cervical spine was imaged in frontal, lateral, and odontoid projections. . FINDINGS: No acute fracture or dislocation. Straightening of the normal cervical lordosis. There are osteophyte s noted throughout the cervical spine on the anterior and lateral aspects of the vertebral bodies. Mu ltilevel disc space narrowing of the lower cervical spine. Pedicles are intact. Soft tissues are wit hin normal limits. The odontoid appears intact. IMPRESSION: 1. No fracture or dislocation. 2. Mild degenerative disc disease changes of the lower cervical spine.
== END | disposition home or self-care (01) ==
LOC: RADXRMAIN 14:34
PROVIDERS: ATTEND Physician Assistant Medical
DX: M50.30 Other cervical disc degeneration, unspecified cervical region (principal)
CPT/HCPCS: 72040

== ENCOUNTER → 2023-01-01 | Outpatient (CLI) | payer MEDICARE, OTHER ==
--- NOTE | 2023-01-01 14:23 | P.PAINPG ---
PQRS Measure Charge Sheet Comment: A 82 yr old female w son at side with a history of severe and chronic neck pain secondary to cervical DDD and spondylosis with facet arthropathy without myelopathy presents today for evaluation s/p R shoulder intra articular injection. Pt states she experienced 50 % pain relief x 1.5 wks s/p procedure. Pain level is provoked at 8 /10 in intensity, constant, localized in the cervical spine, sharp in character w/o shooting pain. Pain is provoked by repositioning. Pain is alleviated with PT x 1wk which she is currently in at [facility], heat, ice, medications, topical, reclining and rest. Oswestry axial pain score of 30. Interventional pain procedures completed include R shoulder intraarticular x2 Patient is currently on Tyl, Minerv[place], Baclofen, Neurontin, Cymbalta, Biofreeze Patient denies any side effects of the medication(s), denies excessive drowsiness or sleepiness, denies suicidal ideation and reports that the current pain medication is helping to control the pain and improve activities of daily living. Patient denies any motor or sensory deficits. Patient denies any fever or night sweats, denies any change in the bowel movements or urination. Physical Examination: -Constitutional: Cooperative. Not in acute distress . - Neurologic: Cranial nerve II to XII intact. No focal neurological deficits. - Psychatric: Alert & oriented x 3. Matching mood & appropriate affect. Judgment and insight intact. - Musculoskeletal: Cervical spine: +R diffuse jointline TTP Muscle bulk/ tone/ strength in the bilateral upper extremities normal Vertebral body tenderness to palpation over Spurling test positive Distraction test positive Facet loading test positive TTP Thoracic spine Muscle bulk / tone/ strength in the bilateral paraspinal muscles normal Vertebral body tender to palpation over Facet loading test positive TTP Lumbar spine: Motor bulk/ tone/ strength lower extremities , thigh and legs : 5/5 Deep tendon reflexes : Normal Knee Jerk. Normal Ankle Jerk . Vertebral body tenderness to palpation over Lumbar Facet Loading Test positive Straight Leg Raise: positive at 30 degrees right side/ left side Gaenslen's Test positive Sacral spine : Severe tenderness over the Sacroiliac joint: right side / left side Range of motion: Flexion of the lumbar spine <60 degrees Range of motion: Extension of the lumbar spine <20 degrees Gaenslen's Test positive R / L Miguel Angel test: positive right side / left side Thigh Thrust Test positive R / L Sacral Thrust Test positive R/ L Assessment and plan: Chronic neck pain secondary to cervical DDD, spondylosis with facet arthropathy without myelopathy Recommendation of R suprascapular NB. May need a series of injections for optimal pain relief. Risks, benefits of procedure discussed and pt verbalized understanding. Admits to anticoagulant use or medical history of diabetes. Protocol for discontinuation/ continuation of medications camille procedure d iscussed. Minimal anesthesia provided, if clinically indicated, consisting of Versed and Fentanyl. Cervical x ray Dx: M50.30 provided. May need additional testing if indicated. All questions answered. I have spent less than 30 minutes on patient care today. Dr Spence was available by phone for the evaluation of this patient. The time was used to review the medical records including relevant urine studies and Prescription history (MAPs), review of the available imaging, evaluation and examination of the patient, coordination of care with the medical staff and if applicable referring physicians, as well as creation of the medical record PQRS Narrative: Smoking Status Never smoker Narcotic Agreement Date Signed 08/09/19 Hx Alcohol Use (MH) No Home Medications: Ambulatory Orders Atorvastatin [Lipitor] 40 mg PO HS 12/12/13 Cholecalciferol [Vitamin D3 (25 Mcg = 1000 Iu)] 25 mcg PO DAILY 12/12/13 dilTIAZem HCL [Diltiazem 24Hr ER] 180 mg PO DAILY 12/12/13 Linaclotide [Linzess] 145 mcg PO DAILY 05/27/16 Levothyroxine Sodium [Synthroid] 150 mcg PO DAILY 07/28/17 Glimepiride [Amaryl] 2 mg PO BID 03/30/19 Furosemide [Lasix] 20 mg PO DAILY 12/06/19 Memantine [Namenda] 5 mg PO BID 12/06/19 Potassium Chloride [Potassium Chloride ER] 10 meq PO BID 03/23/20 Albuterol Inhaler [Ventolin Hfa Inhaler] 2 puff INHALATION RT-BID 07/16/20 Apixaban [Eliquis] 2.5 mg PO BID 07/16/20 Aspirin EC [Ecotrin Low Dose] 81 mg PO DAILY 07/16/20 Cyanocobalamin [Vitamin B-12] 500 mcg PO DAILY 07/16/20 Pantoprazole Sodium [Protonix] 40 mg PO DAILY 07/16/20 hydrALAZINE HCL [Apresoline] 50 mg PO BID 07/16/20 ALPRAZolam [Xanax] 0.5 mg PO TID #9 tab 07/18/20 Acetaminophen Tab [Tylenol] 650 mg PO Q6HR PRN tab 07/18/20 DULoxetine HCL [Cymbalta] 30 mg PO BID 09/30/22 Ferrous Sulfate [Iron] 325 mg PO DAILY 09/30/22 Gabapentin [Neurontin] 400 mg PO BID 09/30/22 HYDROcodone/APAP 7.5-325MG [Min[place] 7.5-325] 1 tab PO Q6HR PRN 09/30/22 Melatonin 10 mg PO HS 09/30/22 Moisture Eye Gtts. 1 drop BOTH EYES BID 09/30/22 oxyBUTYnin chloride 5 mg PO DAILY 09/30/22 Pentoxifylline [TRENtal] 400 mg PO BID 11/24/22 Controlled Substance Measures - Controlled Substance Measures Is patient prescribed a controlled substance at discharge?: No
[2023-01-01 14:52] VITALS: BP 140/86; PULSE 80; RESP 14; TEMP 97.7
== END ==
LOC: PNWHC3 13:32
PROVIDERS: ATTEND Specialist
DX: M50.30 Other cervical disc degeneration, unspecified cervical region (principal); M47.812 Spondylosis without myelopathy or radiculopathy, cervical region; G89.29 Other chronic pain; Z88.2 Allergy status to sulfonamides; Z88.8 Allergy status to other drugs, medicaments and biological substances; Z91.018 Allergy to other foods; Z88.1 Allergy status to other antibiotic agents; Z79.82 Long term (current) use of aspirin
CPT/HCPCS: 99211

== ENCOUNTER → 2023-03-03 | Day surgery (SDC) | payer MEDICARE, OTHER ==
[~2023-03-03] MED LIST changes: -INSULIN ASPART (NovoLOG) 100 UNIT/ML VIAL SQ ONE; +IOPAMIDOL M200 10 ML VIAL ONE; -KETOROLAC 15 MG/ML 1 ML VIAL ONE; -MIDAZOLAM 2 MG/2 ML VIAL ONE; -fentaNYL (PF) 50 MCG/ML 2 ML AMP ONE
[2023-03-03 13:10] LABS: Glucose,Whole Blood 135 mg/dL (70-110)
[2023-03-03 13:12] VITALS: TEMP 97.4
--- NOTE | 2023-03-03 13:37 | P.PCN ---
Date of Procedure: 03/03/23 Description of Procedure: Pre- and Post-operative Diagnosis: Right-sided suprascapular neuralgia Procedure: Right Side Suprascapular Nerve Block under fluoroscopic guidance Surgeon: Dr. Jessenia Gomez Anesthesia: Local: 1% Lidocaine and IV sedation: None Complications: None Estimated blood loss: Zero. Specimen removed: None. Fluoroscopic image: saved to electronic medical records Indications for Procedure: The patient has been suffering from chronic shoulder pain. Suprascapular nerve block was scheduled for the patient. Procedure and Findings: The patient was seen and examined. The written informed consent was obtained after explaining the risks, benefits, alternatives of the procedure to the patient. The patient was brought to the procedure room and was placed in the prone position with ipsilateral arm was abducted above the head on the OR table. The monitoring was done with noninvasive blood pressure cuff, EKG and pulse oximetry. The skin preparation was done with ChloraPrep, and draping was done in usual sterile fashion. Sterile technique was observed throughout th e procedure. Using fluoroscope in the AP view with slight rostral and ipsilateral tilt, the suprascapular notch was identified. 2 ml of 1% Lidocaine was injected with a 25 gauge needle to achieve adequate local anesthesia of the skin and subcutaneous tissue. Then a 22-gauge 3.5-inch spinal needle was placed and advanced targeting the suprascapular notch using direct fluoroscopic guidance. The needle was advanced up to the suprascapular notch margin, a bony contact was felt and needle tip was walked off for about 2 millimeters. A negative aspiration was confirmed and 1 mL of Isovue-200 dye was injected, which showed dye spread in and around the Suprascapular notch and it was negative for any intravascular or intraneural spread. Then a total of 5 mL solution containing Depo-Medrol 40 mg and 4 ml of 0.5% ropivacaine was injected with intermittent aspiration in between. The needle was removed and needle puncture site was appropriately cleaned and covered with a piece of Band-Aid. Disposition : The patient tolerated the procedure very well. The patient was transferred to the recovery room and remained stable until discharged home. The patient was given detailed discharge instructions for infection, bleeding, and increased pain at the injection site, and was advised to seek immediate medical attention should significant side effects develop. The patient will be followed up with our Pain [facility] within 4 weeks.
--- NOTE | 2023-03-03 13:46 | FL ---
EXAMINATION TYPE: FL guided pain mgmt statistic DATE OF EXAM: 03/03/2023 HISTORY: Fluoroscopy time Total dose area product (DAP) in uGy*m?, mGy*cm? (or similar): 0.71694 IMPRESSION: 1. Fluoroscopy time.
[2023-03-03 13:50] VITALS: RESP 20
[2023-03-03 14:01] VITALS: BP 141/61; PULSE 72
== END ==
LOC: ORPAIN 12:48
DX: G58.8 Other specified mononeuropathies (principal); G89.29 Other chronic pain
CPT/HCPCS: 64418; J1030; Q9966; J2795

== ENCOUNTER → 2023-03-30 | Outpatient (CLI) | payer MEDICARE, OTHER ==
[2023-03-30 14:01] VITALS: BP 149/72; PULSE 77; RESP 16
--- NOTE | 2023-03-30 14:23 | P.PAINPG ---
PQRS Measure Charge Sheet Comment: A 83 yr old wheelchair bound female w son at side with a history of severe and chronic neck pain secondary to cervical DDD and spondylosis with facet arthropathy without myelopathy presents today for evaluation s/p R subscapular NB. Pt states she experienced 50 % pain relief x 2 wks s/p procedure. Pain level is provoked at 8 /10 in intensity, constant, localized in the cervical spine, sharp in character w shooting pain to the RUE. Pain is provoked by repositioning. Pain is alleviated with PT x 1wk which she is currently in at [facility], heat, ice, medications, topical, reclining and rest. Oswestry axial pain score of 30. Interventional pain procedures completed include R shoulder intraarticular 2, R Subscapular NB x1 Patient is currently on Tyl, [place], Baclofen, Neurontin, Cymbalta, Biofreeze Patient denies any side effects of the medication(s), denies excessive drowsiness or sleepiness, denies suicidal ideation and reports that the current pain medication is helping to control the pain and improve activities of daily living. Patient denies any motor or sensory deficits. Patient denies any fever or night sweats, denies any change in the bowel movements or urination. Physical Examination: -Constitutional: Cooperative. Not in acute distress . - Neurologic: Cranial nerve II to XII intact. No focal neurological deficits. - Psychatric: Alert & oriented x 3. Matching mood & appropriate affect. Judgment and insight intact. - Musculoskeletal: Cervical spine: Muscle bulk/ tone/ strength in the bilateral upper extremities normal Vertebral body tenderness to palpation over C7 Spurling test positive Distraction test positive Facet loading test positive TTP Thoracic spine Muscle bulk / tone/ strength in the bilateral paraspinal muscles normal Vertebral body tender to palpation over Facet loading test positive TTP Lumbar spine: Motor bulk/ tone/ strength lower extremities , thigh and legs : 5/5 Deep tendon reflexes : Normal Knee Jerk. Normal Ankle Jerk . Vertebral body tenderness to palpation over Lumbar Facet Loading Test positive Straight Leg Raise: positive at 30 degrees right side/ left side Gaenslen's Test positive Sacral spine : Severe tenderness over the Sacroiliac joint: right side / left side Range of motion: Flexion of the lumbar spine <60 degrees Range of motion: Extension of the lumbar spine <20 degrees Gaenslen's Test positive R / L Miguel Angel test: positive right side / left side Thigh Thrust Test positive R / L Sacral Thrust Test positive R/ L Imaging: X-rays cervical spine from 01/01/23 reviewed Assessment and plan: Chronic neck pain secondary to cervical DDD, spondylosis with facet arthropathy without myelopathy Recommendation of MRI cervical spine M50.30. Lidoderm 5% #30 w 1 RF. Use, side effects, adverse reactions and safe storage discussed. All questions answered. I have spent less than 30 minutes on patient care today. Dr Spence was available by phone for the evaluation of this patient. The time was used to review the medical records including relevant urine studies and Prescription history (MAPs), review of the available imaging, evaluation and examination of the patient, coordination of care with the medical staff and if applicable referring physicians, as well as creation of the medical record PQRS Narrative: Smoking Status Never smoker Narcotic Agreement Date Signed 08/09/19 Hx Alcohol Use (MH) No Home Medications: Ambulatory Orders Atorvastatin [Lipitor] 40 mg PO HS 12/12/13 Cholecalciferol [Vitamin D3 (25 Mcg = 1000 Iu)] 1 tab PO 0 12/12/13 dilTIAZem HCL [Diltiazem 24Hr ER] 180 mg PO QAM 12/12/13 Linaclotide [Linzess] 145 mcg PO QAM 05/27/16 Levothyroxine Sodium [Synthroid] 150 mcg PO 0600 07/28/17 Furosemide [Lasix] 20 mg PO QAM 12/06/19 Memantine [Namenda] 5 mg PO BID 12/06/19 Potassium Chloride [Potassium Chloride ER] 10 meq PO BID 03/23/20 Albuterol Inhaler [Ventolin Hfa Inhaler] 2 puff INHALATION RT-BID 07/16/20 Aspirin EC [Ecotrin Low Dose] 81 mg PO 1700 07/16/20 Cyanocobalamin [Vitamin B-12] 500 mcg PO 1700 07/16/20 Pantoprazole Sodium [Protonix] 40 mg PO 0600 07/16/20 hydrALAZINE HCL [Apresoline] 50 mg PO BID 07/16/20 ALPRAZolam [Xanax] 0.5 mg PO TID #9 tab 07/18/20 DULoxetine HCL [Cymbalta] 30 mg PO BID 09/30/22 Ferrous Sulfate [Iron] 325 mg PO QAM 09/30/22 Gabapentin [Neurontin] 400 mg PO BID 09/30/22 HYDROcodone/APAP 7.5-325MG [Ronks 7.5-325] 1 tab PO Q6HR PRN 09/30/22 Melatonin 10 mg PO HS 09/30/22 oxyBUTYnin chloride 5 mg PO 1700 09/30/22 Pentoxifylline [TRENtal] 400 mg PO BID 11/24/22 Acetaminophen [Tylenol Extra Strength] 500 mg PO Q12HR 01/01/23 Baclofen 5 mg PO BID PRN 01/01/23 Loperamide HCl [Imodium A-D] 2 tab PO DIRECTED PRN MDD 8mg 01/01/23 Magnesium Hydroxide [Milk of Magnesia Concentrate] 30 ml PO DIRECTED PRN 01/01/23 Menthol [Biofreeze] 1 applic TOPICAL TID 01/01/23 Sennosides/Docusate Sodium [Colace 2-in-1 Tablet] 8.6 - 50 mg PO HS 01/01/23 bisacodyL [Dulcolax] 1 unit RECTAL Q24HR PRN 01/01/23 guaiFENesin [guaiFENesin Oral Solution] 10 ml PO Q6HR PRN 01/01/23 Acetaminophen Tab [Tylenol] 650 mg PO Q6H PRN 02/26/23 Apixaban [Eliquis] 2.5 mg PO BID 02/26/23 Calcium Carbonate [Tums] 2 tab PO BID PRN 02/26/23 Caldesane External Powder 1 applic TOPICAL DAILY 02/26/23 Carboxymethylcellulose Sodium [Refresh Tears] 1 drop BOTH EYES TID 02/26/23 Colchicine 0.6 mg PO QAM 02/26/23 Cranberry Fruit [Cranberry] 425 mg PO BID 02/26/23 Glimepiride [Amaryl] 2 mg PO AC-BID 02/26/23 Mirabegron [Myrbetriq] 25 mg PO QAM 02/26/23 Na Phos,M-B/Na Phos,Di-Ba [Fleet Adult] 118 ml RECTAL Q24H PRN 02/26/23 Lidocaine 5% Patch [Lidoderm] 1 each TP Q24H 30 Days #30 patch 03/30/23 Controlled Substance Measures - Controlled Substance Measures Is patient prescribed a controlled substance at discharge?: No
== END ==
LOC: PNWHC3 11:55
PROVIDERS: ATTEND Specialist
DX: M50.323 Other cervical disc degeneration at C6-C7 level (principal); M47.812 Spondylosis without myelopathy or radiculopathy, cervical region; G89.29 Other chronic pain; Z88.1 Allergy status to other antibiotic agents; Z88.8 Allergy status to other drugs, medicaments and biological substances; Z88.2 Allergy status to sulfonamides; Z79.01 Long term (current) use of anticoagulants; Z91.018 Allergy to other foods
CPT/HCPCS: 99211

== ENCOUNTER → 2023-04-21 | Outpatient (CLI) | payer MEDICARE, OTHER ==
--- NOTE | 2023-04-21 12:19 | MR ---
EXAMINATION TYPE: MR cervical spine wo con DATE OF EXAM: 04/21/2023 COMPARISON: None HISTORY: Chronic neck pain, headaches, BUE radiculopathy. TECHNIQUE: Multiplanar, multisequence images of the cervical spine were acquired without contrast. FINDINGS: Cervical segments are intact. There is normal alignment. Cervical spinal cord is of normal signal. Craniovertebral junction relationships are within normal limits. Multilevel disc desiccation. C2-C3: No disc bulge/herniation or protrusion. No Canal stenosis. Foramina are patent bilaterally. C3-C4: No disc herniation. Posterior disc osteophyte complex with minimal narrowing of the central ca nal. Uncovertebral joint hypertrophy with moderate left neural foraminal stenosis. The right neural f oramen is patent. C4-C5: No disc herniation. Posterior disc osteophyte complex with minimal narrowing of the central ca nal. Uncovertebral joint hypertrophy with moderate to severe left neural foraminal stenosis. The righ t neural foramen is patent. C5-C6: Broad-based disc bulge with mild effacement of the anterior thecal sac. Uncovertebral joint hy pertrophy with moderate bilateral neural foraminal stenosis. C6-C7: Posterior disc osteophyte complex with minimal narrowing of the central canal. Uncovertebral j oint hypertrophy with mild right and moderate left neural foraminal stenosis. C7-T1: No disc bulge/herniation or protrusion. No Canal stenosis. Foramina are patent bilaterally. IMPRESSION: 1. No disc herniation. 2. Multilevel degenerative disc disease and uncovertebral joint hypertrophy as described above. This is most prominent at C5-C6 with mild central canal stenosis.
== END | disposition home or self-care (01) ==
LOC: RADMRIMAIN 10:32
PROVIDERS: ATTEND Specialist
DX: M50.122 Cervical disc disorder at C5-C6 level with radiculopathy (principal); M47.22 Other spondylosis with radiculopathy, cervical region; M48.02 Spinal stenosis, cervical region
CPT/HCPCS: 72141

== ENCOUNTER → 2023-04-23 | Outpatient (CLI) | payer MEDICARE, OTHER ==
[2023-04-23 14:35] VITALS: BP 143/78; PULSE 76; RESP 15; TEMP 98.6
--- NOTE | 2023-04-23 14:42 | P.PAINPG ---
PQRS Measure Charge Sheet Comment: A 83 yr old wheelchair bound female w son at side with a history of severe and chronic neck pain secondary to cervical DDD and spondylosis with facet arthropathy without myelopathy presents today for evaluation of MRI results. Pain level is provoked at 8 /10 in intensity, constant, predominantly axial, localized in the cervical spine, sharp in character w occasional shooting pain to the RUE. Pain is provoked by repositioning. Pain is alleviated with PT x 4 wks which she is currently in at [facility], heat, ice, medications, topical, reclining and rest. Oswestry axial pain score of 30. Interventional pain procedures completed include R shoulder intraarticular 2, R Subscapular NB x1 Patient is currently on Tyl, [place], Baclofen, Neurontin, Cymbalta, Biofreeze Patient denies any side effects of the medication(s), denies excessive drowsiness or sleepiness, denies suicidal ideation and reports that the current pain medication is helping to control the pain and improve activities of daily living. Patient denies any motor or sensory deficits. Patient denies any fever or night sweats, denies any change in the bowel movements or urination. Physical Examination: -Constitutional: Cooperative. Not in acute distress . - Neurologic: Cranial nerve II to XII intact. No focal neurological deficits. - Psychatric: Alert & oriented x 3. Matching mood & appropriate affect. Judgment and insight intact. - Musculoskeletal: Cervical spine: Muscle bulk/ tone/ strength in the bilateral upper extremities normal Vertebral body tenderness to palpation over C7 Spurling test positive Distraction test positive over BL C6-C7 Facet loading test positive TTP Thoracic spine Muscle bulk / tone/ strength in the bilateral paraspinal muscles normal Vertebral body tender to palpation over Facet loading test positive TTP Lumbar spine: Motor bulk/ tone/ strength lower extremities , thigh and legs : 5/5 Deep tendon reflexes : Normal Knee Jerk. Normal Ankle Jerk . Vertebral body tenderness to palpation over Lumbar Facet Loading Test positive Straight Leg Raise: positive at 30 degrees right side/ left side Gaenslen's Test positive Sacral spine : Severe tenderness over the Sacroiliac joint: right side / left side Range of motion: Flexion of the lumbar spine <60 degrees Range of motion: Extension of the lumbar spine <20 degrees Gaenslen's Test positive R / L Migue Langel test: positive right side / left side Thigh Thrust Test positive R / L Sacral Thrust Test positive R/ L Imaging: MRI non contrast of the cervical spine from 04/21/23 reviewed Assessment and plan: Chronic neck pain secondary to cervical DDD, spondylosis with facet arthropathy without myelopathy Recommendation of AMALIA C6-C7 #1. May need a series of injections for optimal pain relief. Risks, benefits of procedure discussed and patient verbalized understanding. Protocol for discontinuation/continuation of medications surrounding procedure discussed. Lidoderm 5% #30 w 1 RF. Use, side effects, adverse reactions and safe storage discussed. All questions answered. I have spent less than 30 minutes on patient care today. Dr Spence was available by phone for the evaluation of this patient. The time was used to review the medical records including relevant urine studies and Prescription history (MAPs), review of the available imaging, evaluation and examination of the patient, coordination of care with the medical staff and if applicable referring physicians, as well as creation of the medical record PQRS Narrative: Smoking Status Never smoker Narcotic Agreement Date Signed 08/09/19 Hx Alcohol Use (MH) No Home Medications: Ambulatory Orders Atorvastatin [Lipitor] 40 mg PO HS 12/12/13 Cholecalciferol [Vitamin D3 (25 Mcg = 1000 Iu)] 1 tab PO 1700 12/12/13 dilTIAZem HCL [Diltiazem 24Hr ER] 180 mg PO QAM 12/12/13 Linaclotide [Linzess] 145 mcg PO QAM 05/27/16 Levothyroxine Sodium [Synthroid] 150 mcg PO 0600 07/28/17 Furosemide [Lasix] 20 mg PO QAM 12/06/19 Memantine [Namenda] 5 mg PO BID 12/06/19 Potassium Chloride [Potassium Chloride ER] 10 meq PO BID 03/23/20 Albuterol Inhaler [Ventolin Hfa Inhaler] 2 puff INHALATION RT-BID 07/16/20 Aspirin EC [Ecotrin Low Dose] 81 mg PO 1700 07/16/20 Cyanocobalamin [Vitamin B-12] 500 mcg PO 1700 07/16/20 Pantoprazole Sodium [Protonix] 40 mg PO 0600 07/16/20 hydrALAZINE HCL [Apresoline] 50 mg PO BID 07/16/20 ALPRAZolam [Xanax] 0.5 mg PO TID #9 tab 07/18/20 DULoxetine HCL [Cymbalta] 30 mg PO BID 09/30/22 Ferrous Sulfate [Iron] 325 mg PO QAM 09/30/22 Gabapentin [Neurontin] 400 mg PO BID 09/30/22 HYDROcodone/APAP 7.5-325MG [[place] 7.5-325] 1 tab PO Q6HR PRN 09/30/22 Melatonin 10 mg PO HS 09/30/22 oxyBUTYnin chloride 5 mg PO 1700 09/30/22 Pentoxifylline [TRENtal] 400 mg PO BID 11/24/22 Acetaminophen [Tylenol Extra Strength] 500 mg PO Q12HR 01/01/23 Baclofen 5 mg PO BID PRN 01/01/23 Loperamide HCl [Imodium A-D] 2 tab PO DIRECTED PRN MDD 8mg 01/01/23 Magnesium Hydroxide [Milk of Magnesia Concentrate] 30 ml PO DIRECTED PRN 01/01/23 Menthol [Biofreeze] 1 applic TOPICAL TID 01/01/23 Sennosides/Docusate Sodium [Colace 2-in-1 Tablet] 8.6 - 50 mg PO HS 01/01/23 bisacodyL [Dulcolax] 1 unit RECTAL Q24HR PRN 01/01/23 guaiFENesin [guaiFENesin Oral Solution] 10 ml PO Q6HR PRN 01/01/23 Acetaminophen Tab [Tylenol] 650 mg PO Q6H PRN 02/26/23 Apixaban [Eliquis] 2.5 mg PO BID 02/26/23 Calcium Carbonate [Tums] 2 tab PO BID PRN 02/26/23 Caldesane External Powder 1 applic TOPICAL DAILY 02/26/23 Carboxymethylcellulose Sodium [Refresh Tears] 1 drop BOTH EYES TID 02/26/23 Colchicine 0.6 mg PO QAM 02/26/23 Cranberry Fruit [Cranberry] 425 mg PO BID 02/26/23 Glimepiride [Amaryl] 2 mg PO AC-BID 02/26/23 Mirabegron [Myrbetriq] 25 mg PO QAM 02/26/23 Na Phos,M-B/Na Phos,Di-Ba [Fleet Adult] 118 ml RECTAL Q24H PRN 02/26/23 Lidocaine 5% Patch [Lidoderm] 1 each TP Q24H 30 Days #30 patch 03/30/23 Controlled Substance Measures - Controlled Substance Measures Is patient prescribed a controlled substance at discharge?: No
== END ==
LOC: PNWHC3 13:23
PROVIDERS: ATTEND Specialist
DX: M50.323 Other cervical disc degeneration at C6-C7 level (principal); M47.812 Spondylosis without myelopathy or radiculopathy, cervical region; G89.29 Other chronic pain; Z79.82 Long term (current) use of aspirin; Z88.1 Allergy status to other antibiotic agents; Z88.8 Allergy status to other drugs, medicaments and biological substances; Z91.018 Allergy to other foods; Z88.2 Allergy status to sulfonamides
CPT/HCPCS: 99211

== ENCOUNTER → 2023-05-14 | Day surgery (SDC) | payer MEDICARE, OTHER ==
[~2023-05-14] MED LIST changes: +DEXAMETHASONE SOD PHOSPHATE 10 MG/ML 1 ML VIAL ONE; -ROPIVACAINE 5MG/ML 20ML VIAL ONE; -methylPREDNISolone ACETATE 40 MG/ML 1 ML VIAL ONE
[2023-05-14 11:51] VITALS: RESP 20; TEMP 97.6
[2023-05-14 12:01] LABS: Glucose,Whole Blood 106 mg/dL (70-110)
--- NOTE | 2023-05-14 12:19 | P.PCN ---
Date of Procedure: 05/14/23 Procedure(s) Performed: . PROCEDURE 1. Cervical epidural steroid injection under fluoroscopic guidance, C6-7 (fluoroscopy images available in the radiology department ) 2. Cervical epidurogram. 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 3-cervical spinal stenosis ANESTHESIA: Local anesthesia with lidocaine 1% 3 ml only EBL 0 PROCEDURE INDICATION: The patient with neck pain and radiculitis unresponsive to conservative treatment consents for procedure. PROCEDURE DESCRIPTION / TECHNIQUE: The patient was seen and identified in the preoperative area. Risks, benefits, complications, including but not limited to infections ,bleeding , allergic reactions to the medications ,and not complete pain releife, and alternatives were discussed with the patient, the patient agreed to proceed with the procedure and signed the consent. Patient was taken to the OR and time out was completed. The patient was placed in the prone position on the procedure table. A pillow was placed under the patients chest to increase the cervical interlaminar space. The cervical area was prepped and draped in the usual sterile fashion. Vital signs were closely monitored during the procedure. Using anterior-posterior fluoroscopy, the C6-7 interlaminar space was identified and the skin over this site was marked and then infiltrated with 1% lidocaine subcutaneously. Subsequently, a 20-gauge 3-1/2-inch Tuohy epidural needle was inserted and advanced toward the epidural space by means of the ``hanging-drop technique and guided by AP and lateral fluoroscopy. The correct needle position in the epidural space was verified with the injection of 2 mL of the water soluble contrast dye Isovue-200 and observing an excellent epidurogram with the epidural spread of the dye, after negative aspiration for blood and CSF and in the absence of paresthesias. then, mixture containing 15 mg Dexamethasone and 2 ml of preservative-free normal saline injected and a washout of epidurogram was seen. Needle was withdrawn intact, skin was cleansed, and bandages were applied. Complications= none. Disposition= patient was placed in supine position and transferred to the recovery room area in stable condition and there was no evidence of upper or lower extremity motor or sensory deficit after the procedure patient was discharged from recovery room after discharge criteria met and home discharge instructions was given by the staff and patient will follow with the pain clinic in 2-4 weeks
--- NOTE | 2023-05-14 12:41 | FL ---
EXAMINATION TYPE: FL guided pain mgmt statistic DATE OF EXAM: 05/14/2023 HISTORY: Fluoroscopy time Total dose area product (DAP) in uGy*m?, mGy*cm? (or similar): 0.71285 IMPRESSION: 1. Fluoroscopy time.
[2023-05-14 13:02] VITALS: BP 107/65; PULSE 74
== END ==
LOC: ORPAIN 11:14
PROVIDERS: ATTEND Specialist
DX: M47.22 Other spondylosis with radiculopathy, cervical region (principal); M48.02 Spinal stenosis, cervical region; M50.123 Cervical disc disorder at C6-C7 level with radiculopathy; E11.9 Type 2 diabetes mellitus without complications; Z79.01 Long term (current) use of anticoagulants; Z79.82 Long term (current) use of aspirin; Z88.2 Allergy status to sulfonamides; Z88.1 Allergy status to other antibiotic agents; Z88.8 Allergy status to other drugs, medicaments and biological substances; Z91.018 Allergy to other foods
CPT/HCPCS: 62321; J1100; Q9966

== ENCOUNTER → 2023-05-25 | Outpatient (CLI) | payer MEDICARE, OTHER ==
[2023-05-25 13:05] VITALS: BP 138/78; PULSE 79; RESP 15; TEMP 98.5
--- NOTE | 2023-05-25 13:11 | P.PAINPG ---
PQRS Measure Charge Sheet Comment: A 83 yr old wheelchair bound female with a history of severe and chronic neck pain secondary to cervical DDD and spondylosis with facet arthropathy without myelopathy presents today for evaluation s/p AMALIA C6-C7 #1. Pt states she experienced 50 % pain relief x 2 wks and ongoing s/p procedure. Pain level is p rovoked at 9 /10 in intensity, constant, predominantly axial, localized in the cervical spine, sharp in character w occasional shooting pain to the R shoulder. Pain is provoked by repositioning. Pain is alleviated with PT x 4 wks in Mar 2023, heat, ice, medications, topical, reclining and rest. Cervical disability pain score of 30. Interventional pain procedures completed include R shoulder intra-articular 2, R Subscapular NB x1, AMALIA C6-C7 #1 Patient is currently on Tyl, [place], Baclofen, Neurontin, Cymbalta, Biofreeze Patient denies any side effects of the medication(s), denies excessive dr owsiness or sleepiness, denies suicidal ideation and reports that the current pain medication is helping to control the pain and improve activities of daily living. Patient denies any motor or sensory deficits. Patient denies any fever or night sweats, denies any change in the bowel movements or urination. Physical Examination: -Constitutional: Cooperative. Not in acute distress . - Neurologic: Cranial nerve II to XII intact. No focal neurological deficits. - Psychatric: Alert & oriented x 3. Matching mood & appropriate affect. Judgment and insight intact. - Musculoskeletal: Cervical spine: Muscle bulk/ tone/ strength in the bilateral upper extremities normal Vertebral body tenderness to palpation over C7 Spurling test positive Distraction test positive over R C6-C7 Facet loading test positive TTP Thoracic spine Muscle bulk / tone/ strength in the bilateral paraspinal muscles normal Vertebral body tender to palpation over Facet loading test positive TTP Lumbar spine: Motor bulk/ tone/ strength lower extremities , thigh and legs : 5/5 Deep tendon reflexes : Normal Knee Jerk. Normal Ankle Jerk . Vertebral body tenderness to palpation over Lumbar Facet Loading Test positive Straight Leg Raise: positive at 30 degrees right side/ left side Gaenslen's Test positive Sacral spine : Severe tenderness over the Sacroiliac joint: right side / left side Range of motion: Flexion of the lumbar spine <60 degrees Range of motion: Extension of the lumbar spine <20 degrees Gaenslen's Test positive R / L Miguel Angel test: positive right side / left side Thigh Thrust Test positive R / L Sacral Thrust Test positive R/ L Imaging: MRI non contrast of the cervical spine from 04/21/23 reviewed Assessment and plan: Chronic neck pain secondary to cervical DDD, spondylosis with facet arthr opathy without myelopathy Recommendation of R TFESI C6-C7 #2. May need a series of injections for optimal pain relief. Risks, benefits of procedure discussed and patient verbalized understanding. Protocol for discontinuation/continuation of medications surrounding procedure discussed. Tyl #3 #120 w 1 RF. Use, side effects, adverse reactions and safe storage discussed. Opiate/ narcotic ag reement signed 05/25/23. All questions answered. I have spent less than 30 minutes on patient care today. Dr Spence was available by phone for the evaluation of this patient. The time was used to r eview the medical records including relevant urine studies and Prescription history (MAPs), review of the available imaging, evaluation and examination of the patient, coordination of care with the medical staff and if applicable referring physicians, as well as creation of the medical record - Pain Location Right Shoulder Non-Pharmacological Interventions: Position/Reposition Pharmacological Interventions: Epidural, Scheduled Medication PQRS Narrative: Smoking Status Never smoker Narcotic Agreement Date Signed 08/09/19 Hx Alcohol Use (MH) No Home Medications: Ambulatory Orders Atorvastatin [Lipitor] 40 mg PO HS 12/12/13 Cholecalciferol [Vitamin D3 (25 Mcg = 1000 Iu)] 1 tab PO 1700 12/12/13 dilTIAZem HCL [Diltiazem 24Hr ER] 180 mg PO QAM 12/12/13 Linaclotide [Linzess] 145 mcg PO QAM 05/27/16 Levothyroxine Sodium [Synthroid] 150 mcg PO 0600 07/28/17 Furosemide [Lasix] 20 mg PO QAM 12/06/19 Memantine [Namenda] 5 mg PO BID 12/06/19 Potassium Chloride [Potassium Chloride ER] 10 meq PO BID 03/23/20 Aspirin EC [Ecotrin Low Dose] 81 mg PO 1700 07/16/20 Cyanocobalamin [Vitamin B-12] 500 mcg PO 1700 07/16/20 Pantoprazole Sodium [Protonix] 40 mg PO 0600 07/16/20 hydrALAZINE HCL [Apresoline] 50 mg PO BID 07/16/20 ALPRAZolam [Xanax] 0.5 mg PO TID #9 tab 07/18/20 DULoxetine HCL [Cymbalta] 30 mg PO BID 09/30/22 Ferrous Sulfate [Iron] 325 mg PO QAM 09/30/22 Gabapentin [Neurontin] 400 mg PO BID 09/30/22 Melatonin 10 mg PO HS 09/30/22 oxyBUTYnin chloride 5 mg PO 1700 09/30/22 Pentoxifylline [TRENtal] 400 mg PO BID 11/24/22 Acetaminophen [Tylenol Extra Strength] 500 mg PO Q12HR 01/01/23 Baclofen 5 mg PO BID PRN 01/01/23 Loperamide HCl [Imodium A-D] 2 tab PO DIRECTED PRN MDD 8mg 01/01/23 Magnesium Hydroxide [Milk of Magnesia Concentrate] 30 ml PO DIRECTED PRN 01/01/23 Sennosides/Docusate Sodium [Colace 2-in-1 Tablet] 8.6 - 50 mg PO HS 01/01/23 bisacodyL [Dulcolax] 1 unit RECTAL Q24HR PRN 01/01/23 guaiFENesin [guaiFENesin Oral Solution] 10 ml PO Q6HR PRN 01/01/23 Apixaban [Eliquis] 2.5 mg PO BID 02/26/23 Calcium Carbonate [Tums] 2 tab PO BID PRN 02/26/23 Caldesane External Powder 1 applic TOPICAL DAILY 02/26/23 Carboxymethylcellulose Sodium [Refresh Tears] 1 drop BOTH EYES TID 02/26/23 Colchicine 0.6 mg PO QAM 02/26/23 Cranberry Fruit [Cranberry] 425 mg PO BID 02/26/23 Glimepiride [Amaryl] 2 mg PO AC-BID 02/26/23 Mirabegron [Myrbetriq] 25 mg PO QAM 02/26/23 Na Phos,M-B/Na Phos,Di-Ba [Fleet Adult] 118 ml RECTAL Q24H PRN 02/26/23 Lidocaine 5% Patch [Lidoderm 5% Patch] 1 each TP Q24H 30 Days #30 patch 04/23/23 Acetaminophen-Codeine 300-30mg [Tylenol w/codeine #3] 1 tab PO Q4-6H PRN 30 Days #120 tablet 05/25/23 Controlled Substance Measures - Controlled Substance Measures Is patient prescribed a controlled substance at discharge?: Yes When asked, does pt state using other controlled substances?: Yes If prescribed controlled substance>3 days was MAPS reviewed?: Yes If Rx opioid, was Start Talking consent form obtained?: Yes Was information provided regarding opioid addiction?: Yes
== END ==
LOC: PNWHC3 12:35
PROVIDERS: ATTEND Specialist
DX: M50.323 Other cervical disc degeneration at C6-C7 level (principal); M47.812 Spondylosis without myelopathy or radiculopathy, cervical region; G89.29 Other chronic pain; Z79.82 Long term (current) use of aspirin; Z88.1 Allergy status to other antibiotic agents; Z88.8 Allergy status to other drugs, medicaments and biological substances; Z91.018 Allergy to other foods; Z88.2 Allergy status to sulfonamides
CPT/HCPCS: 99211

== ENCOUNTER 2023-07-07 09:30 | Day surgery (SDC) | payer MEDICARE, OTHER ==
[~2023-07-07 09:30] MED LIST changes: -DEXAMETHASONE SOD PHOSPHATE 10 MG/ML 1 ML VIAL ONE; -IOPAMIDOL M200 10 ML VIAL ONE
[2023-07-07 10:13] LABS: Glucose,Whole Blood 129 mg/dL (70-110)
[2023-07-07 10:16] VITALS: RESP 16; TEMP 97
[2023-07-07] MEDS ORDERED: DEXAMETHASONE SOD PHOSPHATE 10 MG/ML 1 ML VIAL ONE (10:25)
[2023-07-07] MEDS ORDERED: IOPAMIDOL M200 10 ML VIAL ONE (10:25)
--- NOTE | 2023-07-07 10:40 | P.PCN ---
Date of Procedure: 07/07/23 Procedure(s) Performed: PREOPERATIVE DIAGNOSIS: 1-cervical radiculopathy . 2-cervical degenerative disc disease. 3-cervical spondylosis with cervical facet arthropathy without myelopathy POSTOPERATIVE DIAGNOSIS: Same as preop diagnosis. PROCEDURE 1. Transforaminal epidural steroid injection under fluoroscopic guidance at right C6-7 level. (Fluoroscopy images stored on file in the radiology Department ) 2. cervical epidurogram . ANESTHESIA: Local with 1% lidocaine 3 ml. EBL: Minimal PROCEDURE INDICATION: The patient with neck pain and radiculopathy symptoms unresponsive to conservative treatment. PROCEDURE DESCRIPTION / TECHNIQUE: The patient was seen and identified in the preoperative area. Risks, benefits, complications, and alternatives were discussed with the patient. The patient agreed to proceed with the procedure and signed the consent, and vital signs were stable. Patient was taken to the OR and time out was completed. The patient was placed in the lateral position ( right side up )on procedure table. The cervical area was prepped and draped in the usual sterile fashion. Critical pause was taken. Vital signs were closely monitored during the procedure. Using oblique fluoroscopy, the chin of the `Kam dog at Right C6-7 level was identified, and the skin and deeper tissues just below was localized with 1% lidocaine. Subsequently, a 22-gauge 3.5-inch spinal needle was advanced under a tunneled view fluoroscopic guidance just underneath the chin of the `Kam dog at the right C6-7 Under lateral fluoroscopy, the needle was then advanced to the posterior border of the interforaminal space. After negative aspiration of CSF and blood and with no paresthesias, 1 mL Isovue 200 contrast dye was injected excellent epidurogram and outlining of the nerve root Subsequently, 2 mL of block solution containing 15 mg Dexamethasone and 1 mL of 0.9% normal jessee ine PF was injected. Needle was removed . At the end of the procedure, skin was cleansed, and bandages were applied. COMPLICATIONS:none DISPOSITION / PLANS: The patient was placed in a supine position and transferred to the recovery area in a stable condition for observation. There was no evidence of lower extremity motor or sensory deficit after the procedure. Patient was discharged from the recovery room after meeting discharge criteria. Home discharge instructions were given to the patient by the staff. The patient was reexamined prior to discharge.
[2023-07-07 10:45] VITALS: BP 139/63; PULSE 75
[2023-07-07] MEDS ORDERED: Acetaminophen-Codeine 300-30mg TAB ONE (10:47)
[2023-07-07] MEDS ORDERED: Acetaminophen-Codeine 300-30mg TAB PO ONE (10:51)
--- NOTE | 2023-07-07 14:47 | FL ---
EXAMINATION TYPE: FL guided pain mgmt statistic DATE OF EXAM: 07/07/2023 FLUOROSCOPY Fluoroscopy time of 10 seconds was used during cervical transforaminal epidural injection. 2 image/s document/s the procedure. DAP=.[id number] mGycm2.
== END 2023-07-07 11:21 ==
LOC: ORPAIN 09:30
PROVIDERS: ATTEND Specialist
DX: M50.123 Cervical disc disorder at C6-C7 level with radiculopathy (principal); M47.22 Other spondylosis with radiculopathy, cervical region; Z79.82 Long term (current) use of aspirin; Z79.01 Long term (current) use of anticoagulants; Z88.2 Allergy status to sulfonamides; Z88.1 Allergy status to other antibiotic agents
CPT/HCPCS: 64479; J1100; Q9966; 64483

== ENCOUNTER → 2023-07-29 | Outpatient (CLI) | payer MEDICARE, OTHER ==
[2023-07-29 11:05] VITALS: BP 148/78; PULSE 79; RESP 15; TEMP 98.6
--- NOTE | 2023-07-29 14:48 | P.PAINPG ---
PQRS Measure Charge Sheet Comment: A 83 yr old wheelchair bound female w son at side with a history of severe and chronic neck pain secondary to cervical DDD and spondylosis with facet arthropathy without myelopathy presents today for evaluation s/p R TFESI C6-C7 #2. Pt states she experienced 40 % pain relief x 3 wks and ongoing s/p procedur e. Pain level is provoked at 9 /10 in intensity, constant, predominantly axial, localized in the cervical spine, sharp in character w occasional shooting pain to the R shoulder. Pain is provoked by repositioning. Pain is alleviated with PT x 4 wks in Mar 2023, heat, ice, medications, topical, reclining and rest. Cervical disability pain score of 30. Interventional pain procedures completed include R shoulder intra-articular 2, R Subscapular NB x1, AMALIA C6-C7 #2, R TFESI C6-C7 x1 Patient is currently on Tyl, [place], Baclofen, Neurontin, Cymbalta, Biofreeze Patient denies any side effects of the medication(s), denies excessive drowsiness or sleepiness, denies suicidal ideation and reports that the current pain medication is helping to control the pain and improve activities of daily living. Patient denies any motor or sensory deficits. Patient denies any fever or night sweats, denies any change in the bowel movements or urination. Physical Examination: -Constitutional: Cooperative. Not in acute distress . - Neurologic: Cranial nerve II to XII intact. No focal neurological deficits. - Psychatric: Alert & oriented x 3. Matching mood & appropriate affect. Judgment and insight intact. - Musculoskeletal: Cervical spine: Muscle bulk/ tone/ strength in the bilateral upper extremities normal Vertebral body tenderness to palpation over C7 Spurling test positive Distraction test positive over R C6-C7 Facet loading test positive TTP Thoracic spine Muscle bulk / tone/ strength in the bilateral paraspinal muscles normal Vertebral body tender to palpation over Facet loading test positive TTP Lumbar spine: Motor bulk/ tone/ strength lower extremities , thigh and legs : 5/5 Deep tendon reflexes : Normal Knee Jerk. Normal Ankle Jerk . Vertebral body tenderness to palpation over Lumbar Facet Loading Test positive Straight Leg Raise: positive at 30 degrees right side/ left side Gaenslen's Test positive Sacral spine : Severe tenderness over the Sacroiliac joint: right side / left side Range of motion: Flexion of the lumbar spine <60 degrees Range of motion: Extension of the lumbar spine <20 degrees Gaenslen's Test positive R / L Miguel Angel test: positive right side / left side Thigh Thrust Test positive R / L Sacral Thrust Test positive R/ L Imaging: MRI non contrast of the cervical spine from 04/21/23 reviewed Assessment and plan: Chronic neck pain secondary to cervical DDD, spondylosis with facet arthropathy without myelopathy Recommendation of medication management. Discontinue Tyl #3 and substitute for Tyl #4 #120, Lidoderm 5% #30 w 1 RF. Use, side effects, adverse reactions and safe storage discussed. Opiate/ narcotic agreement updated 07/29/23. All questions answered. I have spent less than 30 minutes on patient care today. Dr Spence was availab le by phone for the evaluation of this patient. The time was used to review the medical records including relevant urine studies and Prescription history (MAPs), review of the available imaging, evaluation and examination of the patient, coordination of care with the medical staff and if applicable referring physicians, as well as creation of the medical record - Pain Location Bilateral Neck Non-Pharmacological Interventions: Inactivity, Position/Reposition Pharmacological Interventions: Epidural, Scheduled Medication PQRS Narrative: Smoking Status Never smoker Narcotic Agreement Date Signed 08/09/19 Hx Alcohol Use (MH) No Home Medications: Ambulatory Orders Atorvastatin [Lipitor] 40 mg PO HS 12/12/13 Cholecalciferol [Vitamin D3 (25 Mcg = 1000 Iu)] 1 tab PO DAILY 12/12/13 dilTIAZem HCL [Diltiazem 24Hr ER] 180 mg PO QAM 12/12/13 Linaclotide [Linzess] 145 mcg PO QAM 05/27/16 Levothyroxine Sodium [Synthroid] 150 mcg PO 0600 07/28/17 Furosemide [Lasix] 20 mg PO QAM 12/06/19 Memantine [Namenda] 5 mg PO BID 12/06/19 Potassium Chloride [Potassium Chloride ER] 10 meq PO BID 03/23/20 Aspirin EC [Ecotrin Low Dose] 81 mg PO 1700 07/16/20 Cyanocobalamin [Vitamin B-12] 500 mcg PO DAILY 07/16/20 Pantoprazole Sodium [Protonix] 40 mg PO DAILY 07/16/20 hydrALAZINE HCL [Apresoline] 50 mg PO BID 07/16/20 ALPRAZolam [Xanax] 0.5 mg PO TID #9 tab 07/18/20 DULoxetine HCL [Cymbalta] 30 mg PO BID 09/30/22 Ferrous Sulfate [Iron] 325 mg PO QAM 09/30/22 Gabapentin [Neurontin] 400 mg PO BID 09/30/22 Melatonin 10 mg PO HS 09/30/22 Pentoxifylline [TRENtal] 400 mg PO BID 11/24/22 Acetaminophen [Tylenol Extra Strength] 500 mg PO Q12HR 01/01/23 Baclofen 5 mg PO BID PRN 01/01/23 Loperamide HCl [Imodium A-D] 2 tab PO DIRECTED PRN MDD 8mg 01/01/23 Magnesium Hydroxide [Milk of Magnesia Concentrate] 30 ml PO DIRECTED PRN 01/01/23 Sennosides/Docusate Sodium [Colace 2-in-1 Tablet] 8.6 - 50 mg PO HS 01/01/23 bisacodyL [Dulcolax] 1 unit RECTAL Q24HR PRN 01/01/23 Apixaban [Eliquis] 2.5 mg PO BID 02/26/23 Calcium Carbonate [Tums] 2 tab PO DAILY PRN 02/26/23 Caldesane External Powder 1 applic TOPICAL DAILY 02/26/23 Carboxymethylcellulose Sodium [Refresh Tears] 1 drop BOTH EYES TID 02/26/23 Colchicine 0.6 mg PO QAM 02/26/23 Cranberry Fruit [Cranberry] 425 mg PO BID 02/26/23 Glimepiride [Amaryl] 2 mg PO AC-BID 02/26/23 Mirabegron [Myrbetriq] 25 mg PO QAM 02/26/23 Na Phos,M-B/Na Phos,Di-Ba [Fleet Adult] 118 ml RECTAL Q24H PRN 02/26/23 Acetaminophen [Tylenol] 650 mg PO Q6H PRN 07/01/23 Albuterol Inhaler [Ventolin Hfa Inhaler] 2 puff INHALATION BID 07/01/23 Ipratropium-Albuterol Nebulize [Duoneb 0.5 mg-3 mg/3 ml Soln] 3 ml INHALATION Q6H PRN 07/01/23 Ondansetron [Zofran] 1 tab PO Q6H PRN 07/01/23 guaiFENesin-DM 100-10MG/5ML [Robitussin DM] 10 ml PO Q6H PRN 07/01/23 Acetaminophen with Codeine [Tylenol #4 Tablet] 1 tab PO Q4H PRN 30 Days #120 tab 07/29/23 Lidocaine 5% Patch [Lidoderm 5% Patch] 1 each TP Q24H 30 Days #30 patch 07/29/23 Controlled Substance Measures - Controlled Substance Measures Is patient prescribed a controlled substance at discharge?: Yes When asked, does pt state using other controlled substances?: Yes If prescribed controlled substance>3 days was MAPS reviewed?: Yes If Rx opioid, was Start Talking consent form obtained?: Yes Was information provided regarding opioid addiction?: Yes
== END ==
LOC: PNWHC3 10:27
PROVIDERS: ATTEND Specialist
DX: M50.323 Other cervical disc degeneration at C6-C7 level (principal); M47.812 Spondylosis without myelopathy or radiculopathy, cervical region; G89.29 Other chronic pain; Z79.82 Long term (current) use of aspirin; Z88.1 Allergy status to other antibiotic agents; Z88.8 Allergy status to other drugs, medicaments and biological substances; Z91.018 Allergy to other foods; Z88.2 Allergy status to sulfonamides
CPT/HCPCS: 99211

== ENCOUNTER → 2023-08-24 | Outpatient (CLI) | payer MEDICARE, OTHER ==
[2023-08-24 10:35] VITALS: BP 137/72; PULSE 72; RESP 15; TEMP 98.4
--- NOTE | 2023-08-24 13:21 | P.PAINPG ---
PQRS Measure Charge Sheet Comment: A 83 yr old wheelchair bound female w son at side with a history of severe and chronic neck pain secondary to cervical DDD and spondylosis with facet arthropathy without myelopathy presents today for medication refills. Pain level is provoked at 9 /10 in intensity, constant, predominantly axial, localized in the cervical spine, sharp in character w occasional shooting pain to the R shoulder. Pain is provoked by repositioning. Pain is alleviated with PT x 4 wks in Mar 2023, heat, ice, medications, topical, reclining and rest. Cervical disability pain score of 30. Interventional pain procedures completed include R shoulder intra-articular 2, R Subscapular NB x1, AMALIA C6-C7 #2, R TFESI C6-C7 x1 Patient is currently on Tyl, [place], Baclofen, Neurontin, Cymbalta, Biofreeze Patient denies any side effects of the medication(s), denies excessive drowsiness or sleepiness, denies suicidal ideation and reports that the current pain medication is helping to control the pain and improve activities of daily living. Patient denies any motor or sensory deficits. Patient denies any fever or night sweats, denies any change in the bowel movements or urination. Physical Examination: -Constitutional: Cooperative. Not in acute distress . - Neurologic: Cranial nerve II to XII intact. No focal neurological def icits. - Psychatric: Alert & oriented x 3. Matching mood & appropriate affect. Judgment and insight intact. - Musculoskeletal: Cervical spine: Muscle bulk/ tone/ strength in the bilateral upper extremities normal Vertebral body tenderness to palpation over C7 Spurling test positive Distraction test positive over R C6-C7 Facet loading test positive TTP Thoracic spine Muscle bulk / tone/ strength in the bilateral paraspinal muscles normal Vertebral body tender to palpation over Facet loading test positive TTP Lumbar spine: Motor bulk/ tone/ strength lower extremities , thigh and legs : 5/5 Deep tendon reflexes : Normal Knee Jerk. Normal Ankle Jerk . Vertebral body tenderness to palpation over Lumbar Facet Loading Test positive Straight Leg Raise: positive at 30 degrees right side/ left side Gaenslen's Test positive Sacral spine : Severe tenderness over the Sacroiliac joint: right side / left side Range of motion: Flexion of the lumbar spine <60 degrees Range of motion: Extension of the lumbar spine <20 degrees Gaenslen's Test positive R / L Miguel Angel test: positive right side / left side Thigh Thrust Test positive R / L Sacral Thrust Test positive R/ L Imaging: MRI non contrast of the cervical spine from 04/21/23 reviewed Assessment and plan: Chronic neck pain secondary to cervical DDD, spondylosis with facet arthropathy without myelopathy Recommendation of medication management. Tyl #4 #160, Lidoderm 5% #30 w 1 RF. Use, side effects, adverse reactions and safe storage discussed. Opiate/ narcotic agreement updated 07/29/23. All questions answered. I have spent less than 30 minutes on patient care today. Dr Spence was available by phone for the evaluation of this patient. The time was used to review the medical records including relevant urine studies and Prescription history (MAPs), review of the available imaging, evaluation and examination of the patient, coordination of care with the medical staff and if applicable referring physicians, as well as creation of the medical record - Pain Location Bilateral Neck Non-Pharmacological Interventions: Heat, Inactivity, Position/Reposition Pharmacological Interventions: Epidural, Medication PQRS Narrative: Smoking Status Never smoker Narcotic Agreement Date Signed 08/09/19 Hx Alcohol Use (MH) No Home Medications: Ambulatory Orders Atorvastatin [Lipitor] 40 mg PO HS 12/12/13 Cholecalciferol [Vitamin D3 (25 Mcg = 1000 Iu)] 1 tab PO DAILY 12/12/13 dilTIAZem HCL [Diltiazem 24Hr ER] 180 mg PO QAM 12/12/13 Linaclotide [Linzess] 145 mcg PO QAM 05/27/16 Levothyroxine Sodium [Synthroid] 150 mcg PO 0600 07/28/17 Furosemide [Lasix] 20 mg PO QAM 12/06/19 Memantine [Namenda] 5 mg PO BID 12/06/19 Potassium Chloride [Potassium Chloride ER] 10 meq PO BID 03/23/20 Aspirin EC [Ecotrin Low Dose] 81 mg PO 1700 07/16/20 Cyanocobalamin [Vitamin B-12] 500 mcg PO DAILY 07/16/20 Pantoprazole Sodium [Protonix] 40 mg PO DAILY 07/16/20 hydrALAZINE HCL [Apresoline] 50 mg PO BID 07/16/20 ALPRAZolam [Xanax] 0.5 mg PO TID #9 tab 07/18/20 DULoxetine HCL [Cymbalta] 30 mg PO BID 09/30/22 Ferrous Sulfate [Iron] 325 mg PO QAM 09/30/22 Gabapentin [Neurontin] 400 mg PO BID 09/30/22 Melatonin 10 mg PO HS 09/30/22 Pentoxifylline [TRENtal] 400 mg PO BID 11/24/22 Acetaminophen [Tylenol Extra Strength] 500 mg PO Q12HR 01/01/23 Baclofen 5 mg PO BID PRN 01/01/23 Loperamide HCl [Imodium A-D] 2 tab PO DIRECTED PRN MDD 8mg 01/01/23 Magnesium Hydroxide [Milk of Magnesia Concentrate] 30 ml PO DIRECTED PRN 01/01/23 Sennosides/Docusate Sodium [Colace 2-in-1 Tablet] 8.6 - 50 mg PO HS 01/01/23 bisacodyL [Dulcolax] 1 unit RECTAL Q24HR PRN 01/01/23 Apixaban [Eliquis] 2.5 mg PO BID 02/26/23 Calcium Carbonate [Tums] 2 tab PO DAILY PRN 02/26/23 Caldesane External Powder 1 applic TOPICAL DAILY 02/26/23 Carboxymethylcellulose Sodium [Refresh Tears] 1 drop BOTH EYES TID 02/26/23 Colchicine 0.6 mg PO QAM 02/26/23 Cranberry Fruit [Cranberry] 425 mg PO BID 02/26/23 Glimepiride [Amaryl] 2 mg PO AC-BID 02/26/23 Mirabegron [Myrbetriq] 25 mg PO QAM 02/26/23 Na Phos,M-B/Na Phos,Di-Ba [Fleet Adult] 118 ml RECTAL Q24H PRN 02/26/23 Acetaminophen [Tylenol] 650 mg PO Q6H PRN 07/01/23 Albuterol Inhaler [Ventolin Hfa Inhaler] 2 puff INHALATION BID 07/01/23 Ipratropium-Albuterol Nebulize [Duoneb 0.5 mg-3 mg/3 ml Soln] 3 ml INHALATION Q6H PRN 07/01/23 Ondansetron [Zofran] 1 tab PO Q6H PRN 07/01/23 guaiFENesin-DM 100-10MG/5ML [Robitussin DM] 10 ml PO Q6H PRN 07/01/23 Acetaminophen with Codeine [Tylenol #4 Tablet] 1 tab PO Q4H PRN 30 Days #120 tab 07/29/23 Lidocaine 5% Patch [Lidoderm] 1 each TP DAILY 30 Days #30 patch 07/29/23 Acetaminophen with Codeine [Tylenol #4 Tablet] 1 tab PO Q6H PRN 30 Days #120 tab 08/19/23 Controlled Substance Measures - Controlled Substance Measures Is patient prescribed a controlled substance at discharge?: Yes When asked, does pt state using other controlled substances?: Yes If prescribed controlled substance>3 days was MAPS reviewed?: Yes
== END ==
LOC: PNWHC3 09:35
PROVIDERS: ATTEND Specialist
DX: M50.323 Other cervical disc degeneration at C6-C7 level (principal); M47.812 Spondylosis without myelopathy or radiculopathy, cervical region; G89.29 Other chronic pain; Z88.1 Allergy status to other antibiotic agents; Z88.8 Allergy status to other drugs, medicaments and biological substances; Z91.018 Allergy to other foods; Z88.5 Allergy status to narcotic agent; Z88.2 Allergy status to sulfonamides
CPT/HCPCS: 99211

== ENCOUNTER → 2023-10-14 | Outpatient (CLI) | payer MEDICARE, OTHER ==
[2023-10-14 09:52] VITALS: BP 136/68; PULSE 76; RESP 15; TEMP 98.5
--- NOTE | 2023-10-14 15:48 | P.PAINPG ---
PQRS Measure Charge Sheet Comment: A 83 yr old wheelchair bound female w son at side with a history of severe and chronic neck pain secondary to cervical DDD and spondylosis with facet arthropathy without myelopathy presents today for medication refills. Pain level is provoked at 9 /10 in intensity, constant, predominantly axial, localized in the cervical spine, sharp in character w occasional shooting pain to the R shoulder. Pain is provoked by repositioning. Pain is alleviated with PT x 4 wks in Mar 2023, heat, ice, medications, topical, reclining and rest. Cervical disability pain score of 30. Interventional pain procedures completed include R shoulder intra-articular 2, R Subscapular NB x1, AMALIA C6-C7 #2, R TFESI C6-C7 x1 Patient is currently on Tyl, [place], Baclofen, Neurontin, Cymbalta, Biofreeze Patient denies any side effects of the medication(s), denies excessive drowsiness or sleepiness, denies suicidal ideation and reports that the current pain medication is helping to control the pain and improve activities of daily living. Patient denies any motor or sensory deficits. Patient denies any fever or night sweats, denies any change in the bowel movements or urination. Physical Examination: -Constitutional: Cooperative. Not in acute distress . - Neurologic: Cranial nerve II to XII intact. No focal neurological def icits. - Psychatric: Alert & oriented x 3. Matching mood & appropriate affect. Judgment and insight intact. - Musculoskeletal: Cervical spine: Muscle bulk/ tone/ strength in the bilateral upper extremities normal Vertebral body tenderness to palpation over C7 Spurling test positive Distraction test positive over R C6-C7 Facet loading test positive TTP Thoracic spine Muscle bulk / tone/ strength in the bilateral paraspinal muscles normal Vertebral body tender to palpation over Facet loading test positive TTP Lumbar spine: Motor bulk/ tone/ strength lower extremities , thigh and legs : 5/5 Deep tendon reflexes : Normal Knee Jerk. Normal Ankle Jerk . Vertebral body tenderness to palpation over Lumbar Facet Loading Test positive Straight Leg Raise: positive at 30 degrees right side/ left side Gaenslen's Test positive Sacral spine : Severe tenderness over the Sacroiliac joint: right side / left side Range of motion: Flexion of the lumbar spine <60 degrees Range of motion: Extension of the lumbar spine <20 degrees Gaenslen's Test positive R / L Miguel Angel test: positive right side / left side Thigh Thrust Test positive R / L Sacral Thrust Test positive R/ L Imaging: MRI non contrast of the cervical spine from 04/21/23 reviewed Assessment and plan: Chronic neck pain secondary to cervical DDD, spondylosis with facet arthropathy without myelopathy Recommendation of medication management. Add Fentanyl 25mcg/hr #10 w 1 RF. Fentanyl Narcotic agreement signed 10/14/23. Tyl #4 #150 w 1 RF. Pt states Lidoderm is ineffective. Use, side effects, adverse reactions and safe storage discussed. Opiate/ narcotic agreement updated 07/29/23. All questions answered. I have spent less than 30 minutes on patient care today. Dr Spence was available by phone for the evaluation of this patient. The time was used to review the medical records including relevant urine studies and Prescription history (MAPs), review of the available imaging, evaluation and examination of the patient, coordination of care with the medical staff and if applicable referring physicians, as well as creation of the medical record - Pain Location Right Shoulder Non-Pharmacological Interventions: Inactivity, Position/Reposition Pharmacological Interventions: Scheduled Medication PQRS Narrative: Smoking Status Never smoker Narcotic Agreement Date Signed 08/09/19 Hx Alcohol Use (MH) No Home Medications: Ambulatory Orders Atorvastatin [Lipitor] 40 mg PO HS 12/12/13 Cholecalciferol [Vitamin D3 (25 Mcg = 1000 Iu)] 1 tab PO DAILY 12/12/13 dilTIAZem HCL [Diltiazem 24Hr ER] 180 mg PO QAM 12/12/13 Linaclotide [Linzess] 145 mcg PO QAM 05/27/16 Levothyroxine Sodium [Synthroid] 150 mcg PO 0600 07/28/17 Furosemide [Lasix] 20 mg PO QAM 12/06/19 Memantine [Namenda] 5 mg PO BID 12/06/19 Potassium Chloride [Potassium Chloride ER] 10 meq PO BID 03/23/20 Aspirin EC [Ecotrin Low Dose] 81 mg PO 1700 07/16/20 Cyanocobalamin [Vitamin B-12] 500 mcg PO DAILY 07/16/20 Pantoprazole Sodium [Protonix] 40 mg PO DAILY 07/16/20 hydrALAZINE HCL [Apresoline] 50 mg PO BID 07/16/20 ALPRAZolam [Xanax] 0.5 mg PO TID #9 tab 07/18/20 DULoxetine HCL [Cymbalta] 30 mg PO BID 09/30/22 Ferrous Sulfate [Iron] 325 mg PO QAM 09/30/22 Gabapentin [Neurontin] 400 mg PO BID 09/30/22 Melatonin 10 mg PO HS 09/30/22 Pentoxifylline [TRENtal] 400 mg PO BID 11/24/22 Baclofen 5 mg PO BID PRN 01/01/23 Loperamide HCl [Imodium A-D] 2 tab PO DIRECTED PRN MDD 8mg 01/01/23 Magnesium Hydroxide [Milk of Magnesia Concentrate] 30 ml PO DIRECTED PRN 01/01/23 Sennosides/Docusate Sodium [Colace 2-in-1 Tablet] 8.6 - 50 mg PO HS 01/01/23 bisacodyL [Dulcolax] 1 unit RECTAL Q24HR PRN 01/01/23 Apixaban [Eliquis] 2.5 mg PO BID 02/26/23 Calcium Carbonate [Tums] 2 tab PO DAILY PRN 02/26/23 Caldesane External Powder 1 applic TOPICAL DAILY 02/26/23 Carboxymethylcellulose Sodium [Refresh Tears] 1 drop BOTH EYES TID 02/26/23 Colchicine 0.6 mg PO QAM 02/26/23 Cranberry Fruit [Cranberry] 425 mg PO BID 02/26/23 Glimepiride [Amaryl] 2 mg PO AC-BID 02/26/23 Mirabegron [Myrbetriq] 25 mg PO QAM 02/26/23 Na Phos,M-B/Na Phos,Di-Ba [Fleet Adult] 118 ml RECTAL Q24H PRN 02/26/23 Albuterol Inhaler [Ventolin Hfa Inhaler] 2 puff INHALATION BID 07/01/23 Ipratropium-Albuterol Nebulize [Duoneb 0.5 mg-3 mg/3 ml Soln] 3 ml INHALATION Q6H PRN 07/01/23 Ondansetron [Zofran] 1 tab PO Q6H PRN 07/01/23 guaiFENesin-DM 100-10MG/5ML [Robitussin DM] 10 ml PO Q6H PRN 07/01/23 Lidocaine 5% Patch [Lidoderm] 1 each TP DAILY 30 Days #30 patch 07/29/23 Acetaminophen with Codeine [Tylenol #4 Tablet] 1 tab PO Q4-6H PRN 30 Days #150 tab 10/14/23 fentaNYL 25MCG/HR PATCH [Duragesic 25MCG/HR] 25 mcg TRANSDERM Q72H 30 Days #10 patch 10/14/23 fentaNYL 25MCG/HR PATCH [Duragesic 25MCG/HR] 25 mcg TRANSDERM Q72H 30 Days #10 patch 10/14/23 Controlled Substance Measures - Controlled Substance Measures Is patient prescribed a controlled substance at discharge?: Yes When asked, does pt state using other controlled substances?: Yes If prescribed controlled substance>3 days was MAPS reviewed?: Yes If Rx opioid, was Start Talking consent form obtained?: Yes Was information provided regarding opioid addiction?: Yes
== END ==
LOC: PNWHC3 08:37
PROVIDERS: ATTEND Specialist
DX: M47.812 Spondylosis without myelopathy or radiculopathy, cervical region (principal); M50.323 Other cervical disc degeneration at C6-C7 level; G89.29 Other chronic pain; M47.816 Spondylosis without myelopathy or radiculopathy, lumbar region; Z88.1 Allergy status to other antibiotic agents; Z88.8 Allergy status to other drugs, medicaments and biological substances; Z88.2 Allergy status to sulfonamides; Z91.018 Allergy to other foods; Z88.5 Allergy status to narcotic agent
CPT/HCPCS: 99211

== ENCOUNTER → 2023-12-24 | Outpatient (CLI) | payer MEDICARE, OTHER ==
[2023-12-24 11:42] VITALS: BP 105/51; PULSE 86; RESP 16
--- NOTE | 2023-12-24 14:13 | P.PAINPG ---
PQRS Measure Charge Sheet Comment: A 83 yr old wheelchair bound female w son at side with a history of severe and chronic neck pain secondary to cervical DDD and spondylosis with facet arthropathy without myelopathy presents today for medication refills. Pain level is provoked at 9 /10 in intensity, constant, predominantly axial, localized in the cervical spine, sharp in character w occasional shooting pain to the R shoulder. Pain is provoked by repositioning. Pain is alleviated with PT x 4 wks which ended in October 2023, heat, ice, medications, topical, reclining and rest. Cervical disability pain score of 30. Interventional pain procedures completed include R shoulder intra-articular 2, R Subscapular NB x1, AMALIA C6-C7 #2, R TFESI C6-C7 x1 Patient is currently on Tyl, [place], Baclofen, Neurontin, Cymbalta, Biofreeze Patient denies any side effects of the medication(s), denies excessive drowsiness or sleepiness, denies suicidal ideation and reports that the current pain medication is helping to control the pain and improve activities of daily living. Patient denies any motor or sensory deficits. Patient denies any fever or night sweats, denies any change in the bowel movements or urination. Physical Examination: -Constitutional: Cooperative. Not in acute distress . - Neurologic: Cranial nerve II to XII intact. No focal neurological deficits. - Psychatric: Alert & oriented x 3. Matching mood & appropriate affect. Judgment and insight intact. - Musculoskeletal: Cervical spine: Muscle bulk/ tone/ strength in the bilateral upper extremities normal Vertebral body tenderness to palpation over C7 Spurling test positive Distraction test positive over R C6-C7 Facet loading test positive TTP Thoracic spine Muscle bulk / tone/ strength in the bilateral paraspinal muscles normal Vertebral body tender to palpation over Facet loading test positive TTP Lumbar spine: Motor bulk/ tone/ strength lower extremities , thigh and legs : 5/5 Deep tendon reflexes : Normal Knee Jerk. Normal Ankle Jerk . Vertebral body tenderness to palpation over Lumbar Facet Loading Test positive Straight Leg Raise: positive at 30 degrees right side/ left side Gaenslen's Test positive Sacral spine : Severe tenderness over the Sacroiliac joint: right side / left side Range of motion: Flexion of the lumbar spine <60 degrees Range of motion: Extension of the lumbar spine <20 degrees Gaenslen's Test positive R / L Miguel Angel test: positive right side / left side Thigh Thrust Test positive R / L Sacral Thrust Test positive R/ L Imaging: MRI non contrast of the cervical spine from 04/21/23 reviewed Assessment and plan: Chronic neck pain secondary to cervical DDD, spondylosis with facet arthropathy without myelopathy Recommendation of medication management. Continue Fentanyl 25mcg/hr #10 w 1 RF. Fentanyl Narcotic agreement signed 10/14/23. Tyl #4 #150 w 1 RF. UDS collected 12/24/23. Use, side effects, adverse reactions and safe storage discussed. Opiate/ narcotic agreement updated 07/29/23. All questions answered./ I have spent less than 30 minutes on patient care today. Dr Spence was available by phone for the evaluation of this patient. The time was used to review the medical records including relevant urine studies and Prescription history (MAPs), review of the available imaging, evaluation and examination of the patient, coordination of care with the medical staff and if applicable referring physicians, as well as creation of the medical record PQRS Narrative: Smoking Status Never smoker Narcotic Agreement Date Signed 08/09/19 Hx Alcohol Use (MH) No Home Medications: Ambulatory Orders Atorvastatin [Lipitor] 40 mg PO HS 12/12/13 Cholecalciferol [Vitamin D3 (25 Mcg = 1000 Iu)] 1 tab PO DAILY 12/12/13 dilTIAZem HCL [Diltiazem 24Hr ER] 180 mg PO QAM 12/12/13 Linaclotide [Linzess] 145 mcg PO QAM 05/27/16 Levothyroxine Sodium [Synthroid] 150 mcg PO 0600 07/28/17 Furosemide [Lasix] 20 mg PO QAM 12/06/19 Memantine [Namenda] 5 mg PO BID 12/06/19 Potassium Chloride [Potassium Chloride ER] 10 meq PO BID 03/23/20 Aspirin EC [Ecotrin Low Dose] 81 mg PO 1700 07/16/20 Cyanocobalamin [Vitamin B-12] 500 mcg PO DAILY 07/16/20 Pantoprazole Sodium [Protonix] 40 mg PO DAILY 07/16/20 hydrALAZINE HCL [Apresoline] 50 mg PO BID 07/16/20 ALPRAZolam [Xanax] 0.5 mg PO TID #9 tab 07/18/20 DULoxetine HCL [Cymbalta] 30 mg PO BID 09/30/22 Ferrous Sulfate [Iron] 325 mg PO QAM 09/30/22 Gabapentin [Neurontin] 400 mg PO BID 09/30/22 Melatonin 10 mg PO HS 09/30/22 Pentoxifylline [TRENtal] 400 mg PO BID 11/24/22 Baclofen 5 mg PO BID PRN 01/01/23 Loperamide HCl [Imodium A-D] 2 tab PO DIRECTED PRN MDD 8mg 01/01/23 Magnesium Hydroxide [Milk of Magnesia Concentrate] 30 ml PO DIRECTED PRN 01/01/23 Sennosides/Docusate Sodium [Colace 2-in-1 Tablet] 8.6 - 50 mg PO HS 01/01/23 bisacodyL [Dulcolax] 1 unit RECTAL Q24HR PRN 01/01/23 Apixaban [Eliquis] 2.5 mg PO BID 02/26/23 Calcium Carbonate [Tums] 2 tab PO DAILY PRN 02/26/23 Caldesane External Powder 1 applic TOPICAL DAILY 02/26/23 Carboxymethylcellulose Sodium [Refresh Tears] 1 drop BOTH EYES TID 02/26/23 Colchicine 0.6 mg PO QAM 02/26/23 Cranberry Fruit [Cranberry] 425 mg PO BID 02/26/23 Glimepiride [Amaryl] 2 mg PO AC-BID 02/26/23 Mirabegron [Myrbetriq] 25 mg PO QAM 02/26/23 Na Phos,M-B/Na Phos,Di-Ba [Fleet Adult] 118 ml RECTAL Q24H PRN 02/26/23 Albuterol Inhaler [Ventolin Hfa Inhaler] 2 puff INHALATION BID 07/01/23 Ipratropium-Albuterol Nebulize [Duoneb 0.5 mg-3 mg/3 ml Soln] 3 ml INHALATION Q6H PRN 07/01/23 Ondansetron [Zofran] 1 tab PO Q6H PRN 07/01/23 guaiFENesin-DM 100-10MG/5ML [Robitussin DM] 10 ml PO Q6H PRN 07/01/23 Lidocaine 5% Patch [Lidoderm] 1 each TP DAILY 30 Days #30 patch 07/29/23 Acetaminophen with Codeine [Tylenol #4 Tablet] 1 tab PO Q4-6H PRN 30 Days #150 tab 10/14/23 fentaNYL 25MCG/HR PATCH [Duragesic 25MCG/HR] 25 mcg TRANSDERM Q72H 30 Days #10 patch 10/14/23 fentaNYL 25MCG/HR PATCH [Duragesic 25MCG/HR] 25 mcg TRANSDERM Q72H 30 Days #10 patch 10/14/23 Acetaminophen with Codeine [Tylenol #4 Tablet] 1 tab PO Q4-6H PRN 30 Days #150 tab 12/16/23 Controlled Substance Measures - Controlled Substance Measures Is patient prescribed a controlled substance at discharge?: Yes When asked, does pt state using other controlled substances?: Yes If prescribed controlled substance>3 days was MAPS reviewed?: Yes
== END ==
LOC: PNWHC3 10:45
PROVIDERS: ATTEND Specialist
DX: M50.323 Other cervical disc degeneration at C6-C7 level (principal); M47.812 Spondylosis without myelopathy or radiculopathy, cervical region; M47.816 Spondylosis without myelopathy or radiculopathy, lumbar region; Z88.1 Allergy status to other antibiotic agents; Z88.2 Allergy status to sulfonamides; Z91.018 Allergy to other foods; Z88.8 Allergy status to other drugs, medicaments and biological substances; Z88.5 Allergy status to narcotic agent
CPT/HCPCS: 99211

== ENCOUNTER → 2024-02-18 | Outpatient (CLI) | payer MEDICARE, OTHER ==
[2024-02-18 12:19] VITALS: BP 134/81; PULSE 80; RESP 18
--- NOTE | 2024-02-18 14:14 | P.PAINPG ---
PQRS Measure Charge Sheet Comment: A 83 yr old wheelchair bound female w son at side with a history of severe and chronic neck pain and LBP secondary to radiculopathy, spondylosis and facet arthropathy without myelopathy presents today for medication refills. Pain level is provoked at 8 /10 in intensity, constant, predominantly axial, localized in the cervical spine, sharp in character w occasional shooting pain to the R shoulder. Pain is provoked by repositioning. Pain is alleviated with PT x 4 wks which ended in October 2023, heat, ice, medications, topical, reclining and rest. Interventional pain procedures completed include R shoulder intra-articular 2, R Subscapular NB x1, AMALIA C6-C7 #2, R TFESI C6-C7 x1 Patient is currently on Tyl, [place], Baclofen, Neurontin, Cymbalta, Biofreeze Patient denies any side effects of the medication(s), denies excessive drowsiness or sleepiness, denies suicidal ideation and reports that the current pain medication is helping to control the pain and improve activities of daily living. Patient denies any motor or sensory deficits. Patient denies any fever or night sweats, denies any change in the bowel movements or urination. Physical Examination: -Constitutional: Cooperative. Not in acute distress . - Neurologic: Cranial nerve II to XII intact. No focal neurological deficits. - Psychatric: Alert & oriented x 3. Matching mood & appropriate affect. Judgment and insight intact. - Musculoskeletal: Cervical spine: Muscle bulk/ tone/ strength in the bilateral upper extremities normal Vertebral body tenderness to palpation over C7 Spurling test positive Distraction test positive over R C6-C7 Facet loading test positive TTP Thoracic spine Muscle bulk / tone/ strength in the bilateral paraspinal muscles normal Vertebral body tender to palpation over Facet loading test positive TTP Lumbar spine: Motor bulk/ tone/ strength lower extremities , thigh and legs : 5/5 Deep tendon reflexes : Normal Knee Jerk. Normal Ankle Jerk . Vertebral body tenderness to palpation over Lumbar Facet Loading Test positive Straight Leg Raise: positive at 30 degrees right side/ left side Gaenslen's Test positive Sacral spine : Severe tenderness over the Sacroiliac joint: right side / left side Range of motion: Flexion of the lumbar spine <60 degrees Range of motion: Extension of the lumbar spine <20 degrees Gaenslen's Test positive R / L Miguel Angel test: positive right side / left side Thigh Thrust Test positive R / L Sacral Thrust Test positive R/ L Imaging: MRI non contrast of the cervical spine from 04/21/23 reviewed Assessment and plan: Chronic neck pain secondary to cervical DDD, spondylosis with facet arthropathy without myelopathy Recommendation of medication management and PT script x 6 wks M54.16. Continue Fentanyl 25mcg/hr #10 w 1 RF. Fentanyl Narcotic agreement signed 10/14/23. Tyl #4 #180 w 1 RF. UDS from 12/24/23 reviewed and consistent. Use, side effects, adverse reactions and safe storage discussed. Opiate/ narcotic agreement updated 07/29/23. All questions answered./ I have spent less than 30 minutes on patient care today. Dr Spence was available by phone for the evaluation of this patient. The time was used to review the medical records including relevant urine studies and Prescription history (MAPs), review of the available imaging, evaluation and examination of the patient, coordination of care with the medical staff and if applicable referring physicians, as well as creation of the medical record PQRS Narrative: Smoking Status Never smoker Narcotic Agreement Date Signed 08/09/19 Hx Alcohol Use (MH) No Home Medications: Ambulatory Orders Atorvastatin [Lipitor] 40 mg PO HS 12/12/13 Cholecalciferol [Vitamin D3 (25 Mcg = 1000 Iu)] 1 tab PO DAILY 12/12/13 dilTIAZem HCL [Diltiazem 24Hr ER] 180 mg PO QAM 12/12/13 Linaclotide [Linzess] 145 mcg PO QAM 05/27/16 Levothyroxine Sodium [Synthroid] 150 mcg PO 0600 07/28/17 Furosemide [Lasix] 20 mg PO QAM 12/06/19 Memantine [Namenda] 5 mg PO BID 12/06/19 Potassium Chloride [Potassium Chloride ER] 10 meq PO BID 03/23/20 Aspirin EC [Ecotrin Low Dose] 81 mg PO 1700 07/16/20 Cyanocobalamin [Vitamin B-12] 500 mcg PO DAILY 07/16/20 Pantoprazole Sodium [Protonix] 40 mg PO DAILY 07/16/20 hydrALAZINE HCL [Apresoline] 50 mg PO BID 07/16/20 ALPRAZolam [Xanax] 0.5 mg PO TID #9 tab 07/18/20 DULoxetine HCL [Cymbalta] 30 mg PO BID 09/30/22 Ferrous Sulfate [Iron] 325 mg PO QAM 09/30/22 Gabapentin [Neurontin] 400 mg PO BID 09/30/22 Melatonin 10 mg PO HS 09/30/22 Pentoxifylline [TRENtal] 400 mg PO BID 11/24/22 Baclofen 5 mg PO BID PRN 01/01/23 Loperamide HCl [Imodium A-D] 2 tab PO DIRECTED PRN MDD 8mg 01/01/23 Magnesium Hydroxide [Milk of Magnesia Concentrate] 30 ml PO DIRECTED PRN 01/01/23 Sennosides/Docusate Sodium [Colace 2-in-1 Tablet] 8.6 - 50 mg PO HS 01/01/23 bisacodyL [Dulcolax] 1 unit RECTAL Q24HR PRN 01/01/23 Apixaban [Eliquis] 2.5 mg PO BID 02/26/23 Calcium Carbonate [Tums] 2 tab PO DAILY PRN 02/26/23 Caldesane External Powder 1 applic TOPICAL DAILY 02/26/23 Carboxymethylcellulose Sodium [Refresh Tears] 1 drop BOTH EYES TID 02/26/23 Colchicine 0.6 mg PO QAM 02/26/23 Cranberry Fruit [Cranberry] 425 mg PO BID 02/26/23 Glimepiride [Amaryl] 2 mg PO AC-BID 02/26/23 Mirabegron [Myrbetriq] 25 mg PO QAM 02/26/23 Na Phos,M-B/Na Phos,Di-Ba [Fleet Adult] 118 ml RECTAL Q24H PRN 02/26/23 Albuterol Inhaler [Ventolin Hfa Inhaler] 2 puff INHALATION BID 07/01/23 Ipratropium-Albuterol Nebulize [Duoneb 0.5 mg-3 mg/3 ml Soln] 3 ml INHALATION Q6H PRN 07/01/23 Ondansetron [Zofran] 1 tab PO Q6H PRN 07/01/23 guaiFENesin-DM 100-10MG/5ML [Robitussin DM] 10 ml PO Q6H PRN 07/01/23 Lidocaine 5% Patch [Lidoderm] 1 each TP DAILY 30 Days #30 patch 07/29/23 Acetaminophen with Codeine [Tylenol #4 Tablet] 1 tab PO Q4H PRN 30 Days #180 tab 02/18/24 fentaNYL 25MCG/HR PATCH [Duragesic 25MCG/HR] 25 mcg TRANSDERM Q72H 30 Days #10 patch 02/18/24 fentaNYL 25MCG/HR PATCH [Duragesic 25MCG/HR] 25 mcg TRANSDERM Q72H 30 Days #10 patch 02/18/24 Controlled Substance Measures - Controlled Substance Measures Is patient prescribed a controlled substance at discharge?: Yes When asked, does pt state using other controlled substances?: Yes If prescribed controlled substance>3 days was MAPS reviewed?: Yes
== END ==
LOC: PNWHC3 10:41
PROVIDERS: ATTEND Specialist
DX: M50.30 Other cervical disc degeneration, unspecified cervical region (principal); M47.812 Spondylosis without myelopathy or radiculopathy, cervical region; Z88.1 Allergy status to other antibiotic agents; Z91.018 Allergy to other foods; Z88.8 Allergy status to other drugs, medicaments and biological substances; Z88.2 Allergy status to sulfonamides
CPT/HCPCS: 99211

== ENCOUNTER → 2024-04-14 | Outpatient (CLI) | payer MEDICARE, OTHER ==
[2024-04-14 11:02] VITALS: BP 124/73; PULSE 74; RESP 16
--- NOTE | 2024-04-14 14:55 | P.PAINPG ---
PQRS Measure Charge Sheet Comment: A 84 yr old wheelchair bound female w son at side with a history of severe and chronic neck pain and LBP secondary to radiculopathy, spondylosis and facet arthropathy without myelopathy, BL Sacroiliitis presents today for medication refills. Pain level is provoked at 8 /10 in intensity, constant, predominantly axial, localized in the lumbosacral spine, sharp in character w occasional shooting pain to the buttocks. Pain is provoked by sitting for periods > 15 min. Pain is alleviated with PT x 4 wks which ended in October 2023 (cervical, lumbar), heat, ice, medications, topical, reclining and rest. Interventional pain procedures completed include R shoulder intra-articular 2, R Subscapular NB x1, AMALIA C6-C7 #2, R TFESI C6-C7 x1 Patient is currently on Tyl, [place], Baclofen, Neurontin, Cymbalta, Biofreeze Patient denies any side effects of the medication(s), denies excessive drowsiness or sleepiness, denies suicidal ideation and reports that the current pain medication is helping to control the pain and improve activities of daily living. Patient denies any motor or sensory deficits. Patient denies any fever or night sweats, denies any change in the bowel movements or urination. Physical Examination: -Constitutional: Cooperative. Not in acute distress . - Neurologic: Cranial nerve II to XII intact. No focal neurological deficits. - Psychatric: Alert & oriented x 3. Matching mood & appropriate affect. Judgment and insight intact. - Musculoskeletal: Cervical spine: Muscle bulk/ tone/ strength in the bilateral upper extremities normal Vertebral body tenderness to palpation over C7 Spurling test positive Distraction test positive over R C6-C7 Facet loading test positive TTP Thoracic spine Muscle bulk / tone/ strength in the bilateral paraspinal muscles normal Vertebral body tender to palpation over Facet loading test positive TTP Lumbosacral spine: Motor bulk/ tone/ strength lower extremities , thigh and legs : 5/5 Deep tendon reflexes : Normal Knee Jerk. Normal Ankle Jerk . Vertebral body tenderness to palpation over Lumbar Facet Loading Test positive Straight Leg Raise: positive at 30 degrees right side/ left side Gaenslen's Test positive BL Miguel Angel test: positive right side / left side Thigh Thrust Test positive R / L Sacral Thrust Test positive R/ L Imaging: MRI non contrast of the cervical spine from 04/21/23 reviewed Assessment and plan: Chronic neck pain secondary to radiculopathy, spondylosis with facet arthropathy without myelopathy, BL Sacroiliitis Recommendation of BL SI injection #1 and medication management. Risks, benefits of procedure discussed and pt verbalized understanding. Continue Fentanyl 25mcg/hr #10 w 1 RF. Fentanyl Narcotic agreement signed 10/14/23. Tyl #4 #180 w 1 RF. UDS from 12/24/23 reviewed and consistent. Use, side effects, adverse reactions and safe storage discussed. Opiate/ narcotic agreement updated 07/29/23. All questions answered. I have spent less than 30 minutes on patient care today. Dr Spence was available by phone for the evaluation of this patient. The time was used to review the medical records including relevant urine studies and Prescription history (MAPs), review of the available imaging, evaluation and examination of the patient, coordination of care with the medical staff and if applicable referring physicians, as well as creation of the medical record - Pain Location Right Arm Non-Pharmacological Interventions: Heat Pharmacological Interventions: Scheduled Medication PQRS Narrative: Smoking Status Never smoker Narcotic Agreement Date Signed 08/09/19 Hx Alcohol Use (MH) No Home Medications: Ambulatory Orders Atorvastatin [Lipitor] 40 mg PO HS 12/12/13 Cholecalciferol [Vitamin D3 (25 Mcg = 1000 Iu)] 1 tab PO DAILY 12/12/13 dilTIAZem HCL [Diltiazem 24Hr ER] 180 mg PO QAM 12/12/13 Linaclotide [Linzess] 145 mcg PO QAM 05/27/16 Levothyroxine Sodium [Synthroid] 150 mcg PO 0600 07/28/17 Furosemide [Lasix] 20 mg PO QAM 12/06/19 Memantine [Namenda] 5 mg PO BID 12/06/19 Potassium Chloride [Potassium Chloride ER] 10 meq PO BID 03/23/20 Aspirin EC [Ecotrin Low Dose] 81 mg PO 1700 07/16/20 Cyanocobalamin [Vitamin B-12] 500 mcg PO DAILY 07/16/20 Pantoprazole Sodium [Protonix] 40 mg PO DAILY 07/16/20 hydrALAZINE HCL [Apresoline] 50 mg PO BID 07/16/20 ALPRAZolam [Xanax] 0.5 mg PO TID #9 tab 07/18/20 DULoxetine HCL [Cymbalta] 30 mg PO BID 09/30/22 Ferrous Sulfate [Iron] 325 mg PO QAM 09/30/22 Gabapentin [Neurontin] 400 mg PO BID 09/30/22 Melatonin 10 mg PO HS 09/30/22 Pentoxifylline [TRENtal] 400 mg PO BID 11/24/22 Baclofen 5 mg PO BID PRN 01/01/23 Loperamide HCl [Imodium A-D] 2 tab PO DIRECTED PRN MDD 8mg 01/01/23 Magnesium Hydroxide [Milk of Magnesia Concentrate] 30 ml PO DIRECTED PRN 01/01/23 Sennosides/Docusate Sodium [Colace 2-in-1 Tablet] 8.6 - 50 mg PO HS 01/01/23 bisacodyL [Dulcolax] 1 unit RECTAL Q24HR PRN 01/01/23 Apixaban [Eliquis] 2.5 mg PO BID 02/26/23 Calcium Carbonate [Tums] 2 tab PO DAILY PRN 02/26/23 Caldesane External Powder 1 applic TOPICAL DAILY 02/26/23 Carboxymethylcellulose Sodium [Refresh Tears] 1 drop BOTH EYES TID 02/26/23 Colchicine 0.6 mg PO QAM 02/26/23 Cranberry Fruit [Cranberry] 425 mg PO BID 02/26/23 Glimepiride [Amaryl] 2 mg PO AC-BID 02/26/23 Mirabegron [Myrbetriq] 25 mg PO QAM 02/26/23 Na Phos,M-B/Na Phos,Di-Ba [Fleet Adult] 118 ml RECTAL Q24H PRN 02/26/23 Albuterol Inhaler [Ventolin Hfa Inhaler] 2 puff INHALATION BID 07/01/23 Ipratropium-Albuterol Nebulize [Duoneb 0.5 mg-3 mg/3 ml Soln] 3 ml INHALATION Q6H PRN 07/01/23 Ondansetron [Zofran] 1 tab PO Q6H PRN 07/01/23 guaiFENesin-DM 100-10MG/5ML [Robitussin DM] 10 ml PO Q6H PRN 07/01/23 Lidocaine 5% Patch [Lidoderm] 1 each TP DAILY 30 Days #30 patch 07/29/23 Acetaminophen with Codeine [Tylenol #4 Tablet] 1 tab PO Q4H PRN 30 Days #180 tab 04/14/24 fentaNYL 25MCG/HR PATCH [Duragesic 25MCG/HR] 25 mcg TRANSDERM Q72H 30 Days #10 patch 04/14/24 fentaNYL 25MCG/HR PATCH [Duragesic 25MCG/HR] 25 mcg TRANSDERM Q72H 30 Days #10 patch 04/14/24 Controlled Substance Measures - Controlled Substance Measures Is patient prescribed a controlled substance at discharge?: Yes When asked, does pt state using other controlled substances?: Yes If prescribed controlled substance>3 days was MAPS reviewed?: Yes
== END ==
LOC: PNWHC3 10:27
PROVIDERS: ATTEND Specialist
DX: M47.22 Other spondylosis with radiculopathy, cervical region (principal); M46.1 Sacroiliitis, not elsewhere classified; Z88.1 Allergy status to other antibiotic agents; Z91.018 Allergy to other foods; Z88.2 Allergy status to sulfonamides; Z88.8 Allergy status to other drugs, medicaments and biological substances
CPT/HCPCS: 99211

== ENCOUNTER → 2024-04-22 | Day surgery (SDC) | payer MEDICARE, OTHER ==
[~2024-04-22] MED LIST changes: +IOPAMIDOL M200 10 ML VIAL ONE; +ROPIVACAINE 5MG/ML 20ML VIAL ONE; +methylPREDNISolone ACETATE 40 MG/ML 1 ML VIAL ONE
[2024-04-22 09:18] VITALS: TEMP 97.7
[2024-04-22 09:31] LABS: Glucose,Whole Blood 175 mg/dL (70-110)
--- NOTE | 2024-04-22 10:05 | P.PCN ---
Date of Procedure: 04/22/24 Procedure(s) Performed: Procedure= bilateral sacroiliac joints steroid injection under fluoroscopy guidance (fluoroscopy image stored on file in the radiology Department ) Preoperative diagnosis= 1-bilateral sacroiliitis 2-lumbar degenerative disc disease 3-lumbar facet arthropathy Postoperative diagnosis=Same as preop Diagnosis . Complication = none Condition= stable Anesthesia= local anesthesia with ropivacaine 0.5% 4 ml only Indication for the procedure= patient complaining of low back pain , examination was positive for severe tenderness over the sacroiliac joints bilaterally and patient diagnosed with sacroiliitis, for this reason he/ she was good candidate for sacroiliac joint steroid injection. Description of the procedure= procedure risk and benefits discussed with the patient, including but not limited, risk of infection and bleeding, and ALLERGIC reaction to the medication and not complete pain relief and patient agreed with the preceding patient taken to the operating room, placed in prone position or standard monitors applied to the patient then after induction of anesthesia back prepped with chlorhexidine 3 times , Then under strict sterile technique, first I did the right sacroiliac joint the which was identified under fluoroscopy guidance been local infiltration of the skin and subcu interstitial with Ropivacaine 1% then 25-gauge Quincke Needle advanced slowly under fluoroscopy and placed in the right sacroiliac joint needle placement confirmed with AP and oblique and lateral view, then after that Isovue 200 one mL injected which confirmed the correct needle placement with the appropriate arthrogram of the sacroiliac joint, and after appropriate needle placement confirmed and after negative aspiration, or heme , then Ropivacaine 0.5% 2 mL, and 20 mg of Depo-Medrol mixed together and injected in the right sacroiliac joint after negative aspiration patient tolerated the procedure well without any complication. Then the left sacroiliac joint steroid injection done under strict sterile technique local infiltration of the skin and subcu interstitial at the location of the left sacroiliac joint then a 22-gauge Quincke Needle advanced slowly under fluoroscopy time placed in the left sacroiliac joint, needle placement confirmed with AP and oblique and lateral view then after appropriate needle placement confirmed, with the AP and oblique and lateral then after negative aspiration Isovue 200 1 mL injected showed arthropathy of the left sacroiliac joint, and after negative aspiration 0.5% Ropivacaine 2 mL and 20 mg of Depo- Medrol injected in the left sacroiliac joint after negative aspiration patient tolerated the procedure well that any complications and she will follow up in clinic 3 weeks
--- NOTE | 2024-04-22 10:53 | FL ---
EXAMINATION TYPE: FL guided pain mgmt statistic DATE OF EXAM: 04/22/2024 10:43 AM COMPARISON: Pre Operative Images if available both CT/MRI or plain film CLINICAL INDICATION: Female, 84 years old with history of PAIN; TECHNIQUE: FL guided pain mgmt statistic, multiple fluoroscopic images provided for procedure. Total fluoroscopy time: 17.6 seconds Total submitted images to PACS: 3 DAP: [id number] mGym2 Gycm2 uGym2 cGycm2 or equivalent. FINDINGS: Fluoroscopic images during injection for pain management demonstrate multilevel degeneration changes throughout the spine. No evidence for fracture. No acute process identified. IMPRESSION: 1. No evidence for intraoperative complication. 2. Please see the operative/procedural note for further details. [facility], , 04/22/2024 10:51 AM
[2024-04-22 11:20] VITALS: BP 123/71; PULSE 66; RESP 18
== END ==
LOC: ORPAIN 08:56
PROVIDERS: ATTEND Specialist
DX: M46.1 Sacroiliitis, not elsewhere classified (principal); M51.360 Other intervertebral disc degeneration, lumbar region with discogenic back pain only; M46.96 Unspecified inflammatory spondylopathy, lumbar region; Z88.1 Allergy status to other antibiotic agents; Z91.018 Allergy to other foods; Z88.2 Allergy status to sulfonamides
CPT/HCPCS: 27096; Q9966; J2795; J1010

== ENCOUNTER → 2024-05-11 | Outpatient (CLI) | payer MEDICARE, OTHER ==
[2024-05-11 10:20] VITALS: BP 131/70; PULSE 80; RESP 16
--- NOTE | 2024-05-11 15:04 | P.PAINPG ---
PQRS Measure Charge Sheet Comment: A 84 yr old wheelchair bound female w son at side with a history of severe and chronic neck pain and LBP secondary to radiculopathy, spondylosis and facet arthropathy without myelopathy, BL Sacroiliitis presents today for evaluation s/p BL SI injection #1. Pt states she experienced 50 % pain relief x 3 wks s/p procedure. Pain level is provoked at 8 /10 in intensity, constant, predominantly axial, localized in the lumbosacral spine, sharp in character w occasional shooting pain to the buttocks. Pain is provoked by sitting for periods > 15 min. Pain is alleviated with PT x 4 wks which ended in October 2023 (cervical, lumbar), heat, ice, medications, topical, reclining and rest. Interventional pain procedures completed include R shoulder intra-articular 2, R Subscapular NB x1, AMALIA C6-C7 #2, R TFESI C6-C7 x1, BL SI x1 Patient is currently on Tyl, [place], Baclofen, Neurontin, Cymbalta, Biofreeze Patient denies any side effects of the medication(s), denies excessive drowsiness or sleepiness, denies suicidal ideation and reports that the current pain medication is helping to control the pain and improve activities of daily living. Patient denies any motor or sensory deficits. Patient denies any fever or night sweats, denies any change in the bowel movements or urination. Physical Examination: -Constitutional: Cooperative. Not in acute distress . - Neurologic: Cranial nerve II to XII intact. No focal neurological deficits. - Psychatric: Alert & oriented x 3. Matching mood & appropriate affect. Judgment and insight intact. - Musculoskeletal: Cervical spine: Muscle bulk/ tone/ strength in the bilateral upper extremities normal Vertebral body tenderness to palpation over C7 Spurling test positive Distraction test positive over R C6-C7 Facet loading test positive TTP Thoracic spine Muscle bulk / tone/ strength in the bilateral paraspinal muscles normal Vertebral body tender to palpation over Facet loading test positive TTP Lumbosacral spine: Motor bulk/ tone/ strength lower extremities , thigh and legs : 5/5 Deep tendon reflexes : Normal Knee Jerk. Normal Ankle Jerk . Vertebral body tenderness to palpation over Lumbar Facet Loading Test positive Straight Leg Raise: positive at 30 degrees right side/ left side Gaenslen's Test positive BL Miguel Angel test: positive right side / left side Thigh Thrust Test positive R / L Sacral Thrust Test positive R/ L Imaging: MRI non contrast of the cervical spine from 04/21/23 reviewed Assessment and plan: Chronic neck pain secondary to radiculopathy, spondylosis with facet arthropathy without myelopathy, BL Sacroiliitis Recommendation of medication management. Continue Fentanyl 25mcg/hr #10 w 1 RF. Fentanyl Narcotic agreement signed 10/14/23. Tyl #4 #150 w 1 RF. UDS from 12/24/23 reviewed and consistent. Use, side effects, adverse reactions and safe storage discussed. Opiate/ narcotic agreement updated 07/29/23. All questions answered. I have spent less than 30 minutes on patient care today. Dr Spence was available by phone for the evaluation of this patient. The time was used to review the medical records including relevant urine studies and Prescription history (MAPs), review of the available imaging, evaluation and examination of the patient, coordination of care with the medical staff and if applicable referring physicians, as well as creation of the medical record - Pain Location Lower Back Non-Pharmacological Interventions: Heat, Physical Therapy Pharmacological Interventions: Epidural, Topical Medication PQRS Narrative: Smoking Status Never smoker Narcotic Agreement Date Signed 08/09/19 Hx Alcohol Use (MH) No Home Medications: Ambulatory Orders Atorvastatin [Lipitor] 40 mg PO HS 12/12/13 Cholecalciferol [Vitamin D3 (25 Mcg = 1000 Iu)] 1 tab PO DAILY 12/12/13 dilTIAZem HCL [Diltiazem 24Hr ER] 180 mg PO QAM 12/12/13 Linaclotide [Linzess] 145 mcg PO Q2D 05/27/16 Levothyroxine Sodium [Synthroid] 150 mcg PO 0600 07/28/17 Furosemide [Lasix] 20 mg PO QAM 12/06/19 Memantine [Namenda] 5 mg PO BID 12/06/19 Potassium Chloride [Potassium Chloride ER] 10 meq PO BID 03/23/20 Aspirin EC [Ecotrin Low Dose] 81 mg PO 1700 07/16/20 Cyanocobalamin [Vitamin B-12] 500 mcg PO DAILY 07/16/20 hydrALAZINE HCL [Apresoline] 50 mg PO BID 07/16/20 ALPRAZolam [Xanax] 0.5 mg PO TID #9 tab 07/18/20 DULoxetine HCL [Cymbalta] 30 mg PO BID 09/30/22 Ferrous Sulfate [Iron] 325 mg PO QAM 09/30/22 Gabapentin [Neurontin] 400 mg PO BID 09/30/22 Melatonin 10 mg PO HS 09/30/22 Pentoxifylline [TRENtal] 400 mg PO BID 11/24/22 Baclofen 5 mg PO BID PRN 01/01/23 Loperamide HCl [Imodium A-D] 2 tab PO DIRECTED PRN MDD 8mg 01/01/23 Magnesium Hydroxide [Milk of Magnesia Concentrate] 30 ml PO DIRECTED PRN 01/01/23 Sennosides/Docusate Sodium [Colace 2-in-1 Tablet] 8.6 - 50 mg PO HS 01/01/23 bisacodyL [Dulcolax] 1 unit RECTAL Q24HR PRN 01/01/23 Apixaban [Eliquis] 2.5 mg PO BID 02/26/23 Calcium Carbonate [Tums] 2 tab PO DAILY PRN 02/26/23 Caldesane External Powder 1 applic TOPICAL DAILY 02/26/23 Carboxymethylcellulose Sodium [Refresh Tears] 1 drop BOTH EYES TID 02/26/23 Colchicine 0.6 mg PO QAM 02/26/23 Cranberry Fruit [Cranberry] 425 mg PO BID 02/26/23 Glimepiride [Amaryl] 2 mg PO AC-BID 02/26/23 Mirabegron [Myrbetriq] 25 mg PO QAM 02/26/23 Na Phos,M-B/Na Phos,Di-Ba [Fleet Adult] 118 ml RECTAL Q24H PRN 02/26/23 Albuterol Inhaler [Ventolin Hfa Inhaler] 2 puff INHALATION BID 07/01/23 Ipratropium-Albuterol Nebulize [Duoneb 0.5 mg-3 mg/3 ml Soln] 3 ml INHALATION Q6H PRN 07/01/23 Ondansetron [Zofran] 1 tab PO Q6H PRN 07/01/23 guaiFENesin-DM 100-10MG/5ML [Robitussin DM] 10 ml PO Q6H PRN 07/01/23 Acetaminophen with Codeine [Tylenol #4 Tablet] 1 tab PO Q4H PRN 30 Days #180 tab 04/14/24 Acetaminophen [Tylenol Extra Strength] 500 mg PO Q12H 04/20/24 Methyl Salicylate/Menth/Camph [Salonpas 3.1%-6.0%-10.0% Patch] 1 patch TOPICAL BID 04/20/24 Saliva Stimulant Comb. No.3 [Biotene Moisturizing Mouth] 1 spray MUCOUS MEM BID 04/20/24 Acetaminophen with Codeine [Tylenol #4 Tablet] 1 tab PO Q4-6H PRN 30 Days #150 tab 05/11/24 fentaNYL 25MCG/HR PATCH [Duragesic 25MCG/HR] 25 mcg TRANSDERM Q72H 30 Days #10 patch 05/11/24 fentaNYL 25MCG/HR PATCH [Duragesic 25MCG/HR] 25 mcg TRANSDERM Q72H 30 Days #10 patch 05/11/24 fentaNYL 25MCG/HR PATCH [Duragesic 25MCG/HR] 25 mcg TRANSDERM Q72H 30 Days #10 patch 05/11/24 Controlled Substance Measures - Controlled Substance Measures Is patient prescribed a controlled substance at discharge?: Yes When asked, does pt state using other controlled substances?: Yes If prescribed controlled substance>3 days was MAPS reviewed?: Yes
== END ==
LOC: PNWHC3 09:54
PROVIDERS: ATTEND Specialist
DX: M47.22 Other spondylosis with radiculopathy, cervical region (principal); M46.1 Sacroiliitis, not elsewhere classified; Z79.01 Long term (current) use of anticoagulants; Z88.2 Allergy status to sulfonamides; Z91.018 Allergy to other foods; Z88.1 Allergy status to other antibiotic agents; Z88.8 Allergy status to other drugs, medicaments and biological substances
CPT/HCPCS: 99211

== ENCOUNTER → 2024-08-17 | Outpatient (CLI) | payer MEDICARE, OTHER ==
[2024-08-17 10:27] VITALS: BP 113/66; PULSE 74; RESP 16; TEMP 98.6
--- NOTE | 2024-08-17 15:48 | P.PAINPG ---
PQRS Measure Charge Sheet Comment: A 84 yr old wheelchair bound female w son at side with a history of severe and chronic neck pain and LBP secondary to radiculopathy, spondylosis and facet arthropathy without myelopathy, BL Sacroiliitis presents today for evaluation. Pain level is provoked at 8 /10 in intensity, constant, predominantly axial, localized in the lumbosacral spine, sharp in character w occasional shooting pain to the buttocks. Pain is provoked by sitting for periods > 15 min. Pain is alleviated with PT x 4 wks which ended in October 2023 (cervical, lumbar), heat, ice, medications, topical, reclining and rest. Interventional pain procedures completed include R shoulder intra-articular 2, R Subscapular NB x1, AMALIA C6-C7 #2, R TFESI C6-C7 x1, BL SI x1 Patient is currently on Tyl, [place], Baclofen, Neurontin, Cymbalta, Biofreeze Patient denies any side effects of the medication(s), denies excessive drowsiness or sleepiness, denies suicidal ideation and reports that the current pain medication is helping to control the pain and improve activities of daily living. Patient denies any motor or sensory deficits. Patient denies any fever or night sweats, denies any change in the bowel movements or urination. Physical Examination: -Constitutional: Cooperative. Not in acute distress . - Neurologic: Cranial nerve II to XII intact. No focal neurological deficits. - Psychatric: Alert & oriented x 3. Matching mood & appropriate affect. Judgment and insight intact. - Musculoskeletal: Cervical spine: Muscle bulk/ tone/ strength in the bilateral upper extremities normal Vertebral body tenderness to palpation over C7 Spurling test positive Distraction test positive over R C6-C7 Facet loading test positive TTP Thoracic spine Muscle bulk / tone/ strength in the bilateral paraspinal muscles normal Vertebral body tender to palpation over Facet loading test positive TTP Lumbosacral spine: Motor bulk/ tone/ strength lower extremities , thigh and legs : 5/5 Deep tendon reflexes : Normal Knee Jerk. Normal Ankle Jerk . Vertebral body tenderness to palpation over Lumbar Facet Loading Test positive Straight Leg Raise: positive at 30 degrees right side/ left side Gaenslen's Test positive BL Miguel Angel test: positive right side / left side Thigh Thrust Test positive R / L Sacral Thrust Test positive R/ L Imaging: MRI non contrast of the cervical spine from 04/21/23 reviewed Assessment and plan: Chronic neck pain secondary to radiculopathy, spondylosis with facet arthropathy without myelopathy, BL Sacroiliitis Recommendation of medication management. Continue Fentanyl 25mcg/hr #10 w 1 RF. Fentanyl Narcotic agreement signed 10/14/23. Tyl #4 #150 w 1 RF. UDS from 12/24/23 reviewed and consistent. Use, side effects, adverse reactions and safe storage discussed. Opiate/ narcotic agreement updated 07/29/23. All questions answered. I have spent less than 30 minutes on patient care today. Dr Spence was available by phone for the evaluation of this patient. The time was used to review the medical records including relevant urine studies and Prescription h istory (MAPs), review of the available imaging, evaluation and examination of the patient, coordination of care with the medical staff and if applicable referring physicians, as well as creation of the medical record - Pain Location Generalized Non-Pharmacological Interventions: Ice PQRS Narrative: Smoking Status Never smoker Narcotic Agreement Date Signed 08/09/19 Hx Alcohol Use (MH) No Home Medications: Ambulatory Orders Atorvastatin [Lipitor] 40 mg PO HS 12/12/13 Cholecalciferol [Vitamin D3 (25 Mcg = 1000 Iu)] 1 tab PO DAILY 12/12/13 dilTIAZem HCL [Diltiazem 24Hr ER] 180 mg PO QAM 12/12/13 Linaclotide [Linzess] 145 mcg PO Q2D 05/27/16 Levothyroxine Sodium [Synthroid] 150 mcg PO 0600 07/28/17 Furosemide [Lasix] 20 mg PO QAM 12/06/19 Memantine [Namenda] 5 mg PO BID 12/06/19 Potassium Chloride [Potassium Chloride ER] 10 meq PO BID 03/23/20 Aspirin EC [Ecotrin Low Dose] 81 mg PO 1700 07/16/20 Cyanocobalamin [Vitamin B-12] 500 mcg PO DAILY 07/16/20 hydrALAZINE HCL [Apresoline] 50 mg PO BID 07/16/20 ALPRAZolam [Xanax] 0.5 mg PO TID #9 tab 07/18/20 DULoxetine HCL [Cymbalta] 30 mg PO BID 09/30/22 Ferrous Sulfate [Iron] 325 mg PO QAM 09/30/22 Gabapentin [Neurontin] 400 mg PO BID 09/30/22 Melatonin 10 mg PO HS 09/30/22 Pentoxifylline [TRENtal] 400 mg PO BID 11/24/22 Baclofen 5 mg PO BID PRN 01/01/23 Loperamide HCl [Imodium A-D] 2 tab PO DIRECTED PRN MDD 8mg 01/01/23 Magnesium Hydroxide [Milk of Magnesia Concentrate] 30 ml PO DIRECTED PRN 01/01/23 Sennosides/Docusate Sodium [Colace 2-in-1 Tablet] 8.6 - 50 mg PO HS 01/01/23 bisacodyL [Dulcolax] 1 unit RECTAL Q24HR PRN 01/01/23 Apixaban [Eliquis] 2.5 mg PO BID 02/26/23 Calcium Carbonate [Tums] 2 tab PO DAILY PRN 02/26/23 Caldesane External Powder 1 applic TOPICAL DAILY 02/26/23 Carboxymethylcellulose Sodium [Refresh Tears] 1 drop BOTH EYES TID 02/26/23 Colchicine 0.6 mg PO QAM 02/26/23 Cranberry Fruit [Cranberry] 425 mg PO BID 02/26/23 Glimepiride [Amaryl] 2 mg PO AC-BID 02/26/23 Mirabegron [Myrbetriq] 25 mg PO QAM 02/26/23 Na Phos,M-B/Na Phos,Di-Ba [Fleet Adult] 118 ml RECTAL Q24H PRN 02/26/23 Albuterol Inhaler [Ventolin Hfa Inhaler] 2 puff INHALATION BID 07/01/23 Ipratropium-Albuterol Nebulize [Duoneb 0.5 mg-3 mg/3 ml Soln] 3 ml INHALATION Q6H PRN 07/01/23 Ondansetron [Zofran] 1 tab PO Q6H PRN 07/01/23 guaiFENesin-DM 100-10MG/5ML [Robitussin DM] 10 ml PO Q6H PRN 07/01/23 Acetaminophen [Tylenol Extra Strength] 500 mg PO Q12H 04/20/24 Methyl Salicylate/Menth/Camph [Salonpas 3.1%-6.0%-10.0% Patch] 1 patch TOPICAL BID 04/20/24 Saliva Stimulant Comb. No.3 [Biotene Moisturizing Mouth] 1 spray MUCOUS MEM BID 04/20/24 Acetaminophen with Codeine [Tylenol #4 Tablet] 1 tab PO Q4H PRN 30 Days #150 tab 08/17/24 fentaNYL 25MCG/HR PATCH [Duragesic 25MCG/HR] 25 mcg TRANSDERM Q72H 30 Days #10 patch 08/17/24 fentaNYL 25MCG/HR PATCH [Duragesic 25MCG/HR] 25 mcg TRANSDERM Q72H 30 Days #10 patch 08/17/24 fentaNYL 25MCG/HR PATCH [Duragesic 25MCG/HR] 25 mcg TRANSDERM Q72H 30 Days #10 patch 08/17/24 Controlled Substance Measures - Controlled Substance Measures Is patient prescribed a controlled substance at discharge?: Yes When asked, does pt state using other controlled substances?: Yes If prescribed controlled substance>3 days was MAPS reviewed?: Yes If Rx opioid, was Start Talking consent form obtained?: Yes Was information provided regarding opioid addiction?: Yes
== END ==
LOC: PNWHC3 09:55
PROVIDERS: ATTEND Specialist
DX: M47.22 Other spondylosis with radiculopathy, cervical region (principal); M46.1 Sacroiliitis, not elsewhere classified; G89.29 Other chronic pain; Z88.1 Allergy status to other antibiotic agents; Z91.018 Allergy to other foods; Z88.2 Allergy status to sulfonamides
CPT/HCPCS: 99212

== ENCOUNTER → 2024-10-12 | Outpatient (CLI) | payer MEDICARE, OTHER ==
[2024-10-12 13:50] VITALS: BP 134/61; PULSE 67; RESP 19; TEMP 96.8
--- NOTE | 2024-10-12 15:55 | P.PAINPG ---
PQRS Measure Charge Sheet Comment: A 84 yr old wheelchair bound female w son at side with a history of severe and chronic neck pain and LBP secondary to radiculopathy, spondylosis and facet arthropathy without myelopathy, BL Sacroiliitis presents today for evaluation. Pain level is provoked at 8 /10 in intensity, constant, predominantly axial, localized in the lumbosacral spine, sharp in character w occasional shooting pain to the buttocks. Pain is provoked by sitting for periods > 15 min. Pain is alleviated with PT x 4 wks which ended in October 2023 (cervical, lumbar), heat, ice, medications, topical, reclining and rest. Interventional pain procedures completed include R shoulder intra-articular 2, R Subscapular NB x1, AMALIA C6-C7 #2, R TFESI C6-C7 x1, BL SI x1 Patient is currently on Tyl, [place], Baclofen, Neurontin, Cymbalta, Biofreeze Patient denies any side effects of the medication(s), denies excessive drowsiness or sleepiness, denies suicidal ideation and reports that the current pain medication is helping to control the pain and improve activities of daily living. Patient denies any motor or sensory deficits. Patient denies any fever or night sweats, denies any change in the bowel movements or urination. Physical Examination: -Constitutional: Cooperative. Not in acute distress . - Neurologic: Cranial nerve II to XII intact. No focal neurological deficits. - Psychatric: Alert & oriented x 3. Matching mood & appropriate affect. Judgment and insight intact. - Musculoskeletal: Cervical spine: Muscle bulk/ tone/ strength in the bilateral upper extremities normal Vertebral body tenderness to palpation over C7 Spurling test positive Distraction test positive over R C6-C7 Facet loading test positive TTP Thoracic spine Muscle bulk / tone/ strength in the bilateral paraspinal muscles normal Vertebral body tender to palpation over Facet loading test positive TTP Lumbosacral spine: Motor bulk/ tone/ strength lower extremities , thigh and legs : 5/5 Deep tendon reflexes : Normal Knee Jerk. Normal Ankle Jerk . Vertebral body tenderness to palpation over Lumbar Facet Loading Test positive Straight Leg Raise: positive at 30 degrees right side/ left side Gaenslen's Test positive BL Miguel Angel test: positive right side / left side Thigh Thrust Test positive R / L Sacral Thrust Test positive R/ L Imaging: MRI non contrast of the cervical spine from 04/21/23 reviewed Assessment and plan: Chronic neck pain secondary to radiculopathy, spondylosis with facet arthropathy without myelopathy, BL Sacroiliitis Recommendation of medication management. Continue Fentanyl 25mcg/hr #10, Tyl #4 #150 w 2 RF. Fentanyl Narcotic agreement signed 10/12/24. UDS collected 10/12/24. Use, side effects, adverse reactions and safe storage discussed. Opiate/ narcotic agreement updated 07/29/23. All questions answered. I have spent less than 30 minutes on patient care today. Dr Spence was available by phone for the evaluation of this patient. The time was used to review the medical records including relevant urine studies and Prescription history (MAPs), review of the available imaging, evaluation and examination of the patient, coordination of care with the medical staff and if applicable referring physicians, as well as creation of the medical record PQRS Narrative: Smoking Status Never smoker Narcotic Agreement Date Signed 08/09/19 Hx Alcohol Use (MH) No Home Medications: Ambulatory Orders Atorvastatin [Lipitor] 40 mg PO HS 12/12/13 Cholecalciferol [Vitamin D3 (25 Mcg = 1000 Iu)] 1 tab PO DAILY 12/12/13 dilTIAZem HCL [Diltiazem 24Hr ER] 180 mg PO QAM 12/12/13 Linaclotide [Linzess] 145 mcg PO Q2D 05/27/16 Levothyroxine Sodium [Synthroid] 150 mcg PO 0600 07/28/17 Furosemide [Lasix] 20 mg PO QAM 12/06/19 Memantine [Namenda] 5 mg PO BID 12/06/19 Potassium Chloride [Potassium Chloride ER] 10 meq PO BID 03/23/20 Aspirin EC [Ecotrin Low Dose] 81 mg PO 1700 07/16/20 Cyanocobalamin [Vitamin B-12] 500 mcg PO DAILY 07/16/20 hydrALAZINE HCL [Apresoline] 50 mg PO BID 07/16/20 ALPRAZolam [Xanax] 0.5 mg PO TID #9 tab 07/18/20 DULoxetine HCL [Cymbalta] 30 mg PO BID 09/30/22 Ferrous Sulfate [Iron] 325 mg PO QAM 09/30/22 Gabapentin [Neurontin] 400 mg PO BID 09/30/22 Melatonin 10 mg PO HS 09/30/22 Pentoxifylline [TRENtal] 400 mg PO BID 11/24/22 Baclofen 5 mg PO BID PRN 01/01/23 Loperamide HCl [Imodium A-D] 2 tab PO DIRECTED PRN MDD 8mg 01/01/23 Magnesium Hydroxide [Milk of Magnesia Concentrate] 30 ml PO DIRECTED PRN 01/01/23 Sennosides/Docusate Sodium [Colace 2-in-1 Tablet] 8.6 - 50 mg PO HS 01/01/23 bisacodyL [Dulcolax] 1 unit RECTAL Q24HR PRN 01/01/23 Apixaban [Eliquis] 2.5 mg PO BID 02/26/23 Calcium Carbonate [Tums] 2 tab PO DAILY PRN 02/26/23 Caldesane External Powder 1 applic TOPICAL DAILY 02/26/23 Carboxymethylcellulose Sodium [Refresh Tears] 1 drop BOTH EYES TID 02/26/23 Colchicine 0.6 mg PO QAM 02/26/23 Cranberry Fruit [Cranberry] 425 mg PO BID 02/26/23 Glimepiride [Amaryl] 2 mg PO AC-BID 02/26/23 Mirabegron [Myrbetriq] 25 mg PO QAM 02/26/23 Na Phos,M-B/Na Phos,Di-Ba [Fleet Adult] 118 ml RECTAL Q24H PRN 02/26/23 Albuterol Inhaler [Ventolin Hfa Inhaler] 2 puff INHALATION BID 07/01/23 Ipratropium-Albuterol Nebulize [Duoneb 0.5 mg-3 mg/3 ml Soln] 3 ml INHALATION Q6H PRN 07/01/23 Ondansetron [Zofran] 1 tab PO Q6H PRN 07/01/23 guaiFENesin-DM 100-10MG/5ML [Robitussin DM] 10 ml PO Q6H PRN 07/01/23 Acetaminophen [Tylenol Extra Strength] 500 mg PO Q12H 04/20/24 Methyl Salicylate/Menth/Camph [Salonpas 3.1%-6.0%-10.0% Patch] 1 patch TOPICAL BID 04/20/24 Saliva Stimulant Comb. No.3 [Biotene Moisturizing Mouth] 1 spray MUCOUS MEM BID 04/20/24 Acetaminophen with Codeine [Tylenol #4 Tablet] 1 tab PO Q4H PRN 30 Days #150 tab 10/12/24 fentaNYL 25MCG/HR PATCH [Duragesic 25MCG/HR] 25 mcg TRANSDERM Q72H 30 Days #10 patch 10/12/24 fentaNYL 25MCG/HR PATCH [Duragesic 25MCG/HR] 25 mcg TRANSDERM Q72H 30 Days #10 patch 10/12/24 fentaNYL 25MCG/HR PATCH [Duragesic 25MCG/HR] 25 mcg TRANSDERM Q72H 30 Days #10 patch 10/12/24 Controlled Substance Measures - Controlled Substance Measures Is patient prescribed a controlled substance at discharge?: Yes When asked, does pt state using other controlled substances?: Yes If prescribed controlled substance>3 days was MAPS reviewed?: Yes If Rx opioid, was Start Talking consent form obtained?: Yes Was information provided regarding opioid addiction?: Yes
[2024-10-13 08:33] LABS: Serum Amphetamine Negative; Serum Barbiturates Negative; Serum Benzodiazepine Negative; Serum Cocaine Negative; Serum Methadone Negative; Serum Opiates Positive; Serum Phencyclidine Negative; Serum Propoxyphene Negative; Serum THC (Cannabis) Negative
== END ==
LOC: PNWHC3 10:10
PROVIDERS: ATTEND Anesthesiology
DX: M47.26 Other spondylosis with radiculopathy, lumbar region (principal); Z88.1 Allergy status to other antibiotic agents; Z88.8 Allergy status to other drugs, medicaments and biological substances; Z91.018 Allergy to other foods; Z88.2 Allergy status to sulfonamides
CPT/HCPCS: 80307

== ENCOUNTER → 2025-01-05 | Outpatient (CLI) | payer MEDICARE, OTHER ==
[2025-01-05 09:50] VITALS: BP 126/70; PULSE 69; RESP 16; TEMP 98.4
--- NOTE | 2025-01-05 10:05 | P.PAINPG ---
Objective - Vital Signs Vital signs: Intake & Output 01/04/25 01/05/25 01/05/25 18:59 06:59 18:59 Weight 106.594 kg PQRS Measure Charge Sheet Comment: A 84 yr old wheelchair bound female with a history of severe and chronic neck pain and LBP secondary to radiculopathy, spondylosis and facet arthropathy without myelopathy, BL Sacroiliitis presents today for medication refills. Pain level is provoked at 8 /10 in intensity, constant, predominantly axial, locali zed in the lumbosacral spine, sharp in character w occasional shooting pain to the buttocks. Pain is provoked by sitting for periods > 15 min. Pain is alleviated with PT x 4 wks which ended in October 2023 (cervical, lumbar), heat, ice, medications, topical, reclining and rest. Interventional pain procedures completed include R shoulder intra-articular 2, R Subscapular NB x1, AMALIA C6-C7 #2, R TFESI C6-C7 x1, BL SI x1 Patient is currently on Tyl, [place], Baclofen, Neurontin, Cymbalta, Biofreeze Patient denies any side effects of the medication(s), denies excessive drowsiness or sleepiness, denies suicidal ideation and reports that the current pain medication is helping to control the pain and improve activities of daily living. Patient denies any motor or sensory deficits. Patient denies any fever or night sweats, denies any change in the bowel movements or urination. Physical Examination: -Constitutional: Cooperative. Not in acute distress . - Neurologic: Cranial nerve II to XII intact. No focal neurological deficits. - Psychatric: Alert & oriented x 3. Matching mood & appropriate affect. Judgment and insight intact. - Musculoskeletal: Cervical spine: Muscle bulk/ tone/ strength in the bilateral upper extremities normal Vertebral body tenderness to palpation over C7 Spurling test positive Distraction test positive over R C6-C7 Facet loading test positive TTP Thoracic spine Muscle bulk / tone/ strength in the bilateral paraspinal muscles normal Vertebral body tender to palpation over Facet loading test positive TTP Lumbosacral spine: Motor bulk/ tone/ strength lower extremities , thigh and legs : 5/5 Deep tendon reflexes : Normal Knee Jerk. Normal Ankle Jerk . Vertebral body tenderness to palpation over Lumbar Facet Loading Test positive Straight Leg Raise: positive at 30 degrees right side/ left side Gaenslen's Test positive BL Miguel Angel test: positive right side / left side Thigh Thrust Test positive R / L Sacral Thrust Test positive R/ L Imaging: MRI non contrast of the cervical spine from 04/21/23 reviewed Assessment and plan: Chronic neck pain secondary to radiculopathy, spondylosis with facet arthropathy without myelopathy, BL Sacroiliitis Recommendation of medication management. Fentanyl 25mcg/hr #10, Tyl #4 #150 w 2 RF. Fentanyl Narcotic agreement signed 10/12/24. UDS 10/12/24 reviewed and cons istent. Use, side effects, adverse reactions and safe storage discussed. Opiate/ narcotic agreement updated 07/29/23. All questions answered. I have spent less than 30 minutes on patient care today. Dr Spence was available by phone for the evaluation of this patient. The time was used to review the medical records including relevant urine studies and Prescription history (MAPs), review of the available imaging, evaluation and examination of the patient, coordination of care with the medical staff and if applicable referring physicians, as well as creation of the medical record - Pain Location Right Shoulder Non-Pharmacological Interventions: Exercise, Home Exercise, Ice, Inactivity, Physical Therapy, Position/Reposition, Sitting, Stretching Pharmacological Interventions: Epidural, PRN Medication, Scheduled Medication, Topical Medication PQRS Narrative: Smoking Status Never smoker Narcotic Agreement Date Signed 08/09/19 Hx Alcohol Use (MH) No Home Medications: Ambulatory Orders Atorvastatin [Lipitor] 40 mg PO HS 12/12/13 Cholecalciferol [Vitamin D3 (25 Mcg = 1000 Iu)] 1 tab PO DAILY 12/12/13 dilTIAZem HCL [Diltiazem 24Hr ER] 180 mg PO QAM 12/12/13 Linaclotide [Linzess] 145 mcg PO Q2D 05/27/16 Levothyroxine Sodium [Synthroid] 150 mcg PO 0600 07/28/17 Furosemide [Lasix] 20 mg PO QAM 12/06/19 Memantine [Namenda] 5 mg PO BID 12/06/19 Potassium Chloride [Potassium Chloride ER] 10 meq PO BID 03/23/20 Aspirin EC [Ecotrin Low Dose] 81 mg PO 1700 07/16/20 Cyanocobalamin [Vitamin B-12] 500 mcg PO DAILY 07/16/20 hydrALAZINE HCL [Apresoline] 50 mg PO BID 07/16/20 ALPRAZolam [Xanax] 0.5 mg PO TID #9 tab 07/18/20 DULoxetine HCL [Cymbalta] 30 mg PO BID 09/30/22 Ferrous Sulfate [Iron] 325 mg PO QAM 09/30/22 Gabapentin [Neurontin] 400 mg PO BID 09/30/22 Melatonin 10 mg PO HS 09/30/22 Pentoxifylline [TRENtal] 400 mg PO BID 11/24/22 Baclofen 5 mg PO BID PRN 01/01/23 Loperamide HCl [Imodium A-D] 2 tab PO DIRECTED PRN MDD 8mg 01/01/23 Magnesium Hydroxide [Milk of Magnesia Concentrate] 30 ml PO DIRECTED PRN 01/01/23 Sennosides/Docusate Sodium [Colace 2-in-1 Tablet] 8.6 - 50 mg PO HS 01/01/23 bisacodyL [Dulcolax] 1 unit RECTAL Q24HR PRN 01/01/23 Apixaban [Eliquis] 2.5 mg PO BID 02/26/23 Calcium Carbonate [Tums] 2 tab PO DAILY PRN 02/26/23 Caldesane External Powder 1 applic TOPICAL DAILY 02/26/23 Carboxymethylcellulose Sodium [Refresh Tears] 1 drop BOTH EYES TID 02/26/23 Colchicine 0.6 mg PO QAM 02/26/23 Cranberry Fruit [Cranberry] 425 mg PO BID 02/26/23 Glimepiride [Amaryl] 2 mg PO AC-BID 02/26/23 Mirabegron [Myrbetriq] 25 mg PO QAM 02/26/23 Na Phos,M-B/Na Phos,Di-Ba [Fleet Adult] 118 ml RECTAL Q24H PRN 02/26/23 Albuterol Inhaler [Ventolin Hfa Inhaler] 2 puff INHALATION BID 07/01/23 Ipratropium-Albuterol Nebulize [Duoneb 0.5 mg-3 mg/3 ml Soln] 3 ml INHALATION Q6H PRN 07/01/23 Ondansetron [Zofran] 1 tab PO Q6H PRN 07/01/23 guaiFENesin-DM 100-10MG/5ML [Robitussin DM] 10 ml PO Q6H PRN 07/01/23 Acetaminophen [Tylenol Extra Strength] 500 mg PO Q12H 04/20/24 Methyl Salicylate/Menth/Camph [Salonpas 3.1%-6.0%-10.0% Patch] 1 patch TOPICAL BID 04/20/24 Saliva Stimulant Comb. No.3 [Biotene Moisturizing Mouth] 1 spray MUCOUS MEM BID 04/20/24 Acetaminophen with Codeine [Tylenol #4 Tablet] 1 tab PO Q4H PRN 30 Days #150 tab 01/05/25 fentaNYL 25MCG/HR PATCH [Duragesic 25MCG/HR] 25 mcg TRANSDERM Q72H 30 Days #10 patch 01/05/25 fentaNYL 25MCG/HR PATCH [Duragesic 25MCG/HR] 25 mcg TRANSDERM Q72H 30 Days #10 patch 01/05/25 fentaNYL 25MCG/HR PATCH [Duragesic 25MCG/HR] 25 mcg TRANSDERM Q72H 30 Days #10 patch 01/05/25 Controlled Substance Measures - Controlled Substance Measures Is patient prescribed a controlled substance at discharge?: Yes When asked, does pt state using other controlled substances?: Yes If prescribed controlled substance>3 days was MAPS reviewed?: Yes
== END ==
LOC: PNWHC3 09:27
PROVIDERS: ATTEND Specialist
DX: M47.26 Other spondylosis with radiculopathy, lumbar region (principal); M46.1 Sacroiliitis, not elsewhere classified; Z88.1 Allergy status to other antibiotic agents; Z88.2 Allergy status to sulfonamides; Z91.018 Allergy to other foods
CPT/HCPCS: 99211